=== PATIENT | male | born 1945 | race Caucasian/White ===

== ENCOUNTER 2018-04-06 09:36 | Outpatient (CLI) | payer MEDICARE, SELFPAY ==
[2018-04-06 11:26] LABS: ALT 19 U/L (12-78); AST 10 U/L (15-37); Albumin 3.4 g/dL (3.4-5.0); Alkaline Phosphatase 100 U/L (46-116); Anion Gap 7.2 mmol/L (3-11); BUN 21 mg/dL (7-18); Bilirubin, Total 0.4 mg/dL (0.2-1.0); CO2 26.8 mmol/L (21.0-32.0); CREATININE 1.25 mg/dL (0.70-1.30); Calcium 9.1 mg/dL (8.5-10.1); Chloride 104 mmol/L (98-107); Cholesterol 174 mg/dL (50-200); Estimated GFR 56.78 (mL/min/1.73m2); Glucose 190 mg/dL (70-100); HDL Cholesterol 33 mg/dL (40-60); LDL CHOLESTEROL 114 mg/dL (<100); Potassium 4.8 mmol/L (3.5-5.1); Sodium 138 mmol/L (136-145); Total Protein 6.9 g/dL (6.4-8.2); Triglyceride 192 mg/dL (30-150)
== END 2018-04-06 09:37 ==
PROVIDERS: PCP Family Medicine; Visit Provider Family Medicine
DX: E11.9 Type 2 diabetes mellitus without complications (principal)
CPT/HCPCS: 36415; 80053; 80061; 83721; 83036

== ENCOUNTER → 2018-06-03 09:33 | Outpatient (BNVA) | payer MEDICARE, SELFPAY | PROVIDERS: PCP Family Medicine; Visit Provider Urology | DX: C67.9 Malignant neoplasm of bladder, unspecified (principal) | CPT/HCPCS: 52000; 99213 ==

== ENCOUNTER → 2018-09-02 09:36 | Outpatient (BNVA) | payer MEDICARE, SELFPAY | PROVIDERS: PCP Family Medicine; Visit Provider Urology | DX: C67.9 Malignant neoplasm of bladder, unspecified (principal) | CPT/HCPCS: 52000; 99212 ==

== ENCOUNTER → 2018-10-11 12:23 | Outpatient (BNVA) | payer MEDICARE, SELFPAY | PROVIDERS: PCP Family Medicine; Visit Provider Urology | DX: C67.9 Malignant neoplasm of bladder, unspecified (principal) | CPT/HCPCS: 52224; 99212 ==

== ENCOUNTER → 2019-01-10 08:33 | Outpatient (BNVA) | payer MEDICARE, SELFPAY | PROVIDERS: PCP Family Medicine; Visit Provider Urology | DX: Z08 Encounter for follow-up examination after completed treatment for malignant neoplasm (principal); Z85.51 Personal history of malignant neoplasm of bladder | CPT/HCPCS: 52000; 99213 ==

== ENCOUNTER → 2019-04-21 08:34 | Outpatient (BNVA) | payer MEDICARE, SELFPAY | PROVIDERS: PCP Family Medicine; Visit Provider Urology | DX: C67.9 Malignant neoplasm of bladder, unspecified (principal) | CPT/HCPCS: 52000; 99212 ==

== ENCOUNTER 2019-05-05 02:31 | Outpatient (CLI) | payer MEDICARE, SELFPAY ==
[2019-05-05 11:32] LABS: ALT 24 U/L (16-63); AST 15 U/L (15-37); Albumin 3.8 g/dL (3.4-5.0); Alkaline Phosphatase 98 U/L (46-116); Anion Gap 8.3 mmol/L (3-11); BUN 23 mg/dL (7-18); Bilirubin, Total 0.3 mg/dL (0.2-1.0); CO2 27.7 mmol/L (21.0-32.0); CREATININE 1.06 mg/dL (0.70-1.30); Calcium 9.7 mg/dL (8.5-10.1); Chloride 103 mmol/L (98-107); Glucose 167 mg/dL (70-100); Sodium 139 mmol/L (136-145); Total Protein 7.5 g/dL (6.4-8.2)
[2019-05-05 12:53] LABS: Hemoglobin A1C 7.4 % (4.5-6.2)
== END 2019-05-05 02:51 ==
LOC: LBO 02:31 → LOS 08:16
PROVIDERS: PCP Family Medicine; Visit Provider Family Medicine
DX: E11.9 Type 2 diabetes mellitus without complications (principal); Z12.11 Encounter for screening for malignant neoplasm of colon; Z86.010 Personal history of colon polyps; I10 Essential (primary) hypertension
CPT/HCPCS: 36415; 80053; 83036

== ENCOUNTER 2019-05-22 11:53 | Outpatient (CLI) | payer MEDICARE, SELFPAY ==
--- NOTE | 2019-05-22 09:31 | DI.RAD_ITS ---
EXAM: XR KNEE LT 3V AP,LAT,RHIANNON INDICATION: L knee pain. COMPARISON: KNEES BILAT AP STANDING from 07/21/2017 TECHNIQUE: 2D digital imaging was performed. FINDINGS: Three views were obtained. There is marked narrowing of the medial tibiofemoral cartilaginous joint space. There is medial subluxation of the femur on the tibia. There are subchondral sclerotic and c ystic changes of the adjacent bones. Mild osteophyte formation noted medial tibiofemoral joint and p atellofemoral joint. IMPRESSION: Severe DJD predominantly involving medial tibiofemoral joint.
== END 2019-05-22 12:13 ==
PROVIDERS: PCP Family Medicine; Referring Provider Family Medicine; Visit Provider Student in an Organized Health Care Education/Training Program
DX: M25.562 Pain in left knee (principal); M17.12 Unilateral primary osteoarthritis, left knee
CPT/HCPCS: 73562; 99214

== ENCOUNTER 2019-05-26 06:58 | Day surgery (SDC) | payer MEDICARE, SELFPAY ==
[2019-05-26 07:18] VITALS: BP 158/98; RESP 20; TEMP 36.2; O2SAT 96
[2019-05-26] MEDS: Lactated Ringers 1,000 ML 80 ML IV (07:58)
--- NOTE | 2019-05-26 08:02 | W.PM.DSUDISC ---
Discharge Plan Disposition Patient Disposition: HOME Condition: Good Discharge Details Reason For Visit: Colonoscopy Attending Provider: Eileen Gee Primary Care Provider: Stephanie Light Home Meds and New Rx's Prescriptions: Continued verapamil 120 mg tablet 120 mg PO DAILY RF: 0 CBD Oil See Rx Instructions PO DAILY RF: 0 aspirin [Aspir-81] 81 MG tablet,delayed release (DR/EC) 81 mg PO DAILY RF: 0 lisinopril 40 mg tablet 40 mg PO DAILY Qty: 90 RF: 4 pravastatin 80 mg tablet 80 mg PO DAILY Qty: 90 RF: 4 metformin 500 mg tablet 1,000 mg PO DAILY RF: 0 Discharge Instructions Additional Instructions: Findings: Three polyps were removed, including a larger sigmoid polyp. My office will contact you with biopsy results. Follow up: Plan for a colonoscopy in 3 years. Please call if you develop: fevers >101.5 Nausea or Vomiting Abdominal pain that is not transient DAY SURGERY UNIT POST COLONOSCOPY INSTRUCTIONS 1. Because there will be medication in your system for the next 24 hours, you may feel a little sleepy. Your coordination will be affected. Therefore: a. Do not drive or operate dangerous equipment for 24 hours. b. Do not drink alcohol beverages for 24 hours (not even beer). c. Plan to go home and rest for the day. 2. Generally there are no restrictions on your activity after a day or so has gone by, but you may feel a bit fatigued for a few days. 3 After you arrive home you may have a light meal and return to a normal diet as you can tolerate it without feeling sick to your stomach. 4. After surgery, you may feel pain or discomfort. This should be only transient, but if it persists please contact your doctor. 5. If there are any questions regarding the findings of your procedure, please feel free to contact your doctor. 6. If you are unable to contact your doctor with a problem, contact the hospital at [phone]. 7. Continue all your regular medications unless directed otherwise. I understand the above instructions and have no questions. Signature of Patient or Responsible Adult Escort Date/Time Name of Responsible Adult Escort Signature of Nurse Date/Time Activity:: Activity as Tolerated Diet:: As Tolerated Discharge Orders Discharge Orders: Discharge Order (Routine); Ordered 05/26/19 Ordered By: Eileen Gee DS: Diagnosis Discharge Diagnosis (1) Colon polyps: Status: Acute (2) Diverticulosis: Status: Acute
--- NOTE | 2019-05-26 08:37 | BOWEL_PTH ---
PATIENT: Alvarado Adams LOC: [facility] U#:[id number] AGE/SX: 73/M ROOM: RE05/26/[address]: Eileen Gee MD : 1945 BED: DIS: 05/26/2019 SPEC #: [id number] RECD: 05/26/19 12:14 STATUS: GISEL REQ #: [id number] PATRICIA: 05/26/19 08:[address]: Eileen Gee DEPT: Surgical Specimen RECD BY: Tiki Yung ENTERED: 05/26/19 12:16 SP TYPE: Bowel OTHR DR: Stephanie Light MD Tissues: 1 - BIOPSY BOWEL 2 - BIOPSY BOWEL 3 - BIOPSY BOWEL Procedures: GROSS AND MICRO LEVEL 4 Comments: [id number]
[2019-05-26 09:40] VITALS: BP 147/77; PULSE 93; RESP 18; TEMP 36.1; O2SAT 98
--- NOTE | 2019-05-26 11:25 | COLE_ITS ---
DATE OF PROCEDURE: May 26, 2019 PREOPERATIVE DIAGNOSIS: History of colon polyps. POSTOPERATIVE DIAGNOSIS: 1. Diverticulosis. 2. Colon polyps. PROCEDURE: Colonoscopy with cold forceps polypectomy and hot snare polypectomy. SURGEON: Eileen Gee M.D. ANESTHESIA: General. INDICATIONS: This is a 73-year-old man whose last colonoscopy in 2013 showed several polyps. He has no family history of colon cancer and is asymptomatic. PROCEDURE: He was placed in the left Morton position. Propofol was titrated to sedation. Digital rec princess examination revealed no abnormalities. The scope was advanced to the cecum with a small amount o f abdominal pressure required. The ileocecal valve and appendiceal orifice were clearly identified. His prep was in general adequate, although there were a few areas of thick stool that could have obs cured a small polyp. The scope was slowly withdrawn with a diminutive polyp identified in the ascend ing colon. This was removed with the cold forceps. There were no abnormalities seen in the transver se colon. A diminutive polyp was also noted in the descending colon and removed with cold forceps. The patient was noted to have a moderate amount of sigmoid diverticulosis. At 30 cm in the sigmoid c olon there was a large polyp on a thick stock. I removed 90% of the polyp using snare polypectomy an d then removed the residual polyp and part of the normal stock with a second use of the snare. A hem ostatic clip was placed on the polypectomy site as a precaution. The polyp was dragged out and appea red to be about 2 cm in size. This was sent to Pathology. The scope was reinserted and the remainde r of the colon inspected with no other abnormalities seen, including on retroflex view. He tolerated the procedure well and was stable to recovery. He will likely need a follow-up colonoscopy again in three years due to the number and size of the polyps. cc: Stephanie Light M.D.
== END 2019-05-26 10:05 | disposition home or self-care (01) ==
PROVIDERS: PCP Family Medicine; Visit Provider Surgery
PROC: 0DJD8ZZ Inspection of Lower Intestinal Tract, Via Natural or Artificial Opening Endoscopic (ICD-10-PCS; CPT 45378; principal; 2019-05-26 08:15)
DX: Z12.11 Encounter for screening for malignant neoplasm of colon (principal); D12.2 Benign neoplasm of ascending colon; D12.4 Benign neoplasm of descending colon; D12.5 Benign neoplasm of sigmoid colon; K57.30 Diverticulosis of large intestine without perforation or abscess without bleeding; Z86.010 Personal history of colon polyps; Z87.19 Personal history of other diseases of the digestive system; E11.9 Type 2 diabetes mellitus without complications; Z79.4 Long term (current) use of insulin; I10 Essential (primary) hypertension
CPT/HCPCS: 45385; 45380; 88305

== ENCOUNTER → 2019-09-19 08:49 | Outpatient (BNVA) | payer MEDICARE, SELFPAY | PROVIDERS: PCP Family Medicine; Referring Provider Family Medicine; Visit Provider Urology | DX: C67.9 Malignant neoplasm of bladder, unspecified (principal) | CPT/HCPCS: 52000; 99212 ==

== ENCOUNTER 2019-09-19 09:42 | Outpatient (REF) | payer MEDICARE, SELFPAY ==
--- NOTE | 2019-09-19 09:15 | PAPNONF_PTH ---
PATIENT: Alvarado Adams LOC: [facility] U#:[id number] AGE/SX: 74/M ROOM: RE09/19/[address]: Bret Salinas MD : 1945 BED: DIS: 09/19/2019 SPEC #: [id number] RECD: 09/19/19 12:35 STATUS: GISEL REQ #: [id number] PATRICIA: 09/19/19 09:[address]: Bret Salinas DEPT: [facility] Cytology RECD BY: Tiki Yung ENTERED: 09/19/19 12:36 SP TYPE: JERRELL LENTZ DR: Stephanie Light MD Tissues: 1 - BODY FLUID CYTO(SPUTUM/URINE)[facility] Procedures: BODY FLUID CYTO(URINE/SPUTUM) Comments: [id number] (TOTAL VOLUME = 60 ml's) (30 ml's URINE & 30 ml's CYTOLYT ADDED IN 2 CONTAINERS)
== END 2019-09-19 10:02 ==
LOC: LBN 09:42
PROVIDERS: PCP Family Medicine; Visit Provider Urology
DX: R82.998 Other abnormal findings in urine (principal); Z85.51 Personal history of malignant neoplasm of bladder
CPT/HCPCS: 88104

== ENCOUNTER 2020-02-12 02:24 | Outpatient (CLI) | payer MEDICARE, SELFPAY ==
[2020-02-12 12:45] LABS: Hemoglobin A1C 10.9 % (3.8-5.6)
[2020-02-12 12:53] LABS: ALT 22 U/L (16-63); AST 10 U/L (15-37); Albumin 3.8 g/dL (3.4-5.0); Alkaline Phosphatase 101 U/L (46-116); Anion Gap 9.5 mmol/L (3-11); BUN 23 mg/dL (7-18); Bilirubin, Total 0.4 mg/dL (0.2-1.0); CO2 25.5 mmol/L (21.0-32.0); CREATININE 0.99 mg/dL (0.70-1.30); Calcium 9.8 mg/dL (8.5-10.1); Calculated LDL 117 mg/dL (<100); Chloride 101 mmol/L (98-107); Cholesterol 196 mg/dL (<200); Glucose 233 mg/dL (74-106); HDL Cholesterol 40 mg/dL (40-60); Potassium 4.7 mmol/L (3.5-5.1); Sodium 136 mmol/L (136-145); Total Protein 7.1 g/dL (6.4-8.2); Triglyceride 195 mg/dL (<150)
== END 2020-02-12 02:44 ==
PROVIDERS: PCP Family Medicine; Visit Provider Family Medicine
DX: E11.9 Type 2 diabetes mellitus without complications (principal)
CPT/HCPCS: 36415; 80053; 80061; 82043; 82570; 83036

== ENCOUNTER → 2020-03-22 08:37 | Outpatient (BNVA) | payer MEDICARE, SELFPAY | PROVIDERS: PCP Family Medicine; Referring Provider Family Medicine; Visit Provider Urology | DX: C67.9 Malignant neoplasm of bladder, unspecified (principal) | CPT/HCPCS: 52000; 99213 ==

== ENCOUNTER 2020-03-22 09:40 | Outpatient (REF) | payer MEDICARE, SELFPAY ==
--- NOTE | 2020-03-22 09:20 | PAPNONF_PTH ---
PATIENT: Alvarado Adams LOC: [facility] U#:[id number] AGE/SX: 74/M ROOM: RE03/22/[address]: Bret Salinas MD : 1945 BED: DIS: 03/22/2020 SPEC #: [id number] RECD: 03/22/20 13:16 STATUS: GISEL REQ #: [id number] PATRICIA: 03/22/20 09:[address]: Bret Salinas DEPT: [facility] Cytology RECD BY: Ada Estrada ENTERED: 03/22/20 13:17 SP TYPE: JERRELL LENTZ DR: Stephanie Light MD Tissues: 1 - BODY FLUID CYTO(SPUTUM/URINE)[facility] Procedures: BODY FLUID CYTO(URINE/SPUTUM) Comments: [id number] (TOTAL VOLUME = 70 ML) (35 ML URINE & 35 ML CYTOLYT IN 2 CONTAINERS)
== END 2020-03-22 10:00 ==
LOC: LBN 09:40
PROVIDERS: PCP Family Medicine; Visit Provider Urology
DX: Z12.6 Encounter for screening for malignant neoplasm of bladder (principal); Z85.51 Personal history of malignant neoplasm of bladder
CPT/HCPCS: 88104

== ENCOUNTER 2020-09-11 12:52 | Outpatient (REF) | payer MEDICARE, SELFPAY ==
--- NOTE | 2020-09-11 10:35 | SKI_PTH ---
PATIENT: Alvarado Adams LOC: [facility] U#:[id number] AGE/SX: 75/M ROOM: RE09/11/[address]: Stephanie Light MD : 1945 BED: DIS: 09/11/2020 SPEC #: [id number] RECD: 09/11/20 13:00 STATUS: GISEL ALBARRAN #: [id number] PATRICIA: 09/11/20 10:[address]: Stephanie Light DEPT: Surgical Specimen RECD BY: Tiki Yung Tissues: 1 - SKIN BIOPSY(SHAVE/PUNCH) Procedures: SKIN LEVEL 4 Comments: [id number]
[2020-09-11 14:42] LABS: COMMENT (LAB VIEW ONLY) 33.51 mg/dL; Microalb ug/mg Crea 42.1 ug/mg Cr
== END 2020-09-11 12:53 | disposition home or self-care (01) ==
LOC: LBN 12:52
PROVIDERS: PCP Family Medicine; Visit Provider Family Medicine
DX: E11.9 Type 2 diabetes mellitus without complications (principal); L82.1 Other seborrheic keratosis
CPT/HCPCS: 82043; 82570; 88305

== ENCOUNTER → 2020-09-17 09:37 | Outpatient (BNVA) | payer MEDICARE, SELFPAY | PROVIDERS: PCP Family Medicine; Visit Provider Urology | DX: C67.9 Malignant neoplasm of bladder, unspecified (principal) | CPT/HCPCS: 52281; 81003; 99213 ==

== ENCOUNTER → 2020-10-17 09:08 | Outpatient (BNVA) | payer MEDICARE, SELFPAY | PROVIDERS: PCP Family Medicine; Referring Provider Family Medicine; Visit Provider Urology | DX: C67.9 Malignant neoplasm of bladder, unspecified (principal); D30.3 Benign neoplasm of bladder | CPT/HCPCS: 52234; 81003; 99212 ==

== ENCOUNTER 2020-10-17 11:19 | Outpatient (REF) | payer MEDICARE, SELFPAY ==
--- NOTE | 2020-10-17 09:45 | BLADDER_PTH ---
PATIENT: Alvarado Adams LOC: [facility] U#:[id number] AGE/SX: 75/M ROOM: RE10/17/[address]: Bret Salinas MD : 1945 BED: DIS: 10/17/2020 SPEC #: [id number] RECD: 10/17/20 16:47 STATUS: GISEL RERicky #: [id number] PATRICIA: 10/17/20 09:[address]: Bret Salinas DEPT: Surgical Specimen RECD BY: Tiki Yung ENTERED: 10/17/20 16:47 SP TYPE: Bladder OTHR DR: Stephanie Light MD Tissues: 1 - BLADDER BIOPSY Procedures: GROSS AND MICRO LEVEL 4 IMMUNOPEROXIDASE STAIN Comments: [id number]
== END 2020-10-17 11:20 | disposition home or self-care (01) ==
LOC: LBN 11:19
PROVIDERS: PCP Family Medicine; Visit Provider Urology
DX: N32.89 Other specified disorders of bladder (principal); Z85.51 Personal history of malignant neoplasm of bladder
CPT/HCPCS: 88305; 88361

== ENCOUNTER → 2020-10-25 08:44 | Outpatient (BNVA) | payer MEDICARE, SELFPAY | PROVIDERS: PCP Family Medicine; Referring Provider Family Medicine; Visit Provider Urology | DX: C67.9 Malignant neoplasm of bladder, unspecified (principal) | CPT/HCPCS: 99212; 99442 ==

== ENCOUNTER 2020-11-29 01:10 | Outpatient (CLI) | payer MEDICARE, SELFPAY ==
[2020-11-29 12:34] LABS: Hemoglobin A1C 6.5 % (<5.7)
[2020-11-29 12:38] LABS: Calculated LDL 87 mg/dL (<100); Cholesterol 167 mg/dL (<200); HDL Cholesterol 40 mg/dL (40-60); Triglyceride 203 mg/dL (<150)
== END 2020-11-29 01:11 | disposition home or self-care (01) ==
LOC: LOS 01:10
PROVIDERS: PCP Family Medicine; Visit Provider Family Medicine
DX: E11.9 Type 2 diabetes mellitus without complications (principal)
CPT/HCPCS: 36415; 80061; 83036

== ENCOUNTER → 2021-03-18 08:52 | Outpatient (BNVA) | payer MEDICARE, SELFPAY | PROVIDERS: PCP Family Medicine; Referring Provider Family Medicine; Visit Provider Urology | DX: C67.9 Malignant neoplasm of bladder, unspecified (principal) | CPT/HCPCS: 52000; 81003; 99213 ==

== ENCOUNTER 2021-06-02 01:06 | Outpatient (CLI) | payer MEDICARE, SELFPAY ==
[2021-06-02 12:31] LABS: BUN 25 mg/dL (7-18); CREATININE 1.1 mg/dL (0.70-1.30); Calcium 10.4 mg/dL (8.5-10.1); Chloride 103 mmol/L (98-107); Glucose 163 mg/dL (74-106); Potassium 4.6 mmol/L (3.5-5.1); Sodium 140 mmol/L (136-145)
[2021-06-02 12:55] LABS: Hemoglobin A1C 8.9 % (<5.7)
== END 2021-06-02 01:07 | disposition home or self-care (01) ==
LOC: LOS 01:06
PROVIDERS: PCP Family Medicine; Visit Provider Family Medicine
DX: E11.9 Type 2 diabetes mellitus without complications (principal)
CPT/HCPCS: 36415; 80048; 83036

== ENCOUNTER 2021-07-10 01:19 | Outpatient (CLI) | payer MEDICARE, SELFPAY ==
--- NOTE | 2021-07-10 10:11 | DI.US_ITS ---
APPROVED REPORT EXAM: Comprehensive 2D, Doppler, and color-flow Echocardiogram Patient Location: Out-Patient Motor Builder Assembler: Jackie Troy RDCS (AE) Indications: Exertional dyspnea, Systolic murmur Other Information Study Quality: Adequate Conclusion Normal left ventricular wall thickness and chamber size. Estimated ejection fraction is 50 to 55%. There is mild global hypokinesis Normal right ventricular size and systolic function Both atria are normal in size The aortic valve is calcified. Number of leaflets could not be accurately determined. There was sev ere aortic stenosis with a peak gradient of 84, mean 51 mmHg. Calculated aortic valve area was 0.86 cm??. There was mild aortic regurgitation Mild mitral annular calcification with trace mitral regurgitation Normal tricuspid valve with trace regurgitation. Right ventricular systolic pressure could not be es timated Mildly dilated ascending aorta measuring 3.6 cm Wall motion Left Ventricle The left ventricle is normal size. Left ventricular systolic function is mildly decreased. There is n ormal left ventricular wall thickness. There is global hypokinesis of the left ventricle. There is no ventricular septal defect visualized. LVEF is 50-55%. Right Ventricle The right ventricle is normal size. The right ventricular systolic function is normal. Atria The left atrium size is normal. The right atrium size is normal. The interatrial septum is intact wit h no evidence for an atrial septal defect. Aortic Valve Aortic valve is calcified. Number of aortic valve leaflets could not be assessed. Severe aortic steno sis. Peak aortic valve gradient is 84.7mmHg. Highest mean aortic valve gradient is 51.0mmHg. Calculat ed SHERRI by the continuity equation is .86cm2. Mild aortic regurgitation. Mitral Valve Mild mitral annular calcification. No evidence of mitral valve stenosis. Trace mitral regurgitation. Tricuspid Valve The tricuspid valve is normal in structure. There is no tricuspid valve stenosis. Trace tricuspid reg urgitation. Unable to assess PA pressure. Pulmonic Valve The pulmonary valve is normal in structure. There is no pulmonic valvular stenosis. There is no pulmo yonny valvular regurgitation. Great Vessels The aortic root is normal in size. The ascending aorta is mildly dilated. Aortic arch is normal in ca liber. IVC is normal in size and collapses >50% with inspiration. Pericardium There is no pericardial effusion. 2D Dimensions IVSD d PLAX 1.19 cm M: 0.6-1.2 LV Vol A2C d MOD 121.8 mL LVPW d PLAX 1.18 cm M: 0.6 - 1.2 LV Vol A4C d MOD 135.7 mL LVID d PLAX 4.94 cm M: 4.2 - 5.8 LA vol/ BSA A4C s A-L 19.2 mL/m2 LVDs 3.55 cm M: 2.5 - 4.0 LA Area A4C s MOD 17.49 cm2 Ao Root d 2.77 cm M: 3.1 - 3.7 LV EF A4C MOD 50.5 % RA Area A4C 15.74 cm2 LV EF A2C MOD 50.3 % RA Vol/ BSA A4C s A-L 17.9 mL/m2 LV EF Biplane MOD 48.9 % Ao Asc Diam d 3.60 cm M: 2.6 - 3.4 SV 62.89 mL LV EF Teichholz 53.4 % SV Index 26.24 mL/m2 LVEF (Dexter's) 48.93 % M: 52 - 72 LV Volume 91.09 mL M: 62 - 150 LV Volume Index 38.11 mL/m2 M: 34 - 74 LV Vol Biplane MOD 128.5 mL FS 27.60 % M-Mode TAPSE 2.23 cm (M/F) >1.7 LV Diastology MV E' medial 0.072 (>0.07 m/s) E/A Ratio 0.8 LV E/e MED 10.35 (<14) MV E Vmax 0.75 (0.4-1.3 m/s) MV E' lateral 0.101 (>0.1 m/s) MV A Vmax 1.00 (0.4-1.3 m/s) LV E/e LAT 7.35 (<14) MV E/A Ratio 0.74 MV E/E' medial 10.35 MV E/E' lateral 7.36 Aortic Valve LVOT Area 3.70 cm2 AoV Area Vmax 0.86 cm2 LVOT Vmax 1.07 m/s AoV Area/ BSA (Vmax) 0.36 cm2/m2 LVOT Mean Vargas. 0.73 m/s SHERRI Mean Vargas. 0.79 cm2 LVOT Peak Grad 4.6 mmHg SHERRI Mean Vargas. Index 0.33 cm2/m2 LVOT Mean Grad 2.5 mmHg AR DT 1458 msec LVOT VTI 0.230 m AR PHT 423 msec LVOT Diam s 2.15 cm AoV Vmax 4.60 m/s Velocity Ratio 0.23 AoV Mean Vargas. 3.42 m/s AoV Peak Grad 84.7 mmHg LVOT SV 85.25 mL AoV Mean Grad 51.0 mmHg AoV VTI 1.001 m AoV Area VTI 0.85 cm2 AoV Area/ BSA (VTI) 0.36 cm/m2 Mitral Valve MV DT 294 (160-240 msec) MV PHT 85 msec MV Area PHT 2.58 cm2 MV VTI 0.296 m MV Area VTI 2.88 (4.0-6.0 cm2) Pulmonary Valve PV Vmax 1.89 (0.5-1.5 m/s) RVOT Peak Gr. 2.54 mmHg PV Peak Grad 14.3 mmHg RVOT Mean Gr. 1.25 mmHg PV Mean Grad 8.9 mmHg RVOT VTI 0.173 m PV VTI 0.343 m RVOT Vmax 0.80 m/s
== END 2021-07-10 01:39 ==
PROVIDERS: PCP Family Medicine; Visit Provider Family Medicine
DX: R01.1 Cardiac murmur, unspecified (principal); R06.09 Other forms of dyspnea; I35.2 Nonrheumatic aortic (valve) stenosis with insufficiency; I77.810 Thoracic aortic ectasia
CPT/HCPCS: 93306

== ENCOUNTER 2021-08-18 08:01 | Outpatient (CLI) | payer MEDICARE, SELFPAY ==
--- NOTE | 2021-08-18 08:00 | RT.EKG_ITS ---
APPROVED REPORT Exam: Resting ECG Reason for Exam: Patient Location: O HR:86 bpm ECG Measurements Heart Rate 86 AXIS MA 147 P 25 QRSd 107 QRS 41 QT 353 T 48 QTc 423 Conclusion Sinus rhythm with atrial premature beats Abnormal R-wave progression, early transition...QRS area>0 in V2 IVCD
== END 2021-08-18 08:02 | disposition home or self-care (01) ==
LOC: DI.CARD 08:02
PROVIDERS: PCP Family Medicine; Visit Provider Internal Medicine Cardiovascular Disease
DX: I35.0 Nonrheumatic aortic (valve) stenosis (principal); I49.1 Atrial premature depolarization; R94.31 Abnormal electrocardiogram [ECG] [EKG]
CPT/HCPCS: 93010

== ENCOUNTER → 2021-08-18 13:19 | Outpatient (BNVA) | payer MEDICARE, SELFPAY | PROVIDERS: PCP Family Medicine; Referring Provider Family Medicine; Visit Provider Internal Medicine Cardiovascular Disease | DX: I35.0 Nonrheumatic aortic (valve) stenosis (principal); I10 Essential (primary) hypertension; E78.5 Hyperlipidemia, unspecified | CPT/HCPCS: 93005; 99204; 99214 ==

== ENCOUNTER 2021-08-20 03:16 | Outpatient (CLI) | payer MEDICARE, SELFPAY ==
[2021-08-20 13:16] LABS: HCT 46.2 % (40.0-50.0); MCHC 32.5 % (32.0-36.0); MCV 92.4 fL (80-95); MPV 9.4 fL (8.0-11.0); Platelet Count 217 10^3/uL (130-400); RDW-SD 40.8 fL; WBC 9.05 10^3/uL (4.4-10.8)
[2021-08-20 14:01] LABS: PTT Activated 21.7 sec (21.0-27.5); Prothrombin Time 10.4 sec (9.3-11.0)
[2021-08-20 14:08] LABS: Anion Gap 9.4 mmol/L (3-11); BUN 14 mg/dL (7-18); CO2 27.6 mmol/L (21.0-32.0); Calcium 9.6 mg/dL (8.5-10.1); Chloride 100 mmol/L (98-107); Glucose 119 mg/dL (74-106); Potassium 4.6 mmol/L (3.5-5.1); Sodium 137 mmol/L (136-145)
== END 2021-08-20 03:17 | disposition home or self-care (01) ==
LOC: LBO 03:16
PROVIDERS: PCP Family Medicine; Visit Provider Internal Medicine Cardiovascular Disease
DX: I35.0 Nonrheumatic aortic (valve) stenosis (principal); E78.5 Hyperlipidemia, unspecified; I10 Essential (primary) hypertension; M79.89 Other specified soft tissue disorders
CPT/HCPCS: 36415; 80048; 85027; 85610; 85730

== ENCOUNTER → 2021-10-07 08:41 | Outpatient (BNVA) | payer MEDICARE, SELFPAY | PROVIDERS: PCP Family Medicine; Referring Provider Family Medicine; Visit Provider Urology | DX: C67.9 Malignant neoplasm of bladder, unspecified (principal) | CPT/HCPCS: 52000; 81003 ==

== ENCOUNTER 2021-11-05 03:14 | Outpatient (CLI) | payer MEDICARE, SELFPAY | END 2021-11-05 03:15 | disposition home or self-care (01) | LOC: LBO 03:14 | PROVIDERS: PCP Family Medicine; Visit Provider Family Medicine ==

== ENCOUNTER 2021-11-10 04:01 | Outpatient (CLI) | payer MEDICARE, SELFPAY ==
[2021-11-10 12:42] LABS: Source Nasal/Nares
[2021-11-10 15:17] LABS: COVID-19 PCR Negative (Negative)
== END 2021-11-10 04:02 | disposition home or self-care (01) ==
LOC: LBO 04:01
PROVIDERS: PCP Family Medicine; Visit Provider Thoracic Surgery (Cardiothoracic Vascular Surgery)
DX: Z20.822 Contact with and (suspected) exposure to COVID-19 (principal)
CPT/HCPCS: 87635; U0005

== ENCOUNTER 2021-11-21 08:57 | Outpatient (CLI) | payer MEDICARE, SELFPAY ==
--- NOTE | 2021-11-21 09:15 | RT.EKG_ITS ---
APPROVED REPORT Exam: Resting ECG Reason for Exam: TAVR Patient Location: O HR:84 bpm ECG Measurements Heart Rate 84 AXIS AK 130 P -9 QRSd 103 QRS 39 QT 364 T 68 QTc 431 Conclusion Sinus rhythm...normal P axis, V-rate 50- 99 Atrial premature complexes...SV complexes w/ short R-R intvls
== END 2021-11-21 08:58 | disposition home or self-care (01) ==
PROVIDERS: PCP Family Medicine; Referring Provider Family Medicine; Visit Provider Internal Medicine Cardiovascular Disease
DX: Z95.2 Presence of prosthetic heart valve (principal)
CPT/HCPCS: 93010

== ENCOUNTER → 2021-11-21 08:57 | Outpatient (BNVA) | payer MEDICARE, SELFPAY | PROVIDERS: PCP Family Medicine; Referring Provider Family Medicine; Visit Provider Internal Medicine Cardiovascular Disease | DX: I10 Essential (primary) hypertension (principal); E11.9 Type 2 diabetes mellitus without complications; E78.5 Hyperlipidemia, unspecified; Z95.2 Presence of prosthetic heart valve | CPT/HCPCS: 93005; 99214; 99213 ==

== ENCOUNTER 2021-12-05 09:00 | Outpatient (RCR) | payer MEDICARE, SELFPAY | END 2021-12-06 23:59 | disposition home or self-care (01) | LOC: CR 09:00 | PROVIDERS: PCP Family Medicine; Visit Provider Internal Medicine Cardiovascular Disease | DX: Z51.89 Encounter for other specified aftercare (principal); Z95.2 Presence of prosthetic heart valve | CPT/HCPCS: S9472 ==

== ENCOUNTER 2021-12-15 01:27 | Outpatient (CLI) | payer MEDICARE, SELFPAY ==
[2021-12-15 13:51] LABS: Hemoglobin A1C 7.7 % (<5.7)
== END 2021-12-15 01:28 | disposition home or self-care (01) ==
LOC: LOS 01:27
PROVIDERS: PCP Family Medicine; Visit Provider Family Medicine
DX: E11.9 Type 2 diabetes mellitus without complications (principal)
CPT/HCPCS: 36415; 82043; 82570; 83036

== ENCOUNTER 2021-12-16 13:05 | Outpatient (REF) | payer MEDICARE, SELFPAY ==
[2021-12-17 14:17] LABS: COMMENT (LAB VIEW ONLY) 149.69 mg/dL; Microalb ug/mg Crea 51.8 ug/mg Cr
== END 2021-12-17 12:55 | disposition home or self-care (01) ==
LOC: LBN 13:05
PROVIDERS: PCP Family Medicine; Visit Provider Family Medicine
DX: E11.9 Type 2 diabetes mellitus without complications (principal)
CPT/HCPCS: 82043; 82570

== ENCOUNTER 2022-01-02 09:00 | Outpatient (RCR) | payer MEDICARE, SELFPAY ==
--- NOTE | 2022-01-02 09:30 | RT.EKG_ITS ---
APPROVED REPORT Exam: Resting ECG Reason for Exam: Abnormal ekg Patient Location: O HR:101 bpm ECG Measurements Heart Rate 101 AXIS NJ 138 P 41 QRSd 104 QRS 46 QT 354 T 75 QTc 459 Conclusion Sinus rhythm rate...V-rate 81-130, Multiple premature atrial contractions Minor diffuse nondiagnostic ST-T abnormalities
== END 2022-01-06 23:59 | disposition home or self-care (01) ==
LOC: CR 09:00
PROVIDERS: PCP Family Medicine; Visit Provider Internal Medicine Cardiovascular Disease
DX: Z51.89 Encounter for other specified aftercare (principal); Z95.2 Presence of prosthetic heart valve
CPT/HCPCS: S9472

== ENCOUNTER 2022-01-19 04:05 | Outpatient (CLI) | payer MEDICARE, SELFPAY | END 2022-01-19 04:06 | disposition home or self-care (01) | LOC: LOS 04:05 | PROVIDERS: PCP Family Medicine; Visit Provider Physician Assistant Surgical ==

== ENCOUNTER 2022-01-19 13:24 | Outpatient (CLI) | payer MEDICARE, SELFPAY ==
[2022-01-19 08:48] LABS: Abs Immature Grans 0.02 10^3/uL (0.0-0.06); Absolute Basophil Count 0.06 10^3/uL (0.0-0.2); Absolute Eosinophil Count 0.36 10^3/uL (0.0-0.7); Absolute Lymphocyte Count 2.02 10^3/uL (1.2-3.4); Absolute Monocyte Count 0.84 10^3/uL (0.1-0.8); Absolute Neutrophil Count 3.31 10^3/uL (1.2-6.7); Basophils % 0.9; Eosinophils % 5.4; HCT 41.5 % (40.0-50.0); HGB 14.5 g/dL (13.5-17.5); Immature Grans % 0.3; Lymphocytes % 30.6; MCH 31.4 pg (27.0-33.0); MCHC 34.9 % (32.0-36.0); MCV 90 fL (80-95); MPV 9.5 fL (8.0-11.0); Monocytes % 12.7; Neutrophils % 50.1; Platelet Count 187 10^3/uL (130-400); RBC 4.62 10^6/uL (4.36-5.78); RDW 12.3 % (11.8-14.1); WBC 6.61 10^3/uL (4.4-10.8)
[2022-01-19 09:31] LABS: ALT 21 U/L (16-63); AST 14 U/L (15-37); Albumin 3.6 g/dL (3.4-5.0); Alkaline Phosphatase 101 U/L (46-116); Anion Gap 8.9 mmol/L (3-11); BUN 18 mg/dL (7-18); Bilirubin, Total 0.3 mg/dL (0.2-1.0); CO2 26.1 mmol/L (21.0-32.0); Calcium 9.3 mg/dL (8.5-10.1); Chloride 103 mmol/L (98-107); Glucose 152 mg/dL (74-106); Potassium 4.4 mmol/L (3.5-5.1); Sodium 138 mmol/L (136-145); Total Protein 7.2 g/dL (6.4-8.2)
== END 2022-01-19 13:25 | disposition home or self-care (01) ==
LOC: LBO 13:25
PROVIDERS: PCP Family Medicine; Visit Provider Physician Assistant Surgical
DX: Z95.2 Presence of prosthetic heart valve (principal); I35.0 Nonrheumatic aortic (valve) stenosis
CPT/HCPCS: 36415; 80053; 85025

== ENCOUNTER 2022-02-04 09:00 | Outpatient (RCR) | payer MEDICARE, SELFPAY | END 2022-02-05 23:59 | disposition home or self-care (01) | LOC: CR 09:00 | PROVIDERS: PCP Family Medicine; Visit Provider Internal Medicine Cardiovascular Disease | DX: Z51.89 Encounter for other specified aftercare (principal); Z95.2 Presence of prosthetic heart valve | CPT/HCPCS: S9472 ==

== ENCOUNTER 2022-02-11 09:00 | Outpatient (RCR) | payer MEDICARE, SELFPAY | END 2022-03-08 23:59 | disposition home or self-care (01) | LOC: CR 09:00 | PROVIDERS: PCP Family Medicine; Visit Provider Internal Medicine Cardiovascular Disease | DX: Z95.2 Presence of prosthetic heart valve (principal); Z51.89 Encounter for other specified aftercare | CPT/HCPCS: S9472 ==

== ENCOUNTER → 2022-02-17 11:17 | Outpatient (BNVA) | payer MEDICARE, SELFPAY | PROVIDERS: PCP Family Medicine; Referring Provider Family Medicine; Visit Provider Internal Medicine Cardiovascular Disease | DX: Z95.2 Presence of prosthetic heart valve (principal); I10 Essential (primary) hypertension | CPT/HCPCS: 99214; 99213 ==

== ENCOUNTER 2022-02-20 01:25 | Outpatient (CLI) | payer MEDICARE, SELFPAY | END 2022-02-20 01:26 | disposition home or self-care (01) | LOC: LOS 01:25 | PROVIDERS: PCP Family Medicine; Visit Provider Family Medicine ==

== ENCOUNTER 2022-06-24 02:48 | Outpatient (CLI) | payer MEDICARE, SELFPAY ==
[2022-06-24 12:39] LABS: COMMENT (LAB VIEW ONLY) 77.95 mg/dL; Microalb ug/mg Crea 54.1 ug/mg Cr
[2022-06-24 12:46] LABS: ALT 15 U/L (16-63); Anion Gap 7.1 mmol/L (3-11); BUN 17 mg/dL (7-18); CO2 27.9 mmol/L (21.0-32.0); CREATININE 1.2 mg/dL (0.70-1.30); Calcium 9.5 mg/dL (8.5-10.1); Calculated LDL 94 mg/dL (<100); Chloride 104 mmol/L (98-107); Cholesterol 160 mg/dL (<200); Estimated GFR 62.67 (mL/min/1.73m2); Glucose 185 mg/dL (74-106); HDL Cholesterol 44 mg/dL (40-60); Potassium 4.3 mmol/L (3.5-5.1); Sodium 139 mmol/L (136-145); Triglyceride 112 mg/dL (<150)
[2022-06-24 12:56] LABS: Hemoglobin A1C 8.2 % (<5.7)
== END 2022-06-24 02:49 | disposition home or self-care (01) ==
LOC: LOS 02:48
PROVIDERS: PCP Family Medicine; Visit Provider Family Medicine
DX: I10 Essential (primary) hypertension (principal); E78.5 Hyperlipidemia, unspecified; E11.21 Type 2 diabetes mellitus with diabetic nephropathy
CPT/HCPCS: 36415; 80048; 80061; 82043; 82570; 83036; 84460

== ENCOUNTER → 2022-08-24 09:28 | Outpatient (BNVA) | payer MEDICARE, SELFPAY | PROVIDERS: PCP Family Medicine; Referring Provider Family Medicine; Visit Provider Internal Medicine Cardiovascular Disease | DX: Z95.2 Presence of prosthetic heart valve (principal); I10 Essential (primary) hypertension | CPT/HCPCS: 99213 ==

== ENCOUNTER 2022-09-24 11:18 | Outpatient (CLI) | payer MEDICARE, SELFPAY ==
--- NOTE | 2022-09-24 11:15 | RT.EKG_ITS ---
APPROVED REPORT Exam: Resting ECG Reason for Exam: chest pain Patient Location: O HR:117 bpm ECG Measurements Heart Rate 117 AXIS UT 141 P 14 QRSd 92 QRS 28 QT 334 T [id number] QTc 466 Conclusion Atrial flutter/fibrillation Probable posterior infarct, recent...prom R, STd, V1-3 or Q, Nazanin, V7-9
== END 2022-09-24 11:19 | disposition home or self-care (01) ==
LOC: DI.CARD 11:18
PROVIDERS: PCP Family Medicine; Visit Provider Internal Medicine Cardiovascular Disease
DX: R07.9 Chest pain, unspecified (principal); R94.31 Abnormal electrocardiogram [ECG] [EKG]; I48.91 Unspecified atrial fibrillation
CPT/HCPCS: 93010

== ENCOUNTER → 2022-09-24 11:25 | Outpatient (BNVA) | payer MEDICARE, SELFPAY | PROVIDERS: PCP Family Medicine; Referring Provider Family Medicine; Visit Provider Internal Medicine Cardiovascular Disease | DX: R07.9 Chest pain, unspecified (principal); I10 Essential (primary) hypertension; I48.91 Unspecified atrial fibrillation; Z95.2 Presence of prosthetic heart valve | CPT/HCPCS: 93005; 99214; 99215 ==

== ENCOUNTER 2022-09-29 08:50 | Outpatient (CLI) | payer MEDICARE, SELFPAY ==
--- NOTE | 2022-09-29 08:45 | RT.EKG_ITS ---
APPROVED REPORT Exam: Resting ECG Reason for Exam: afib Patient Location: O HR:82 bpm ECG Measurements Heart Rate 82 AXIS NJ 149 P 25 QRSd 104 QRS 31 QT 376 T 44 QTc 439 Conclusion Sinus rhythm...normal P axis, V-rate 50- [address]-T abnormalities
== END 2022-09-29 08:51 | disposition home or self-care (01) ==
LOC: DI.CARD 08:51
PROVIDERS: PCP Family Medicine; Visit Provider Internal Medicine Cardiovascular Disease
DX: I48.91 Unspecified atrial fibrillation (principal)
CPT/HCPCS: 93010

== ENCOUNTER → 2022-09-29 09:08 | Outpatient (BNVA) | payer MEDICARE, SELFPAY | PROVIDERS: PCP Family Medicine; Referring Provider Family Medicine; Visit Provider Internal Medicine Cardiovascular Disease | DX: R07.9 Chest pain, unspecified (principal); I48.91 Unspecified atrial fibrillation; I25.10 Atherosclerotic heart disease of native coronary artery without angina pectoris; Z95.2 Presence of prosthetic heart valve | CPT/HCPCS: 93005; 99214 ==

== ENCOUNTER → 2022-10-05 08:37 | Outpatient (BNVA) | payer MEDICARE, SELFPAY | PROVIDERS: PCP Family Medicine; Visit Provider Urology | DX: Z08 Encounter for follow-up examination after completed treatment for malignant neoplasm (principal); Z85.51 Personal history of malignant neoplasm of bladder | CPT/HCPCS: 52000 ==

== ENCOUNTER 2022-10-20 02:23 | Outpatient (CLI) | payer MEDICARE, SELFPAY ==
[2022-10-20 12:45] LABS: Prothrombin Time 12.7 sec (9.3-11.0)
[2022-10-20 12:48] LABS: INR 1.2 (0.9-1.1)
[2022-10-20 12:52] LABS: Anion Gap 7.6 mmol/L (3-11); BUN 19 mg/dL (7-18); CO2 28.4 mmol/L (21.0-32.0); CREATININE 1.2 mg/dL (0.70-1.30); Calcium 9.5 mg/dL (8.5-10.1); Chloride 102 mmol/L (98-107); Estimated GFR 62.29 (mL/min/1.73m2); Glucose 140 mg/dL (74-106); Potassium 4.8 mmol/L (3.5-5.1); Sodium 138 mmol/L (136-145)
== END 2022-10-20 02:24 | disposition home or self-care (01) ==
LOC: LOS 02:23
PROVIDERS: PCP Family Medicine; Visit Provider Family Medicine
DX: E11.9 Type 2 diabetes mellitus without complications (principal); I48.91 Unspecified atrial fibrillation; Z79.01 Long term (current) use of anticoagulants
CPT/HCPCS: 36415; 80048; 85610

== ENCOUNTER 2022-10-22 02:45 | Outpatient (CLI) | payer MEDICARE, SELFPAY | END 2022-10-22 02:46 | disposition home or self-care (01) | LOC: LOS 02:45 | PROVIDERS: PCP Family Medicine; Visit Provider Family Medicine | DX: I48.91 Unspecified atrial fibrillation (principal); Z79.01 Long term (current) use of anticoagulants | CPT/HCPCS: 36415; 85610 ==

== ENCOUNTER 2022-10-29 04:23 | Outpatient (CLI) | payer MEDICARE, SELFPAY ==
[2022-10-29 13:44] LABS: INR 3.2 (0.9-1.1)
== END 2022-10-29 04:24 | disposition home or self-care (01) ==
LOC: LOS 04:23
PROVIDERS: PCP Family Medicine; Visit Provider Family Medicine
DX: I35.0 Nonrheumatic aortic (valve) stenosis; I25.10 Atherosclerotic heart disease of native coronary artery without angina pectoris; Z79.01 Long term (current) use of anticoagulants
CPT/HCPCS: 36415; 85610

== ENCOUNTER 2022-11-06 01:35 | Outpatient (CLI) | payer MEDICARE, SELFPAY ==
[2022-11-06 10:53] LABS: INR 2.9 (0.9-1.1)
== END 2022-11-06 01:36 | disposition home or self-care (01) ==
LOC: LOS 01:36
PROVIDERS: PCP Family Medicine; Visit Provider Family Medicine
DX: I48.91 Unspecified atrial fibrillation (principal); Z79.01 Long term (current) use of anticoagulants
CPT/HCPCS: 36415; 85610

== ENCOUNTER 2022-11-13 02:04 | Outpatient (CLI) | payer MEDICARE, SELFPAY ==
[2022-11-13 12:33] LABS: INR 1.1 (0.9-1.1); Prothrombin Time 11.6 sec (9.3-11.0)
== END 2022-11-13 02:05 | disposition home or self-care (01) ==
LOC: LOS 02:04
PROVIDERS: PCP Family Medicine; Visit Provider Family Medicine
DX: I48.91 Unspecified atrial fibrillation (principal); Z95.2 Presence of prosthetic heart valve; Z79.01 Long term (current) use of anticoagulants
CPT/HCPCS: 36415; 85610

== ENCOUNTER → 2022-11-16 10:13 | Outpatient (BNVA) | payer MEDICARE, SELFPAY | PROVIDERS: PCP Family Medicine; Referring Provider Family Medicine; Visit Provider Surgery | DX: L72.3 Sebaceous cyst (principal) | CPT/HCPCS: 11403; 99212; 99215 ==

== ENCOUNTER 2022-11-23 02:26 | Outpatient (CLI) | payer MEDICARE, SELFPAY ==
[2022-11-23 12:35] LABS: INR 1.4 (0.9-1.1); Prothrombin Time 13.9 sec (9.3-11.0)
== END 2022-11-23 02:27 | disposition home or self-care (01) ==
LOC: LOS 02:26
PROVIDERS: PCP Family Medicine; Visit Provider Family Medicine
DX: I48.91 Unspecified atrial fibrillation (principal); Z79.01 Long term (current) use of anticoagulants
CPT/HCPCS: 36415; 85610

== ENCOUNTER 2022-11-30 01:24 | Outpatient (CLI) | payer MEDICARE, SELFPAY ==
[2022-11-30 12:45] LABS: Prothrombin Time 20.1 sec (9.3-11.0)
[2022-11-30 13:17] LABS: Anion Gap 4.9 mmol/L (3-11); BUN 20 mg/dL (7-18); CO2 29.1 mmol/L (21.0-32.0); Calcium 9.6 mg/dL (8.5-10.1); Chloride 105 mmol/L (98-107); Estimated GFR 77.52 (mL/min/1.73m2); Glucose 136 mg/dL (74-106); Potassium 4.4 mmol/L (3.5-5.1); Sodium 139 mmol/L (136-145)
== END 2022-11-30 01:25 | disposition home or self-care (01) ==
LOC: LOS 01:24
PROVIDERS: PCP Family Medicine; Visit Provider Family Medicine
DX: I10 Essential (primary) hypertension (principal); I35.0 Nonrheumatic aortic (valve) stenosis; Z95.2 Presence of prosthetic heart valve; Z79.01 Long term (current) use of anticoagulants
CPT/HCPCS: 36415; 80048; 85610

== ENCOUNTER 2022-12-07 04:40 | Outpatient (CLI) | payer MEDICARE, SELFPAY ==
[2022-12-07 12:30] LABS: INR 2.4 (0.9-1.1); Prothrombin Time 23.9 sec (9.3-11.0)
== END 2022-12-07 04:41 | disposition home or self-care (01) ==
LOC: LOS 04:41
PROVIDERS: PCP Family Medicine; Visit Provider Family Medicine
DX: I48.91 Unspecified atrial fibrillation (principal); Z79.01 Long term (current) use of anticoagulants
CPT/HCPCS: 36415; 85610

== ENCOUNTER 2022-12-29 08:02 | Outpatient (CLI) | payer MEDICARE, SELFPAY ==
--- NOTE | 2022-12-29 08:00 | RT.EKG_ITS ---
APPROVED REPORT Exam: Resting ECG Reason for Exam: CAD, afib Patient Location: O HR:68 bpm ECG Measurements Heart Rate 68 AXIS AK 145 P 12 QRSd 108 QRS 35 QT 418 T 44 QTc 445 Conclusion Sinus rhythm...normal P axis, V-rate 50- 99 Atrial premature complexes...SV complexes w/ short R-R intvls early transition...QRS area>0 in V2
== END 2022-12-29 08:03 | disposition home or self-care (01) ==
LOC: DI.CARD 08:02
PROVIDERS: PCP Family Medicine; Visit Provider Internal Medicine Cardiovascular Disease
DX: I25.10 Atherosclerotic heart disease of native coronary artery without angina pectoris (principal); I48.91 Unspecified atrial fibrillation
CPT/HCPCS: 93010

== ENCOUNTER → 2022-12-29 09:18 | Outpatient (BNVA) | payer MEDICARE, SELFPAY | PROVIDERS: PCP Family Medicine; Referring Provider Family Medicine; Visit Provider Internal Medicine Cardiovascular Disease | DX: I48.91 Unspecified atrial fibrillation (principal); Z79.01 Long term (current) use of anticoagulants; I25.10 Atherosclerotic heart disease of native coronary artery without angina pectoris; Z95.2 Presence of prosthetic heart valve | CPT/HCPCS: 58300; 93005; 99214 ==

== ENCOUNTER 2023-01-07 04:27 | Outpatient (CLI) | payer MEDICARE, SELFPAY ==
[2023-01-07 13:37] LABS: INR 2.4 (0.9-1.1); Prothrombin Time 24.5 sec (9.3-11.0)
== END 2023-01-07 04:28 | disposition home or self-care (01) ==
LOC: LOS 04:28
PROVIDERS: PCP Family Medicine; Visit Provider Family Medicine
DX: I48.91 Unspecified atrial fibrillation (principal); Z79.01 Long term (current) use of anticoagulants
CPT/HCPCS: 36415; 85610

== ENCOUNTER 2023-02-05 01:16 | Outpatient (CLI) | payer MEDICARE, SELFPAY ==
[2023-02-05 12:42] LABS: INR 1.9 (0.9-1.1); Prothrombin Time 18.9 sec (9.3-11.0)
== END 2023-02-05 01:17 | disposition home or self-care (01) ==
LOC: LOS 01:16
PROVIDERS: PCP Family Medicine; Visit Provider Family Medicine
DX: I48.91 Unspecified atrial fibrillation (principal); Z79.01 Long term (current) use of anticoagulants; E08.21 Diabetes mellitus due to underlying condition with diabetic nephropathy
CPT/HCPCS: 36415; 85610

== ENCOUNTER 2023-02-23 02:41 | Outpatient (CLI) | payer MEDICARE, SELFPAY ==
[2023-02-23 12:21] LABS: INR 1.8 (0.9-1.1); Prothrombin Time 18.3 sec (9.3-11.0)
== END 2023-02-23 02:42 | disposition home or self-care (01) ==
LOC: LOS 02:41
PROVIDERS: PCP Family Medicine; Visit Provider Family Medicine
DX: I48.91 Unspecified atrial fibrillation (principal); Z79.01 Long term (current) use of anticoagulants
CPT/HCPCS: 36415; 85610

== ENCOUNTER 2023-03-02 03:36 | Outpatient (CLI) | payer MEDICARE, SELFPAY ==
[2023-03-02 13:06] LABS: INR 2.3 (0.9-1.1); Prothrombin Time 23.3 sec (9.3-11.0)
== END 2023-03-02 03:37 | disposition home or self-care (01) ==
LOC: LOS 03:37
PROVIDERS: PCP Family Medicine; Visit Provider Family Medicine
DX: Z79.01 Long term (current) use of anticoagulants (principal)
CPT/HCPCS: 36415; 85610

== ENCOUNTER 2023-03-09 02:58 | Outpatient (CLI) | payer MEDICARE, SELFPAY ==
[2023-03-09 12:31] LABS: INR 3.3 (0.9-1.1); Prothrombin Time 33.6 sec (9.3-11.0)
== END 2023-03-09 02:59 | disposition home or self-care (01) ==
LOC: LOS 03:02
PROVIDERS: PCP Family Medicine; Visit Provider Family Medicine
DX: I25.10 Atherosclerotic heart disease of native coronary artery without angina pectoris (principal); I48.91 Unspecified atrial fibrillation; Z79.01 Long term (current) use of anticoagulants
CPT/HCPCS: 36415; 85610

== ENCOUNTER 2023-03-16 03:53 | Outpatient (CLI) | payer MEDICARE, SELFPAY ==
[2023-03-16 12:23] LABS: INR 2.8 (0.9-1.1); Prothrombin Time 28.5 sec (9.3-11.0)
== END 2023-03-16 03:54 | disposition home or self-care (01) ==
LOC: LOS 03:53
PROVIDERS: PCP Family Medicine; Visit Provider Family Medicine
DX: I48.91 Unspecified atrial fibrillation (principal); I25.10 Atherosclerotic heart disease of native coronary artery without angina pectoris; Z79.01 Long term (current) use of anticoagulants
CPT/HCPCS: 36415; 85610

== ENCOUNTER 2023-03-23 03:25 | Outpatient (CLI) | payer MEDICARE, SELFPAY ==
[2023-03-23 12:23] LABS: INR 3.2 (0.9-1.1)
== END 2023-03-23 03:26 | disposition home or self-care (01) ==
LOC: LOS 03:25
PROVIDERS: PCP Family Medicine; Visit Provider Family Medicine
DX: I48.91 Unspecified atrial fibrillation (principal); I25.10 Atherosclerotic heart disease of native coronary artery without angina pectoris; Z79.01 Long term (current) use of anticoagulants
CPT/HCPCS: 36415; 85610

== ENCOUNTER 2023-03-30 04:30 | Outpatient (CLI) | payer MEDICARE, SELFPAY ==
[2023-03-30 12:36] LABS: INR 2.9 (0.9-1.1); Prothrombin Time 29.6 sec (9.3-11.0)
== END 2023-03-30 04:31 | disposition home or self-care (01) ==
LOC: LOS 04:30
PROVIDERS: PCP Family Medicine; Visit Provider Family Medicine
DX: I48.91 Unspecified atrial fibrillation (principal); Z79.01 Long term (current) use of anticoagulants
CPT/HCPCS: 36415; 85610

== ENCOUNTER → 2023-03-31 03:38 | Outpatient (CLI) | payer MEDICARE, SELFPAY ==
--- NOTE | 2023-03-31 14:00 | DI.US_ITS ---
APPROVED REPORT EXAM: Comprehensive 2D, Doppler, and color-flow Echocardiogram Patient Location: Out-Patient Furnace Tender: Jackie Troy RDCS (AE) Indications: Post TAVR, Atrial fibrillation Other Information Study Quality: Adequate. Technically limited study due to body habitus. Conclusion Normal left ventricular wall thickness and chamber size. Ejection fraction is 50%. There is stage I I diastolic dysfunction Normal right ventricular size and systolic function Left atrium is mildly dilated. Right atrial size is normal There is a bioprosthetic aortic valve replacement (TAVR). Mean gradient is 12 mmHg. There is no aor tic regurgitation Mitral annular calcification. Moderate mitral regurgitation Mildly dilated ascending aorta 3.76 cm Wall motion Left Ventricle The left ventricle is normal size. Left ventricular systolic function is borderline. There is normal left ventricular wall thickness. There are no segmental wall motion abnormalities There is no ventric ular septal defect visualized. LVEF is 50%. Right Ventricle The right ventricle is normal size. The right ventricular systolic function is normal. Atria The left atrium is mildly dilated The right atrium size is normal. The interatrial septum is intact w ith no evidence for an atrial septal defect. Aortic Valve TAVR valve replacement. There is no aortic valvular stenosis. Mean gradient is 12 mmHg No aortic regu rgitation is present. Mitral Valve There is mitral annular calcification. No evidence of mitral valve stenosis. Moderate mitral regurgit ation. Tricuspid Valve The tricuspid valve is normal in structure. There is no tricuspid valve stenosis. Trace tricuspid reg urgitation. Unable to assess PA pressure. Pulmonic Valve The pulmonary valve is normal in structure. There is no pulmonic valvular stenosis. Trace pulmonic re gurgitation. Great Vessels The aortic root is normal in size. The ascending aorta is mildly dilated. Aortic arch is normal in ca liber. IVC is normal in size and collapses >50% with inspiration. Pericardium There is no pericardial effusion. 2D Dimensions IVSD d PLAX 0.96 cm M: 0.6-1.2 LV Vol A4C d MOD 141.0 mL LVPW d PLAX 0.96 cm M: 0.6 - 1.2 LV EF A4C MOD 51.0 % LVID d PLAX 5.32 cm M: 4.2 - 5.8 LV EF A2C MOD 40.7 % LVDs 3.90 cm M: 2.5 - 4.0 LV EF Biplane MOD 44.5 % Ao Root d 2.23 cm M: 3.1 - 3.7 RA Area A4C 14.41 cm2 Ao Asc Diam d 3.76 cm M: 2.6 - 3.4 LV EF Teichholz 50.5 % LVEF (Dexter's) 44.48 % M: 52 - 72 LV Volume 123.44 mL M: 62 - 150 LV Volume Index 52.75 mL/m2 M: 34 - 74 LV Vol Biplane MOD 123.4 mL FS 25.85 % M-Mode TAPSE 2.30 cm (M/F) >1.7 LV Diastology MV E' medial 0.065 (>0.07 m/s) E/A Ratio 1.3 LV E/e MED 16.32 (<14) MV E Vmax 1.06 (0.4-1.3 m/s) MV E' lateral 0.095 (>0.1 m/s) MV A Vmax 0.80 (0.4-1.3 m/s) LV E/e LAT 11.21 (<14) MV E/E' medial 16.32 MV E/E' lateral 11.21 MV (E/E' average) 13.29 Aortic Valve LVOT Vmax 0.89 m/s AoV Area Vmax 1.25 cm2 LVOT Peak Grad 3.2 mmHg LVOT Mean Grad 2.1 mmHg LVOT Diam s 2.00 cm AoV Vmax 2.24 m/s Velocity Ratio 0.40 AoV Peak Grad 20.1 mmHg LVOT SV 64.74 mL AoV Mean Grad 12.0 mmHg AoV Area VTI 1.16 cm2 Mitral Valve MV DT 183 (160-240 msec) MV Vmax TIPS 1.11 m/s MV Mean Grad 2.0 (<2mmHg) MV VTI 0.332 m Pulmonary Valve PV Mean Grad 1.7 mmHg RVOT Peak Gr. 1.55 mmHg RVOT Mean Gr. 0.90 mmHg RVOT VTI 0.155 m RVOT Vmax 0.62 m/s
== END ==
PROVIDERS: PCP Family Medicine; Visit Provider Internal Medicine Cardiovascular Disease
DX: I48.91 Unspecified atrial fibrillation (principal); Z95.2 Presence of prosthetic heart valve
CPT/HCPCS: 93306

== ENCOUNTER 2023-04-16 01:42 | Outpatient (CLI) | payer MEDICARE, SELFPAY ==
[2023-04-16 12:33] LABS: INR 3.3 (0.9-1.1); Prothrombin Time 32.8 sec (9.3-11.0)
== END 2023-04-16 01:43 | disposition home or self-care (01) ==
LOC: LOS 01:42
PROVIDERS: PCP Family Medicine; Visit Provider Family Medicine
DX: I48.91 Unspecified atrial fibrillation (principal); Z79.01 Long term (current) use of anticoagulants
CPT/HCPCS: 36415; 85610

== ENCOUNTER 2023-04-30 01:43 | Outpatient (CLI) | payer MEDICARE, SELFPAY ==
[2023-04-30 12:29] LABS: INR 2.5 (0.9-1.1); Prothrombin Time 25.2 sec (9.3-11.0)
== END 2023-04-30 01:44 | disposition home or self-care (01) ==
LOC: LOS 01:44
PROVIDERS: PCP Family Medicine; Visit Provider Family Medicine
DX: I35.0 Nonrheumatic aortic (valve) stenosis (principal); I25.10 Atherosclerotic heart disease of native coronary artery without angina pectoris; Z79.01 Long term (current) use of anticoagulants
CPT/HCPCS: 36415; 85610

== ENCOUNTER 2023-05-21 04:31 | Outpatient (CLI) | payer MEDICARE, SELFPAY ==
[2023-05-21 12:44] LABS: Prothrombin Time 40.2 sec (9.1-11.1)
[2023-05-21 12:49] LABS: INR 4.6 (0.9-1.1)
== END 2023-05-21 04:32 | disposition home or self-care (01) ==
LOC: LOS 04:31
PROVIDERS: PCP Family Medicine; Visit Provider Family Medicine
DX: I48.91 Unspecified atrial fibrillation (principal); Z79.01 Long term (current) use of anticoagulants
CPT/HCPCS: 36415; 85610

== ENCOUNTER 2023-05-28 02:19 | Outpatient (CLI) | payer MEDICARE, SELFPAY ==
[2023-05-28 12:31] LABS: INR 2.5 (0.9-1.1); Prothrombin Time 23.1 sec (9.1-11.1)
== END 2023-05-28 02:20 | disposition home or self-care (01) ==
LOC: LOS 02:19
PROVIDERS: PCP Family Medicine; Visit Provider Family Medicine
DX: I48.91 Unspecified atrial fibrillation (principal); Z79.01 Long term (current) use of anticoagulants
CPT/HCPCS: 36415; 85610

== ENCOUNTER 2023-06-04 01:23 | Outpatient (CLI) | payer MEDICARE, SELFPAY ==
[2023-06-04 12:20] LABS: INR 2.2 (0.9-1.1); Prothrombin Time 20.7 sec (9.1-11.1)
== END 2023-06-04 01:24 | disposition home or self-care (01) ==
LOC: LOS 01:23
PROVIDERS: PCP Family Medicine; Visit Provider Family Medicine
DX: I48.91 Unspecified atrial fibrillation (principal); Z79.01 Long term (current) use of anticoagulants
CPT/HCPCS: 36415; 85610

== ENCOUNTER 2023-06-18 04:00 | Outpatient (CLI) | payer MEDICARE, SELFPAY ==
[2023-06-18 12:25] LABS: INR 2.1 (0.9-1.1); Prothrombin Time 19.6 sec (9.1-11.1)
== END 2023-06-18 04:01 | disposition home or self-care (01) ==
LOC: LOS 04:00
PROVIDERS: PCP Family Medicine; Visit Provider Family Medicine
DX: I48.91 Unspecified atrial fibrillation (principal); Z79.01 Long term (current) use of anticoagulants
CPT/HCPCS: 36415; 85610

== ENCOUNTER 2023-06-24 11:03 | Outpatient (CLI) | payer MEDICARE, SELFPAY ==
--- NOTE | 2023-06-24 09:15 | DI.RAD_ITS ---
Exam(s) XR KNEE RT 3V AP,LAT,RHIANNON EXAM: XR KNEE RT 3V AP,LAT,RHIANNON CLINICAL HISTORY: RIGHT KNEE PAIN. TECHNIQUE: 2D digital imaging was performed. Three views. COMPARISON: CR RIGHT KNEE 3 VIEWS from 04/20/2017 CR KNEES BILAT AP STANDING from 07/21/2017 CR XR KNEE LT 3V AP,LAT,RHIANNON from 05/22/2019 FINDINGS: BONES: No acute fracture is present. No bony destructive lesion is seen. Sclerotic lesion distal fem ur has the appearance of an enchondroma, unchanged from prior exams.. Patellar enthesophytes. JOINTS: Severe degenerative changes of the medial femoral tibial joint with periarticular spurring an d subchondral cyst formation. Varus angulation also present. Mild spurring at articular aspect of t he patella. No joint effusion is seen. SOFT TISSUE: Normal. IMPRESSION: Severe degenerative changes of the medial femoral tibial joint. DATA REPOSITORY: RADIATION DOSE DELIVERED:
--- NOTE | 2023-06-24 09:15 | DI.RAD_ITS ---
Exam(s) XR KNEE LT 3V AP,LAT,RHIANNON EXAM: XR KNEE LT 3V AP,LAT,RHIANNON CLINICAL HISTORY: LEFT KNEE OA. TECHNIQUE: 2D digital imaging was performed. Three views. COMPARISON: CR XR KNEE RT 3V AP,LAT,RHIANNON from 06/24/2023 FINDINGS: BONES: No acute fracture is present. No bony destructive lesion is seen. Patellar enthesophytes. JOINTS: Severe narrowing of the medial femoral tibial joint space with a onbj-dq-epcl appearance. Pe riarticular spurring and subchondral cyst formation. Varus angulation. Mild spurring at the articul ar aspect of the patella. No joint effusion is seen. SOFT TISSUE: Normal. IMPRESSION: Severe degenerative changes of the medial femoral tibial joint. DATA REPOSITORY: RADIATION DOSE DELIVERED:
== END 2023-06-24 11:04 | disposition home or self-care (01) ==
LOC: DIORS 11:03
PROVIDERS: PCP Family Medicine; Referring Provider Family Medicine; Visit Provider Physician Assistant
DX: M17.12 Unilateral primary osteoarthritis, left knee (principal); M17.11 Unilateral primary osteoarthritis, right knee
CPT/HCPCS: 20610; 73562; 99214; J1040

== ENCOUNTER → 2023-06-29 09:06 | Outpatient (BNVA) | payer MEDICARE, SELFPAY | PROVIDERS: PCP Family Medicine; Visit Provider Internal Medicine Cardiovascular Disease | DX: I10 Essential (primary) hypertension (principal); I48.91 Unspecified atrial fibrillation; I25.10 Atherosclerotic heart disease of native coronary artery without angina pectoris; Z95.2 Presence of prosthetic heart valve | CPT/HCPCS: 99214 ==

== ENCOUNTER 2023-07-09 01:31 | Outpatient (CLI) | payer MEDICARE, SELFPAY ==
[2023-07-09 13:05] LABS: ALT 25 U/L (16-63); AST 12 U/L (15-37); Albumin 3.4 g/dL (3.4-5.0); Alkaline Phosphatase 82 U/L (46-116); Anion Gap 10.4 mmol/L (3-11); BUN 27 mg/dL (7-18); Bilirubin, Total 0.3 mg/dL (0.2-1.0); CO2 26.6 mmol/L (21.0-32.0); CREATININE 1.2 mg/dL (0.70-1.30); Calcium 9.4 mg/dL (8.5-10.1); Calculated LDL 183 mg/dL (<100); Chloride 100 mmol/L (98-107); Cholesterol 273 mg/dL (<200); Estimated GFR 62.29 (mL/min/1.73m2); Glucose 172 mg/dL (74-106); HDL Cholesterol 46 mg/dL (40-60); Hemoglobin A1C 7.8 % (<5.7); Potassium 4.2 mmol/L (3.5-5.1); Sodium 137 mmol/L (136-145); Total Protein 7.2 g/dL (6.4-8.2); Triglyceride 221 mg/dL (<150)
[2023-07-09 13:05] LABS: INR 3.2 (0.9-1.1); Prothrombin Time 29.2 sec (9.1-11.1)
== END 2023-07-09 01:32 | disposition home or self-care (01) ==
LOC: LOS 01:31
PROVIDERS: PCP Family Medicine; Visit Provider Family Medicine
DX: E11.21 Type 2 diabetes mellitus with diabetic nephropathy (principal); Z79.01 Long term (current) use of anticoagulants
CPT/HCPCS: 36415; 80053; 80061; 83036; 85610

== ENCOUNTER 2023-07-12 16:06 | Outpatient (CLI) | payer MEDICARE, SELFPAY ==
--- NOTE | 2023-07-12 14:15 | DI.RAD_ITS ---
Exam(s) XR SHOULDER LT COMPLETE 2+V EXAM: XR SHOULDER LT COMPLETE 2+V CLINICAL HISTORY: L shoulder pain. TECHNIQUE: 2D digital imaging was performed. Three views. COMPARISON: No exams were available for comparison FINDINGS: BONES: No acute fracture is present. No bony destructive lesion is seen. JOINTS: No dislocation present. Glenohumeral joint space is maintained. There is spurring at the un dersurface of the acromion. SOFT TISSUE: Normal. IMPRESSION: No acute abnormality. DATA REPOSITORY: RADIATION DOSE DELIVERED:
== END 2023-07-12 16:07 | disposition home or self-care (01) ==
LOC: DIORS 16:06
PROVIDERS: PCP Family Medicine; Referring Provider Family Medicine
DX: M75.22 Bicipital tendinitis, left shoulder; M75.82 Other shoulder lesions, left shoulder
CPT/HCPCS: 99213; 73030

== ENCOUNTER 2023-07-29 02:49 | Outpatient (CLI) | payer MEDICARE, SELFPAY ==
[2023-07-29 12:24] LABS: INR 2.9 (0.9-1.1); Prothrombin Time 26.5 sec (9.1-11.1)
== END 2023-07-29 02:50 | disposition home or self-care (01) ==
LOC: LOS 02:49
PROVIDERS: PCP Family Medicine; Visit Provider Family Medicine
DX: I48.91 Unspecified atrial fibrillation (principal); Z79.01 Long term (current) use of anticoagulants
CPT/HCPCS: 36415; 85610

== ENCOUNTER → 2023-08-26 13:31 | Outpatient (BNVA) | payer MEDICARE, SELFPAY | PROVIDERS: PCP Family Medicine; Visit Provider Urology | DX: C67.9 Malignant neoplasm of bladder, unspecified (principal); R31.0 Gross hematuria | CPT/HCPCS: 52000; 81002 ==

== ENCOUNTER → 2023-09-02 08:37 | Outpatient (BNVA) | payer MEDICARE, SELFPAY | PROVIDERS: PCP Family Medicine; Referring Provider Family Medicine; Visit Provider Physical Therapy Assistant | DX: Z12.11 Encounter for screening for malignant neoplasm of colon (principal); Z86.010 Personal history of colon polyps ==

== ENCOUNTER 2023-09-13 09:01 | Day surgery (SDC) | payer MEDICARE, SELFPAY ==
--- NOTE | 2023-09-12 13:34 | W.PM.DSUDISC ---
Date of service: 09/13/23 Time of Service: 11:41 Discharge Plan Disposition Patient Disposition: Home Condition: Good Discharge Details Reason For Visit: screening colonoscopy Attending Provider: Julius Hernandez Primary Care Provider: Rhoda Arceo Home Meds and New Rx's Prescriptions: Continued latanoprost 0.005 % drops 1 drp ophthalmic (eye) QPM Patient Comments: INSTILL ONE DROP INTO BOTH EYES AT BEDTIME pravastatin 80 mg tablet 80 mg PO DAILY Qty: 90 4RF Rx Instructions: take one tablet daily amoxicillin 500 mg capsule 2,000 mg PO ONCE Qty: 20 0RF Patient Comments: Pt. states he only takes this for dental procedures. Rx Instructions: take 4 tablets 30-60 minutes prior to procedures including dental cleanings to prevent bacterial endocarditis warfarin 5 mg tablet 5 mg PO DAILY Qty: 90 1RF Protocol: Dose Management Condition: Wednesday Dose/Route: 5 mg Instruction: 1 x 5 mg tablet Condition: Wednesday Dose/Route: 5 mg Instruction: 1 x 5 mg tablet Condition: Wednesday Dose/Route: 5 mg Instruction: 1 x 5 mg tablet Condition: Wednesday Dose/Route: 5 mg Instruction: 1 x 5 mg tablet Condition: Dose/Route: 5 mg Instruction: 1 x 5 mg tablet Condition: Wednesday Dose/Route: 5 mg Instruction: 1 x 5 mg tablet Condition: Wednesday Dose/Route: 5 mg Instruction: 1 x 5 mg tablet Protocol Text: Adjustment Start Date: Wednesday08/25/23 INR Value: 2.6 INR Date: 08/25/23 Recheck Date: 09/24/23 Rx Instructions: or as directed. metoprolol succinate 100 mg tablet extended release 24 hr 100 mg PO DAILY Qty: 90 3RF verapamil 120 mg tablet 120 mg PO BID Qty: 180 3RF metformin 1,000 mg tablet 1,000 mg PO BID Qty: 180 3RF hydrochlorothiazide 25 mg tablet 25 mg PO DAILY Qty: 90 3RF lisinopril 40 mg tablet 40 mg PO DAILY Qty: 90 4RF Discontinued bisacodyl [Dulcolax (bisacodyl)] 5 mg tablet,delayed release (DR/EC) 5 mg PO ONCE Qty: 4 0RF Rx Instructions: Take per colonoscopy instructions provided by ordering providers office polyethylene glycol 3350 17 gram/dose powder 17 g PO ONCE Qty: 238 0RF Rx Instructions: Take per colonoscopy instructions provided by ordering providers office Discharge Instructions Instructions: Diverticulosis (GEN), Colorectal Polyps (GEN), Diverticulosis Diet (GEN) Additional Instructions: Alvarado, we were able to complete your colonoscopy today without too much difficulty. I did find a total of 4 polyps, which I removed completely. Once I have the results on the nature of those polyps, I will be in touch with recommendations for the timing of your next colonoscopy. Incidentally, you also have quite a bit of diverticulosis. Diverticula are weak spots in the muscular portion of the colon wall. Have attached some general information here regarding typical approaches to both diverticular disease as well as colorectal polyps. I would like you to hold your warfarin 1 more day. You can resume it on Wednesday at your regularly scheduled dosing level. 1. If tolerated, consume a soft, low fiber diet for 1-2 days. 2[address] Do not drive, drink alcohol, operate machinery, make critical decisions, or do activities that require coordination or balance for 24 hours. 3. Because air was put into your colon during the procedure, expelling air from your rectum (passing gas or farting) is normal. 4. You may not have a bowel movement for 1-3 days because of the colonoscopy prep. This is normal. 5. Go directly to the emergency room if you notice any of the following: Develop chills (warm to touch), or if you have a thermometer and your temperature is above 101 Difficulty breathing or difficultly swallowing Persistent vomiting Severe abdominal pain, other than gas cramps Severe chest pain Black, tarry stools Any bleeding ? exceeding one tablespoon 6. Call your physician if the site where your intravenous was started becomes red, swollen, painful, and warm to touch. 7. Your physician has reviewed your pre-procedure medications. Please continue to take those medications as previously ordered. You will be given specific information/education regarding any changes to your medications before leaving. Activity:: Activity as Tolerated Diet:: As Tolerated Discharge Orders Discharge Orders: Discharge Order (Routine); Ordered 09/12/23 Ordered By: Julius Hernandez DS: Diagnosis Discharge Diagnosis (1) Screen for colon cancer: Status: Acute Asessment and Plan: Follow-up on polypectomy results
--- NOTE | 2023-09-12 13:35 | W.COLOREPORT ---
Date of service: 09/13/23 Time of Service: 11:43 Colonoscopy Report Date of procedure: 09/13/23 Pre-op diagnosis general: screening colonoscopy Post-op diagnosis procedure note: other (Diverticulosis, colon polyps) Procedure: Colonoscopy with polypectomy Surgeon: Julius Hernandez Anesthesia Type: General:No Airway Estimated blood loss (mL): 10 Complications: None Disposition: same day Indications: Alvarado is 78 years old. He has a history of adenomatous polyps and he needs his next screening colonoscopy Prep: Miralax/Dulcolax Procedure Start Time: 11:00 Procedure End Time: 11:29 Retraction Time: 15 Findings: Extensive diverticulosis, 0.25 cm polyp in the ascending colon x 2, 0.25 cm polyp at 80 cm, 0.25 cm polyp at 55 cm Procedure Description: After the induction of monitored anesthetic care, and with the patient in left lateral decubitus position, I began by performing an external anorectal exam.? Perineum and skin were normal, as was the anal verge.? There was no evidence of external hemorrhoids.? Next, I performed a digital rectal exam.? I did appreciate any abnormal findings.? Next, I advanced a colonoscope into the rectal vault.? I performed retroflexion.? I this was normal.? Using insufflation, I then advanced the colonoscope beyond the rectal folds and into the sigmoid colon before advancing towards the cecum.? There is extensive diverticulosis involving both the sigmoid and descending colon's, with other scattered diverticula throughout the transverse and ascending colon as well. Heaviest concentration was within the sigmoid.? The scope was noted to be in the cecum by identification of the ileocecal valve and appendiceal orifice.? I then began withdrawing the colonoscope using repeated irrigation as necessary for full evaluation of the colonic mucosa. Within the ascending colon were 2 polyps. Each was less than 0.25 cm. These were immediately adjacent to one another. Both were flat. I removed both of these with cold forceps. I also found flat polyps at 80 cm from the anus and 55 cm from the anus. These were each 0.25 cm. Both of these were flat, and these were also removed with cold forceps without any issues. Once the scope was withdrawn to the level of the rectum, great care was taken to examine portions of the rectal folds.? Finally, the scope was withdrawn and the patient was brought to the same-day surgery recovery unit as the anesthetic wore off. ?The findings and instructions were shared with the patient prior to discharge. [place] Bowel Prep [place] Bowel Prep Right Colon: 2 Left Colon: 2 Transverse Colon: 2 Total Score: 6
[2023-09-13 09:42] VITALS: BP 173/84; PULSE 124; RESP 16; TEMP 37.2; O2SAT 98
[2023-09-13] MEDS: Lactated Ringers 1,000 ML 80 ML IV (09:45)
[2023-09-13 09:53] VITALS: BMI 36.2
--- NOTE | 2023-09-13 09:53 | W.ANESPRE ---
General Info Date of Service Date Performed: 09/13/23 Height: 6 ft Weight: 121.3 kg Body Mass Index (BMI): 36.2 Surgical Procedure: Operation Date: 09/13/23 10:50 Proposed Procedure Side Surgeon albania Hernandez MD Meds Allergies and Home Medications Allergies Allergy/AdvReac Type Severity Reaction Status Date / Time No Known Allergies Allergy Verified 09/13/23 09:18 Home Medication Medication Instructions Recorded latanoprost 0.005 % eye drops 1 drp ophthalmic (eye) QPM 10/14/22 amoxicillin 500 mg capsule 2,000 mg (4 x 500 mg) PO ONCE #20 01/05/23 caps warfarin 5 mg tablet 5 mg PO DAILY #90 tabs 03/29/23 metoprolol succinate 100 mg 100 mg PO DAILY #90 tabs 05/04/23 tablet,extended release 24 hr metformin 1,000 mg tablet 1,000 mg PO BID #180 tabs 07/02/23 verapamil 120 mg tablet 120 mg PO BID #180 tabs 07/02/23 hydrochlorothiazide 25 mg tablet 25 mg PO DAILY #90 tabs 07/09/23 lisinopril 40 mg tablet 40 mg PO DAILY #90 tab-caps 07/12/23 pravastatin 80 mg tablet 80 mg PO DAILY #90 tab-caps 08/25/23 Current Visit Medications: Current Medications Generic Name Dose Route Start Last Admin Trade Name Freq PRN Reason Stop Dose Admin Hyoscyamine Sulfate 0.125 mg 09/12/23 13:37 Hyoscyamine 0.125 Mg Sl/Oral/Chew SL 10/12/23 13:36 DIRECTED PRN Ringer's Solution 1,000 mls @ 80 mls/hr 09/13/23 06:00 09/13/23 09:45 IV 09/13/23 23:59 80 mls/hr INFUSION STAURT Administration IV Miscellaneous Supplies 1 each 09/13/23 06:00 Iv Access IV 09/13/23 23:59 DIRECTED STUART Ondansetron HCl 4 mg 09/12/23 13:37 Ondansetron 4 Mg/2 Ml Vial IVP 10/12/23 13:36 Q4H PRN PRN Nausea / Vomiting Sodium Chloride 0 ml 09/13/23 06:00 Normal Saline Flush 10 Ml Syr IV 09/13/23 23:59 PRN PRN Sodium Chloride 0 ml 09/13/23 06:00 Normal Saline 10 Ml Vial IJ 09/13/23 23:59 DIRECTED PRN Sterile Water 0 ml 09/13/23 06:00 Water,Injection,Sterile 10 Ml Vial IJ 09/13/23 23:59 DIRECTED PRN PFSH Active Problems Active Problems: Problem Status Onset Code Screen for colon cancer Z12.11 Tendonitis of left rotator cuff M75.82 Tendinitis of long head of biceps brachii of left shoulder M75.22 Arthritis of right knee M17.11 Chronic anticoagulation Z79.01 Coronary artery disease I25.10 Atrial fibrillation I48.91 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.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 Tubular adenoma of colon D12.6 Hyperlipidemia 11/23/13 E78.5 Essential hypertension 10/20/13 I10 Medical History Medical History Aortic stenosis, severe with EF 50-55% on echo of 07/2021-s/p TAVR Surgical History Surgical History S/P TAVR (transcatheter aortic valve replacement) 11/2021-[facility] – [place] Colonoscopy - [facility] 04/16/14 - Pt states PONV Tobacco Smoking/Tobacco Use Status: Former Tobacco Use Passive smoking exposure: Yes Second hand exposure: Yes Alcohol Alcohol Intake: current Alcohol intake frequency: holidays/special occasions only Alcohol type: wine and hard liquor Substance Use Substance use: Never Substance use type: does not use Vital Signs and Lab Results Vital Signs Most Recent Vital Signs in EMR: Most Recent Vital Signs Temp Pulse Resp BP Pulse Ox 37.2 C 124 H 16 173/84 H 98 09/13/23 09:42 09/13/23 09:42 09/13/23 09:42 09/13/23 09:42 09/13/23 09:42 Point of Care Results Point of Care Results: Finger Stick Blood Glucose 179 09/13/23 09:42 Lab Results Blood Type / Crossmatch: No Data to Display Complete Blood Count: No Data to Display Complete Metabolic Panel: No Data to Display Liver Function Panel: No Data to Display Coagulation Panel: INR International Normalized Ratio 2.6 H 08/25/23 09:09 Cardiac Panel: No Data to Display Arterial Blood Gas: No Data to Display Venous Blood Gas: No Data to Display Pancreas Panel: No Data to Display Thyroid Panel: No Data to Display Infectious Disease: No Data to Display Blood Cultures: No Data to Display Toxicology Panel: No Data to Display Anesthesia Assessment and Plan Anesthesia History Personal History: No History of Anesthesia Complications Family History: No Family History of Anesthesia Complications Exercise Tolerance Exercise Tolerance: Metabolic Equivalents>4 Pertinent Negatives Pertinent Negatives: No Symptoms of GERD Cardiac & Pulmonary Exam Cardiac Exam: Normal S1/S2 Heart Sounds Pulmonary Exam: Clear Bilateral Breath Sounds Implantable Cardiac Device Does patient have a Pacemaker or an ICD?: No Airway Exam Known Difficult Airway: No Mallampati Class: 3 Mouth Opening: Normal (> 3cm) Thyromental Distance: Less than 3 cm Neck Range of Motion: Full ROM Neck Circumference: Thick Teeth Condition: Normal Dentition ASA Classification ASA Score: ASA 3 Emergency Case?: No NPO Status NPO Status: NPO Clears >2 hours, Solids >8 hours Anesthesia Plan Resuscitation Status: Full Code Anesthesia Technique: General Anesthesia Airway Planned: Natural Airway Monitors Used: Standard Monitors
--- NOTE | 2023-09-13 10:53 | W.ANESPRE ---
General Info Date of Service Date Performed: 09/13/23 Height: 6 ft Weight: 121.3 kg Body Mass Index (BMI): 36.2 Surgical Procedure: Operation Date: 09/13/23 10:50 Proposed Procedure Side Surgeon albania Hernandez MD Meds Allergies and Home Medications Allergies Allergy/AdvReac Type Severity Reaction Status Date / Time No Known Allergies Allergy Verified 09/13/23 09:18 Home Medication Medication Instructions Recorded latanoprost 0.005 % eye drops 1 drp ophthalmic (eye) QPM 10/14/22 amoxicillin 500 mg capsule 2,000 mg (4 x 500 mg) PO ONCE #20 01/05/23 caps warfarin 5 mg tablet 5 mg PO DAILY #90 tabs 03/29/23 metoprolol succinate 100 mg 100 mg PO DAILY #90 tabs 05/04/23 tablet,extended release 24 hr metformin 1,000 mg tablet 1,000 mg PO BID #180 tabs 07/02/23 verapamil 120 mg tablet 120 mg PO BID #180 tabs 07/02/23 hydrochlorothiazide 25 mg tablet 25 mg PO DAILY #90 tabs 07/09/23 lisinopril 40 mg tablet 40 mg PO DAILY #90 tab-caps 07/12/23 pravastatin 80 mg tablet 80 mg PO DAILY #90 tab-caps 08/25/23 Current Visit Medications: Current Medications Generic Name Dose Route Start Last Admin Trade Name Freq PRN Reason Stop Dose Admin Hyoscyamine Sulfate 0.125 mg 09/12/23 13:37 Hyoscyamine 0.125 Mg Sl/Oral/Chew SL 10/12/23 13:36 DIRECTED PRN Ringer's Solution 1,000 mls @ 80 mls/hr 09/13/23 06:00 09/13/23 09:45 IV 09/13/23 23:59 80 mls/hr INFUSION STUART Administration IV Miscellaneous Supplies 1 each 09/13/23 06:00 Iv Access IV 09/13/23 23:59 DIRECTED STUART Ondansetron HCl 4 mg 09/12/23 13:37 Ondansetron 4 Mg/2 Ml Vial IVP 10/12/23 13:36 Q4H PRN PRN Nausea / Vomiting Sodium Chloride 0 ml 09/13/23 06:00 Normal Saline Flush 10 Ml Syr IV 09/13/23 23:59 PRN PRN Sodium Chloride 0 ml 09/13/23 06:00 Normal Saline 10 Ml Vial IJ 09/13/23 23:59 DIRECTED PRN Sterile Water 0 ml 09/13/23 06:00 Water,Injection,Sterile 10 Ml Vial IJ 09/13/23 23:59 DIRECTED PRN PFSH Active Problems Active Problems: Problem Status Onset Code Screen for colon cancer Z12.11 Tendonitis of left rotator cuff M75.82 Tendinitis of long head of biceps brachii of left shoulder M75.22 Arthritis of right knee M17.11 Chronic anticoagulation Z79.01 Coronary artery disease I25.10 Atrial fibrillation I48.91 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.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 Tubular adenoma of colon D12.6 Hyperlipidemia 11/23/13 E78.5 Essential hypertension 10/20/13 I10 Medical History Medical History Aortic stenosis, severe with EF 50-55% on echo of 07/2021-s/p TAVR Surgical History Surgical History S/P TAVR (transcatheter aortic valve replacement) 11/2021-[facility] [place] Colonoscopy - [facility] 04/16/14 - Pt states PONV Tobacco Smoking/Tobacco Use Status: Former Tobacco Use Passive smoking exposure: Yes Second hand exposure: Yes Alcohol Alcohol Intake: current Alcohol intake frequency: holidays/special occasions only Alcohol type: wine and hard liquor Substance Use Substance use: Never Substance use type: does not use Vital Signs and Lab Results Vital Signs Most Recent Vital Signs in EMR: Most Recent Vital Signs Temp Pulse Resp BP Pulse Ox 37.2 C 124 H 16 173/84 H 98 09/13/23 09:42 09/13/23 09:42 09/13/23 09:42 09/13/23 09:42 09/13/23 09:42 Point of Care Results Point of Care Results: Finger Stick Blood Glucose 179 09/13/23 09:42 Lab Results Blood Type / Crossmatch: No Data to Display Complete Blood Count: No Data to Display Complete Metabolic Panel: No Data to Display Liver Function Panel: No Data to Display Coagulation Panel: INR International Normalized Ratio 2.6 H 08/25/23 09:09 Cardiac Panel: No Data to Display Arterial Blood Gas: No Data to Display Venous Blood Gas: No Data to Display Pancreas Panel: No Data to Display Thyroid Panel: No Data to Display Infectious Disease: No Data to Display Blood Cultures: No Data to Display Toxicology Panel: No Data to Display Anesthesia Assessment and Plan Anesthesia History Personal History: No History of Anesthesia Complications Family History: No Family History of Anesthesia Complications Exercise Tolerance Exercise Tolerance: Metabolic Equivalents>4 Pertinent Negatives Pertinent Negatives: No Symptoms of GERD Cardiac & Pulmonary Exam Cardiac Exam: Normal S1/S2 Heart Sounds Pulmonary Exam: Clear Bilateral Breath Sounds Implantable Cardiac Device Does patient have a Pacemaker or an ICD?: No Airway Exam Known Difficult Airway: No Mallampati Class: 3 Mouth Opening: Normal (> 3cm) Thyromental Distance: Less than 3 cm Neck Range of Motion: Full ROM Neck Circumference: Thick Teeth Condition: Normal Dentition
--- NOTE | 2023-09-13 11:18 | BOWEL_PTH ---
PATIENT: Alvarado Adams LOC: [facility] U#:[id number] AGE/SX: 78/M ROOM: RE09/13/[address]: Julius Hernandez MD : 1945 BED: DIS: 09/13/2023 SPEC #: [id number] RECD: 09/13/23 12:47 STATUS: GISEL RE #: [id number] PATRICIA: 09/13/23 11:[address]: Julius Hernandez DEPT: Surgical Specimen RECD BY: Tiki Yung ENTERED: 09/13/23 12:47 SP TYPE: Bowel OTHR DR: Rhoda Arceo Tissues: 1 - BIOPSY BOWEL 2 - BIOPSY BOWEL 3 - BIOPSY BOWEL Procedures: GROSS AND MICRO LEVEL 4 Comments: [id number]
[2023-09-13 11:40] VITALS: BP 123/80; PULSE 100; RESP 18; TEMP 36.2; O2SAT 95
--- NOTE | 2023-09-13 11:43 | W.ANESPOSTOP ---
Postoperative Evaluation Date, Time and Location Date Performed: 09/13/23 Time Performed: 11:43 Patient Location: Day Surgery Unit Vital Signs Most Recent Imported Vital Signs: Most Recent Vital Signs Temp Pulse Resp BP Pulse Ox 37.2 C 124 H 16 173/84 H 98 09/13/23 09:42 09/13/23 09:42 09/13/23 09:42 09/13/23 09:42 09/13/23 09:42 Pain Score Most Recent Pain Score: Most Recent Pain Score Pain Level 3 09/13/23 09:42 Assessment Mental Status: Awake (Alert & Oriented to Patient Baseline) Airway and Respiratory Function: Patent airway with normal (patient baseline) respiratory exam Cardiovascular Function: Hemodynamically Stable Hydration Status: Adequately Hydrated Nausea & Vomiting: No Nausea or Vomiting Pain: Pt. Denies Any Pain Peripheral Nerve Block: Patient did not receive a nerve block
[2023-09-13 11:50] VITALS: BP 129/76; PULSE 105; RESP 16; TEMP 36.4; O2SAT 97
[2023-09-13 12:10] VITALS: BP 176/87; PULSE 90; RESP 18; TEMP 36.4; O2SAT 100
== END 2023-09-13 12:31 | disposition home or self-care (01) ==
LOC: SUR 09:01
PROVIDERS: PCP Family Medicine; Visit Provider Surgery
PROC: 0DJD8ZZ Inspection of Lower Intestinal Tract, Via Natural or Artificial Opening Endoscopic (ICD-10-PCS; CPT 45378; principal; 2023-09-13 10:45)
DX: Z12.11 Encounter for screening for malignant neoplasm of colon (principal); D12.2 Benign neoplasm of ascending colon; K57.30 Diverticulosis of large intestine without perforation or abscess without bleeding; Z86.010 Personal history of colon polyps; D12.5 Benign neoplasm of sigmoid colon
CPT/HCPCS: 45380; 88305; J2001; J2704

== ENCOUNTER 2023-09-24 02:11 | Outpatient (CLI) | payer MEDICARE, SELFPAY ==
[2023-09-24 08:49] LABS: INR 1.9 (0.9-1.1); Prothrombin Time 18.1 sec (9.1-11.1)
== END 2023-09-24 02:12 | disposition home or self-care (01) ==
LOC: LOS 02:11 → LBO 10:16
PROVIDERS: PCP Family Medicine; Visit Provider Family Medicine
DX: Z79.01 Long term (current) use of anticoagulants (principal)
CPT/HCPCS: 36415; 85610

== ENCOUNTER 2023-10-22 02:01 | Outpatient (CLI) | payer MEDICARE, SELFPAY ==
[2023-10-22 12:28] LABS: INR 2.4 (0.9-1.1); Prothrombin Time 22.3 sec (9.1-11.1)
== END 2023-10-22 02:02 | disposition home or self-care (01) ==
LOC: LOS 02:01
PROVIDERS: PCP Family Medicine; Visit Provider Family Medicine
DX: Z79.01 Long term (current) use of anticoagulants (principal); I48.91 Unspecified atrial fibrillation
CPT/HCPCS: 36415; 85610

== ENCOUNTER 2023-11-22 05:52 | Outpatient (CLI) | payer MEDICARE, SELFPAY ==
[2023-11-22 12:20] LABS: INR 3.7 (0.9-1.1); Prothrombin Time 32.8 sec (9.1-11.1)
== END 2023-11-22 05:53 | disposition home or self-care (01) ==
LOC: LOS 05:52
PROVIDERS: PCP Family Medicine; Visit Provider Family Medicine
DX: I48.91 Unspecified atrial fibrillation (principal); Z79.01 Long term (current) use of anticoagulants
CPT/HCPCS: 36415; 85610

== ENCOUNTER 2023-11-29 05:03 | Outpatient (CLI) | payer MEDICARE, SELFPAY ==
[2023-11-29 12:31] LABS: INR 1.7 (0.9-1.1); Prothrombin Time 16.2 sec (9.1-11.1)
== END 2023-11-29 05:04 | disposition home or self-care (01) ==
LOC: LOS 05:03
PROVIDERS: PCP Family Medicine; Visit Provider Family Medicine
DX: I48.91 Unspecified atrial fibrillation (principal); Z79.01 Long term (current) use of anticoagulants
CPT/HCPCS: 36415; 85610

== ENCOUNTER 2023-12-06 05:46 | Outpatient (CLI) | payer MEDICARE, SELFPAY ==
[2023-12-06 12:40] LABS: INR 2.3 (0.9-1.1); Prothrombin Time 21.6 sec (9.1-11.1)
== END 2023-12-06 05:47 | disposition home or self-care (01) ==
LOC: LOS 05:46
PROVIDERS: PCP Family Medicine; Visit Provider Family Medicine
DX: I48.91 Unspecified atrial fibrillation (principal); Z79.01 Long term (current) use of anticoagulants
CPT/HCPCS: 36415; 85610

== ENCOUNTER 2023-12-28 09:10 | Outpatient (CLI) | payer MEDICARE, SELFPAY ==
--- NOTE | 2023-12-28 09:30 | RT.EKG_ITS ---
APPROVED REPORT Exam: Resting ECG Reason for Exam: 1 year follow up Patient Location: O HR:78 bpm ECG Measurements Heart Rate 78 AXIS ND 143 P 34 QRSd 103 QRS 45 QT 377 T 54 QTc 430 Conclusion Sinus rhythm...normal P axis, V-rate 50- 99 PVC IVCD
== END 2023-12-28 09:11 | disposition home or self-care (01) ==
LOC: DI.CARD 09:34
PROVIDERS: PCP Family Medicine; Referring Provider Family Medicine; Visit Provider Internal Medicine Cardiovascular Disease
DX: Z79.01 Long term (current) use of anticoagulants (principal); I48.11 Longstanding persistent atrial fibrillation; I35.0 Nonrheumatic aortic (valve) stenosis
CPT/HCPCS: 93010

== ENCOUNTER → 2023-12-28 09:10 | Outpatient (BNVA) | payer MEDICARE, SELFPAY | PROVIDERS: PCP Family Medicine; Referring Provider Family Medicine; Visit Provider Internal Medicine Cardiovascular Disease | DX: I45.9 Conduction disorder, unspecified (principal); I25.10 Atherosclerotic heart disease of native coronary artery without angina pectoris; I48.11 Longstanding persistent atrial fibrillation; Z95.2 Presence of prosthetic heart valve | CPT/HCPCS: 93005; 99213 ==

== ENCOUNTER 2024-01-07 00:42 | Outpatient (CLI) | payer MEDICARE, SELFPAY ==
[2024-01-07 10:47] LABS: INR 2.3 (0.9-1.1); Prothrombin Time 21.2 sec (9.1-11.1)
== END 2024-01-07 00:43 | disposition home or self-care (01) ==
LOC: LOS 00:42
PROVIDERS: PCP Family Medicine; Visit Provider Family Medicine
DX: Z79.01 Long term (current) use of anticoagulants (principal); I48.91 Unspecified atrial fibrillation
CPT/HCPCS: 36415; 85610

== ENCOUNTER 2024-02-04 01:23 | Outpatient (CLI) | payer MEDICARE, SELFPAY ==
[2024-02-04 09:12] LABS: Prothrombin Time 35.4 sec (9.1-11.1)
== END 2024-02-04 01:24 | disposition home or self-care (01) ==
LOC: LOS 01:23
PROVIDERS: PCP Family Medicine; Visit Provider Family Medicine
DX: Z79.01 Long term (current) use of anticoagulants (principal)
CPT/HCPCS: 36415; 85610

== ENCOUNTER 2024-02-16 01:58 | Outpatient (CLI) | payer MEDICARE, SELFPAY ==
[2024-02-16 12:33] LABS: Prothrombin Time 19.3 sec (9.1-11.1)
[2024-02-16 12:34] LABS: ALT 20 U/L (16-63); AST 11 U/L (15-37); Albumin 3.6 g/dL (3.4-5.0); Alkaline Phosphatase 85 U/L (46-116); Anion Gap 11.3 mmol/L (3-11); BUN 28 mg/dL (7-18); CO2 25.7 mmol/L (21.0-32.0); CREATININE 1.2 mg/dL (0.70-1.30); Calcium 9.6 mg/dL (8.5-10.1); Chloride 104 mmol/L (98-107); Glucose 164 mg/dL (74-106); Potassium 4.1 mmol/L (3.5-5.1); Sodium 141 mmol/L (136-145); Total Protein 7.2 g/dL (6.4-8.2)
[2024-02-16 12:45] LABS: Hemoglobin A1C 7.3 % (<5.7)
== END 2024-02-16 01:59 | disposition home or self-care (01) ==
LOC: LOS 01:59
PROVIDERS: PCP Family Medicine; Visit Provider Family Medicine
DX: E11.9 Type 2 diabetes mellitus without complications (principal); E11.21 Type 2 diabetes mellitus with diabetic nephropathy; Z79.01 Long term (current) use of anticoagulants
CPT/HCPCS: 36415; 80053; 83036; 85610

== ENCOUNTER 2024-02-23 03:18 | Outpatient (CLI) | payer MEDICARE, SELFPAY ==
[2024-02-23 12:31] LABS: INR 1.6 (0.9-1.1); Prothrombin Time 15.4 sec (9.1-11.1)
== END 2024-02-23 03:19 | disposition home or self-care (01) ==
LOC: LOS 03:18
PROVIDERS: PCP Family Medicine; Visit Provider Family Medicine
DX: I48.91 Unspecified atrial fibrillation (principal); Z79.01 Long term (current) use of anticoagulants
CPT/HCPCS: 36415; 85610

== ENCOUNTER 2024-03-01 01:25 | Outpatient (CLI) | payer MEDICARE, SELFPAY ==
[2024-03-01 12:36] LABS: INR 1.9 (0.9-1.1)
== END 2024-03-01 01:26 | disposition home or self-care (01) ==
LOC: LOS 01:25
PROVIDERS: PCP Family Medicine; Visit Provider Family Medicine
DX: I48.91 Unspecified atrial fibrillation (principal); Z79.01 Long term (current) use of anticoagulants; E11.21 Type 2 diabetes mellitus with diabetic nephropathy; I10 Essential (primary) hypertension; R60.0 Localized edema
CPT/HCPCS: 36415; 85610

== ENCOUNTER 2024-03-08 02:29 | Outpatient (CLI) | payer MEDICARE, SELFPAY ==
[2024-03-08 13:20] LABS: INR 2.2 (0.9-1.1); Prothrombin Time 20.6 sec (9.1-11.1)
== END 2024-03-08 02:30 | disposition home or self-care (01) ==
LOC: LOS 02:29
PROVIDERS: PCP Family Medicine; Visit Provider Family Medicine
DX: Z79.01 Long term (current) use of anticoagulants (principal); I48.91 Unspecified atrial fibrillation
CPT/HCPCS: 36415; 85610

== ENCOUNTER 2024-03-15 03:33 | Outpatient (CLI) | payer MEDICARE, SELFPAY ==
[2024-03-15 12:55] LABS: Prothrombin Time 18.7 sec (9.1-11.1)
== END 2024-03-15 03:34 | disposition home or self-care (01) ==
LOC: LOS 03:33
PROVIDERS: PCP Family Medicine; Visit Provider Family Medicine
DX: I48.91 Unspecified atrial fibrillation (principal); Z79.01 Long term (current) use of anticoagulants
CPT/HCPCS: 36415; 85610

== ENCOUNTER 2024-03-29 03:13 | Outpatient (CLI) | payer MEDICARE, SELFPAY ==
[2024-03-29 12:57] LABS: INR 2.7 (0.9-1.1); Prothrombin Time 25.2 sec (9.1-11.1)
== END 2024-03-29 03:14 | disposition home or self-care (01) ==
LOC: LOS 03:13
PROVIDERS: PCP Family Medicine; Visit Provider Family Medicine
DX: I48.91 Unspecified atrial fibrillation (principal)
CPT/HCPCS: 36415; 85610

== ENCOUNTER 2024-04-26 02:56 | Outpatient (CLI) | payer MEDICARE, SELFPAY ==
[2024-04-26 12:30] LABS: INR 1.6 (0.9-1.1); Prothrombin Time 15.7 sec (9.1-11.1)
== END 2024-04-26 02:57 | disposition home or self-care (01) ==
LOC: LOS 02:56
PROVIDERS: PCP Family Medicine; Visit Provider Family Medicine
DX: Z79.01 Long term (current) use of anticoagulants (principal)
CPT/HCPCS: 36415; 85610

== ENCOUNTER 2024-05-19 02:03 | Outpatient (CLI) | payer MEDICARE, SELFPAY ==
[2024-05-19 12:38] LABS: INR 3.3 (0.9-1.1); Prothrombin Time 30.2 sec (9.1-11.1)
== END 2024-05-19 02:04 | disposition home or self-care (01) ==
LOC: LOS 02:04
PROVIDERS: PCP Family Medicine; Visit Provider Family Medicine
DX: Z79.01 Long term (current) use of anticoagulants (principal); Z23 Encounter for immunization
CPT/HCPCS: 36415; 85610

== ENCOUNTER 2024-05-26 02:05 | Outpatient (CLI) | payer MEDICARE, SELFPAY ==
[2024-05-26 13:05] LABS: INR 2.3 (0.9-1.1); Prothrombin Time 21.6 sec (9.1-11.1)
== END 2024-05-26 02:06 | disposition home or self-care (01) ==
LOC: LOS 02:05
PROVIDERS: PCP Family Medicine; Visit Provider Family Medicine
DX: Z79.01 Long term (current) use of anticoagulants (principal)
CPT/HCPCS: 36415; 85610

== ENCOUNTER 2024-06-09 02:48 | Outpatient (CLI) | payer MEDICARE, SELFPAY ==
[2024-06-09 13:11] LABS: INR 2.3 (0.9-1.1); Prothrombin Time 21.4 sec (9.1-11.1)
== END 2024-06-09 02:49 | disposition home or self-care (01) ==
LOC: LOS 02:48
PROVIDERS: PCP Family Medicine; Visit Provider Family Medicine
DX: I48.91 Unspecified atrial fibrillation (principal); Z79.01 Long term (current) use of anticoagulants
CPT/HCPCS: 36415; 85610

== ENCOUNTER 2024-06-19 01:46 | Outpatient (CLI) | payer MEDICARE, SELFPAY ==
--- NOTE | 2024-06-19 06:45 | DI.US_ITS ---
APPROVED REPORT EXAM: Comprehensive 2D, Doppler, and color-flow Echocardiogram Patient Location: Out-Patient Informatics Manager: Jackie Troy RDCS (AE) Indications: S/P TAVR Other Information Study Quality: Fair. Technically limited study due to body habitus. Conclusion Technically difficult but adequate study Normal left ventricular wall thickness and chamber size. Ejection fraction is 45%. 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 There is no aortic regurgitation Mitral annular calcification, moderate mitral regurgitation Ascending aorta measures 3.82 cm Wall motion Left Ventricle The left ventricle is normal size. Left ventricular systolic function is mild to moderately decrease d. There is normal left ventricular wall thickness. There is global hypokinesis of the left ventricle . There is no ventricular septal defect visualized. LVEF is 44%. Right Ventricle The right ventricle is normal size. The right ventricular systolic function is normal. Atria The left atrium size is normal. The right atrium size is normal. The interatrial septum is intact wit h no evidence for an atrial septal defect. Aortic Valve TAVR aortic valve. Mean gradient is 10 mmHg No aortic regurgitation is present. Mitral Valve Mild mitral annular calcification. No evidence of mitral valve stenosis. Moderate mitral regurgitat ion. Tricuspid Valve The tricuspid valve is normal in structure. There is no tricuspid valve stenosis. Trace tricuspid reg urgitation. Unable to assess PA pressure. Pulmonic Valve The pulmonary valve is normal in structure. There is no pulmonic valvular stenosis. Trace pulmonic re gurgitation. Great Vessels The aortic root is normal in size. The ascending aorta is mildly dilated. Aortic arch is normal in ca liber. IVC is normal in size and collapses >50% with inspiration. Pericardium There is no pericardial effusion. 2D Dimensions IVSD d PLAX 0.99 cm M: 0.6-1.2 Ao Root d 2.17 cm M: 3.1 - 3.7 LVPW d PLAX 0.97 cm M: 0.6 - 1.2 Ao Asc Diam d 3.82 cm M: 2.6 - 3.4 LVID d PLAX 5.32 cm M: 4.2 - 5.8 LVDs 4.14 cm M: 2.5 - 4.0 LV EF Teichholz 44.3 % FS 22.15 % LV EDV (Teich) 136.3 mL LV ESV (Teich) 75.9 mL M-Mode TAPSE 2.44 cm (M/F) >1.7 Auto EF LV EDV A4C 179.0 mL LV EDV A2C 180.3 mL LV EDV BP 179.8 mL LV ESV A4C 100.1 mL LV ESV A2C 103.5 mL LV ESV BP 103.2 mL LVEF(%) A4C 44.1 % LVEF(%) A2C 42.6 % LVEF(%) BP 42.6 % LV SV A4C 78.9 ml LV SV A2C 76.8 ml LV SV BP 76.6 ml LV CO A4C 5.8 L/min LV CO A2C 5.3 L/min LV CO BP 5.6 L/min HR A4C 73.29 BPM HR A2C 69.37 BPM LV EDV Index (BP) LA Volume LA Length A4C 6.1 cm LA Length A2C 7.1 cm LA Area A4C s 22.87 cm2 LA Area A2C s 32.95 cm2 LA Vol A4C A-L 73.18 mL LA Vol A2C A-L 130.67 mL LA Vol Biplane A-L 105.4 mL LA Vol/BSA A4C A-L LA Vol/BSA A2C A-L LA Vol/BSA BP A-L 43.9 mL/m2 LA Vol A4C MOD 68.1 mL LA Vol A2C MOD 121.4 mL LA Vol BP MOD 97.9 mL RA Volume RA Area A4C 14.8 cm2 RA ESV A4C (A-L) 41.3mL RA Vol/BSA A4C A-L RA Length A4C 4.5 cm RA ESV A4C (MOD) 39.8mL LV Diastology MV E' medial 0.077 (>0.07 m/s) MV E Vmax 1.13 (0.4-1.3 m/s) MV E/E' MED 14.77 (<14) MV A Vmax 0.55 (0.4-1.3 m/s) MV E' lateral 0.097 (>0.1 m/s) E/A Ratio 2.1 MV E/E' LAT 11.65 (<14) MV E' Average 0.087 m/s MV E/E'(average) 13.03 Aortic Valve AoV Vmax 2.04 m/s LVOT Vmax 0.82 m/s AoV Peak Grad 16.6 mmHg LVOT Peak Grad 2.7 mmHg AoV Area (Vmax) 1.30 cm2 LVOT VTI 0.200 m AoV VTI 0.483 m LVOT Mean Grad 1.5 mmHg AoV Mean Vargas. 1.47 m/s LVOT SV 64.94 mL AoV Mean Grad 9.9 mmHg LVOT Diam s 2.00 cm AoV Area (VTI) 1.35 cm2 AV Regurg Peak Gr. 16.59 mmHg Velocity Ratio 0.40 Mitral Valve MV DT 190 (160-240 msec) MV Vmax TIPS 0.97 m/s MV Mean Grad 1.6 (<2mmHg) MV VTI 0.316 m Pulmonary Valve PV Vmax 0.82 (0.5-1.5 m/s) RVOT Vmax 0.57 m/s PV Peak Grad 2.7 mmHg RVOT Peak Gr. 1.3 mmHg PV Mean Vargas 0.58 m/s RVOT VTI 0.134 m PV Mean Grad 1.5 mmHg RVOT Mean Gr. 0.8 mmHg Tricuspid Valve RA Pressure 3.00 mmHg TV S' 0.13 m/s
== END 2024-06-19 02:06 ==
LOC: DI 01:46
PROVIDERS: PCP Family Medicine; Visit Provider Internal Medicine Cardiovascular Disease
DX: Z95.2 Presence of prosthetic heart valve (principal); Z47.1 Aftercare following joint replacement surgery
CPT/HCPCS: 93306

== ENCOUNTER 2024-06-23 01:49 | Outpatient (CLI) | payer MEDICARE, SELFPAY ==
[2024-06-23 12:44] LABS: INR 1.9 (0.9-1.1); Prothrombin Time 18.4 sec (9.1-11.1)
== END 2024-06-23 01:50 | disposition home or self-care (01) ==
LOC: LOS 01:49
PROVIDERS: PCP Family Medicine; Visit Provider Family Medicine
DX: Z79.01 Long term (current) use of anticoagulants (principal)
CPT/HCPCS: 36415; 85610

== ENCOUNTER → 2024-06-27 09:27 | Outpatient (BNVA) | payer MEDICARE, SELFPAY | PROVIDERS: PCP Family Medicine; Visit Provider Internal Medicine Cardiovascular Disease | DX: I25.10 Atherosclerotic heart disease of native coronary artery without angina pectoris (principal); I48.11 Longstanding persistent atrial fibrillation; Z95.2 Presence of prosthetic heart valve | CPT/HCPCS: 99213 ==

== ENCOUNTER 2024-07-07 01:48 | Outpatient (CLI) | payer MEDICARE, SELFPAY ==
[2024-07-07 10:51] LABS: INR 2.9 (0.9-1.1); Prothrombin Time 26.8 sec (9.1-11.1)
== END 2024-07-07 01:49 | disposition home or self-care (01) ==
LOC: LOS 02:20
PROVIDERS: PCP Family Medicine; Visit Provider Family Medicine
DX: Z79.01 Long term (current) use of anticoagulants (principal); I48.91 Unspecified atrial fibrillation
CPT/HCPCS: 36415; 85610

== ENCOUNTER 2024-07-21 01:10 | Outpatient (CLI) | payer MEDICARE, SELFPAY ==
[2024-07-21 12:38] LABS: INR 1.4 (0.9-1.1)
== END 2024-07-21 01:11 | disposition home or self-care (01) ==
LOC: LOS 01:10
PROVIDERS: PCP Family Medicine; Visit Provider Family Medicine
DX: Z79.01 Long term (current) use of anticoagulants (principal)
CPT/HCPCS: 36415; 85610

== ENCOUNTER 2024-08-11 01:27 | Outpatient (CLI) | payer MEDICARE, SELFPAY ==
[2024-08-11 12:27] LABS: INR 1.9 (0.9-1.1); Prothrombin Time 18.4 sec (9.1-11.1)
[2024-08-11 12:33] LABS: Hemoglobin A1C 8.7 % (<5.7)
[2024-08-11 12:52] LABS: ALT 26 U/L (16-63); AST 14 U/L (15-37); Albumin 3.6 g/dL (3.4-5.0); Alkaline Phosphatase 94 U/L (46-116); Anion Gap 9.1 mmol/L (3-11); BUN 17 mg/dL (7-18); Bilirubin, Total 0.51 mg/dL (0.2-1.0); CO2 26.9 mmol/L (21.0-32.0); CREATININE 1.2 mg/dL (0.70-1.30); Calcium 9.6 mg/dL (8.5-10.1); Calculated LDL 100 mg/dL (<100); Chloride 101 mmol/L (98-107); Cholesterol 198 mg/dL (<200); Estimated GFR 61.52 (mL/min/1.73m2); Glucose 232 mg/dL (74-106); HDL Cholesterol 52 mg/dL (40-60); Potassium 4.2 mmol/L (3.5-5.1); Sodium 137 mmol/L (136-145); Total Protein 8.1 g/dL (6.4-8.2); Triglyceride 233 mg/dL (<150)
== END 2024-08-11 01:28 | disposition home or self-care (01) ==
LOC: LOS 01:27
PROVIDERS: PCP Family Medicine; Visit Provider Family Medicine
DX: E11.9 Type 2 diabetes mellitus without complications (principal); E11.21 Type 2 diabetes mellitus with diabetic nephropathy; Z79.01 Long term (current) use of anticoagulants
CPT/HCPCS: 36415; 80053; 80061; 83036; 85610

== ENCOUNTER → 2024-08-22 12:50 | Outpatient (BNVA) | payer MEDICARE, SELFPAY | PROVIDERS: PCP Family Medicine; Referring Provider Family Medicine; Visit Provider Urology | DX: C67.9 Malignant neoplasm of bladder, unspecified (principal) | CPT/HCPCS: 52000; 99214 ==

== ENCOUNTER 2024-08-25 00:52 | Outpatient (CLI) | payer MEDICARE, SELFPAY ==
[2024-08-25 12:40] LABS: INR 1.6 (0.9-1.1); Prothrombin Time 15.4 sec (9.1-11.1)
== END 2024-08-25 00:53 | disposition home or self-care (01) ==
LOC: LOS 00:53
PROVIDERS: PCP Family Medicine; Visit Provider Family Medicine
DX: Z79.01 Long term (current) use of anticoagulants (principal); I48.91 Unspecified atrial fibrillation; C67.9 Malignant neoplasm of bladder, unspecified
CPT/HCPCS: 36415; 85610

== ENCOUNTER 2024-09-01 01:33 | Outpatient (CLI) | payer MEDICARE, SELFPAY ==
[2024-09-01 12:54] LABS: Prothrombin Time 18.9 sec (9.1-11.1)
== END 2024-09-01 01:34 | disposition home or self-care (01) ==
LOC: LOS 01:33
PROVIDERS: PCP Family Medicine; Referring Provider Family Medicine; Visit Provider Family Medicine
DX: I48.91 Unspecified atrial fibrillation (principal); Z79.01 Long term (current) use of anticoagulants
CPT/HCPCS: 36415; 85610

== ENCOUNTER 2024-09-08 00:44 | Outpatient (CLI) | payer MEDICARE, SELFPAY ==
[2024-09-08 12:30] LABS: INR 1.5 (0.9-1.1)
== END 2024-09-08 00:45 | disposition home or self-care (01) ==
LOC: LOS 00:44
PROVIDERS: PCP Family Medicine; Visit Provider Family Medicine
DX: I48.91 Unspecified atrial fibrillation (principal); Z79.01 Long term (current) use of anticoagulants
CPT/HCPCS: 36415; 85610

== ENCOUNTER 2024-09-15 01:21 | Outpatient (CLI) | payer MEDICARE, SELFPAY ==
[2024-09-15 12:52] LABS: INR 1.9 (0.9-1.1); Prothrombin Time 18.1 sec (9.1-11.1)
== END 2024-09-15 01:22 | disposition home or self-care (01) ==
LOC: LOS 01:21
PROVIDERS: PCP Family Medicine; Visit Provider Family Medicine
DX: Z79.01 Long term (current) use of anticoagulants (principal); I48.91 Unspecified atrial fibrillation
CPT/HCPCS: 36415; 85610

== ENCOUNTER 2024-09-22 00:51 | Outpatient (CLI) | payer MEDICARE, SELFPAY ==
[2024-09-22 13:23] LABS: INR 1.9 (0.9-1.1); Prothrombin Time 18.4 sec (9.1-11.1)
== END 2024-09-22 00:52 | disposition home or self-care (01) ==
LOC: LOS 00:51
PROVIDERS: PCP Family Medicine; Visit Provider Family Medicine
DX: Z79.01 Long term (current) use of anticoagulants (principal); I48.91 Unspecified atrial fibrillation
CPT/HCPCS: 36415; 85610

== ENCOUNTER 2024-10-06 00:49 | Outpatient (CLI) | payer MEDICARE, SELFPAY ==
[2024-10-06 13:05] LABS: INR 2.5 (0.9-1.1); Prothrombin Time 23.6 sec (9.1-11.1)
== END 2024-10-06 00:50 | disposition home or self-care (01) ==
LOC: LOS 00:49
PROVIDERS: PCP Family Medicine; Visit Provider Family Medicine
DX: Z79.01 Long term (current) use of anticoagulants (principal); I48.91 Unspecified atrial fibrillation
CPT/HCPCS: 36415; 85610

== ENCOUNTER 2024-10-20 00:25 | Outpatient (CLI) | payer MEDICARE, SELFPAY ==
[2024-10-20 12:21] LABS: Prothrombin Time 24.9 sec (9.1-11.1)
[2024-10-20 12:23] LABS: INR 2.6 (0.9-1.1)
== END 2024-10-20 00:26 | disposition home or self-care (01) ==
LOC: LOS 00:25
PROVIDERS: PCP Family Medicine; Visit Provider Family Medicine
DX: Z79.01 Long term (current) use of anticoagulants (principal); I48.91 Unspecified atrial fibrillation
CPT/HCPCS: 36415; 85610

== ENCOUNTER 2024-11-17 00:56 | Outpatient (CLI) | payer MEDICARE, SELFPAY ==
[2024-11-17 12:23] LABS: Prothrombin Time 23.1 sec (9.1-11.1)
[2024-11-17 12:29] LABS: INR 2.4 (0.9-1.1)
[2024-11-17 12:41] LABS: COMMENT (LAB VIEW ONLY) 36.45 mg/dL
== END 2024-11-17 00:57 | disposition home or self-care (01) ==
LOC: LOS 00:57
PROVIDERS: PCP Family Medicine; Visit Provider Family Medicine
DX: E11.9 Type 2 diabetes mellitus without complications (principal); E11.21 Type 2 diabetes mellitus with diabetic nephropathy; Z79.01 Long term (current) use of anticoagulants; I48.91 Unspecified atrial fibrillation
CPT/HCPCS: 82043; 82570; 85610

== ENCOUNTER → 2024-12-01 10:30 | Outpatient (BNVA) | payer MEDICARE, SELFPAY | PROVIDERS: PCP Family Medicine; Referring Provider Family Medicine; Visit Provider Physician Assistant | DX: M17.0 Bilateral primary osteoarthritis of knee (principal) | CPT/HCPCS: 20610; J1010 ==

== ENCOUNTER 2024-12-15 01:20 | Outpatient (CLI) | payer MEDICARE, SELFPAY ==
[2024-12-15 12:41] LABS: Prothrombin Time 27.7 sec (9.1-11.1)
== END 2024-12-15 01:21 | disposition home or self-care (01) ==
LOC: LOS 01:20
PROVIDERS: PCP Family Medicine; Visit Provider Family Medicine
DX: Z79.01 Long term (current) use of anticoagulants (principal); I48.91 Unspecified atrial fibrillation
CPT/HCPCS: 36415; 85610

== ENCOUNTER → 2024-12-26 09:16 | Outpatient (BNVA) | payer MEDICARE, SELFPAY | PROVIDERS: PCP Family Medicine; Referring Provider Family Medicine; Visit Provider Internal Medicine Cardiovascular Disease | DX: Z95.2 Presence of prosthetic heart valve (principal); I48.11 Longstanding persistent atrial fibrillation; I25.10 Atherosclerotic heart disease of native coronary artery without angina pectoris | CPT/HCPCS: 99214 ==

== ENCOUNTER 2025-01-15 02:40 | Outpatient (CLI) | payer MEDICARE, SELFPAY ==
[2025-01-15 12:24] LABS: Anion Gap 9.3 mmol/L (3-11); BUN 23 mg/dL (7-18); CO2 26.7 mmol/L (21.0-32.0); CREATININE 1.1 mg/dL (0.70-1.30); Calcium 9.4 mg/dL (8.5-10.1); Chloride 102 mmol/L (98-107); Estimated GFR 68.29 (mL/min/1.73m2); Glucose 200 mg/dL (74-106); Potassium 4.4 mmol/L (3.5-5.1); Sodium 138 mmol/L (136-145)
[2025-01-15 12:33] LABS: Hemoglobin A1C 9.3 % (<5.7)
[2025-01-15 12:37] LABS: INR 2.9 (0.9-1.1); Prothrombin Time 27.2 sec (9.1-11.1)
== END 2025-01-15 02:41 | disposition home or self-care (01) ==
LOC: LOS 02:40
PROVIDERS: PCP Family Medicine; Visit Provider Family Medicine
DX: E11.21 Type 2 diabetes mellitus with diabetic nephropathy (principal); Z79.01 Long term (current) use of anticoagulants; M17.0 Bilateral primary osteoarthritis of knee; Z63.6 Dependent relative needing care at home
CPT/HCPCS: 99214; 36415; 80048; 83036; 85610

== ENCOUNTER 2025-02-16 01:06 | Outpatient (CLI) | payer MEDICARE, SELFPAY ==
[2025-02-16 12:32] LABS: INR 3.2 (0.9-1.1); Prothrombin Time 29.6 sec (9.1-11.1)
== END 2025-02-16 01:07 | disposition home or self-care (01) ==
LOC: LOS 01:06
PROVIDERS: PCP Family Medicine; Visit Provider Family Medicine
DX: Z79.01 Long term (current) use of anticoagulants (principal); I48.91 Unspecified atrial fibrillation
CPT/HCPCS: 36415; 85610

== ENCOUNTER 2025-03-02 00:57 | Outpatient (CLI) | payer MEDICARE, SELFPAY ==
[2025-03-02 12:41] LABS: INR 2.6 (0.9-1.1); Prothrombin Time 24.7 sec (9.1-11.1)
== END 2025-03-02 00:58 | disposition home or self-care (01) ==
LOC: LOS 00:57
PROVIDERS: PCP Family Medicine; Visit Provider Family Medicine
DX: Z79.01 Long term (current) use of anticoagulants (principal); I48.91 Unspecified atrial fibrillation
CPT/HCPCS: 36415; 85610

== ENCOUNTER 2025-03-30 00:27 | Outpatient (CLI) | payer MEDICARE, SELFPAY ==
[2025-03-30 13:30] LABS: INR 2.5 (0.9-1.1); Prothrombin Time 23.3 sec (9.1-11.1)
== END 2025-03-30 00:28 | disposition home or self-care (01) ==
LOC: LOS 00:27
PROVIDERS: PCP Family Medicine; Visit Provider Family Medicine
DX: Z79.01 Long term (current) use of anticoagulants (principal); I48.91 Unspecified atrial fibrillation
CPT/HCPCS: 36415; 85610

== ENCOUNTER 2025-04-27 00:38 | Outpatient (CLI) | payer MEDICARE, SELFPAY ==
[2025-04-27 14:26] LABS: Hemoglobin A1C 6.4 % (<5.7)
[2025-04-27 14:32] LABS: INR 2.4 (0.9-1.1); Prothrombin Time 22.6 sec (9.1-11.1)
== END 2025-04-27 00:39 | disposition home or self-care (01) ==
LOC: LOS 00:38
PROVIDERS: PCP Nurse Practitioner Family; Visit Provider Family Medicine
DX: E11.21 Type 2 diabetes mellitus with diabetic nephropathy (principal); Z79.01 Long term (current) use of anticoagulants
CPT/HCPCS: 83036; 85610

== ENCOUNTER 2025-05-03 12:26 | Outpatient (CLI) | payer MEDICARE, SELFPAY ==
[2025-05-03 12:41] VITALS: BP 164/105; PULSE 75; RESP 20; TEMP 37; O2SAT 99
--- NOTE | 2025-05-03 13:05 | PDOC.PAIN ---
Date of service: 05/03/25 Time of Service: 13:05 Pain Managment Procedure Note Procedure Note Procedure Note: PROCEDURE NOTE LEFT GENICULAR NERVE BLOCKS Date of Service: May 03, 2025 Patient: Alvarado Adams Provider: Omer Kelley DO, MPH Alvarado Adams has been referred to the [facility] for Left genicular nerve block. Pre-operative diagnosis: Pain in left knee M25.562 Post-operative diagnosis: Same Pre-Procedure Pain: VAS=10/10 COMMENTS: I previously evaluated him in the office. PROCEDURE: 1. Block of the Superolateral genicular branch from the vastus lateralis 2. Block of the Superomedial genicular branch from the vastus medialis 3. Block of the Inferomedial genicular branch from the saphenous nerve 4. Block of the Terminal branch of the nerve vastus intermedius Alvarado was interviewed and the medical record reviewed. There were no medical, pharmacologic, radiographic or other structural contraindications to attempting fluoroscopically guided Left genicular nerve block. Risks and potential side effects as well as potential benefit of the procedure were reviewed with Alvarado Adams , and the patient's voiced concerns were addressed. After I believed that the patient was completely informed, the printed consent form was signed. Standard time-out procedure was performed. After a thorough Chlorhexadine preparation of the skin and draping the skin entry points for approaching Left superolateral genicular nerve, the superomedial genicular nerve, nerve of the vastus intermedius and the inferomedial genicular was identified under the most advantageous fluoroscopic view and marked. Next, 3.5 25G spinal needle was advanced to os at the location of the specific nerve root using fluoroscopic guidance. Next 0.5 cc of 0.5% Bupivacain was injected at each site. There was no unusual discomfort expressed by Alvarado. The needles were withdrawn without difficulty. Alvarado was observed and was without hemodynamic, neurologic, or allergic reactions.? Fluoroscopic images were digitally archived. Alvarado's vital signs were stable throughout the procedure and were as recorded in the docflowsheet by the nursing staff. If given, dosages of intravenous drugs for anxiolysis and analgesia were documented in MAR. Follow up plans and appointments were discussed. Alvarado was instructed to keep careful note of how the usual pain was modified by these injections. Specifically, Alvarado was asked to keep a pain diary for the next 4 hours using a numeric pain scale of 0-10 and report these results. Post procedure instruction was given as documented in nursing documentation and having met discharge criteria, Alvarado was discharged from the [facility]. COMMENTS: No apparent complications. Post-procedure pain: VAS= 0/10. Alvarado will call back with 0-4 hour post-procedure pain scores. I personally completed the entire procedure. OMER KELLEY DO, MPH ABPM&R - Subspecialty board certification in Pain Medicine [facility] Coding Conscious Sedation used for procedure: No CPT Codes: GNB 3-4 Nerve, Block - 68136 (2522000 ~G) Fluoroscopic guidance (non spine inj.) - 72729 ([id number] ~G) Additional Codes: Date of Service (00064) Date of service: 05/03/25 Diagnoses: Knee osteoarthritis
[2025-05-03 13:09] VITALS: PULSE 79; O2SAT 98
[2025-05-03 13:10] VITALS: PULSE 81; O2SAT 97
[2025-05-03 13:20] VITALS: PULSE 79; O2SAT 96
--- NOTE | 2025-05-03 13:23 | DI.RAD_ITS ---
Exam(s) XR PAIN CLINIC FLUORO JOINT IN EXAM: XR PAIN CLINIC FLUORO JOINT IN CLINICAL HISTORY: Dx: Osteoarthritis of the knee. TECHNIQUE: Fluoroscopy was provided for the referring physician for guidance with performing pain clinic injection procedure. COMPARISON: No exams were available for comparison FINDINGS: Please see procedure note for details. Fluoro time: 35.8 seconds RADIATION DOSE DELIVERED: ivon Albrecht=2.52 mGy
[2025-05-03] MEDS: Omnipaque 240 MG/ML 50 ML BTL IJ (13:27)
[2025-05-03] MEDS: Nerve Block Tray 1 EACH MC (13:27)
[2025-05-03] MEDS: Bupivacaine 0.5% Pres-Free 10 ML VIAL IJ (13:28)
== END 2025-05-03 12:27 | disposition home or self-care (01) ==
LOC: PC 12:26
PROVIDERS: PCP Nurse Practitioner Family; Visit Provider Preventive Medicine Occupational Medicine
DX: M25.562 Pain in left knee (principal)
CPT/HCPCS: 64454; 77002; J0665; Q9967

== ENCOUNTER 2025-05-25 00:13 | Outpatient (CLI) | payer MEDICARE, SELFPAY ==
[2025-05-25 15:09] LABS: INR 2.6 (0.9-1.1); Prothrombin Time 24.7 sec (9.1-11.1)
== END 2025-05-25 00:14 | disposition home or self-care (01) ==
LOC: LOS 00:13
PROVIDERS: Family Medicine; PCP Nurse Practitioner Family; Visit Provider Nurse Practitioner Family
DX: Z79.01 Long term (current) use of anticoagulants (principal)
CPT/HCPCS: 36415; 85610

== ENCOUNTER 2025-06-13 20:11 | Emergency (ER) | payer MEDICARE, SELFPAY ==
[2025-06-13 20:12] VITALS: BP 162/76; PULSE 108; RESP 18; TEMP 38.8; O2SAT 94
[2025-06-13 20:15] VITALS: BP 167/78; PULSE 116; RESP 20; TEMP 38.3; O2SAT 96
[2025-06-13] MEDS: Normal Saline 1,000 ML 1000 ML IV (20:15)
--- NOTE | 2025-06-13 20:24 | W.ED.GENAD ---
Discharge Plan Disposition Patient Disposition: Home Condition: Improving Discharge Details Clinical Impression: Bacterial gastroenteritis Primary Care Provider: Karen Sommers ED Provider: Sánchez Goss Meds and New Rx's Prescriptions: New amoxicillin-pot clavulanate 875-125 mg tablet 1 tab PO BID Qty: 14 0RF ondansetron 4 mg tablet,disintegrating 4 mg PO Q8H PRN (Reason: nausea and vomiting) Qty: 20 0RF Continued latanoprost 0.005 % drops 1 drp ophthalmic (eye) QPM Patient Comments: INSTILL ONE DROP INTO BOTH EYES AT BEDTIME lisinopril 40 mg tablet 40 mg PO DAILY Qty: 90 4RF amoxicillin 500 mg capsule 2,000 mg PO ONCE Qty: 20 0RF Patient Comments: Pt. states he only takes this for dental procedures. Rx Instructions: take 4 tablets 30-60 minutes prior to procedures including dental cleanings to prevent bacterial endocarditis hydrochlorothiazide 25 mg tablet 25 mg PO DAILY Qty: 90 3RF metoprolol succinate 100 mg tablet extended release 24 hr 100 mg PO DAILY Qty: 90 3RF meloxicam 15 mg tablet 15 mg PO DAILY Qty: 30 1RF Rx Instructions: Take one tablet daily for inflammation and pain verapamil 120 mg tablet 120 mg PO BID Qty: 180 3RF pravastatin 80 mg tablet 80 mg PO DAILY Qty: 90 4RF Rx Instructions: take one tablet daily glimepiride 2 mg tablet 2 mg PO DAILY Qty: 30 3RF metformin 1,000 mg tablet 1,000 mg PO BID Qty: 180 2RF warfarin 5 mg tablet 5 mg PO DAILY Qty: 90 1RF Protocol: Dose Management Condition: Wednesday Dose/Route: 5 mg Instruction: 1 x 5 mg tablet Condition: Wednesday Dose/Route: 5 mg Instruction: 1 x 5 mg tablet Condition: Wednesday Dose/Route: 5 mg Instruction: 1 x 5 mg tablet Condition: Wednesday Dose/Route: 5 mg Instruction: 1 x 5 mg tablet Condition: Dose/Route: 5 mg Instruction: 1 x 5 mg tablet Condition: Wednesday Dose/Route: 7.5 mg Instruction: 1.5 x 5 mg tablets Condition: Wednesday Dose/Route: 5 mg Instruction: 1 x 5 mg tablet Protocol Text: Adjustment Start Date: Wednesday05/25/25 INR Value: 2.6 INR Date: 05/25/25 Recheck Date: 06/01/25 Rx Instructions: or as directed. Discharge Instructions Stand Alone Forms: Portal Information Discharge Data Discharge Date/Time-TO BE ENTERED AT DEPARTURE: 06/13/25 23:05 Discharge Physician: Sánchez Goss HPI General Date/Time Provider Initiated Documentation: 06/13/25 20:24. HPI Narrative: Patient presents emergency department complaining of nausea vomiting diarrhea for 2 weeks and also had left lower quadrant abdominal pain that subsided. Reports extremely thirsty no fever no chills Related Data Home Medications Medication Instructions Recorded Confirmed latanoprost 0.005 % eye drops 1 drp ophthalmic (eye) QPM 10/14/22 06/13/25 verapamil 120 mg tablet 120 mg PO BID #180 tabs 07/04/24 06/13/25 pravastatin 80 mg tablet 80 mg PO DAILY #90 tab-caps 08/28/24 06/13/25 amoxicillin 500 mg capsule 2,000 mg (4 x 500 mg) PO ONCE #20 09/06/24 06/13/25 caps lisinopril 40 mg tablet 40 mg PO DAILY #90 tab-caps 09/06/24 06/13/25 meloxicam 15 mg tablet 15 mg PO DAILY #30 tabs 01/15/25 06/13/25 hydrochlorothiazide 25 mg tablet 25 mg PO DAILY #90 tabs 02/28/25 06/13/25 metoprolol succinate 100 mg 100 mg PO DAILY #90 tabs 02/28/25 06/13/25 tablet,extended release 24 hr glimepiride 2 mg tablet 2 mg PO DAILY #30 tabs 03/12/25 06/13/25 metformin 1,000 mg tablet 1,000 mg PO BID #180 tabs 04/18/25 06/13/25 warfarin 5 mg tablet 5 mg PO DAILY #90 tabs 04/18/25 06/13/25 amoxicillin 875 mg-potassium 1 tab PO BID #14 tabs 06/13/25 clavulanate 125 mg tablet ondansetron 4 mg disintegrating 4 mg PO Q8H PRN nausea and 06/13/25 tablet vomiting #20 tabs Previous Rx's Medication Instructions Recorded verapamil 120 mg tablet 120 mg PO BID #180 tabs 07/04/24 pravastatin 80 mg tablet 80 mg PO DAILY #90 tab-caps 08/28/24 amoxicillin 500 mg capsule 2,000 mg (4 x 500 mg) PO ONCE #20 09/06/24 caps lisinopril 40 mg tablet 40 mg PO DAILY #90 tab-caps 09/06/24 meloxicam 15 mg tablet 15 mg PO DAILY #30 tabs 01/15/25 hydrochlorothiazide 25 mg tablet 25 mg PO DAILY #90 tabs 02/28/25 metoprolol succinate 100 mg 100 mg PO DAILY #90 tabs 02/28/25 tablet,extended release 24 hr glimepiride 2 mg tablet 2 mg PO DAILY #30 tabs 03/12/25 metformin 1,000 mg tablet 1,000 mg PO BID #180 tabs 04/18/25 warfarin 5 mg tablet 5 mg PO DAILY #90 tabs 04/18/25 amoxicillin 875 mg-potassium 1 tab PO BID #14 tabs 06/13/25 clavulanate 125 mg tablet ondansetron 4 mg disintegrating 4 mg PO Q8H PRN nausea and 06/13/25 tablet vomiting #20 tabs Allergies Allergy/AdvReac Type Severity Reaction Status Date / Time No Known Allergies Allergy Verified 06/13/25 20:18 General Stated Complaint: Abd Prob ANAMIKA: 3 Course Vital Signs Vital signs: Vital Signs Temperature 38.8 C H 06/13/25 20:12 Pulse 108 H 06/13/25 20:12 Respiratory Rate 18 06/13/25 20:12 Blood Pressure 162/76 H 06/13/25 20:12 Pulse Oximetry 94 06/13/25 20:12 Temperature 38.8 C H 06/13/25 20:12 Temperature Source Tympanic 06/13/25 20:12 Pulse 108 H 06/13/25 20:12 Respiratory Rate 18 06/13/25 20:12 Blood Pressure 162/76 H 06/13/25 20:12 Pulse Oximetry 94 06/13/25 20:12 Oxygen Delivery Method Room Air 06/13/25 20:12 Oxygen Flow Rate 0 06/13/25 20:12 Pain Level 0 06/13/25 20:12 Medical Decision Making MDM: Summary: Patient presents emergency department for weeks of nausea vomiting and watery diarrhea also complaining of lower abdominal pain in the left lower quadrant. He had labs done and seem very dehydrated initially sepsis workup was done for he met SIRS criteria at given fluids and IV normal saline at 30 cc/kg for a total of 3 L. He also drank fluids his lactate is initially was 2.7. Also Zofran was given with's complete resolution of his symptoms. CBC was unremarkable but with a lactic acid he was given Zosyn for this could be a bacterial gastroenteritis. He improved and his abdominal pain is not present but he had a CT scan of the abdomen pelvis to rule out diverticulitis which was read as negative except for cholelithiasis. Patient states that he is much better he will be going home a repeat visit was ordered and he is to go home on Augmentin to rule out any bacterial infection Data Review Analysis All the data on this patient was reviewed by me including laboratory and imaging studies as well as bedside studies performed by me Independent review of Studies Imaging CT scan does not show any intra-abdominal pathology Lab: Labs unremarkable except for an elevated lactic acid Risk Stratification: Patient most likely with severe dehydration due to gastroenteritis he was aggressively hydrated labs are unremarkable he feels much better and will be discharged home Differential Diagnosis: 1. Bacterial gastroenteritis 2. Diverticulitis 3. Ischemic colitis 4. 5. Consultants: Shared disposition: Patient understands disposition feels better and wants to discharge home to follow-up with his primary care physician according Impression: Imaging Data Radiologic Study: Radiologist's impression: reliminary Radiology Report Call: [phone] assistance Online chat: [email or web address] Patient Name: MARINA PRESSLEY Institution Name: [place] [address] Study Type: CT ABDOMEN/PELVIS W Ordered As: CT ABD/PELVIS W Date of Dictation: 13 Jun 2025 EST Date of Exam: 13 Jun 2025 EST Account Number: Patient : 1945 Patient Location: er Gaming Director: Referring Physician: SÁNCHEZ GOSS This interpretation is based upon the receipt of 494 images. Page 1 of 2 PROCEDURE INFORMATION: Exam: CT Abdomen And Pelvis With Contrast Exam date and time: 06/13/2025 9:41 PM Age: 79 years old Clinical indication: Other: Llq abdominal pain; Additional info: Diarrhea and llq abdominal pain TECHNIQUE: Imaging protocol: Computed tomography of the abdomen and pelvis with contrast. Contrast material: OMNI 350; Contrast volume: 100 ml; Contrast route: INTRAVENOUS (IV); COMPARISON: No relevant prior studies available. FINDINGS: Lungs: Linear bibasilar opacities most consistent with subsegmental atelectasis. Heart: Prior TAVR. The heart demonstrates diffuse enlargement. Liver: The liver is unremarkable. Gallbladder and biliary ducts: Cholelithiasis with gallbladder wall thickening and pericholecystic edema. There multiple foci of air within the gallbladder, emphysematous cystitis can not be excluded. Pancreas: The pancreas is unremarkable. Spleen: Multiple calcified granulomas noted in the spleen. No splenomegaly. Adrenal glands: The adrenal glands are unremarkable. Kidneys and ureters: The kidneys are normal. Stomach and bowel: No evidence of bowel obstruction. No pericolonic inflammatory stranding. Colonic diverticulosis without evidence of diverticulitis. Appendix: Normal appendix. Intraperitoneal space: Unremarkable. No free air. No significant fluid collection. Vasculature: There is moderate diffuse atherosclerotic disease of the abdominal aorta. Moderate/severe narrowing of the ostium of the celiac artery without evidence of complete occlusion. Lymph nodes: Unremarkable. No enlarged lymph nodes. MARINA PRESSLEY Preliminary Radiology Report STONE POLISHER (QA) DISCREPANCY? If there is a discrepancy between the preliminary and final interpretation, please notify [email or web address] via [email or web address]. If you do not have access to our QA portal, call our QA team at [phone] CONFIDENTIALITY STATEMENT This report is intended only for the use of the referring physician, and only in accordance with law, If you received this in error, call [phone] Page 2 of 2 Urinary bladder: No focal wall thickening of the urinary bladder. Reproductive: Unremarkable as visualized. Bones/joints: Moderate multilevel degenerative changes thoracic spine. The lumbar spine demonstrates moderate degenerative changes at multiple levels. No acute osseous abnormality. Soft tissues: Bilateral fat containing inguinal hernias. IMPRESSION: Cholelithiasis with gallbladder wall thickening and pericholecystic edema. There multiple foci of air within the gallbladder, emphysematous cystitis can not be excluded. Chronic noncritical findings as described above. 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) 12/2021, microalbuminuria Essential hypertension (Chronic) Hyperlipidemia (Chronic) Osteoarthritis of left knee (Chronic) Class 2 severe obesity with serious comorbidity and body mass index (BMI) of 38.0 to 38.9 in adult (Chronic) Primary osteoarthritis of both knees (Chronic) Tendonitis of left rotator cuff (Chronic) Tendinitis of long head of biceps brachii of left shoulder (Chronic) Arthritis of right knee (Chronic) 80 mg Depo-Medrol injection: 06/24/2023 Primary osteoarthritis of left knee (Chronic) 80 mg Depo-Medrol injection: 06/24/2023 Medical History (Updated 06/13/25 @ 22:28 by Sánchez Goss MD) Urothelial carcinoma of bladder (2017) Papillary urothelial carcinoma, non invasive, 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 04/16/14; X - 2018-3 polyps, tubular adenomas, last of which had some early dysplastic features Patient due 2021-patient was called 12/2021 with attempt to set up colonoscopy. Patient wished to defer at this point. He makes an informed decision. 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) Family History Mother , 92 Heart disease Father , 76 Heart disease Sister , 76 Stroke Brother Diabetes Essential hypertension Stroke Maternal Grandfather Heart disease Paternal Grandfather Heart disease Maternal Grandmother Heart disease Paternal Grandmother Heart disease Brother , 68 Stroke Other Acute ill-defined cerebrovascular disease Social History Smoking/Tobacco Use Status: Former Tobacco Use tobacco type: cigarettes Quit Date: 08/09/86 Pack-years: 25 Tobacco: How many years used: 25 Second Hand Exposure: Yes Smoking risk assessment performed?: Yes Alcohol Intake: current Alcohol Intake frequency: holidays/special occasions only Alcohol type: wine and hard liquor Drug use: Never Substance use type: does not use Adopted: No Caregiver/Support person: No Foster care: No Household members: spouse Housing: house Number of Children: 0 Communication Needs: None Education Level: high school Do you need help understanding health information?: Rarely current occupation: retired Pets and animals: Yes Pets and animals: cat(s) Sexually active: No Do you think of yourself as: straight/heterosexual Current gender identity: male What is your relationship status?: How often do you talk on the phone with friends or family?: once per week How often do you get together with friends or relatives?: decline to answer How often do you attend sikhism or gnosticist services?: decline to answer Do you belong to any clubs or organized social groups?: no Panel score (0-1 are the most socially isolated patients): 1 What type of physical activity do you participate in: other Duration: 15-30 minutes/day Frequency: 3-4 times per week Oneyda/Yarsani: No preference Special oneyda needs: No Agree to transfusion: Yes Seatbelt use: always Helmet use: Yes Helmet use: always Drive intox or ride w/intox tier truck driver: No Working smoke detector in home: Yes Carbon monox detector in home: Yes Firearms in home: Yes Firearms unloaded and locked: No Do you feel safe at home: Yes Do you feel safe in your relationship?: Yes Victim of physical abuse: No Victim of emotional abuse: No Victim of sexual abuse: No
--- NOTE | 2025-06-13 20:28 | DI.CT_ITS ---
Exam(s) CT ABDOMEN PELVIS W EXAM: CT ABDOMEN PELVIS W CLINICAL HISTORY: diarrhea and LLQ abdominal pain TECHNIQUE: Imaging Protocol: Axial computed tomography images with coronal and sagittal reformatted images were created and reviewed. CONTRAST MATERIAL: Intravenous: Omnipaque 350 Contrast volume:100 mL Oral: No COMPARISON: CT ABD/PELVIS WO W CONTRAST from 02/12/2017 FINDINGS: ABDOMEN: Lung Bases: There is an aortic valve replacement. The heart is enlarged. Liver: Normal density. No measurable mass. Portal, Superior Mesenteric, and Splenic Veins: Unremarkable. Gallbladder and Biliary Tract: There are gallstones present. There is infiltration of the surrounding soft tissues. There is no biliary ductal dilatation. There is a question of acute cholecystitis. Pancreas: Normal density, no abnormal calcifications or inflammatory process. Spleen: Calcified granuloma are seen in the spleen. Adrenals: No masses seen. Kidneys: Normal size, contour and axis. No radiodense stones or obstructive uropathy. No masses seen. Abdominal Aorta: Abdominal portion non-dilated. Atherosclerotic calcification is present. Bowel: There is diverticulosis of the colon without evidence of acute diverticulitis. There is no evidence of bowel wall thickening or obstruction. There is no evidence of appendicitis. Peritoneal Cavity: No ascites, collection or mesenteric inflammatory response. No free air. Lymph Nodes: Within normal limits. Bones: Within normal limits for the patient's age. 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 Soft Tissues: The moderate size fat containing umbilical hernia. There is a small fat containing left inguinal hernia. PELVIS: Bladder: Symmetric distention, no gross wall thickening. Reproductive Organs: Unremarkable as visualized. Lymph Nodes: Within normal limits. Bones: Within normal limits for the patient's age. IMPRESSION: 1. Cholelithiasis with findings suggestive of acute cholecystitis. Abdominal ultrasound is recommended for further evaluation. There are foci of air within the gallbladder. Emphysematous cholecystitis should be considered. 2. Colonic diverticulosis without evidence of acute diverticulitis. 3. The preliminary [facility] report was reviewed. RADIATION DOSE DELIVERED: 1,439.34mGy.cm Total DLP DATA REPOSITORY: All CT scans at this facility are submitted to the National Radiology Data Registry (NRDR) Dose Index Registry (DIR) with the [employer] (ACR). RADIATION OPTIMIZATION: All CT scans at this facility use at least one of these dose optimization techniques: automated exposure control; mA and/or kV adjustment per patient size (includes targeted exams where dose is matched to clinical indication); or iterative reconstruction.
[2025-06-13 21:17] LABS: Abs Immature Grans 0.06 10^3/uL (0.0-0.06); HCT 40.2 % (40.0-50.0); HGB 13.7 g/dL (13.5-17.5); Immature Grans % 0.6 %; MCH 30.5 pg (27.0-33.0); MCHC 34.1 % (32.0-36.0); MCV 90 fL (80-95); MPV 9.7 fL (8.0-11.0); Platelet Count 172 10^3/uL (130-400); RBC 4.49 10^6/uL (4.36-5.78); RDW 13.2 % (11.8-14.1); RDW-SD 43.0 fL; WBC 9.95 10^3/uL (4.4-10.8)
[2025-06-13] MEDS: SODIUM CHLORIDE 1000 ML IV (21:20)
[2025-06-13 21:22] LABS: COVID-19 PCR Negative (Negative)
[2025-06-13 21:35] LABS: ALT 36 U/L (16-63); AST 28 U/L (15-37); Albumin 2.9 g/dL (3.4-5.0); Alkaline Phosphatase 139 U/L (46-116); Anion Gap 14.4 mmol/L (3-11); BUN 28 mg/dL (7-18); Bilirubin, Total 0.9 mg/dL (0.2-1.0); CO2 24.6 mmol/L (21.0-32.0); Calcium 8.7 mg/dL (8.5-10.1); Chloride 93 mmol/L (98-107); Glucose 196 mg/dL (74-106); Lipase 49 U/L (<78); Magnesium 1.2 mg/dL (1.8-2.4); Potassium 4.0 mmol/L (3.5-5.1); Sodium 132 mmol/L (136-145); Total Protein 7.6 g/dL (6.4-8.2)
[2025-06-13] MEDS: Normal Saline - Diluent 50 ML VIAL IJ (21:44)
[2025-06-13] MEDS: Omnipaque 350 MG/ML 100 ML BTL IJ (21:44)
[2025-06-13] MEDS: Normal Saline Flush 10 ML SYR IVP (21:44)
[2025-06-13 21:45] LABS: Procalcitonin 2.21 ng/mL
--- NOTE | 2025-06-13 22:09 | NUR.NOTE ---
Nursing Note: This RN attempted to obtain second set of blood cultures but was unable to find a good vein, lab called to come draw.
--- NOTE | 2025-06-13 22:26 | DI.[facility]_ITS ---
PROCEDURE INFORMATION: Exam: CT Abdomen And Pelvis With Contrast Exam date and time: 06/13/2025 9:41 PM Age: 79 years old Clinical indication: Other: Llq abdominal pain; Additional info: Diarrhea and llq abdominal pain TECHNIQUE: Imaging protocol: Computed tomography of the abdomen and pelvis with contrast. Contrast material: OMNI 350; Contrast volume: 100 ml; Contrast route: INTRAVENOUS (IV); COMPARISON: No relevant prior studies available. FINDINGS: Lungs: Linear bibasilar opacities most consistent with subsegmental atelectasis. Heart: Prior TAVR. The heart demonstrates diffuse enlargement. Liver: The liver is unremarkable. Gallbladder and biliary ducts: Cholelithiasis with gallbladder wall thickening and pericholecystic edema. There multiple foci of air within the gallbladder, emphysematous cystitis can not be excluded. Pancreas: The pancreas is unremarkable. Spleen: Multiple calcified granulomas noted in the spleen. No splenomegaly. Adrenal glands: The adrenal glands are unremarkable. Kidneys and ureters: The kidneys are normal. Stomach and bowel: No evidence of bowel obstruction. No pericolonic inflammatory stranding. Colonic diverticulosis without evidence of diverticulitis. Appendix: Normal appendix. Intraperitoneal space: Unremarkable. No free air. No significant fluid collection. Vasculature: There is moderate diffuse atherosclerotic disease of the abdominal aorta. Moderate/severe narrowing of the ostium of the celiac artery without evidence of complete occlusion. Lymph nodes: Unremarkable. No enlarged lymph nodes. Urinary bladder: No focal wall thickening of the urinary bladder. Reproductive: Unremarkable as visualized. Bones/joints: Moderate multilevel degenerative changes thoracic spine. The lumbar spine demonstrates moderate degenerative changes at multiple levels. No acute osseous abnormality. Soft tissues: Bilateral fat containing inguinal hernias. IMPRESSION: Cholelithiasis with gallbladder wall thickening and pericholecystic edema. There multiple foci of air within the gallbladder, emphysematous cystitis can not be excluded. Chronic noncritical findings as described above. Dictated and Authenticated by: Martha Larson MD. Orderin Rogerio Pozo MD
[2025-06-13] MEDS: PIPERACILLIN/TAZO 4.5 GM in Normal Saline 100 ML IVPB (22:30)
[2025-06-13 23:05] VITALS: TEMP 37.2
--- NOTE | 2025-06-14 14:13 | NUR.NOTE ---
Accessed Pt chart to document if Pt was given an antibiotic on the Specimen Report. Report was given to shamar.
--- NOTE | 2025-06-14 14:32 | W.ED.FU ---
Date of service: 06/14/25 Time of Service: 14:32 Follow Up Plan: This patient had gram-negative rods growing in his blood culture. I attempted to call the patient at home. He had a voicemail that did not identify him by name. I left a message requesting a callback to the emergency department.
== END 2025-06-13 23:05 | disposition home or self-care (01) ==
PROVIDERS: Emergency Provider Emergency Medicine Emergency Medical Services; PCP Nurse Practitioner Family
DX: R11.2 Nausea with vomiting, unspecified (principal); A04.9 Bacterial intestinal infection, unspecified; R19.7 Diarrhea, unspecified; R50.9 Fever, unspecified
CPT/HCPCS: 36415; 80053; 83690; 84145; 87040; 87077; 87635; 96361; 96365; 99285; 74177; 83605; 83735; 85025; 87186; 99284; J2543; J3490

== ENCOUNTER 2025-06-14 17:02 | Inpatient (IN) | payer MEDICARE, SELFPAY ==
[2025-06-14] VITALS (65 sets, daily range): BP systolic 71–120; BP diastolic 42–69; PULSE 57–126; RESP 17–30; TEMP 36.8–37; O2SAT 88–100
--- NOTE | 2025-06-14 | DI.RAD_ITS ---
Exam(s) XR ABDOMEN FLAT UPRIGHT EXAM: 2D digital imaging was performed. CLINICAL HISTORY: abd pain. COMPARISON: CT CT ABDOMEN PELVIS W from 06/13/2025 TECHNIQUE: Supine and Lateral views of the abdomen was performed. Four images were obtained. FINDINGS: Examination limited by patient body habitus and motion artifact. LUNG BASES: Clear. BOWEL GAS PATTERN: Nondistended. FREE AIR: None. CALCIFICATIONS: No radiopaque calcifications. OSSEOUS STRUCTURES: Normal for age. OTHER FINDINGS: None. IMPRESSION: 1. Suboptimal examination due to patient motion artifact and positioning. 2. No obvious evidence of an acute abdomen. 3. If symptoms persist, a repeat examination or a CT scan of the abdomen and pelvis should be obtained. 4. The preliminary [facility] report was reviewed. DATA REPOSITORY: RADIATION DOSE DELIVERED:
--- NOTE | 2025-06-14 16:52 | W.ED.GENAD ---
Discharge Plan Disposition Patient Disposition: Admit to [facility] Condition: Improving Discharge Details Clinical Impression: Gram negative sepsis, Gastroenteritis Primary Care Provider: Karen Sommers ED Provider: Sánchez Beatty Home Meds and New Rx's Prescriptions: Continued latanoprost 0.005 % drops 1 drp ophthalmic (eye) QPM Patient Comments: INSTILL ONE DROP INTO BOTH EYES AT BEDTIME amoxicillin 500 mg capsule 2,000 mg PO ONCE Qty: 20 0RF Patient Comments: Pt. states he only takes this for dental procedures. Rx Instructions: take 4 tablets 30-60 minutes prior to procedures including dental cleanings to prevent bacterial endocarditis hydrochlorothiazide 25 mg tablet 25 mg PO DAILY Qty: 90 3RF metoprolol succinate 100 mg tablet extended release 24 hr 100 mg PO DAILY Qty: 90 3RF meloxicam 15 mg tablet 15 mg PO DAILY Qty: 30 1RF Rx Instructions: Take one tablet daily for inflammation and pain pravastatin 80 mg tablet 80 mg PO DAILY Qty: 90 4RF Rx Instructions: take one tablet daily glimepiride 2 mg tablet 2 mg PO DAILY Qty: 30 3RF metformin 1,000 mg tablet 1,000 mg PO BID Qty: 180 2RF amoxicillin-pot clavulanate 875-125 mg tablet 1 tab PO BID Qty: 14 0RF ondansetron 4 mg tablet,disintegrating 4 mg PO Q8H PRN (Reason: nausea and vomiting) Qty: 20 0RF Held lisinopril 40 mg tablet 40 mg PO DAILY Qty: 90 4RF Hold Instructions: Resume on 06/20/25. warfarin 5 mg tablet 5 mg PO DAILY Qty: 90 1RF Hold Instructions: Resume on 06/21/25. Protocol: Dose Management Condition: Wednesday Dose/Route: 5 mg Instruction: 1 x 5 mg tablet Condition: Wednesday Dose/Route: 5 mg Instruction: 1 x 5 mg tablet Condition: Wednesday Dose/Route: 5 mg Instruction: 1 x 5 mg tablet Condition: Wednesday Dose/Route: 5 mg Instruction: 1 x 5 mg tablet Condition: Dose/Route: 5 mg Instruction: 1 x 5 mg tablet Condition: Wednesday Dose/Route: 7.5 mg Instruction: 1.5 x 5 mg tablets Condition: Wednesday Dose/Route: 5 mg Instruction: 1 x 5 mg tablet Protocol Text: Adjustment Start Date: Wednesday05/25/25 INR Value: 2.6 INR Date: 05/25/25 Recheck Date: 06/01/25 Rx Instructions: or as directed. No Action verapamil 120 mg tablet 120 mg PO BID Qty: 180 3RF HPI General Date/Time Provider Initiated Documentation: 06/14/25 17:09. HPI Narrative: Patient who was seen yesterday after presenting with 10 days of diarrhea. Yesterday he was febrile blood cultures were obtained and today the blood cultures came back positive for gram-negative rods initially he says he was fine but then he called the ambulance for he continues having diarrhea and was unable to get the antibiotics prescribed. In the ambulance he was hypotensive tachycardic states that he still having fever and had 2 episodes of diarrhea today. Related Data Home Medications Medication Instructions Recorded Confirmed latanoprost 0.005 % eye drops 1 drp ophthalmic (eye) QPM 10/14/22 06/14/25 verapamil 120 mg tablet 120 mg PO BID #180 tabs 07/04/24 06/14/25 pravastatin 80 mg tablet 80 mg PO DAILY #90 tab-caps 08/28/24 06/14/25 amoxicillin 500 mg capsule 2,000 mg (4 x 500 mg) PO ONCE #20 09/06/24 06/14/25 caps lisinopril 40 mg tablet 40 mg PO DAILY #90 tab-caps 09/06/24 06/14/25 Held on 06/14/25. Instructions: Resume on 06/20/25. meloxicam 15 mg tablet 15 mg PO DAILY #30 tabs 01/15/25 06/14/25 hydrochlorothiazide 25 mg tablet 25 mg PO DAILY #90 tabs 02/28/25 06/14/25 metoprolol succinate 100 mg 100 mg PO DAILY #90 tabs 02/28/25 06/14/25 tablet,extended release 24 hr glimepiride 2 mg tablet 2 mg PO DAILY #30 tabs 03/12/25 06/14/25 metformin 1,000 mg tablet 1,000 mg PO BID #180 tabs 04/18/25 06/14/25 warfarin 5 mg tablet 5 mg PO DAILY #90 tabs 04/18/25 06/14/25 Held on 06/14/25. Instructions: Resume on 06/21/25. amoxicillin 875 mg-potassium 1 tab PO BID #14 tabs 06/13/25 06/14/25 clavulanate 125 mg tablet ondansetron 4 mg disintegrating 4 mg PO Q8H PRN nausea and 06/13/25 06/14/25 tablet vomiting #20 tabs Previous Rx's Medication Instructions Recorded verapamil 120 mg tablet 120 mg PO BID #180 tabs 07/04/24 pravastatin 80 mg tablet 80 mg PO DAILY #90 tab-caps 08/28/24 amoxicillin 500 mg capsule 2,000 mg (4 x 500 mg) PO ONCE #20 09/06/24 caps lisinopril 40 mg tablet 40 mg PO DAILY #90 tab-caps 09/06/24 Held on 06/14/25. Instructions: Resume on 06/20/25. meloxicam 15 mg tablet 15 mg PO DAILY #30 tabs 01/15/25 hydrochlorothiazide 25 mg tablet 25 mg PO DAILY #90 tabs 02/28/25 metoprolol succinate 100 mg 100 mg PO DAILY #90 tabs 02/28/25 tablet,extended release 24 hr glimepiride 2 mg tablet 2 mg PO DAILY #30 tabs 03/12/25 metformin 1,000 mg tablet 1,000 mg PO BID #180 tabs 04/18/25 warfarin 5 mg tablet 5 mg PO DAILY #90 tabs 04/18/25 Held on 06/14/25. Instructions: Resume on 06/21/25. amoxicillin 875 mg-potassium 1 tab PO BID #14 tabs 06/13/25 clavulanate 125 mg tablet ondansetron 4 mg disintegrating 4 mg PO Q8H PRN nausea and 06/13/25 tablet vomiting #20 tabs Allergies Allergy/AdvReac Type Severity Reaction Status Date / Time No Known Allergies Allergy Verified 06/13/25 20:18 General ANAMIKA: 3 Review of Systems Narrative: Review of Systems: Constitutional: No fevers, chills, sweats Eye: No recent visual problems ENT: No ear pain, nasal congestion, sore throat Respiratory: No shortness of breath, cough Cardiovascular: No Chest pain, palpitations, syncope Gastrointestinal: No nausea, no vomiting, no abdominal pain Genitourinary: No hematuria Jose/Lymph: Negative for bruising tendency, swollen lymph glands Endocrine: Negative for excessive thirst, excessive hunger Musculoskeletal: No back pain, neck pain, joint pain, muscle pain, decreased range of motion Integumentary: No rash, pruritus, abrasions Neurologic: Alert & oriented X 4 Psychiatric: No anxiety, depression Exam Narrative Exam Narrative: Exam; vitals signs as reported above normal Constitutional; In no acute distress, afebrile General: cooperative, healthy appearing, comfortable and no acute distress HEENT: Head: normal to inspection, no palpable skull fracture and normocephalic atraumatic Eyes: : appearance normal, both eyes and all related structures EOM intact bilaterally Pupils: PERRL : conjunctiva normal Direct ophthalmoscopy: normal light reflex, normal conjunctiva, normal visual acuity Ears: Normal TM, normal external canal Nose: normal no rhinorreha Neck no JVD, supple non tender Neck: normal visual inspection, full ROM and no lymphadenopathy Chest: normal inspection of the chest Respiratory : normal respiratory effort and able to speak in complete sentences no wheezing no rales Cardio Rate: regular rate, rhythm: regular rhythm normal heart sounds S1 and S2 no murmurs, gallops, or rubs GI : normal to inspection, normal bowel sounds, soft, non tender, non distended, no organomegaly Back/Spine/ no CVA tenderness Thoracic/Lumbar Spine: no tenderness or deformities Skin no rashes or lesions good capillary refill Neuro: patient alert oriented x 4 and no meningeal signs, Cranial Nerves: CN's II-XI intact bilaterally, Cognition: normal cognition, Speech: speech normal, Gait: normal gait, Depp tendon reflexes normal 2+ muscle strength 5/5 bilaterally Extremities, no edema, full range of motion, normal strength Rectal: Heme-negative watery brown stool Medical Decision Making MDM: Summary: Patient who came yesterday stating that he had 10 days of diarrhea had a sepsis workup and improved with improvement of his lactic acid and he wanted to go home for he wanted to care for his who has Alzheimer's and they live alone went home. Today's blood cultures came out positive for gram-negative rods and when he was contacted he said did not feel good ambulance was called and he came back with a pressure of 70/50 heart rate of 126 he was continued to given IV fluids at 30 cc/kg today. A [id number] ultrasound shows a hyperdynamic LV with a collapsed IVC compatible with hypovolemia probably from sepsis. Yesterday was given Zosyn prior to blood cultures and today because were reordered and was given cefepime and vancomycin for the gram-negative uriel septicemia. After IV fluids patient has improved his blood pressure 100 for 70 he had a dip in his blood pressure after he was giving a supplement of magnesium which has been stopped. He says he feels better and his heart rates has reduced dramatically to the 80s. At this point there is question if he is can need pressors or not for he initially responded very well to the IV fluids and the hypotension might be now from the dose of magnesium he got. Magnesium was stopped and will be given p.o. as a supplement but he will continue with IV fluids and will be admitted to the ICU for further management. His initial troponin was elevated but is trending down probably from demand ischemia especially the patient whose had had a TAVR procedure. BP is 95/49 HR 75 and he is producing urine Data Review Analysis All the data on this patient was reviewed by me including laboratory and imaging studies as well as bedside studies performed by me Independent review of Studies Imaging Chest x-ray was done which was negative and POCUS as reported above Lab: Labs show mild ovation of the white count. His hemoglobin hematocrit have dropped but most likely from hemodilution. He is heme-negative despite that the INR is prolonged Risk Stratification: Patient with gram-negative sepsis will be admitted to the ICU for continued treatment IV fluids and probably pressors if needed he will continue with antibiotic regimen till the blood culture sensitivities come Differential Diagnosis: 1. Sepsis 2. Septic shock 3. Hypovolemia 4. GI bleed 5. Consultants: Spoke with Dr. Mcgill who agrees to admit the patient to the ICU Shared disposition: Patient stands at disposition and agrees despite the fact that he knows that his is alone we have arranged for him someone to go help his at home Impression: Medical Records Medical records reviewed: Yes I reviewed the patient's medical records. Imaging Data Radiologic Study: Attestation: I personally reviewed and interpreted this imaging study as follows: Imaging: X-Ray Radiologist's impression: Patient Name: Alvarado Admas Unit #: [id number] Loc: ER Ordering Provider: Sánchez Beatty M.D. Status: REG ER Primary Care Provider: Karen Sommers NP Date of Exam: 06/14/25 Sex: M Admission Date: 06/14/25 : 1945 Age: 79 Exam(s) XR PORTABLE CHEST AP EXAM: XR PORTABLE CHEST AP CLINICAL HISTORY: cough. TECHNIQUE: 2D digital imaging was performed. COMPARISON: CT CT ABDOMEN PELVIS W from 06/13/2025 FINDINGS: Single AP portable view. Heart size is upper normal. There is no Arctic valve TAVR evident. The mediastinum is not widened. Left lung is clear. There is mild elevation of the right hemidiaphragm but no infiltrates nor pleural effusions. No pneumothorax. No pulmonary edema. IMPRESSION: No acute pulmonary findings on this single AP portable view of the chest. Aortic valve TAVR. No evidence of pulmonary edema. DATA REPOSITORY: RADIATION DOSE DELIVERED: Ordered By: Sánchez Beatty M.D. CC: Lab Data Lab results reviewed: Yes I reviewed the patient's lab results. ECG Data Attestation: I personally reviewed and interpreted this ECG (s) as follows: Prior ECG tracings: available for review Interpretation: Heart rate 88 atrial fibrillation no acute ST-T changes Critical Care Time Critical Care Time Critical Care Time: Yes Total Critical Care Time: 65 Attestation: Patient with impending collapse of the cardiovascular sepsis due to sepsis screaming from procedure time [facility] All Active Problems (Updated 06/14/25 @ 19:29 by Sánchez Beatty MD) Gastroenteritis (Acute) Gram negative sepsis (Acute) Bacterial gastroenteritis (Acute) History of bladder cancer (Chronic) Papillary urothelial carcinoma, non invasive, 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: recurrence papillary lesion dome bladder; : tx with excision and Mytomycin-C intra bladder 12/2021- no sign of recurrence, followed by Urology at [facility] Coronary artery disease (Chronic) Atrial fibrillation (Chronic) Chronic anticoagulation (Chronic) 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) 12/2021, microalbuminuria Essential hypertension (Chronic) Hyperlipidemia (Chronic) Osteoarthritis of left knee (Chronic) Class 2 severe obesity with serious comorbidity and body mass index (BMI) of 38.0 to 38.9 in adult (Chronic) Primary osteoarthritis of both knees (Chronic) Tendonitis of left rotator cuff (Chronic) Tendinitis of long head of biceps brachii of left shoulder (Chronic) Arthritis of right knee (Chronic) 80 mg Depo-Medrol injection: 06/24/2023 Primary osteoarthritis of left knee (Chronic) 80 mg Depo-Medrol injection: 06/24/2023 Medical History Urothelial carcinoma of bladder (2016) Papillary urothelial carcinoma, non invasive, 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 04/16/14; X - 2018-3 polyps, tubular adenomas, last of which had some early dysplastic features Patient due 2021-patient was called 12/2021 with attempt to set up colonoscopy. Patient wished to defer at this point. He makes an informed decision. 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) Family History Mother , 92 Heart disease Father , 76 Heart disease Sister , 76 Stroke Brother Diabetes Essential hypertension Stroke Maternal Grandfather Heart disease Paternal Grandfather Heart disease Maternal Grandmother Heart disease Paternal Grandmother Heart disease Brother , 68 Stroke Other Acute ill-defined cerebrovascular disease Social History Smoking/Tobacco Use Status: Former Tobacco Use tobacco type: cigarettes Quit Date: 08/09/86 Pack-years: 25 Tobacco: How many years used: 25 Second Hand Exposure: Yes Smoking risk assessment performed?: Yes Alcohol Intake: current Alcohol Intake frequency: holidays/special occasions only Alcohol type: wine and hard liquor Drug use: Never Substance use type: does not use Adopted: No Caregiver/Support person: No Foster care: No Household members: spouse Housing: house Number of Children: 0 Communication Needs: None Education Level: high school Do you need help understanding health information?: Rarely current occupation: retired Pets and animals: Yes Pets and animals: cat(s) Sexually active: No Do you think of yourself as: straight/heterosexual Current gender identity: male What is your relationship status?: How often do you talk on the phone with friends or family?: once per week How often do you get together with friends or relatives?: decline to answer How often do you attend worship or roman catholic services?: decline to answer Do you belong to any clubs or organized social groups?: no Panel score (0-1 are the most socially isolated patients): 1 What type of physical activity do you participate in: other Duration: 15-30 minutes/day Frequency: 3-4 times per week Oneyda/Hinduism: No preference Special oneyda needs: No Agree to transfusion: Yes Seatbelt use: always Helmet use: Yes Helmet use: always Drive intox or ride w/intox wagon driver salesperson: No Working smoke detector in home: Yes Carbon monox detector in home: Yes Firearms in home: Yes Firearms unloaded and locked: No Do you feel safe at home: Yes Do you feel safe in your relationship?: Yes Victim of physical abuse: No Victim of emotional abuse: No Victim of sexual abuse: No POCUS Exam (ED) CERES Exam DATE OF EXAM: 06/14/25 TIME OF EXAM: 17:10 PROVIDER THAT PERFORMED THE STUDY: Sánchez Beatty IS THIS A REPEAT EXAM DURING THIS ENCOUNTER: No REASON FOR EXAM: Hypotension VISUALIZED STRUCTURES: Aorta, Cardiac Four Chambers, Heart (hyperdynamic), Inferior Vena Cava, Lung/left side and Lung/right side PERTINENT FINDINGS/IMPRESSION: Abnormal IVC, details of abnormalities: collapsibe DIFFERENTIAL DIAGNOSES: sepsis Echocardiography/Transthoracic Limited Exam: Exam Complete Chest Limited Exam: Exam Complete Abdominal Limited Exam: Exam Complete Retroperitoneal Limited Exam: Exam Complete Vital Signs & Lab Results Vital Signs Most Recent Vital Signs: Most Recent Vital Signs Temp Pulse Resp BP Pulse Ox 37.0 C 94 H 25 H 73/46 L 98 06/14/25 17:54 06/14/25 18:46 06/14/25 18:46 06/14/25 18:46 06/14/25 18:46 Lab Results 06/14/25 17:33 06/14/25 17:33 Complete Blood Count: WBC, (4.4-10.8) 11.95 10^3/uL H Today, 17:33 RBC, (4.36-5.78) 3.52 10^6/uL L Today, 17:33 Hgb, (13.5-17.5) 10.8 g/dL L Δ Today, 17:33 Hct, (40.0-50.0) 31.0 % L Today, 17:33 Plt Count, (130-400) 115 10^3/uL L Today, 17:33 VBG Lactate, (<or=2.0) 1.4 mmol/L Today, 17:33 Complete Metabolic Panel: Sodium, (136-145) 129 mmol/L L Today, 17:33 Potassium, (3.5-5.1) 3.4 mmol/L L Today, 17:33 Chloride, (98-107) 96 mmol/L L Today, 17:33 Carbon Dioxide, (21.0-32.0) 19.3 mmol/L L Today, 17:33 BUN, (7-18) 29 mg/dL H Today, 17:33 Creatinine, (0.70-1.30) 1.8 mg/dL H Today, 17:33 Est GFR (CKD-EPI 2020), (mL/min/1.73m2) 37.82 Today, 17:33 Magnesium, (1.8-2.4) 1.0 mg/dL L Today, 17:33 Calcium, (8.5-10.1) 7.4 mg/dL L Today, 17:33 Albumin, (3.4-5.0) 2.0 g/dL L Today, 17:33 Glucose, (74-106) 166 mg/dL H Today, 17:33 Liver Function Panel: ALT, (16-63) 26 U/L Today, 17:33 AST, (15-37) 19 U/L Today, 17:33 Coagulation Panel: INR, (0.9-1.1) > 9.8 H* Today, 17:33 PT, (9.1-11.1) > 83.4 sec H Today, 17:33 Cardiac Panel: Troponin I, (<or=76) 203 ng/L H* Today Pancreas Panel: Lipase, (<78) 49 U/L 06/13/25, 21:05 Infectious Disease: SARS-CoV-2 (PCR), (Negative) Negative 06/13/25, 20:46 COVID-19 Source Nasal/Nares 06/13/25, 20:46 Vital Signs 06/14/25 17:02 06/14/25 17:09 06/14/25 17:16 06/14/25 17:31 06/14/25 17:39 06/14/25 17:46 06/14/25 17:52 06/14/25 17:52 06/14/25 17:54 06/14/25 18:00 06/14/25 18:15 06/14/25 18:31 06/14/25 18:46 06/14/25 19:00 06/14/25 19:01 06/14/25 19:10 06/14/25 19:15 06/14/25 19:20 06/14/25 19:30 06/14/25 19:31 06/14/25 19:33 06/14/25 19:40 06/14/25 19:46 06/14/25 19:50 06/14/25 20:00 06/14/25 20:01 06/14/25 20:10 06/14/25 20:27 06/14/25 20:28 06/14/25 20:30 06/14/25 20:31 Weight 100 kg Height 1.8 m Temp 37.0 C 37.0 C Temp Source Oral Pulse 126 H 91 H 104 H 81 103 H 104 H 114 H 126 H 91 H 109 H 93 H 94 H 78 83 85 88 68 85 77 89 85 76 67 76 67 86 75 77 70 68 BP 71/50 L 71/50 L 77/48 L 76/42 L 86/51 L 83/51 L 88/56 L 71/50 L 94/55 L 100/61 83/47 L 73/46 L 83/53 L 101/58 L 75/55 L 82/55 L 77/52 L 74/47 L 73/44 L 82/47 L Position Supine Respiration 22 18 19 21 19 21 18 22 22 17 20 25 H 20 20 20 19 24 21 23 22 23 24 19 23 20 25 H 23 23 23 21 Pulse Oximetry (%) 95 96 94 88 L 88 L 100 98 99 98 98 98 97 98 96 97 95 96 95 97 98 95 95 95 96 96 98 97 06/14/25 20:40 06/14/25 20:46 06/14/25 20:50 78 57 L 75 95/49 L 18 24 20 97 97 99 Vital Signs 06/14/25 17:02 06/14/25 17:09 06/14/25 17:16 06/14/25 17:31 06/14/25 17:39 06/14/25 17:46 06/14/25 17:52 06/14/25 17:52 06/14/25 17:54 06/14/25 18:00 06/14/25 18:15 06/14/25 18:31 06/14/25 18:46 06/14/25 19:00 06/14/25 19:01 06/14/25 19:10 06/14/25 19:15 06/14/25 19:20 06/14/25 19:30 06/14/25 19:31 06/14/25 19:33 06/14/25 19:40 06/14/25 19:46 06/14/25 19:50 06/14/25 20:00 06/14/25 20:01 06/14/25 20:10 06/14/25 20:27 06/14/25 20:28 06/14/25 20:30 06/14/25 20:31 Height 1.8 m Weight 100 kg BP 71/50 L 71/50 L 77/48 L 76/42 L 86/51 L 83/51 L 88/56 L 71/50 L 94/55 L 100/61 83/47 L 73/46 L 83/53 L 101/58 L 75/55 L 82/55 L 77/52 L 74/47 L 73/44 L 82/47 L Position Supine Respiration 22 18 19 21 19 21 18 22 22 17 20 25 H 20 20 20 19 24 21 23 22 23 24 19 23 20 25 H 23 23 23 21 Pulse 126 H 91 H 104 H 81 103 H 104 H 114 H 126 H 91 H 109 H 93 H 94 H 78 83 85 88 68 85 77 89 85 76 67 76 67 86 75 77 70 68 Temp 37.0 C 37.0 C Temp Source Oral Pulse Oximetry (%) 95 96 94 88 L 88 L 100 98 99 98 98 98 97 98 96 97 95 96 95 97 98 95 95 95 96 96 98 97 Oxygen Flow Rate 0 0 06/14/25 20:40 06/14/25 20:46 06/14/25 20:50 95/49 L 18 24 20 78 57 L 75 97 97 99
--- NOTE | 2025-06-14 17:00 | DI.RAD_ITS ---
Exam(s) XR PORTABLE CHEST AP EXAM: XR PORTABLE CHEST AP CLINICAL HISTORY: cough. TECHNIQUE: 2D digital imaging was performed. COMPARISON: CT CT ABDOMEN PELVIS W from 06/13/2025 FINDINGS: Single AP portable view. Heart size is upper normal. There is no Arctic valve TAVR evident. The mediastinum is not widened. Left lung is clear. There is mild elevation of the right hemidiaphragm but no infiltrates nor pleural effusions. No pneumothorax. No pulmonary edema. IMPRESSION: No acute pulmonary findings on this single AP portable view of the chest. Aortic valve TAVR. No evidence of pulmonary edema. DATA REPOSITORY: RADIATION DOSE DELIVERED:
[2025-06-14] MEDS: CEFEPIME 1 GM in Normal Saline 50 ML IVPB ×2 (17:27→22:52)
[2025-06-14] MEDS: Lactated Ringers 3,000 ML 2000 ML IV (17:31)
[2025-06-14 17:51] LABS: Abs Immature Grans 0.08 10^3/uL (0.0-0.06); HCT 31.0 % (40.0-50.0); Immature Grans % 0.7 %; MCH 30.7 pg (27.0-33.0); MCHC 34.8 % (32.0-36.0); MCV 88 fL (80-95); MPV 10.2 fL (8.0-11.0); Platelet Count 115 10^3/uL (130-400); RBC 3.52 10^6/uL (4.36-5.78); RDW 13.3 % (11.8-14.1); RDW-SD 42.0 fL; WBC 11.95 10^3/uL (4.4-10.8)
[2025-06-14 17:57] LABS: HGB 10.8 g/dL (13.5-17.5)
[2025-06-14] MEDS: VANCOMYCIN 1,500 MG in Normal Saline 250 ML 166.6666 MG IVPB (18:02)
[2025-06-14 18:10] LABS: ALT 26 U/L (16-63); AST 19 U/L (15-37); Albumin 2.0 g/dL (3.4-5.0); Alkaline Phosphatase 100 U/L (46-116); Anion Gap 13.7 mmol/L (3-11); BUN 29 mg/dL (7-18); Bilirubin, Total 0.9 mg/dL (0.2-1.0); CO2 19.3 mmol/L (21.0-32.0); Calcium 7.4 mg/dL (8.5-10.1); Chloride 96 mmol/L (98-107); Glucose 166 mg/dL (74-106); Potassium 3.4 mmol/L (3.5-5.1); Sodium 129 mmol/L (136-145); Total Protein 5.7 g/dL (6.4-8.2)
[2025-06-14 18:12] LABS: Troponin I 228 ng/L (<or=76)
--- NOTE | 2025-06-14 18:15 | RT.EKG_ITS ---
APPROVED REPORT Exam: Resting ECG Reason for Exam: palpitations Patient Location: E HR:88 bpm ECG Measurements Heart Rate 88 AXIS MO [id number] P [id number] QRSd 100 QRS 22 QT 406 T 9 QTc 491 Conclusion Atrial fibrillation...V-rate 73- 91, irreg A-activity
[2025-06-14 18:17] LABS: Magnesium 1.0 mg/dL (1.8-2.4)
[2025-06-14 18:32] LABS: INR > 9.8 (0.9-1.1)
[2025-06-14] MEDS: MAGNESIUM SULFATE 1 GM/100 ML BAG IV_INF (18:41)
[2025-06-14 19:01] LABS: Troponin I 203 ng/L (<or=76)
[2025-06-14 20:34] LABS: Glucose Negative (Negative)
[2025-06-14] MEDS: Lactated Ringers 1,000 ML 1000 ML IV (20:45)
[2025-06-14 20:48] LABS: C & S Indicated? No
--- NOTE | 2025-06-14 21:08 | W.PCEDHO ---
Registration Status: REG ER Primary Language: Preferred Language: Mohawk ED Information & Data Chief Complaint Fever 06/14/25 17:54 Chief Complaint Fever 06/14/25 17:02 Triage Note pt here for sepsis. positive 06/14/25 17:02 blood cultures from yesterday. EMS reports ill appearing, low grade fever, dyspnea, tachycardia, nausea , hypotension, new o@ demand of 4L NC. 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) Most Recent Vital Signs Temperature 37.0 C 06/14/25 17:54 Temperature Source Oral 06/14/25 17:02 Pulse 75 06/14/25 20:50 Pulse 73 06/14/25 20:50 Respiratory Rate 20 06/14/25 20:50 Blood Pressure 95/49 L 06/14/25 20:46 Blood Pressure Mean 65 06/14/25 20:46 Blood Pressure Position Supine 06/14/25 17:02 Pulse Oximetry 99 06/14/25 20:50 Respiratory End-tidal CO2 16 06/14/25 20:01 Oxygen Delivery Method Room Air 06/14/25 17:52 Oxygen Flow Rate 0 06/14/25 17:52 End Tidal Co2 29 06/14/25 17:02 Pain Level 0 06/14/25 17:54 Allergies No Known Allergies Allergy (Verified 06/13/25 20:18) Precautions Isolation Standard precaution 06/14/25 17:54 Active Medications Generic Name Dose Route Start Last Admin Trade Name Freq PRN Reason Stop Dose Admin Cefepime HCl 1 gm/ Sodium 50 mls @ 100 mls/hr 06/14/25 17:15 06/14/25 17:53 Chloride IVPB Infused Q8H STUART Infusion Vancomycin HCl 1,500 mg/ 250 mls @ 166.6666 mls/hr 06/14/25 17:15 06/14/25 19:53 Sodium Chloride IVPB Infused Q12H STUART Infusion IV IV Catheter Type [Left Forearm Peripheral IV ] IV Catheter Type [Left Hand] Peripheral IV IV Catheter Type [Right Peripheral IV Antecubital] IV Catheter Gauge [Left 18 Forearm] IV Catheter Gauge [Left Hand] 18 IV Catheter Gauge [Right 18 Antecubital] Diet Orders Category Date Time Status Regular/Normal [DIET] Nutrition 06/14/25 Dinner Active Diagnostics 06/14/25 06/14/25 06/14/25 Range/Units 20:47 20:27 18:31 WBC (4.4-10.8) 10^3/uL RBC (4.36-5.78) 10^6/uL Hgb (13.5-17.5) g/dL Hct (40.0-50.0) % MCV (80-95) fL MCH (27.0-33.0) pg MCHC (32.0-36.0) % RDW (11.8-14.1) % Plt Count (130-400) 10^3/uL MPV (8.0-11.0) fL Immature Gran % % Neutrophils % % Lymphocytes % % Monocytes % % Eosinophils % % Basophils % % Nucleated RBC % (0.0-0.3) % Absolute Neutrophils (1.2-6.7) 10^3/uL Absolute Lymphocytes (1.2-3.4) 10^3/uL Absolute Monocytes (0.1-0.8) 10^3/uL Absolute Eosinophils (0.0-0.7) 10^3/uL Absolute Basophils (0.0-0.2) 10^3/uL PT (9.1-11.1) sec INR (0.9-1.1) VBG Lactate (<or=2.0) mmol/L Sodium (136-145) mmol/L Potassium (3.5-5.1) mmol/L Chloride (98-107) mmol/L Carbon Dioxide (21.0-32.0) mmol/L Anion Gap (3-11) mmol/L BUN (7-18) mg/dL Creatinine (0.70-1.30) mg/dL Est GFR (CKD-EPI 2020) (mL/min/1.73m2) Glucose (74-106) mg/dL Calcium (8.5-10.1) mg/dL Magnesium (1.8-2.4) mg/dL Total Bilirubin (0.2-1.0) mg/dL AST (15-37) U/L ALT (16-63) U/L Alkaline Phosphatase (46-116) U/L Troponin I Pending 203 H* (<or=76) ng/L Total Protein (6.4-8.2) g/dL Albumin (3.4-5.0) g/dL Urine Color Yellow (Yellow) Urine Clarity Clear (Clear) Urine pH 5.0 (5-8) Ur Specific [place] 1.015 (1.005-1.025) Urine Protein 30 H (Neg-Trace) mg/dL Urine Ketones 15 H (Negative) mg/dL Urine Blood Moderate H (Negative) Urine Nitrite Negative (Negative) Urine Bilirubin Small H (Negative) Urine Urobilinogen 2.0 H (Up to 0.2) mg/dL Ur Leukocyte Esterase Negative (Negative) Urine RBC 10-20 H (0-2) HPF Urine WBC 3-5 (0-5) HPF Ur Epithelial Cells Rare (Negative) HPF Urine Crystals Moderate Amorphous (Negative) HPF Urine Bacteria Packed (Negative) HPF Urine Casts 0-2 Hyaline (Negative) LPF Urine Mucus Negative (Negative) Ur Culture Indicated? No Urine Glucose Negative (Negative) mg/dL 06/14/25 Range/Units 17:33 WBC 11.95 H (4.4-10.8) 10^3/uL RBC 3.52 L (4.36-5.78) 10^6/uL Hgb 10.8 L D (13.5-17.5) g/dL Hct 31.0 L (40.0-50.0) % MCV 88 (80-95) fL MCH 30.7 (27.0-33.0) pg MCHC 34.8 (32.0-36.0) % RDW 13.3 (11.8-14.1) % Plt Count 115 L (130-400) 10^3/uL MPV 10.2 (8.0-11.0) fL Immature Gran % 0.7 % Neutrophils % 84.7 % Lymphocytes % 4.7 % Monocytes % 9.7 % Eosinophils % 0.0 % Basophils % 0.2 % Nucleated RBC % 0.0 (0.0-0.3) % Absolute Neutrophils 10.12 H (1.2-6.7) 10^3/uL Absolute Lymphocytes 0.56 L (1.2-3.4) 10^3/uL Absolute Monocytes 1.16 H (0.1-0.8) 10^3/uL Absolute Eosinophils 0.00 (0.0-0.7) 10^3/uL Absolute Basophils 0.02 (0.0-0.2) 10^3/uL PT > 83.4 H (9.1-11.1) sec INR > 9.8 H* (0.9-1.1) VBG Lactate 1.4 (<or=2.0) mmol/L Sodium 129 L (136-145) mmol/L Potassium 3.4 L (3.5-5.1) mmol/L Chloride 96 L (98-107) mmol/L Carbon Dioxide 19.3 L (21.0-32.0) mmol/L Anion Gap 13.7 H (3-11) mmol/L BUN 29 H (7-18) mg/dL Creatinine 1.8 H (0.70-1.30) mg/dL Est GFR (CKD-EPI 2020) 37.82 (mL/min/1.73m2) Glucose 166 H (74-106) mg/dL Calcium 7.4 L (8.5-10.1) mg/dL Magnesium 1.0 L (1.8-2.4) mg/dL Total Bilirubin 0.9 (0.2-1.0) mg/dL AST 19 (15-37) U/L ALT 26 (16-63) U/L Alkaline Phosphatase 100 (46-116) U/L Troponin I 228 H* (<or=76) ng/L Total Protein 5.7 L (6.4-8.2) g/dL Albumin 2.0 L (3.4-5.0) g/dL Urine Color (Yellow) Urine Clarity (Clear) Urine pH (5-8) Ur Specific [place] (1.005-1.025) Urine Protein (Neg-Trace) mg/dL Urine Ketones (Negative) mg/dL Urine Blood (Negative) Urine Nitrite (Negative) Urine Bilirubin (Negative) Urine Urobilinogen (Up to 0.2) mg/dL Ur Leukocyte Esterase (Negative) Urine RBC (0-2) HPF Urine WBC (0-5) HPF Ur Epithelial Cells (Negative) HPF Urine Crystals (Negative) HPF Urine Bacteria (Negative) HPF Urine Casts (Negative) LPF Urine Mucus (Negative) Ur Culture Indicated? Urine Glucose (Negative) mg/dL 06/14/25 18:45 Blood Culture - Pending Blood 06/14/25 17:33 Blood Culture - Pending Blood Intake and Output - 24 Hour Total 06/14/25 16:49 thru 06/14/25 20:32 Intake Total 3385.834 Balance 3385.834 Weight 100 kg Intake: IV 3385.834 Other: Urine Color Yellow Urine Appearance Clear Urinary Catheter Urinary Catheter Date of 06/14/25 Insertion [Urethral (Rosario)] Time of insertion [Urethral ( 20:27 Rosario)] Falls Risk Assessment History of Falls No History 06/14/25 17:54 Contributing Factors Unstable 06/14/25 17:54 Ambulatory Aids Independent 06/14/25 17:54 Tubes/Lines None 06/14/25 17:54 Gait Evaluation No gait disturbance 06/14/25 17:54 Cognition No cognitive impairment 06/14/25 17:54 Fall Total Score 3 06/14/25 17:54 Level of Risk Standard/Low Risk 06/14/25 17:54 v v v v v v v v v Sending and/or Receiving Nurses: Please use comment section below to note any information pertinent to the patient hand-off not included above. Information / Comments: Report received from: Sarmad THOMPSON
[2025-06-14 21:17] LABS: Troponin I 210 ng/L (<or=76)
--- NOTE | 2025-06-14 21:40 | W.PM.HP.N ---
Date of service: 06/14/25 Time of Service: 21:40 Assessment and Plan Assessment and plan (1) Sepsis: Status: Acute Assessment and plan: Patient does have SIRS secondary to an elevated heart rate and elevated respiratory rate. Patient also has severe sepsis secondary to hypotension. Will continue with fairly aggressive IV rehydration, cefepime, vancomycin, recheck lactic acid. Of note, his lactic acid was actually elevated yesterday and is normalized today. The exact etiology of the sepsis is unknown but my concern is possible prostatitis considering his complaints of pain with urination at the time of admission a urinalysis was not available. Since then his urinalysis did come back as positive for hematuria but negative for leukocyte esterase and nitrite. As mentioned, blood cultures from yesterday did show gram-negative rods. A Rosario catheter has been placed by the ED physician. (2) Atrial fibrillation: Status: Chronic Assessment and plan: Patient does have a history of afib and is seen by Dr. Prado. He does take Coumadin and metoprolol. His metoprolol will be held secondary to hypotension and his Coumadin will be held secondary to a significantly elevated INR. I have ordered an echo mostly secondary to concerns about giving too much volume with a patient with a history of aortic stenosis with possible CHF. (3) Chronic anticoagulation: Status: Chronic Assessment and plan: INR is currently 9.8 and depending on what type of mechanical valve he has we will need to have his rate between 2 and 3 of the 2.5-3.5. I have reviewed the cardiology note and there is no mention of the specific type of valve he has. I will try to look into my [facility] account to see if I can elucidate more information. 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 His creatinine is currently 1.8 which is a contraindication to metformin. He will be on sliding scale insulin glucometers q. ACHS. (5) Gastroenteritis: Status: Acute Assessment and plan: Exact etiology is unknown but will check for C. difficile as well as stool cultures. Considering his abdominal pain as well as recent diarrhea we will also get a KUB and consider a CT pending results of the KUB. (6) Gram negative sepsis: Status: Acute Assessment and plan: As above will continue with cefepime and vancomycin started in the ED. (7) Aortic stenosis, severe: Status: Acute Assessment and plan: As mentioned above the patient is status post TAVR approximately 2 years ago will check an echocardiogram. (8) S/P TAVR (transcatheter aortic valve replacement): Assessment and plan: As above (9) Hypocalcemia: Status: Acute Assessment and plan: Continue with replacement orally. (10) Elevated INR: Status: Acute Assessment and plan: I have added vitamin K 2.5 mg and will recheck INR in AM. He could be somewhat conservative as he does have mechanical aortic valve (11) Diarrhea: Status: Acute Assessment and plan: Wait on antidiarrheal medications until C. difficile results are back. (12) Dehydration: Status: Acute Assessment and plan: Continue with IV fluids (13) Hypotension: Status: Acute Assessment and plan: Continue with IV fluids and the goal to keep her MAP over 65. If the patient is significantly consistently under 65 will need pressure support (14) Elevated troponin: Status: Acute Assessment and plan: Most likely stress response will check serially. (15) NASRA (acute kidney injury): Status: Acute Assessment and plan: Continue with IV fluids. History of Present Illness History of Present Illness Chief Complaint: bacteremia Narrative: Mr Adams is a 79-year-old gentleman who was seen in the ED yesterday for gastroenteritis and was discharged home. On that admission, blood cultures were drawn and came back positive today for gram-negative rods. Dr. Mcgraw reached out to the patient but was unable to get in touch with him. Eventually Dr. Beatty was able to reach him and he came into the hospital. In the ED he was noted to have significant hypotension and was diagnosed with severe sepsis of unknown source. In regards to his history he states that he has had multiple episodes of nausea vomiting and diarrhea over the last 7 days. Exact etiology of his nausea vomiting diarrhea is unknown. He does complain of abdominal pain mostly periumbilical but has resolved. Patient denies any cough. Patient states that he has had subjective fever and chills. He does complain of significant dysuria though. He does follow with Dr. Salinas secondary to a history of bladder cancer. Additionally, the patient is status post TAVR with a mechanical valve and is followed by Dr. Prado. In regards to his workup, the patient was noted to have significant elevation in his BUN to creatinine ratio at 29/1.8. The patient does appear to have significant dehydration and acute kidney injury. Patient is hypocalcemic at 7.4. Patient is noted to have a magnesium level of 1.0. This was treated with IV magnesium but when he was receiving this his blood pressure did drop so his IV magnesium was held by the ED physician. EKG does show A-fib and the patient has a known history of A-fib and is on Coumadin. His current INR is 9.8. While he was in the ED he was started on vancomycin and cefepime. He is a full code. 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: recurrence papillary lesion dome bladder; : tx with excision and Mytomycin-C intra bladder 12/2021- no sign of recurrence, followed by Urology at [facility] Coronary artery disease (Chronic) Atrial fibrillation (Chronic) Chronic anticoagulation (Chronic) 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) 12/2021, microalbuminuria Essential hypertension (Chronic) Hyperlipidemia (Chronic) Osteoarthritis of left knee (Chronic) Class 2 severe obesity with serious comorbidity and body mass index (BMI) of 38.0 to 38.9 in adult (Chronic) Primary osteoarthritis of both knees (Chronic) Tendonitis of left rotator cuff (Chronic) Tendinitis of long head of biceps brachii of left shoulder (Chronic) Arthritis of right knee (Chronic) 80 mg Depo-Medrol injection: 06/24/2023 Primary osteoarthritis of left knee (Chronic) 80 mg Depo-Medrol injection: 06/24/2023 Medical History Urothelial carcinoma of bladder (2016) Papillary urothelial carcinoma, non invasive, 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 04/16/14; X - 2018-3 polyps, tubular adenomas, last of which had some early dysplastic features Patient due 2021-patient was called 12/2021 with attempt to set up colonoscopy. Patient wished to defer at this point. He makes an informed decision. 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) Family History Mother , 92 Heart disease Father , 76 Heart disease Sister , 76 Stroke Brother Diabetes Essential hypertension Stroke Maternal Grandfather Heart disease Paternal Grandfather Heart disease Maternal Grandmother Heart disease Paternal Grandmother Heart disease Brother , 68 Stroke Other Acute ill-defined cerebrovascular disease Social History Smoking/Tobacco Use Status: Former Tobacco Use tobacco type: cigarettes Quit Date: 08/09/86 Pack-years: 25 Tobacco: How many years used: 25 Second Hand Exposure: Yes Smoking risk assessment performed?: Yes Alcohol Intake: current Alcohol Intake frequency: holidays/special occasions only Alcohol type: wine and hard liquor Drug use: Never Substance use type: does not use Adopted: No Caregiver/Support person: No Foster care: No Household members: spouse Housing: house Number of Children: 0 Communication Needs: None Education Level: high school Do you need help understanding health information?: Rarely current occupation: retired Pets and animals: Yes Pets and animals: cat(s) Sexually active: No Do you think of yourself as: straight/heterosexual Current gender identity: male What is your relationship status?: How often do you talk on the phone with friends or family?: once per week How often do you get together with friends or relatives?: decline to answer How often do you attend mosque or confucianism services?: decline to answer Do you belong to any clubs or organized social groups?: no Panel score (0-1 are the most socially isolated patients): 1 What type of physical activity do you participate in: other Duration: 15-30 minutes/day Frequency: 3-4 times per week Oneyda/Sikh: No preference Special oneyda needs: No Agree to transfusion: Yes Seatbelt use: always Helmet use: Yes Helmet use: always Drive intox or ride w/intox otr hazmat company driver: No Working smoke detector in home: Yes Carbon monox detector in home: Yes Firearms in home: Yes Firearms unloaded and locked: No Do you feel safe at home: Yes Do you feel safe in your relationship?: Yes Victim of physical abuse: No Victim of emotional abuse: No Victim of sexual abuse: No Meds Allergies and Home Medications Allergies Allergy/AdvReac Type Severity Reaction Status Date / Time No Known Allergies Allergy Verified 06/13/25 20:18 Home Medications Medication Instructions Recorded Confirmed Type latanoprost 0.005 % eye drops 1 drp ophthalmic (eye) QPM 10/14/22 06/14/25 History verapamil 120 mg tablet 120 mg PO BID #180 tabs 07/04/24 06/14/25 Rx pravastatin 80 mg tablet 80 mg PO DAILY #90 tab-caps 08/28/24 06/14/25 Rx amoxicillin 500 mg capsule 2,000 mg (4 x 500 mg) PO ONCE #20 09/06/24 06/14/25 Rx caps lisinopril 40 mg tablet 40 mg PO DAILY #90 tab-caps 09/06/24 06/14/25 Rx Held on 06/14/25. Instructions: Resume on 06/20/25. meloxicam 15 mg tablet 15 mg PO DAILY #30 tabs 01/15/25 06/14/25 Rx hydrochlorothiazide 25 mg tablet 25 mg PO DAILY #90 tabs 02/28/25 06/14/25 Rx metoprolol succinate 100 mg 100 mg PO DAILY #90 tabs 02/28/25 06/14/25 Rx tablet,extended release 24 hr glimepiride 2 mg tablet 2 mg PO DAILY #30 tabs 03/12/25 06/14/25 Rx metformin 1,000 mg tablet 1,000 mg PO BID #180 tabs 04/18/25 06/14/25 Rx warfarin 5 mg tablet 5 mg PO DAILY #90 tabs 04/18/25 06/14/25 Rx Held on 06/14/25. Instructions: Resume on 06/21/25. amoxicillin 875 mg-potassium 1 tab PO BID #14 tabs 06/13/25 06/14/25 Rx clavulanate 125 mg tablet ondansetron 4 mg disintegrating 4 mg PO Q8H PRN nausea and 06/13/25 06/14/25 Rx tablet vomiting #20 tabs Exam Narrative Exam Narrative: HEENT-normocephalic atraumatic mucous membranes somewhat dry extract motions are intact pupils equal round reactive to light Neck-no lymphadenopathy no JVD no thyromegaly Cardiovascular-distant heart sounds no murmur rubs or gallops. Mechanical murmur not appreciated. Pulm-clear to auscultation bilaterally with good air exchange no accessory muscle use Abdomen-soft nontender nondistended bowel sounds decreased x 4 quadrants Extremities-no sinus clubbing or edema bilaterally Neurologic-cranial nerves II through XII intact as tested reflexes left extremity normal as tested Psych-he is alert and oriented x 3 no apparent distress [id number] gentleman gives a linear history does not appear to be in distress. Results Labs 06/14/25 17:33 06/14/25 17:33 Labs: Laboratory Results - last 24 hr 06/14/25 06/14/25 06/14/25 17:33 18:31 20:27 WBC 11.95 H RBC 3.52 L Hgb 10.8 L D Hct 31.0 L MCV 88 MCH 30.7 MCHC 34.8 RDW 13.3 Plt Count 115 L MPV 10.2 Immature Gran % 0.7 Neutrophils % 84.7 Lymphocytes % 4.7 Monocytes % 9.7 Eosinophils % 0.0 Basophils % 0.2 Nucleated RBC % 0.0 Absolute Neutrophils 10.12 H Absolute Lymphocytes 0.56 L Absolute Monocytes 1.16 H Absolute Eosinophils 0.00 Absolute Basophils 0.02 PT > 83.4 H INR > 9.8 H* VBG Lactate 1.4 Sodium 129 L Potassium 3.4 L Chloride 96 L Carbon Dioxide 19.3 L Anion Gap 13.7 H BUN 29 H Creatinine 1.8 H Est GFR (CKD-EPI 2020) 37.82 Glucose 166 H Calcium 7.4 L Magnesium 1.0 L Total Bilirubin 0.9 AST 19 ALT 26 Alkaline Phosphatase 100 Troponin I 228 H* 203 H* Total Protein 5.7 L Albumin 2.0 L Urine Color Yellow Urine Clarity Clear Urine pH 5.0 Ur Specific [place] 1.015 Urine Protein 30 H Urine Ketones 15 H Urine Blood Moderate H Urine Nitrite Negative Urine Bilirubin Small H Urine Urobilinogen 2.0 H Ur Leukocyte Esterase Negative Urine RBC 10-20 H Urine WBC 3-5 Ur Epithelial Cells Rare Urine Crystals Moderate Amorphous Urine Bacteria Packed Urine Casts 0-2 Hyaline Urine Mucus Negative Ur Culture Indicated? No Urine Glucose Negative 06/14/25 20:47 WBC RBC Hgb Hct MCV MCH MCHC RDW Plt Count MPV Immature Gran % Neutrophils % Lymphocytes % Monocytes % Eosinophils % Basophils % Nucleated RBC % Absolute Neutrophils Absolute Lymphocytes Absolute Monocytes Absolute Eosinophils Absolute Basophils PT INR VBG Lactate Sodium Potassium Chloride Carbon Dioxide Anion Gap BUN Creatinine Est GFR (CKD-EPI 2020) Glucose Calcium Magnesium Total Bilirubin AST ALT Alkaline Phosphatase Troponin I 210 H* Total Protein Albumin Urine Color Urine Clarity Urine pH Ur Specific [place] Urine Protein Urine Ketones Urine Blood Urine Nitrite Urine Bilirubin Urine Urobilinogen Ur Leukocyte Esterase Urine RBC Urine WBC Ur Epithelial Cells Urine Crystals Urine Bacteria Urine Casts Urine Mucus Ur Culture Indicated? Urine Glucose Last Vital Signs Temp 37.0 C 06/14/25 17:54 Pulse 75 06/14/25 20:50 Resp 20 06/14/25 20:50 BP 95/49 L 06/14/25 20:46 Pulse Ox 99 06/14/25 20:50 Time Spent Time spent with Patient: >75 minutes Time was spent: preparing to see the patient(eg.review tests), obtaining and/or reviewing separately otained hiistory, ordering medications,tests, procedures, referring, communicating with other health career and transition teacher, indepentently interpreting results, counseling the patient and care coordination
[2025-06-14] MEDS: Phytonadione 5 MG TABLET 2.5 MG PO (22:49)
[2025-06-14] MEDS: Lactated Ringers 1,000 ML 150 ML IV (22:50)
[2025-06-14] MEDS: VANCOMYCIN/WATER (PEG) 1 GM/200 ML BAG IV (22:56)
[2025-06-14] MEDS: Latanoprost 0.005% 2.5 ML BTL OP (22:56)
--- NOTE | 2025-06-14 23:00 | DI.VRAD_ITS ---
PROCEDURE INFORMATION: Exam: XR Abdomen Exam date and time: 06/14/2025 10:21 PM Age: 79 years old Clinical indication: Abdominal pain; Generalized; Abd pain TECHNIQUE: Imaging protocol: Radiologic exam of the abdomen. Views: 2 Views. Upright and supine views. COMPARISON: CT ABDOMEN PELVIS W 06/13/2025 9:41 PM FINDINGS: Gastrointestinal tract: Normal. No bowel dilation. Intraperitoneal space: Normal. No free air. Bones/joints: Unremarkable for age. Soft tissues: Patient body habitus limits the exam. IMPRESSION: Slightly limited exam. No evidence for acute abnormality. Dictated and Authenticated by: Eneida Singletary MD. Orderin Artem Smith MD
[2025-06-15] VITALS (81 sets, daily range): BP systolic 72–172; BP diastolic 49–125; PULSE 74–151; RESP 16–33; TEMP 36.5–38.6; O2SAT 93
--- NOTE | 2025-06-15 | DI.US_ITS ---
APPROVED REPORT EXAM: Comprehensive 2D, Doppler, and color-flow Echocardiogram Patient Location: In-Patient Room/Bed: [id number] Cnc Specialist: Jackie Troy RDCS (AE) Indications: Aortic Stenosis, TAVR Other Information Study Quality: Technically Limited. Technically limited study due to body habitus, exam done supine bedside ICU. Conclusion Technically difficult and suboptimal study Left ventricle appears normal in size and wall thickness. Ejection fraction is 45 to 50%. The patient is in atrial fibrillation with [id number] variation. There are no segmental wall motion abnormalities Normal right ventricular size and function Moderately enlarged left atrium. Normal right atrial size Bioprosthetic aortic valve. Mean gradient is 8 mmHg. There is no aortic regurgitation Normal mitral valve with trace regurgitation Estimated right ventricular systolic pressure is 30 mmHg Wall motion Left Ventricle The left ventricle is normal size. Left ventricular systolic function is mildly decreased. There is normal left ventricular wall thickness. There is mild global hypokinesis of the left ventricle. There is no ventricular septal defect visualized. LVEF is 45-50%. Right Ventricle The right ventricle is normal size. The right ventricular systolic function is normal. Atria Left atrium is moderately dilated. The right atrium size is normal. The interatrial septum is intact with no evidence for an atrial septal defect. Aortic Valve Mean gradient is 8 mmHg No aortic regurgitation is present. TAVR aortic valve is present. Mitral Valve The mitral valve is normal in structure. No evidence of mitral valve stenosis. Trace mitral regurgitation. Tricuspid Valve The tricuspid valve is normal in structure. There is no tricuspid valve stenosis. Trace tricuspid regurgitation. The RVSP is 29.5_ mmHg. Pulmonic Valve Pulmonic valve is not well visualized. Great Vessels The aortic root is normal in size. Ascending aorta is not well visualized. Aortic arch is not well visualized. The IVC collapses <50% with inspiration. Pericardium There is no pericardial effusion. 2D Dimensions IVSD d PLAX 1.11 cm M: 0.6-1.2 Ao Root d 2.35 cm M: 3.1 - 3.7 LVPW d PLAX 1.15 cm M: 0.6 - 1.2 LVID d PLAX 5.20 cm M: 4.2 - 5.8 LVDs 4.00 cm M: 2.5 - 4.0 LV EF Teichholz 45.1 % FS 22.54 % LV EDV (Teich) 127.8 mL LV ESV (Teich) 70.2 mL Auto EF LV EDV A4C 161.7 mL LV EDV A2C 147.6 mL LV EDV BP 157.0 mL LV ESV A4C 89.0 mL LV ESV A2C 80.5 mL LV ESV BP 85.1 mL LVEF(%) A4C 44.9 % LVEF(%) A2C 45.5 % LVEF(%) BP 45.8 % LV SV A4C 72.6 ml LV SV A2C 67.1 ml LV SV BP 71.9 ml LV CO A4C 7.5 L/min LV CO A2C 7.1 L/min LV CO BP 7.3 L/min HR A4C 102.57 BPM HR A2C 106.21 BPM LV EDV Index (BP) LA Volume LA Length A4C 5.9 cm LA Length A2C 6.0 cm LA Area A4C s 23.46 cm2 LA Area A2C s 25.31 cm2 LA Vol A4C A-L 79.75 mL LA Vol A2C A-L 90.48 mL LA Vol Biplane A-L 86.1 mL LA Vol/BSA A4C A-L LA Vol/BSA A2C A-L LA Vol/BSA BP A-L 39.1 mL/m2 LA Vol A4C MOD 74.1 mL LA Vol A2C MOD 84.7 mL LA Vol BP MOD 79.7 mL RA Volume RA Area A4C 15.9 cm2 RA ESV A4C (A-L) 46.9mL RA Vol/BSA A4C A-L RA Length A4C 4.6 cm RA ESV A4C (MOD) 42.2mL LV Diastology MV E' medial 0.134 (>0.07 m/s) MV E Vmax 1.01 (0.4-1.3 m/s) MV E/E' MED 7.56 (<14) MV E' lateral 0.104 (>0.1 m/s) MV E/E' LAT 9.70 (<14) MV E' Average 0.119 m/s MV E/E'(average) 8.50 Aortic Valve AoV Vmax 1.84 m/s LVOT Vmax 0.93 m/s AoV Peak Grad 13.5 mmHg LVOT Peak Grad 3.4 mmHg AoV Area (Vmax) 1.42 cm2 LVOT VTI 0.156 m AoV VTI 0.328 m LVOT Mean Grad 2.0 mmHg AoV Mean Vargas. 1.31 m/s LVOT SV 43.85 mL AoV Mean Grad 7.9 mmHg LVOT Diam s 1.85 cm AoV Area (VTI) 1.34 cm2 AV Regurg Peak Gr. 13.53 mmHg Velocity Ratio 0.51 Mitral Valve MV DT 164 (160-240 msec) MV Vmax TIPS 1.12 m/s MV Mean Grad 2.1 (<2mmHg) MV VTI 0.236 m Pulmonary Valve PV Vmax 0.87 (0.5-1.5 m/s) RVOT Vmax 0.62 m/s PV Peak Grad 3.0 mmHg RVOT Peak Gr. 1.5 mmHg PV Mean Vargas 0.61 m/s RVOT VTI 0.154 m PV Mean Grad 1.6 mmHg RVOT Mean Gr. 1.0 mmHg Tricuspid Valve RA Pressure 8.00 mmHg TR Vmax 2.32 m/s TV S' 0.10 m/s TR Peak Grad 21.5 mmHg RVSP (TR) 29.5 mmHg
[2025-06-15] MEDS: MAGNESIUM SULFATE 4 GM/100 ML BAG IV_INF (00:49)
[2025-06-15] MEDS: Normal Saline Flush 10 ML SYR IVP ×3 (01:06→08:28)
[2025-06-15] MEDS: Furosemide 20 MG/2 ML VIAL 10 MG IVP (02:13)
[2025-06-15] MEDS: Acetaminophen 325 MG TAB 650 MG PO (02:28)
[2025-06-15 03:27] LABS: MRSA PCR Negative (Negative)
[2025-06-15] MEDS: Lactated Ringers 1,000 ML 150 ML IV (06:47)
[2025-06-15 07:02] LABS: Abs Immature Grans 0.12 10^3/uL (0.0-0.06); HCT 29.9 % (40.0-50.0); HGB 10.3 g/dL (13.5-17.5); Immature Grans % 1.1 %; MCH 30.5 pg (27.0-33.0); MCHC 34.4 % (32.0-36.0); MCV 89 fL (80-95); MPV 10.9 fL (8.0-11.0); RBC 3.38 10^6/uL (4.36-5.78); RDW 13.6 % (11.8-14.1); RDW-SD 43.1 fL; WBC 11.35 10^3/uL (4.4-10.8)
[2025-06-15 07:24] LABS: Platelet Count 94 10^3/uL (130-400); Troponin I 159 ng/L (<or=76)
[2025-06-15 08:16] LABS: INR > 9.8 (0.9-1.1)
[2025-06-15] MEDS: Calcium Carbonate 1.5 GM TAB 3 GM PO (09:06)
[2025-06-15] MEDS: Phytonadione 5 MG TABLET PO (09:06)
[2025-06-15] MEDS: Magnesium Chloride 64 MG TABCR PO (09:06)
--- NOTE | 2025-06-15 09:26 | PDOC.CMIN ---
Date of service: 06/15/25 Time of Service: 09:26 Care Management Initial Assmt Advance Directives Advance Directives: Do you have an Advance Directive: Y 08/26/23, 13:31 AD On File at [facility]: Y 08/26/23, 13:31 Date Asked 05/22/25 05/22/25, 13:55 AD Date Reviewed COLST On File at [facility] COLST Date Scanned Code Status Resuscitation Status Full Code Care Team Visit Care Team Role Provider Type Joe Mo MD MD [facility] STAFF PHYSICIAN Karen Sommers, [place] Primary Care Provider NURSE PRACTITIONER Sabrina Almanza RDN, [facility] Other Providers MARINE PILOT Hernandez Ramirez RDN Other Providers MARINE PILOT Sánchez Beatty MD Emergency Provider [facility] STAFF PHYSICIAN Luis Mcgill MD Admit Provider [facility] STAFF PHYSICIAN Attending Provider Social Determinants of Health Screening Social Determinants of health last assessed in clinic: 06/15/25 Will the Patient Participate in the Screening?: Yes Do you worry about having a steady place to live?: no Problems where you live: no known problems In the past 12 months, have you had to go without electric, gas, oil or water in your home?: no Has lack of transportation kept you from medical appointments or from doing things needed for daily living?: no Has anyone in your life made you feel unsafe or unsupported?: no How hard is it for you to pay for the very basics like food, housing, medical care, and heating? Would you say it is:: Not hard at all Do you want help finding or keeping work or a job?: I do not need or want help If for any reason you need help with day-to-day activities such as bathing, preparing meals, shopping, managing finances, etc., do you get the help you need?: I don’t need any help How often do you feel lonely or isolated from those around you?: Never Do you speak a language other than Hebrew at home?: No Does the patient want assistance with any of the above?: No PFSH All Active Problems (Updated 06/15/25 @ 07:11 by Karen Sommers NP) Cholelithiasis (Acute) NASRA (acute kidney injury) (Acute) Elevated troponin (Acute) Hypotension (Acute) Dehydration (Acute) Diarrhea (Acute) Elevated INR (Acute) Hypocalcemia (Acute) Aortic stenosis, severe (Acute) with EF 50-55% on echo of 07/2021-s/p TAVR Sepsis (Acute) Gastroenteritis (Acute) Gram negative sepsis (Acute) Bacterial gastroenteritis (Acute) History of bladder cancer (Chronic) Papillary urothelial carcinoma, non invasive, 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: recurrence papillary lesion dome bladder; : tx with excision and Mytomycin-C intra bladder 12/2021- no sign of recurrence, followed by Urology at [facility] Coronary artery disease (Chronic) Atrial fibrillation (Chronic) Chronic anticoagulation (Chronic) 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) 12/2021, microalbuminuria Essential hypertension (Chronic) Hyperlipidemia (Chronic) Osteoarthritis of left knee (Chronic) Class 2 severe obesity with serious comorbidity and body mass index (BMI) of 38.0 to 38.9 in adult (Chronic) Primary osteoarthritis of both knees (Chronic) Tendonitis of left rotator cuff (Chronic) Tendinitis of long head of biceps brachii of left shoulder (Chronic) Arthritis of right knee (Chronic) 80 mg Depo-Medrol injection: 06/24/2023 Primary osteoarthritis of left knee (Chronic) 80 mg Depo-Medrol injection: 06/24/2023 Medical History Urothelial carcinoma of bladder (2016) Papillary urothelial carcinoma, non invasive, 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 04/16/14; X 1 - 2018-3 polyps, tubular adenomas, last of which had some early dysplastic features Patient due 2021-patient was called 12/2021 with attempt to set up colonoscopy. Patient wished to defer at this point. He makes an informed decision. 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) Family History Mother , 92 Heart disease Father , 76 Heart disease Sister , 76 Stroke Brother Diabetes Essential hypertension Stroke Maternal Grandfather Heart disease Paternal Grandfather Heart disease Maternal Grandmother Heart disease Paternal Grandmother Heart disease Brother , 68 Stroke Other Acute ill-defined cerebrovascular disease Social History Smoking/Tobacco Use Status: Former Tobacco Use tobacco type: cigarettes Quit Date: 08/09/86 Pack-years: 25 Tobacco: How many years used: 25 Second Hand Exposure: Yes Smoking risk assessment performed?: Yes Alcohol Intake: current Alcohol Intake frequency: holidays/special occasions only Alcohol type: wine and hard liquor Drug use: Never Substance use type: does not use Adopted: No Caregiver/Support person: No Foster care: No Household members: spouse Housing: house Number of Children: 0 Communication Needs: None Education Level: high school Do you need help understanding health information?: Rarely current occupation: retired Pets and animals: Yes Pets and animals: cat(s) Sexually active: No Do you think of yourself as: straight/heterosexual Current gender identity: male What is your relationship status?: How often do you talk on the phone with friends or family?: once per week How often do you get together with friends or relatives?: decline to answer How often do you attend mormon or buddhism services?: decline to answer Do you belong to any clubs or organized social groups?: no Panel score (0-1 are the most socially isolated patients): 1 What type of physical activity do you participate in: other Duration: 15-30 minutes/day Frequency: 3-4 times per week Oneyda/Jain: No preference Special oneyda needs: No Agree to transfusion: Yes Seatbelt use: always Helmet use: Yes Helmet use: always Drive intox or ride w/intox telephone directory distributor driver: No Working smoke detector in home: Yes Carbon monox detector in home: Yes Firearms in home: Yes Firearms unloaded and locked: No Do you feel safe at home: Yes Do you feel safe in your relationship?: Yes Victim of physical abuse: No Victim of emotional abuse: No Victim of sexual abuse: No
--- NOTE | 2025-06-15 09:27 | CMDISCH_ITS ---
Date of service: 06/15/25 Time of Service: 09:27 LACE Index Scoring Tool Questions: Length of Stay (in days): 1 Was the patient admitted via the E.D.?: Yes Comorbidities: Diabetes w/o Complication and Liver or Renal Disease E.D. Visits: 2 Answers: Total Score: 11 Risk of Readmission: High Risk Care Management Discharge Plan Reason for Hospitalization: Bacterial gastroenteritis Discharge Plan: Alvarado is critically ill and transferred to [facility] [place] before meeting with CM. Patient was transported via EMS coordinated by RN fire supervisor. Patient/Family Education Needs: Review transfer instructions, discuss ask me three. Services Needed at Discharge: Transportation (EMS)
--- NOTE | 2025-06-15 09:53 | DSE_ITS ---
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 (5) Gastroenteritis: Status: Acute (6) Gram negative sepsis: Status: Acute (7) Aortic stenosis, severe: Status: Acute (8) S/P TAVR (transcatheter aortic valve replacement): (9) Hypocalcemia: Status: Acute (10) Elevated INR: Status: Acute (11) Diarrhea: Status: Acute (12) Dehydration: Status: Acute (13) Hypotension: Status: Acute (14) Elevated troponin: Status: Acute (15) NASRA (acute kidney injury): Status: Acute Discharge Plan Disposition Patient Disposition: Transfer-Acute Inpatient Care Condition: Good Discharge Details Reason For Visit: Severe Sepsis Admit Date/Time: 06/14/25 20:19 Admit Provider: Luis Mcgill Attending Provider: Luis Mcgill [facility] Hospital Course: Patient initially presented with signs and symptoms of what was initially thought to have been severe sepsis from potential gastroenteritis, as well as si gnificantly elevated INR up to 9.8. Patient did meet severe sepsis criteria, with a heart rate of 115, respiratory rate of 30, source of infection being gram-negative bacteremia that was from blood cultures taken on the night of 06/13/2025. However, upon further review of the patient's images, patient had a CT abdomen pelvis on the night of 06/13/2025 that showed cholelithiasis with findings suggestive of acute cholecystitis with foci of air within the gallbladder concerning for emphysematous cholecystitis. General surgery [facility] was consulted and saw the patient and thought due to his history of having had TAVR, his significantly elevated INR of 9.8 despite reversal with vitamin K that patient would be better served to be transferred to a tertiary care center. [facility] trauma surgeon Dr. Andrei Lyles was consulted and agreed that [place] [facility] [place] Meds and New Rx's Prescriptions: Continued latanoprost 0.005 % drops 1 drp ophthalmic (eye) QPM Patient Comments: INSTILL ONE DROP INTO BOTH EYES AT BEDTIME amoxicillin 500 mg capsule 2,000 mg PO ONCE Qty: 20 0RF Patient Comments: Pt. states he only takes this for dental procedures. Rx Instructions: take 4 tablets 30-60 minutes prior to procedures including dental cleanings to prevent bacterial endocarditis hydrochlorothiazide 25 mg tablet 25 mg PO DAILY Qty: 90 3RF metoprolol succinate 100 mg tablet extended release 24 hr 100 mg PO DAILY Qty: 90 3RF meloxicam 15 mg tablet 15 mg PO DAILY Qty: 30 1RF Rx Instructions: Take one tablet daily for inflammation and pain pravastatin 80 mg tablet 80 mg PO DAILY Qty: 90 4RF Rx Instructions: take one tablet daily glimepiride 2 mg tablet 2 mg PO DAILY Qty: 30 3RF metformin 1,000 mg tablet 1,000 mg PO BID Qty: 180 2RF amoxicillin-pot clavulanate 875-125 mg tablet 1 tab PO BID Qty: 14 0RF ondansetron 4 mg tablet,disintegrating 4 mg PO Q8H PRN (Reason: nausea and vomiting) Qty: 20 0RF Held lisinopril 40 mg tablet 40 mg PO DAILY Qty: 90 4RF Hold Instructions: Resume on 06/20/25. warfarin 5 mg tablet 5 mg PO DAILY Qty: 90 1RF Hold Instructions: Resume on 06/21/25. Protocol: Dose Management Condition: Wednesday Dose/Route: 5 mg Instruction: 1 x 5 mg tablet Condition: Wednesday Dose/Route: 5 mg Instruction: 1 x 5 mg tablet Condition: Wednesday Dose/Route: 5 mg Instruction: 1 x 5 mg tablet Condition: Wednesday Dose/Route: 5 mg Instruction: 1 x 5 mg tablet Condition: Dose/Route: 5 mg Instruction: 1 x 5 mg tablet Condition: Wednesday Dose/Route: 7.5 mg Instruction: 1.5 x 5 mg tablets Condition: Wednesday Dose/Route: 5 mg Instruction: 1 x 5 mg tablet Protocol Text: Adjustment Start Date: Wednesday05/25/25 INR Value: 2.6 INR Date: 05/25/25 Recheck Date: 06/01/25 Rx Instructions: or as directed. No Action verapamil 120 mg tablet 120 mg PO BID Qty: 180 3RF Discharge Instructions Activity:: Activity as Tolerated Equipment/Supplies:: No Equipment Needed Diet:: As Tolerated Discharge Orders Discharge Orders: Discharge Order (Routine); Ordered 06/15/25 Ordered By: Joe Mo DS: Summary Time Spent with Patient providing and/or coordinating discharge services: Greater than 30 minutes Status at Discharge Functional status at discharge: independent ambulation Overall status at discharge: patient is back to baseline Mental Status: mental status grossly normal Speech and Movement: speech and movement normal Mood: congruent mood Affect: normal affect Exam Narrative Exam Narrative: Fatigued appearing older gentleman laying in bed in no acute distress, ANO x 4, heart regular rhythm, lungs good auscultation bilaterally, abdomen soft, nontender, nondistended Psych Mental Status: mental status grossly normal Speech and Movement: speech and movement normal Mood: congruent mood Affect: normal affect DS: Data Vitals/I&O Vitals and I&O: Vital Signs Temperature 97.7 F 06/15/25 05:16 Temperature Source Tympanic 06/14/25 21:25 Pulse 111 H 06/15/25 09:31 Pulse 120 H 06/15/25 09:31 Respiratory Rate 26 H 06/15/25 09:31 Respiratory Effort Normal 06/14/25 21:25 Respiratory Depth Normal 06/14/25 21:25 Respiratory Pattern Normal 06/14/25 21:25 Blood Pressure 121/87 06/15/25 09:31 Blood Pressure Mean 91 06/15/25 09:31 Blood Pressure Position Supine 06/14/25 21:25 Pulse Oximetry 93 06/15/25 04:08 Respiratory End-tidal CO2 16 06/14/25 20:01 Oxygen Delivery Method Room Air 06/15/25 04:08 Oxygen Flow Rate 0 06/15/25 04:08 End Tidal Co2 29 06/14/25 17:02 Pain Level 0 06/14/25 21:39 Intake & Output 06/14/25 06/15/25 06/15/25 17:59 05:59 17:59 Intake Total 50 / 50 5435.834 / 5485.834 300 / 300 Output Total 500 / 500 300 / 300 Balance 50 / 50 4935.834 / 4985.834 0 / 0 Weight 220 lb 7.396 oz 268 lb 15.423 oz 269 lb 2.951 oz Intake: IV 50 / 50 5435.834 / 5485.834 300 / 300 Output: Urine 500 / 500 300 / 300 Other: Urine Color Quitman Quitman Urine Appearance Cloudy Cloudy Sediment Comment repositioned gamble securement device Data Completed and Pending Pending Labs at Discharge: 06/14/25 06/14/25 06/14/25 17:33 18:31 20:27 WBC 11.95 H RBC 3.52 L Hgb 10.8 L D Hct 31.0 L MCV 88 MCH 30.7 MCHC 34.8 RDW 13.3 Plt Count 115 L MPV 10.2 Immature Gran % 0.7 Neutrophils % 84.7 Lymphocytes % 4.7 Monocytes % 9.7 Eosinophils % 0.0 Basophils % 0.2 Nucleated RBC % 0.0 Absolute Neutrophils 10.12 H Absolute Lymphocytes 0.56 L Absolute Monocytes 1.16 H Absolute Eosinophils 0.00 Absolute Basophils 0.02 PT > 83.4 H INR > 9.8 H* VBG Lactate 1.4 Sodium 129 L Potassium 3.4 L Chloride 96 L Carbon Dioxide 19.3 L Anion Gap 13.7 H BUN 29 H Creatinine 1.8 H Est GFR (CKD-EPI 2020) 37.82 Glucose 166 H Calcium 7.4 L Magnesium 1.0 L Total Bilirubin 0.9 AST 19 ALT 26 Alkaline Phosphatase 100 Troponin I 228 H* 203 H* Total Protein 5.7 L Albumin 2.0 L Free PSA Total PSA PSA Free/Total Ratio Urine Color Yellow Urine Clarity Clear Urine pH 5.0 Ur Specific [place] 1.015 Urine Protein 30 H Urine Ketones 15 H Urine Blood Moderate H Urine Nitrite Negative Urine Bilirubin Small H Urine Urobilinogen 2.0 H Ur Leukocyte Esterase Negative Urine RBC 10-20 H Urine WBC 3-5 Ur Epithelial Cells Rare Urine Crystals Moderate Amorphous Urine Bacteria Packed Urine Casts 0-2 Hyaline Urine Mucus Negative Ur Culture Indicated? No Urine Glucose Negative Stool Vibrio Culture Random Vancomycin MRSA (TEM-PCR) 06/14/25 06/15/25 06/15/25 20:47 00:50 01:10 WBC RBC Hgb Hct MCV MCH MCHC RDW Plt Count MPV Immature Gran % Neutrophils % Lymphocytes % Monocytes % Eosinophils % Basophils % Nucleated RBC % Absolute Neutrophils Absolute Lymphocytes Absolute Monocytes Absolute Eosinophils Absolute Basophils PT INR VBG Lactate 2.0 Sodium Potassium Chloride Carbon Dioxide Anion Gap BUN Creatinine Est GFR (CKD-EPI 2020) Glucose Calcium Magnesium Total Bilirubin AST ALT Alkaline Phosphatase Troponin I 210 H* Total Protein Albumin Free PSA Total PSA PSA Free/Total Ratio Urine Color Urine Clarity Urine pH Ur Specific [place] Urine Protein Urine Ketones Urine Blood Urine Nitrite Urine Bilirubin Urine Urobilinogen Ur Leukocyte Esterase Urine RBC Urine WBC Ur Epithelial Cells Urine Crystals Urine Bacteria Urine Casts Urine Mucus Ur Culture Indicated? Urine Glucose Stool Vibrio Culture Random Vancomycin MRSA (TEM-PCR) Negative 06/15/25 06/15/25 06/15/25 06:18 20:00 Unknown WBC 11.35 H RBC 3.38 L Hgb 10.3 L Hct 29.9 L MCV 89 MCH 30.5 MCHC 34.4 RDW 13.6 Plt Count 94 L MPV 10.9 Immature Gran % 1.1 Neutrophils % 82.5 Lymphocytes % 6.6 Monocytes % 9.3 Eosinophils % 0.3 Basophils % 0.2 Nucleated RBC % 0.0 Absolute Neutrophils 9.36 H Absolute Lymphocytes 0.75 L Absolute Monocytes 1.06 H Absolute Eosinophils 0.03 Absolute Basophils 0.02 PT > 83.4 H INR > 9.8 H* VBG Lactate Sodium Potassium Chloride Carbon Dioxide Anion Gap BUN Creatinine Est GFR (CKD-EPI 2020) Glucose Calcium Magnesium Total Bilirubin AST ALT Alkaline Phosphatase Troponin I 159 H* Total Protein Albumin Free PSA Pending Total PSA Pending PSA Free/Total Ratio Pending Urine Color Urine Clarity Urine pH Ur Specific [place] Urine Protein Urine Ketones Urine Blood Urine Nitrite Urine Bilirubin Urine Urobilinogen Ur Leukocyte Esterase Urine RBC Urine WBC Ur Epithelial Cells Urine Crystals Urine Bacteria Urine Casts Urine Mucus Ur Culture Indicated? Urine Glucose Stool Vibrio Culture Pending Random Vancomycin Pending MRSA (TEM-PCR) Preliminary micro results at discharge 06/14/25 17:33 Blood Blood Culture - Preliminary Gram negative uriel 06/14/25 18:45 Blood Blood Culture - Pending PFSH All Active Problems (Updated 06/15/25 @ 07:11 by Karen Sommers NP) Cholelithiasis (Acute) NASRA (acute kidney injury) (Acute) Elevated troponin (Acute) Hypotension (Acute) Dehydration (Acute) Diarrhea (Acute) Elevated INR (Acute) Hypocalcemia (Acute) Aortic stenosis, severe (Acute) with EF 50-55% on echo of 07/2021-s/p TAVR Sepsis (Acute) Gastroenteritis (Acute) Gram negative sepsis (Acute) Bacterial gastroenteritis (Acute) History of bladder cancer (Chronic) Papillary urothelial carcinoma, non invasive, 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: recurrence papillary lesion dome bladder; : tx with excision and Mytomycin-C intra bladder 12/2021- no sign of recurrence, followed by Urology at [facility] Coronary artery disease (Chronic) Atrial fibrillation (Chronic) Chronic anticoagulation (Chronic) 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) 12/2021, microalbuminuria Essential hypertension (Chronic) Hyperlipidemia (Chronic) Osteoarthritis of left knee (Chronic) Class 2 severe obesity with serious comorbidity and body mass index (BMI) of 38.0 to 38.9 in adult (Chronic) Primary osteoarthritis of both knees (Chronic) Tendonitis of left rotator cuff (Chronic) Tendinitis of long head of biceps brachii of left shoulder (Chronic) Arthritis of right knee (Chronic) 80 mg Depo-Medrol injection: 06/24/2023 Primary osteoarthritis of left knee (Chronic) 80 mg Depo-Medrol injection: 06/24/2023 Medical History Urothelial carcinoma of bladder (2017) Papillary urothelial carcinoma, non invasive, 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 04/16/14; X - 2018-3 polyps, tubular adenomas, last of which had some early dysplastic features Patient due 2021-patient was called 12/2021 with attempt to set up colonoscopy. Patient wished to defer at this point. He makes an informed decision. 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) Family History Mother , 92 Heart disease Father , 76 Heart disease Sister , 76 Stroke Brother Diabetes Essential hypertension Stroke Maternal Grandfather Heart disease Paternal Grandfather Heart disease Maternal Grandmother Heart disease Paternal Grandmother Heart disease Brother , 68 Stroke Other Acute ill-defined cerebrovascular disease Social History Smoking/Tobacco Use Status: Former Tobacco Use tobacco type: cigarettes Quit Date: 08/09/86 Pack-years: 25 Tobacco: How many years used: 25 Second Hand Exposure: Yes Smoking risk assessment performed?: Yes Alcohol Intake: current Alcohol Intake frequency: holidays/special occasions only Alcohol type: wine and hard liquor Drug use: Never Substance use type: does not use Adopted: No Caregiver/Support person: No Foster care: No Household members: spouse Housing: house Number of Children: 0 Communication Needs: None Education Level: high school Do you need help understanding health information?: Rarely current occupation: retired Pets and animals: Yes Pets and animals: cat(s) Sexually active: No Do you think of yourself as: straight/heterosexual Current gender identity: male What is your relationship status?: How often do you talk on the phone with friends or family?: once per week How often do you get together with friends or relatives?: decline to answer How often do you attend amish or jainism services?: decline to answer Do you belong to any clubs or organized social groups?: no Panel score (0-1 are the most socially isolated patients): 1 What type of physical activity do you participate in: other Duration: 15-30 minutes/day Frequency: 3-4 times per week Oneyda/Buddhist: No preference Special oneyda needs: No Agree to transfusion: Yes Seatbelt use: always Helmet use: Yes Helmet use: always Drive intox or ride w/intox screw driver operator: No Working smoke detector in home: Yes Carbon monox detector in home: Yes Firearms in home: Yes Firearms unloaded and locked: No Do you feel safe at home: Yes Do you feel safe in your relationship?: Yes Victim of physical abuse: No Victim of emotional abuse: No Victim of sexual abuse: No Time Spent with Patient Time Spent with Patient: <45 minutes Time was spent: preparing to see the patient(eg.review tests), obtaining and/or reviewing separately otained hiistory, ordering medications,tests, procedures, referring, communicating with other health vp care management, indepentently interpreting results, counseling the patient and care coordination
[2025-06-15] MEDS: CEFEPIME 2 GM in Normal Saline 100 ML IVPB (10:46)
--- NOTE | 2025-06-15 11:02 | W.SURGCON ---
Date of service: 06/15/25 Time of Service: 11:02 Assessment and Plan Assessment and plan (1) Gram negative sepsis: Status: Acute Assessment and plan: Gram-negative bacteremia secondary to acute gangrenous cholecystitis. Managing sepsis with antibiotics, intensive care management and resuscitation including fluids, and close monitoring. Source control is essential and GB needs to be drained or removed. Given complexity of this clinical scenario consideration should be given to percutaneous drainage of GB/cholecystostomy tube. He is critically ill with more than 2 weeks of symptoms and cholecystectomy is likely to be high risk for bleeding and open procedure. Additionally heart status is unknown and echo pending but previous severe aortic stenosis s/p TAVR w mechanical valve and anticoagulation. I feel he would be best managed in a tertiary center where consideration for perc drain vs cholecystectomy can be made by a comprehensive care team that includes surgeons, IR, and cardiology team to help manage anticoagulation and the valve. Recommend transfer to [facility], discussed w hospitalist and patient, both in agreement. (2) Hypotension: Status: Acute Assessment and plan: sepsis with shock, shock now resolved and fluid responsive, cont to follow in ICU setting. managing sepsis with abx and planning for source control with gb management. (3) Chronic anticoagulation: Status: Chronic Assessment and plan: give more vit K to get INR down closer to 3.5. PCC can be given at the time of intervention but due to stroke risk from mechanical valve I recommend against giving PCC prior to knowing the timing of a procedure. (4) History of mechanical aortic valve replacement: Status: Acute Assessment and plan: anticoagulated. Echo pending to eval for heart failure and other valvular disease as patient notes another valve is going bad (5) Supratherapeutic INR: Status: Acute Assessment and plan: vitamin K to get INR 2.5-3.5, then PCC or FFP to reverse acutely for procedural needs is my recommendation. no signs of acute bleeding now to warrant emergent reversal. (6) Acute gangrenous cholecystitis: Status: Acute Assessment and plan: abx now, transfer for cholecystostomy tube or complex cholecystectomy in tertiary care center setting. (7) Atrial fibrillation: Status: Chronic Assessment and plan: balance rate control with hypotension (8) Type 2 diabetes mellitus with diabetic nephropathy: Status: Chronic Assessment and plan: risk factor for gangrene of gb. Glucose controlled. maintain <200 (9) NASRA (acute kidney injury): Status: Acute Assessment and plan: ATN from shock and sepsis most likely. Fluid management and sepsis source control. History of Present Illness History of Present Illness Chief Complaint: sepsis, shock and cholecystitis Narrative: 79-year-old male admitted with septic shock and emphysematous cholecystitis. He reports 3 weeks of illness that started with severe diffuse abdominal pain. He had been drinking pond water as a result of his well running dry. He developed diarrhea that was severe and a lot of abdominal pain. He never saw blood in his stool but states it was extremely watery and extremely heavy diarrhea for several weeks. He had nausea as well. He developed vomiting. After approximately a week the abdominal pain seemed to resolve. The diarrhea nausea and vomiting have continued. He felt unwell and came to the emergency department on June 13 and was evaluated and discharged home. He returned to the emergency department last night he was hypotensive with signs of infection consistent with sepsis with shock. He was fluid responsive. CAT scan was reviewed by the admitting hospitalist and showed emphysematous cholecystitis with stones. He was admitted to the ICU overnight. The nursing staff note that he was delirious and confused overnight but is mentally clear this morning. He denies any current abdominal pain. He feels very tired overall but says he feels better than he did yesterday. Pt notes history of bladder cancer. The patient has a mechanical aortic valve that was replaced by TAVR in 2021. He takes Coumadin for his mechanical aortic valve and INR was supratherapeutic over 9 when he arrived. He was given 7.5 mg of oral vitamin K and recheck this morning is persistently elevated at 9.8. He denies any prior diagnosis of heart failure. He denies prior heart attack or stroke. He denies any known pulmonary disease such as COPD or asthma. He says that he thinks he has a second valve that is going bad but does not have any more information about that. He helps take care of his who is debilitated due to strokes. His appetite has been very poor and he has not been eating. [facility] All Active Problems (Updated 06/15/25 @ 11:10 by Evelina Miller MD) Acute gangrenous cholecystitis (Acute) Supratherapeutic INR (Acute) History of mechanical aortic valve replacement (Acute) Cholelithiasis (Acute) NASRA (acute kidney injury) (Acute) Elevated troponin (Acute) Hypotension (Acute) Dehydration (Acute) Diarrhea (Acute) Elevated INR (Acute) Hypocalcemia (Acute) Aortic stenosis, severe (Acute) with EF 50-55% on echo of 07/2021-s/p TAVR Sepsis (Acute) Gastroenteritis (Acute) Gram negative sepsis (Acute) Bacterial gastroenteritis (Acute) History of bladder cancer (Chronic) Papillary urothelial carcinoma, non invasive, 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: recurrence papillary lesion dome bladder; : tx with excision and Mytomycin-C intra bladder 12/2021- no sign of recurrence, followed by Urology at [facility] Coronary artery disease (Chronic) Atrial fibrillation (Chronic) Chronic anticoagulation (Chronic) 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) 12/2021, microalbuminuria Essential hypertension (Chronic) Hyperlipidemia (Chronic) Osteoarthritis of left knee (Chronic) Class 2 severe obesity with serious comorbidity and body mass index (BMI) of 38.0 to 38.9 in adult (Chronic) Primary osteoarthritis of both knees (Chronic) Tendonitis of left rotator cuff (Chronic) Tendinitis of long head of biceps brachii of left shoulder (Chronic) Arthritis of right knee (Chronic) 80 mg Depo-Medrol injection: 06/24/2023 Primary osteoarthritis of left knee (Chronic) 80 mg Depo-Medrol injection: 06/24/2023 Medical History Urothelial carcinoma of bladder (2017) Papillary urothelial carcinoma, non invasive, 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 04/16/14; X - 2018-3 polyps, tubular adenomas, last of which had some early dysplastic features Patient due 2021-patient was called 12/2021 with attempt to set up colonoscopy. Patient wished to defer at this point. He makes an informed decision. 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) Family History Mother , 92 Heart disease Father , 76 Heart disease Sister , 76 Stroke Brother Diabetes Essential hypertension Stroke Maternal Grandfather Heart disease Paternal Grandfather Heart disease Maternal Grandmother Heart disease Paternal Grandmother Heart disease Brother , 68 Stroke Other Acute ill-defined cerebrovascular disease Social History Smoking/Tobacco Use Status: Former Tobacco Use tobacco type: cigarettes Quit Date: 08/09/86 Pack-years: 25 Tobacco: How many years used: 25 Second Hand Exposure: Yes Smoking risk assessment performed?: Yes Alcohol Intake: current Alcohol Intake frequency: holidays/special occasions only Alcohol type: wine and hard liquor Drug use: Never Substance use type: does not use Adopted: No Caregiver/Support person: No Foster care: No Household members: spouse Housing: house Number of Children: 0 Communication Needs: None Education Level: high school Do you need help understanding health information?: Rarely current occupation: retired Pets and animals: Yes Pets and animals: cat(s) Sexually active: No Do you think of yourself as: straight/heterosexual Current gender identity: male What is your relationship status?: How often do you talk on the phone with friends or family?: once per week How often do you get together with friends or relatives?: decline to answer How often do you attend scientology or yazidi services?: decline to answer Do you belong to any clubs or organized social groups?: no Panel score (0-1 are the most socially isolated patients): 1 What type of physical activity do you participate in: other Duration: 15-30 minutes/day Frequency: 3-4 times per week Oneyda/Pentecostalism: No preference Special oneyda needs: No Agree to transfusion: Yes Seatbelt use: always Helmet use: Yes Helmet use: always Drive intox or ride w/intox delivery truck driver heavy: No Working smoke detector in home: Yes Carbon monox detector in home: Yes Firearms in home: Yes Firearms unloaded and locked: No Do you feel safe at home: Yes Do you feel safe in your relationship?: Yes Victim of physical abuse: No Victim of emotional abuse: No Victim of sexual abuse: No Exam Narrative Exam Narrative: awake, NAD eomi, MMM, sclerae mildly icteric on my exam. midline trachea, neck is symmetric PULM: normal resp effort, equal chest rise with respiration, no wheezing audible CARDIAC: no jvd, tachycardic, irregular rhythm, normal perfusion with warm core and extremities abdomen is nondistended, obese, nontender. No tenderness to palpation of RUQ, negative murpheys sign extremities are without deformity, normal movement of all four extremities speech is clear and coherent mood and affect are congruent, no focal neurological deficits skin without rash trace periph edema Results Last Vital Signs Temp 97.7 F 06/15/25 05:16 Pulse 111 H 06/15/25 09:31 Resp 26 H 06/15/25 09:31 BP 121/87 06/15/25 09:31 Pulse Ox 93 06/15/25 04:08 Labs 06/15/25 06:18 06/14/25 17:33 Labs: Laboratory Results - last 24 hr 06/14/25 06/14/25 06/14/25 17:33 18:31 20:27 WBC 11.95 H RBC 3.52 L Hgb 10.8 L D Hct 31.0 L MCV 88 MCH 30.7 MCHC 34.8 RDW 13.3 Plt Count 115 L MPV 10.2 Immature Gran % 0.7 Neutrophils % 84.7 Lymphocytes % 4.7 Monocytes % 9.7 Eosinophils % 0.0 Basophils % 0.2 Nucleated RBC % 0.0 Absolute Neutrophils 10.12 H Absolute Lymphocytes 0.56 L Absolute Monocytes 1.16 H Absolute Eosinophils 0.00 Absolute Basophils 0.02 PT > 83.4 H INR > 9.8 H* VBG Lactate 1.4 Sodium 129 L Potassium 3.4 L Chloride 96 L Carbon Dioxide 19.3 L Anion Gap 13.7 H BUN 29 H Creatinine 1.8 H Est GFR (CKD-EPI 2020) 37.82 Glucose 166 H Calcium 7.4 L Magnesium 1.0 L Total Bilirubin 0.9 AST 19 ALT 26 Alkaline Phosphatase 100 Troponin I 228 H* 203 H* Total Protein 5.7 L Albumin 2.0 L Urine Color Yellow Urine Clarity Clear Urine pH 5.0 Ur Specific [place] 1.015 Urine Protein 30 H Urine Ketones 15 H Urine Blood Moderate H Urine Nitrite Negative Urine Bilirubin Small H Urine Urobilinogen 2.0 H Ur Leukocyte Esterase Negative Urine RBC 10-20 H Urine WBC 3-5 Ur Epithelial Cells Rare Urine Crystals Moderate Amorphous Urine Bacteria Packed Urine Casts 0-2 Hyaline Urine Mucus Negative Ur Culture Indicated? No Urine Glucose Negative MRSA (TEM-PCR) 06/14/25 06/15/25 06/15/25 20:47 00:50 01:10 WBC RBC Hgb Hct MCV MCH MCHC RDW Plt Count MPV Immature Gran % Neutrophils % Lymphocytes % Monocytes % Eosinophils % Basophils % Nucleated RBC % Absolute Neutrophils Absolute Lymphocytes Absolute Monocytes Absolute Eosinophils Absolute Basophils PT INR VBG Lactate 2.0 Sodium Potassium Chloride Carbon Dioxide Anion Gap BUN Creatinine Est GFR (CKD-EPI 2020) Glucose Calcium Magnesium Total Bilirubin AST ALT Alkaline Phosphatase Troponin I 210 H* Total Protein Albumin Urine Color Urine Clarity Urine pH Ur Specific [place] Urine Protein Urine Ketones Urine Blood Urine Nitrite Urine Bilirubin Urine Urobilinogen Ur Leukocyte Esterase Urine RBC Urine WBC Ur Epithelial Cells Urine Crystals Urine Bacteria Urine Casts Urine Mucus Ur Culture Indicated? Urine Glucose MRSA (TEM-PCR) Negative 06/15/25 06:18 WBC 11.35 H RBC 3.38 L Hgb 10.3 L Hct 29.9 L MCV 89 MCH 30.5 MCHC 34.4 RDW 13.6 Plt Count 94 L MPV 10.9 Immature Gran % 1.1 Neutrophils % 82.5 Lymphocytes % 6.6 Monocytes % 9.3 Eosinophils % 0.3 Basophils % 0.2 Nucleated RBC % 0.0 Absolute Neutrophils 9.36 H Absolute Lymphocytes 0.75 L Absolute Monocytes 1.06 H Absolute Eosinophils 0.03 Absolute Basophils 0.02 PT > 83.4 H INR > 9.8 H* VBG Lactate Sodium Potassium Chloride Carbon Dioxide Anion Gap BUN Creatinine Est GFR (CKD-EPI 2020) Glucose Calcium Magnesium Total Bilirubin AST ALT Alkaline Phosphatase Troponin I 159 H* Total Protein Albumin Urine Color Urine Clarity Urine pH Ur Specific [place] Urine Protein Urine Ketones Urine Blood Urine Nitrite Urine Bilirubin Urine Urobilinogen Ur Leukocyte Esterase Urine RBC Urine WBC Ur Epithelial Cells Urine Crystals Urine Bacteria Urine Casts Urine Mucus Ur Culture Indicated? Urine Glucose MRSA (TEM-PCR) Imaging Abdomen CT scan report/results: report reviewed and image reviewed Imaging Studies: Exam(s) a CT:CT abdomen & pelvis w Exam(s) CT ABDOMEN PELVIS W EXAM: CT ABDOMEN PELVIS W CLINICAL HISTORY: diarrhea and LLQ abdominal pain TECHNIQUE: Imaging Protocol: Axial computed tomography images with coronal and sagittal reformatted images were created and reviewed. CONTRAST MATERIAL: Intravenous: Omnipaque 350 Contrast volume:100 mL Oral: No COMPARISON: CT ABD/PELVIS WO W CONTRAST from 02/12/2017 FINDINGS: ABDOMEN: Lung Bases: There is an aortic valve replacement. The heart is enlarged. Liver: Normal density. No measurable mass. Portal, Superior Mesenteric, and Splenic Veins: Unremarkable. Gallbladder and Biliary Tract: There are gallstones present. There is infiltration of the surrounding soft tissues. There is no biliary ductal dilatation. There is a question of acute cholecystitis. Pancreas: Normal density, no abnormal calcifications or inflammatory process. Spleen: Calcified granuloma are seen in the spleen. Adrenals: No masses seen. Kidneys: Normal size, contour and axis. No radiodense stones or obstructive uropathy. No masses seen. Abdominal Aorta: Abdominal portion non-dilated. Atherosclerotic calcification is present. Bowel: There is diverticulosis of the colon without evidence of acute diverticulitis. There is no evidence of bowel wall thickening or obstruction. There is no evidence of appendicitis. Peritoneal Cavity: No ascites, collection or mesenteric inflammatory response. No free air. Lymph Nodes: Within normal limits. Bones: Within normal limits for the patient's age. 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 Soft Tissues: The moderate size fat containing umbilical hernia. There is a small fat containing left inguinal hernia. PELVIS: Bladder: Symmetric distention, no gross wall thickening. Reproductive Organs: Unremarkable as visualized. Lymph Nodes: Within normal limits. Bones: Within normal limits for the patient's age. IMPRESSION: 1. Cholelithiasis with findings suggestive of acute cholecystitis. Abdominal ultrasound is recommended for further evaluation. There are foci of air within the gallbladder. Emphysematous cholecystitis should be considered. 2. Colonic diverticulosis without evidence of acute diverticulitis. 3. The preliminary [facility] report was reviewed. RADIATION DOSE DELIVERED: 1,439.34mGy.cm Total DLP DATA REPOSITORY: All CT scans at this facility are submitted to the National Radiology Data Registry (NRDR) Dose Index Registry (DIR) with the [employer] (ACR). RADIATION OPTIMIZATION: All CT scans at this facility use at least one of these dose optimization techniques: automated exposure control; mA and/or kV adjustment per patient size (includes targeted exams where dose is matched to clinical indication); or iterative reconstruction. [id number]: Total DLP = 0.00 mGy-cm Ordered By: Sánchez Beatty M.D. CC:
--- NOTE | 2025-06-15 20:42 | NUR.NOTE ---
Lab calls to review pending order, pt no longer here, but is under care of another facility, okay to dc order:
--- NOTE | 2025-06-16 09:01 | NUR.NOTE ---
today's blood culture report given to Dr. Lindsey for review. Nursing Note:
== END 2025-06-15 11:30 | disposition short-term general hospital (02) | DRG 871 ==
LOC: ER 19:29 → ICU 21:27
PROVIDERS: Admitting Provider Hospitalist; Emergency Provider Emergency Medicine Emergency Medical Services; PCP Nurse Practitioner Family; Responsible Provider Family Medicine; Visit Provider Hospitalist
DX: I48.11 Longstanding persistent atrial fibrillation; Z79.01 Long term (current) use of anticoagulants; A41.50 Gram-negative sepsis, unspecified; Z95.2 Presence of prosthetic heart valve; E83.51 Hypocalcemia; R79.1 Abnormal coagulation profile; E86.0 Dehydration; N17.0 Acute kidney failure with tubular necrosis; R65.21 Severe sepsis with septic shock; K80.00 Calculus of gallbladder with acute cholecystitis without obstruction; A04.9 Bacterial intestinal infection, unspecified; K82.A1 Gangrene of gallbladder in cholecystitis; E11.21 Type 2 diabetes mellitus with diabetic nephropathy; R74.8 Abnormal levels of other serum enzymes; I35.0 Nonrheumatic aortic (valve) stenosis; I10 Essential (primary) hypertension; E78.5 Hyperlipidemia, unspecified; E66.812 Obesity, class 2; M17.0 Bilateral primary osteoarthritis of knee; I25.10 Atherosclerotic heart disease of native coronary artery without angina pectoris; Z85.51 Personal history of malignant neoplasm of bladder; Z68.37 Body mass index [BMI] 37.0-37.9, adult; R30.0 Dysuria
CPT/HCPCS: 00123; 36415; 51702; 76604; 76705; 76775; 80053; 87040; 87077; 87641; 93005; 93306; 93308; 96365; 96366; 96367; 99223; 99291; 71045; 74019; 80202; 81003; 81015; 83605; 83735; 84154; 84484; 85025; 85610; 87186; 93010; 99239; J0692; J1815; J1938; J3373; J3475

== ENCOUNTER 2025-07-09 18:09 | Inpatient (IN) | payer MEDICARE, SELFPAY ==
[2025-07-09] VITALS (9 sets, daily range): BP systolic 136–164; BP diastolic 69–87; PULSE 79–100; RESP 13–24; TEMP 35.7; O2SAT 96–100
--- NOTE | 2025-07-09 18:45 | DI.RAD_ITS ---
Exam(s) XR PORTABLE CHEST AP EXAM: XR PORTABLE CHEST AP CLINICAL HISTORY: weakness. TECHNIQUE: 2D digital imaging was performed. COMPARISON: CR,XR XR ABDOMEN FLAT UPRIGHT from 06/14/2025 CR XR PORTABLE CHEST AP from 06/14/2025 FINDINGS: Single AP portable view. Heart size is upper normal. There is an aortic valve TAVR again noted. The mediastinum appears unchanged. Left lung is clear. There is infiltrate in the right lower lobe posterior basal segment. No obvious pleural effusions. Healed fracture deformity at the midshaft of the left clavicle again noted. IMPRESSION: Suspicion for right lower lobe infiltrate. Aortic valve TAVR. No evidence of pulmonary edema. Preliminary virtual Radiology report was reviewed. Final report called by myself to ER provider 07/09/2025 at 9:18 p.m. DATA REPOSITORY: RADIATION DOSE DELIVERED:
[2025-07-09 19:55] LABS: BE (Venous) -1 mmol/L (-2-3); HCO3 (Venous) 24 mmol/L (23-28); O2 Sat (Venous) 51 %; TCO2 (Venous) 23 mmol/L (24-29); pCO2 (Venous) 41 mmHg (41-51); pO2 (Venous) 28 mmHg
[2025-07-09 19:58] LABS: Abs Immature Grans 0.16 10^3/uL (0.0-0.06); HCT 29.2 % (40.0-50.0); HGB 9.9 g/dL (13.5-17.5); Immature Grans % 1.3 %; MCH 31.6 pg (27.0-33.0); MCHC 33.9 % (32.0-36.0); MCV 93 fL (80-95); MPV 9.2 fL (8.0-11.0); Platelet Count 215 10^3/uL (130-400); RBC 3.13 10^6/uL (4.36-5.78); RDW 19.2 % (11.8-14.1); RDW-SD 61.4 fL; WBC 12.62 10^3/uL (4.4-10.8)
[2025-07-09 20:12] LABS: INR 2.7 (0.9-1.1); PTT Activated 40.8 sec (20.6-30.2); Prothrombin Time 25.7 sec (9.1-11.1)
[2025-07-09] MEDS: Normal Saline 1,000 ML 1000 ML IV (20:31)
[2025-07-09 20:51] LABS: Troponin I 42 ng/L (<54)
[2025-07-09 20:53] LABS: Lipase 20 U/L (<53)
[2025-07-09 20:54] LABS: Magnesium 1.6 mg/dL (1.6-2.6)
--- NOTE | 2025-07-09 20:59 | DI.[facility]_ITS ---
PROCEDURE INFORMATION: Exam: XR Chest Exam date and time: 07/09/2025 7:34 PM Age: 79 years old Clinical indication: Other: Weakness TECHNIQUE: Imaging protocol: Radiologic exam of the chest. Views: 1 view. COMPARISON: CR XR PORTABLE CHEST AP 06/14/2025 5:20 PM FINDINGS: Lungs: Unremarkable. No consolidation. Pleural spaces: Unremarkable. No pleural effusion. No pneumothorax. Heart/Mediastinum: Unremarkable. No cardiomegaly. Bones/joints: Old left clavicle fracture. IMPRESSION: No acute findings. Dictated and Authenticated by: Omer Sanches MD. Orderin César Hess MD
[2025-07-09 21:03] LABS: ALT < 7 U/L (10-49); AST 14 U/L (<34); Albumin 2.9 g/dL (3.2-5.0); Alkaline Phosphatase 96 U/L (46-116); Anion Gap 8.9 mmol/L (3-11); BUN 9 mg/dL (9-23); Bilirubin, Total 0.40 mg/dL (0.2-1.2); CO2 23.1 mmol/L (20.0-31.0); Calcium 8.0 mg/dL (8.3-10.6); Chloride 111 mmol/L (98-107); Glucose 121 mg/dL (74-106); Potassium 3.3 mmol/L (3.5-5.1); Sodium 143 mmol/L (136-145); Total Protein 6.6 g/dL (5.7-8.2)
--- NOTE | 2025-07-09 21:14 | W.ED.GENAD ---
Discharge Plan Discharge Details Chief Complaint: GenMedical Admit Date/Time: 07/09/25 23:21 Admit Provider: Omer Glynn Attending Provider: Omer Glynn Primary Care Provider: Karen Sommers ED Provider: Deshawn Lindsey Discharge Data Discharge Date/Time-TO BE ENTERED AT DEPARTURE: 07/10/25 00:57 HPI General Date/Time Provider Initiated Documentation: 07/09/25 18:52. HPI Narrative: MDM/Narrative: 8-year-old male with past medical history of aortic stenosis status post TAVR, chronic A-fib diabetes obesity, who was recently discharged from ICU at [facility] for management of gangrenous cholecystitis, presents for generalized weakness and failure to thrive. Vital signs notable for tachycardia hypothermia, given positive SIRS criteria and patient's recent hospitalization and comorbidities as well as indwelling Rosario catheter high concern for possible sepsis in this patient. Will start empiric ceftriaxone due to indwelling Rosario catheter, and obtain screening labs to assess for acute organ injury. Regardless of workup patient clearly is not well enough to return home to care for himself and will admit patient for disposition to rehab if otherwise well on workup today. ED course: Labs notable for leukocytosis, when compared to discharge blood work from earlier today at [facility], the leukocytosis is new. Patient also with some leukocyte esterase on his urine, will consider this positive given high risk with Rosario catheter and treat patient empirically for urosepsis. Remainder of workup does not show evidence of severe sepsis or any other acute (pathology such as ACS to explain the patient's generalized weakness. Case discussed with Dr. Glynn who is agreeable to plan for admission for further management. Clinical impression: Urosepsis Disposition: Admit to [facility] HPI: 80-year-old male with past medical history of aortic stenosis, A-fib, on Coumadin, and who was released from [facility] ICU today for management of gangrenous cholecystitis, presents for evaluation of generalized weakness. Patient states that he was discharged home with plan to receive visiting nurse support, however when he returned home no one was there besides his elderly to help care for him. He states that he laid on the couch and then was unable to get up. He notes that he then had to crawl off of the couch, and then called for EMS services to assist him. Upon their arrival he noted that he became incontinent of stool, and his Rosario catheter had been dislodged making him incontinent of urine as well. Patient states that he is too weak to return home. He denies any associated fever pain, but still endorses feeling rundown and weak. ROS: Negative besides as mentioned above Exam: Gen: A&O NAD HEENT: NCAT, EOMI, not icteric. External ears normal. No rhinorrhea. Moist mucous membranes. Neck: Supple, full range of motion, no observable masses, No meningeal sign. Lungs: No Respiratory distress. CV: Tachycardia, no edema. Abdomen: Soft, nondistended, No rebound tenderness. Surgical drain in place which is clean dry and intact. MSK: No joint swelling, no redness. Skin: No rashes, petechiae, lesions. Normal color per patient. Neuro: Normal Gait, Grossly intact. Psych: Appropriate for situation. Labs: 07/09/25 20:25 Blood Blood Culture - Preliminary NO GROWTH 24 HOURS 07/09/25 19:55 Blood Blood Culture - Preliminary NO GROWTH 24 HOURS Laboratory Tests Range/Units 07/09/25 07/09/25 07/09/25 19:45 19:55 20:25 WBC (4.4-10.8) 10^3/uL 12.62 H RBC (4.36-5.78) 10^6/uL 3.13 L Hgb (13.5-17.5) g/dL 9.9 L Hct (40.0-50.0) % 29.2 L MCV (80-95) fL 93 MCH (27.0-33.0) pg 31.6 MCHC (32.0-36.0) % 33.9 RDW (11.8-14.1) % 19.2 H Plt Count (130-400) 10^3/uL 215 MPV (8.0-11.0) fL 9.2 Immature Gran % % 1.3 Neutrophils % % 84.2 Lymphocytes % % 6.5 Monocytes % % 6.1 Eosinophils % % 1.5 Basophils % % 0.4 Nucleated RBC % (0.0-0.3) % 0.0 Absolute Neutrophils (1.2-6.7) 10^3/uL 10.63 H Absolute Lymphocytes (1.2-3.4) 10^3/uL 0.82 L Absolute Monocytes (0.1-0.8) 10^3/uL 0.77 Absolute Eosinophils (0.0-0.7) 10^3/uL 0.19 Absolute Basophils (0.0-0.2) 10^3/uL 0.05 PT (9.1-11.1) sec 25.7 H INR (0.9-1.1) 2.7 H APTT (20.6-30.2) sec 40.8 H VBG pH (7.31-7.41) 7.38 VBG pCO2 (41-51) mmHg 41 VBG pO2 mmHg 28 VBG HCO3 (23-28) mmol/L 24 VBG Total CO2 (24-29) mmol/L 23 L VBG O2 Saturation % 51 VBG Base Excess (-2-3) mmol/L -1 VBG Lactate (<or=2.0) mmol/L 1.1 Sodium Cancelled 143 Potassium Cancelled 3.3 L Chloride Cancelled 111 H Carbon Dioxide Cancelled 23.1 Anion Gap Cancelled 8.9 BUN Cancelled 9 Creatinine Cancelled 0.98 Est GFR (CKD-EPI 2020) Cancelled 73.59 Glucose Cancelled 121 H Calcium Cancelled 8.0 L Magnesium Cancelled 1.6 Total Bilirubin Cancelled 0.40 AST Cancelled 14 ALT Cancelled < 7 L Alkaline Phosphatase Cancelled 96 Troponin I Cancelled 42 NT-Pro-B Natriuret Pep Cancelled 5635 H Total Protein Cancelled 6.6 Albumin Cancelled 2.9 L Lipase Cancelled 20 Urine Color (Yellow) Urine Clarity (Clear) Urine pH (5-8) Ur Specific [place] (1.005-1.025) Urine Protein (Neg-Trace) mg/dL Urine Ketones (Negative) mg/dL Urine Blood (Negative) Urine Nitrite (Negative) Urine Bilirubin (Negative) Urine Urobilinogen (Up to 0.2) mg/dL Ur Leukocyte Esterase (Negative) Urine RBC (0-2) HPF Urine WBC (0-5) HPF Ur Epithelial Cells (Negative) HPF Urine Crystals (Negative) HPF Urine Bacteria (Negative) HPF Urine Casts (Negative) LPF Urine Mucus (Negative) Urine Other (Negative) Ur Culture Indicated? Urine Glucose (Negative) mg/dL Stl C.difficile Tox PCR (Negative) ABO/Rh Cancelled Antibody Screen Cancelled Range/Units 07/09/25 07/09/25 07/09/25 21:00 21:35 21:47 WBC (4.4-10.8) 10^3/uL RBC (4.36-5.78) 10^6/uL Hgb (13.5-17.5) g/dL Hct (40.0-50.0) % MCV (80-95) fL MCH (27.0-33.0) pg MCHC (32.0-36.0) % RDW (11.8-14.1) % Plt Count (130-400) 10^3/uL MPV (8.0-11.0) fL Immature Gran % % Neutrophils % % Lymphocytes % % Monocytes % % Eosinophils % % Basophils % % Nucleated RBC % (0.0-0.3) % Absolute Neutrophils (1.2-6.7) 10^3/uL Absolute Lymphocytes (1.2-3.4) 10^3/uL Absolute Monocytes (0.1-0.8) 10^3/uL Absolute Eosinophils (0.0-0.7) 10^3/uL Absolute Basophils (0.0-0.2) 10^3/uL PT (9.1-11.1) sec INR (0.9-1.1) APTT (20.6-30.2) sec VBG pH (7.31-7.41) VBG pCO2 (41-51) mmHg VBG pO2 mmHg VBG HCO3 (23-28) mmol/L VBG Total CO2 (24-29) mmol/L VBG O2 Saturation % VBG Base Excess (-2-3) mmol/L VBG Lactate (<or=2.0) mmol/L Sodium Potassium Chloride Carbon Dioxide Anion Gap BUN Creatinine Est GFR (CKD-EPI 2020) Glucose Calcium Magnesium Total Bilirubin AST ALT Alkaline Phosphatase Troponin I 44 NT-Pro-B Natriuret Pep Total Protein Albumin Lipase Urine Color (Yellow) Yellow Urine Clarity (Clear) Sl Cloudy Urine pH (5-8) 5.5 Ur Specific [place] (1.005-1.025) >= 1.030 H Urine Protein (Neg-Trace) mg/dL 100 H Urine Ketones (Negative) mg/dL 15 H Urine Blood (Negative) Trace-intact H Urine Nitrite (Negative) Negative Urine Bilirubin (Negative) Negative Urine Urobilinogen (Up to 0.2) mg/dL 0.2 Ur Leukocyte Esterase (Negative) Trace H Urine RBC (0-2) HPF 0-2 Urine WBC (0-5) HPF 0-2 Ur Epithelial Cells (Negative) HPF Rare Urine Crystals (Negative) HPF Rare Uric Acid Urine Bacteria (Negative) HPF Rare Urine Casts (Negative) LPF 0-2 Hyaline Urine Mucus (Negative) Negative Urine Other (Negative) Rare Transitional Ur Culture Indicated? No Urine Glucose (Negative) mg/dL Negative Stl C.difficile Tox PCR (Negative) Negative ABO/Rh Antibody Screen Radiology: PROCEDURE INFORMATION: Exam: XR Chest Exam date and time: 07/09/2025 7:34 PM Age: 79 years old Clinical indication: Other: Weakness TECHNIQUE: Imaging protocol: Radiologic exam of the chest. Views: 1 view. COMPARISON: CR XR PORTABLE CHEST AP 06/14/2025 5:20 PM FINDINGS: Lungs: Unremarkable. No consolidation. Pleural spaces: Unremarkable. No pleural effusion. No pneumothorax. Heart/Mediastinum: Unremarkable. No cardiomegaly. Bones/joints: Old left clavicle fracture. IMPRESSION: No acute findings. Thank you for allowing us to participate in the care of your patient. Dictated and Authenticated by: Omer Sanches MD Exam(s) XR PORTABLE CHEST AP EXAM: XR PORTABLE CHEST AP CLINICAL HISTORY: weakness. TECHNIQUE: 2D digital imaging was performed. COMPARISON: CR,XR XR ABDOMEN FLAT UPRIGHT from 06/14/2025 CR XR PORTABLE CHEST AP from 06/14/2025 FINDINGS: Single AP portable view. Heart size is upper normal. There is an aortic valve TAVR again noted. The mediastinum appears unchanged. Left lung is clear. There is infiltrate in the right lower lobe posterior basal segment. No obvious pleural effusions. Healed fracture deformity at the midshaft of the left clavicle again noted. IMPRESSION: Suspicion for right lower lobe infiltrate. Aortic valve TAVR. No evidence of pulmonary edema. Preliminary virtual Radiology report was reviewed. Final report called by myself to ER provider 07/09/2025 at 9:18 p.m. Related Data Home Medications ?Medication ?Instructions ?Recorded ?Confirmed latanoprost 0.005 % eye drops 1 drp ophthalmic (eye) QPM 10/14/22 07/09/25 amoxicillin 500 mg capsule 2,000 mg (4 x 500 mg) PO ONCE #20 09/06/24 07/09/25 caps hydrochlorothiazide 25 mg tablet 25 mg PO DAILY #90 tabs 02/28/25 07/09/25 metoprolol succinate 100 mg 100 mg PO DAILY #90 tabs 02/28/25 07/09/25 tablet,extended release 24 hr glimepiride 2 mg tablet 2 mg PO DAILY #30 tabs 03/12/25 07/09/25 metformin 1,000 mg tablet 1,000 mg PO BID #180 tabs 04/18/25 07/09/25 ondansetron 4 mg disintegrating 4 mg PO Q8H PRN nausea and 06/13/25 07/09/25 tablet vomiting #20 tabs Saccharomyces boulardii 1 tab PO DAILY 07/09/25 07/09/25 acetaminophen 500 mg tablet 500 - 1,000 mg PO Q6H PRN pain 07/09/25 07/09/25 digoxin 125 mcg (0.125 mg) tablet 125 mcg PO DAILY 07/09/25 07/09/25 (Digitek) dorzolamide 22.3 mg-timolol 6.8 1 drp ophthalmic (eye) QAM 07/09/25 07/09/25 mg/mL eye drops furosemide 20 mg tablet (Lasix) 20 mg PO DAILY 07/09/25 07/09/25 levofloxacin 750 mg tablet 750 mg PO DAILY 07/09/25 07/09/25 magnesium oxide 400 mg (241.3 mg 400 mg PO DAILY 07/09/25 07/09/25 magnesium) tablet metronidazole 500 mg tablet 500 mg PO TID 07/09/25 07/09/25 fhgliyupvczy-daultgnh-nfhlnc 1 tab PO DAILY 07/09/25 07/09/25 tablet (Multivitamin 50 Plus tablet) pravastatin 80 mg tablet 80 mg PO QPM 07/09/25 07/09/25 spironolactone 25 mg tablet 25 mg PO DAILY 07/09/25 07/09/25 (Aldactone) warfarin 1 mg tablet 1 mg PO DAILY 07/09/25 07/09/25 Previous Rx's ?Medication ?Instructions ?Recorded amoxicillin 500 mg capsule 2,000 mg (4 x 500 mg) PO ONCE #20 09/06/24 caps hydrochlorothiazide 25 mg tablet 25 mg PO DAILY #90 tabs 02/28/25 metoprolol succinate 100 mg 100 mg PO DAILY #90 tabs 02/28/25 tablet,extended release 24 hr glimepiride 2 mg tablet 2 mg PO DAILY #30 tabs 03/12/25 metformin 1,000 mg tablet 1,000 mg PO BID #180 tabs 04/18/25 ondansetron 4 mg disintegrating 4 mg PO Q8H PRN nausea and 06/13/25 tablet vomiting #20 tabs Allergies Allergy/AdvReac Type Severity Reaction Status Date / Time No Known Allergies Allergy Verified 06/13/25 20:18 General Stated Complaint: GenMedical ANAMIKA: 3 Course Vital Signs Vital signs: Vital Signs Temperature 35.7 C L 07/09/25 18:05 Pulse 100 H 07/09/25 18:05 Respiratory Rate 18 07/09/25 18:05 Blood Pressure 155/86 H 07/09/25 18:05 Pulse Oximetry 96 07/09/25 18:05 Temperature 35.7 C L 07/09/25 18:05 Pulse 100 H 07/09/25 18:05 Respiratory Rate 18 07/09/25 18:05 Blood Pressure 155/86 H 07/09/25 18:05 Blood Pressure Position Supine 07/09/25 18:05 Pulse Oximetry 96 07/09/25 18:05 Oxygen Delivery Method Room Air 07/09/25 18:05 Oxygen Flow Rate 0 07/09/25 18:05 Lab/Test Results Lab/Test Results: 07/09/25 20:25 Blood Blood Culture - Pending 07/09/25 19:55 Blood Blood Culture - Pending Laboratory Tests Range/Units 07/09/25 07/09/25 07/09/25 19:45 19:55 20:25 WBC (4.4-10.8) 10^3/uL 12.62 H RBC (4.36-5.78) 10^6/uL 3.13 L Hgb (13.5-17.5) g/dL 9.9 L Hct (40.0-50.0) % 29.2 L MCV (80-95) fL 93 MCH (27.0-33.0) pg 31.6 MCHC (32.0-36.0) % 33.9 RDW (11.8-14.1) % 19.2 H Plt Count (130-400) 10^3/uL 215 MPV (8.0-11.0) fL 9.2 Immature Gran % % 1.3 Neutrophils % % 84.2 Lymphocytes % % 6.5 Monocytes % % 6.1 Eosinophils % % 1.5 Basophils % % 0.4 Nucleated RBC % (0.0-0.3) % 0.0 Absolute Neutrophils (1.2-6.7) 10^3/uL 10.63 H Absolute Lymphocytes (1.2-3.4) 10^3/uL 0.82 L Absolute Monocytes (0.1-0.8) 10^3/uL 0.77 Absolute Eosinophils (0.0-0.7) 10^3/uL 0.19 Absolute Basophils (0.0-0.2) 10^3/uL 0.05 PT (9.1-11.1) sec 25.7 H INR (0.9-1.1) 2.7 H APTT (20.6-30.2) sec 40.8 H VBG pH (7.31-7.41) 7.38 VBG pCO2 (41-51) mmHg 41 VBG pO2 mmHg 28 VBG HCO3 (23-28) mmol/L 24 VBG Total CO2 (24-29) mmol/L 23 L VBG O2 Saturation % 51 VBG Base Excess (-2-3) mmol/L -1 VBG Lactate (<or=2.0) mmol/L 1.1 Sodium Cancelled 143 Potassium Cancelled 3.3 L Chloride Cancelled 111 H Carbon Dioxide Cancelled 23.1 Anion Gap Cancelled 8.9 BUN Cancelled 9 Creatinine Cancelled 0.98 Est GFR (CKD-EPI 2020) Cancelled 73.59 Glucose Cancelled 121 H Calcium Cancelled 8.0 L Magnesium Cancelled 1.6 Total Bilirubin Cancelled 0.40 AST Cancelled 14 ALT Cancelled < 7 L Alkaline Phosphatase Cancelled 96 Troponin I Cancelled 42 NT-Pro-B Natriuret Pep Cancelled 5635 H Total Protein Cancelled 6.6 Albumin Cancelled 2.9 L Lipase Cancelled 20 ABO/Rh Cancelled Antibody Screen Cancelled Medical Decision Making Quality:SDOH Health Related Social Needs: Health related social needs daily activities Health related social needs details Pt declines help at this time PFSH All Active Problems (Updated 07/10/25 @ 12:22 by Rogers Ching) Weakness (Acute) Anemia (Chronic) Chronic atrial fibrillation (Chronic) Complicated UTI (urinary tract infection) (Acute) Acute gangrenous cholecystitis (Acute) Supratherapeutic INR (Acute) History of mechanical aortic valve replacement (Acute) Cholelithiasis (Acute) NASRA (acute kidney injury) (Acute) Elevated troponin (Acute) Hypotension (Acute) Dehydration (Acute) Diarrhea (Acute) Elevated INR (Acute) Hypocalcemia (Acute) Aortic stenosis, severe (Chronic) with EF 50-55% on echo of 07/2021-s/p TAVR Sepsis (Acute) Gastroenteritis (Acute) Gram negative sepsis (Acute) Bacterial gastroenteritis (Acute) History of bladder cancer (Chronic) Papillary urothelial carcinoma, non invasive, 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: recurrence papillary lesion dome bladder; : tx with excision and Mytomycin-C intra bladder 12/2021- no sign of recurrence, followed by Urology at [facility] Coronary artery disease (Chronic) Atrial fibrillation (Chronic) Chronic anticoagulation (Chronic) 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) 12/2021, microalbuminuria Essential hypertension (Chronic) Hyperlipidemia (Chronic) Osteoarthritis of left knee (Chronic) Class 2 severe obesity with serious comorbidity and body mass index (BMI) of 38.0 to 38.9 in adult (Chronic) Primary osteoarthritis of both knees (Chronic) Tendonitis of left rotator cuff (Chronic) Tendinitis of long head of biceps brachii of left shoulder (Chronic) Arthritis of right knee (Chronic) 80 mg Depo-Medrol injection: 06/24/2023 Primary osteoarthritis of left knee (Chronic) 80 mg Depo-Medrol injection: 06/24/2023 Medical History Urothelial carcinoma of bladder (2017) Papillary urothelial carcinoma, non invasive, 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 04/16/14; X 1 - 2018-3 polyps, tubular adenomas, last of which had some early dysplastic features Patient due 2021-patient was called 12/2021 with attempt to set up colonoscopy. Patient wished to defer at this point. He makes an informed decision. 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) Family History Mother , 92 Heart disease Father , 76 Heart disease Sister , 76 Stroke Brother Diabetes Essential hypertension Stroke Maternal Grandfather Heart disease Paternal Grandfather Heart disease Maternal Grandmother Heart disease Paternal Grandmother Heart disease Brother , 68 Stroke Other Acute ill-defined cerebrovascular disease Social History Smoking/Tobacco Use Status: Former Tobacco Use tobacco type: cigarettes Quit Date: 08/09/86 Pack-years: 25 Tobacco: How many years used: 25 Second Hand Exposure: Yes Smoking risk assessment performed?: Yes Alcohol Intake: current Alcohol Intake frequency: holidays/special occasions only Alcohol type: wine and hard liquor Drug use: Never Substance use type: does not use Adopted: No Caregiver/Support person: No Foster care: No Household members: spouse Housing: house Number of Children: 0 Communication Needs: None Education Level: high school Do you need help understanding health information?: Rarely current occupation: retired Pets and animals: Yes Pets and animals: cat(s) Sexually active: No Do you think of yourself as: straight/heterosexual Current gender identity: male What is your relationship status?: How often do you talk on the phone with friends or family?: once per week How often do you get together with friends or relatives?: decline to answer How often do you attend episcopalian or judaism services?: decline to answer Do you belong to any clubs or organized social groups?: no Panel score (0-1 are the most socially isolated patients): 1 What type of physical activity do you participate in: other Duration: 15-30 minutes/day Frequency: 3-4 times per week Oneyda/Catholic: No preference Special oneyda needs: No Agree to transfusion: Yes Seatbelt use: always Helmet use: Yes Helmet use: always Drive intox or ride w/intox electric pile driver operator: No Working smoke detector in home: Yes Carbon monox detector in home: Yes Firearms in home: Yes Firearms unloaded and locked: No Do you feel safe at home: Yes Do you feel safe in your relationship?: Yes Victim of physical abuse: No Victim of emotional abuse: No Victim of sexual abuse: No
--- NOTE | 2025-07-09 21:15 | DI.CT_ITS ---
Exam(s) CT CHEST WO EXAM: CT CHEST WO CLINICAL HISTORY: abnormal CXR. TECHNIQUE: Imaging protocol: Axial computed tomography images were obtained and coronal and sagittal reformatted images were created and reviewed. Lung Computer Aided Detection (CAD) was utilized. COMPARISON: CT CT ABDOMEN PELVIS W from 06/13/2025 CR,XR XR PORTABLE CHEST AP from 07/09/2025 FINDINGS: Tracheobronchial tree: Patent where visualized. No bronchiectasis is present. Pulmonary parenchyma: No consolidation or dominant measurable mass. There is a 4 mm nodule in the right middle lobe (series 2, image 84). There is a moderate right and a small left pleural effusion with resultant subjacent atelectasis in the lung bases. Mediastinum and Gavi: No dominant adenopathy or fluid collection. The esophagus is unremarkable. Thyroid gland: Unremarkable. Pleura: There is no pneumothorax. Heart: Cardiomegaly. Coronary artery calcifications are present. There is an aortic valve replacement in place. No pericardial effusion. Aorta: The ascending thoracic aorta measures 4 x 3.8 cm. Atherosclerotic calcification is present. Upper abdomen: Calcified granuloma are seen in the spleen. There is a drainage catheter in the gallbladder fossa. The patient is status post cholecystectomy. There is fluid and air seen in the gallbladder fossa. This may reflect the patient's recent cholecystectomy. Lymph nodes: Within normal limits. Soft tissues: Gynecomastia bilaterally. Bones:Within normal limits for the patient's age. 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 IMPRESSION: 1. Bilateral pleural effusions and subjacent infiltrates which likely reflect atelectasis. Pneumonia cannot be entirely excluded. 2. 4 mm right middle lobe pulmonary nodule. Solid nodules smaller than 6 mm do not require routine follow-up in all patients with high clinical risk; however, some nodules smaller than 6 mm with suspicious morphology, upper lobe location, or both may warrant follow-up at 12 months (grade 2A; weak recommendation, high-quality evidence). (Vickie et al., 2017) Single solid noncalcified nodules. ???Solid nodules smaller than 6 mm (those 5 mm or smaller) do not require routine follow-up in patients at low risk (grade 1C; strong recommendation, low- or [id number] evidence). (Vickie et al., 2017) 3. Drainage catheter is seen in the gallbladder fossa. Status post cholecystectomy. 4. The preliminary [facility] report was reviewed. RADIATION DOSE DELIVERED: 361.62mGy.cm Total DLP 361.62mGy.cm Total DLP DATA REPOSITORY: All CT scans at this facility are submitted to the National Radiology Data Registry (NRDR) Dose Index Registry (DIR) with the [employer] (A[employer]). RADIATION OPTIMIZATION: All CT scans at this facility use at least one of these dose optimization techniques: automated exposure control; mA and/or kV adjustment per patient size (includes targeted exams where dose is matched to clinical indication); or iterative reconstruction.
[2025-07-09 21:45] LABS: Glucose Negative (Negative)
[2025-07-09 21:56] LABS: RBC 0-2 HPF (0-2); WBC 0-2 HPF (0-5)
[2025-07-09 21:57] LABS: C & S Indicated? No
[2025-07-09 22:12] LABS: Troponin I 44 ng/L (<54)
--- NOTE | 2025-07-09 22:34 | DI.[facility]_ITS ---
PROCEDURE INFORMATION: Exam: CT Chest Without Contrast; Diagnostic Exam date and time: 07/09/2025 10:14 PM Age: 79 years old Clinical indication: Abnormal findings; Abnormal radiologic exam of lung or chest; Additional info: Abnormal cxr TECHNIQUE: Imaging protocol: Diagnostic computed tomography of the chest without contrast. 3D rendering (Not supervised by radiologist): MIP and/or 3D reconstructed images were created by the technologist. COMPARISON: CR XR PORTABLE CHEST AP 07/09/2025 7:34 PM FINDINGS: Tubes, catheters and devices: Pigtail drainage catheter at the gallbladder fossa. Lungs: 4 mm nodule right middle lobe series . No consolidation. Pleural spaces: Small bilateral pleural effusions with associated atelectasis, larger on the right. Heart: Previous transcatheter aortic valve replacement. Coronary arteries: Coronary artery calcifications. Lymph nodes: Unremarkable. No enlarged lymph nodes. Vasculature: Aorta demonstrates mild atherosclerotic calcification. Gallbladder and biliary ducts: Gallbladder surgically absent. Spleen: Punctate calcifications at the spleen consistent with remote granulomatous organism exposure. Bones/joints: Old left clavicle fracture. Diffuse enthesopathic changes consistent with benign diffuse idiopathic skeletal hyperostosis (DISH). Soft tissues: Unremarkable. IMPRESSION: 1. 4 mm nodule right middle lobe series . 2. Small bilateral pleural effusions with associated atelectasis, larger on the right. Dictated and Authenticated by: Omer Sanches MD. Orderin César Hess MD
[2025-07-09 22:36] LABS: EPI 027-NAP1-B1 PRESUMPTIVE NEGATIVE
--- NOTE | 2025-07-09 23:07 | W.PM.HP.N ---
Date of service: 07/09/25 Time of Service: 23:08 Assessment and Plan Assessment and plan (1) Sepsis: Start date: 07/09/25 Status: Acute Assessment and plan: This is a 80-year-old female with prolonged hospitalization at [facility] recently just discharged the day of admission to this hospital with increased weakness and falling at home. He traumatizes Rosario catheter which is still in place and may have a complicated UTI with sepsis criteria met though his lactate was negative and he was afebrile. He will be admitted with IV ceftriaxone and follow-up on urine culture with adjustment of antibiotics as indicated. He is a full code. (2) Complicated UTI (urinary tract infection): Start date: 07/09/25 Status: Acute Assessment and plan: Chronic indwelling Rosario catheter with recent hospitalizations. Follow-up on urine culture and adjust antibiotic therapy accordingly. (3) Urothelial carcinoma of bladder: Assessment and plan: No hematuria presently with mostly BPH causing his urine outlet obstruction. Monitor for complications. (4) Type 2 diabetes mellitus with diabetic nephropathy: Status: Chronic Assessment and plan: Glucometer measurements with sliding scale coverage while hospitalized. Hold outpatient medical therapy for now. (5) Essential hypertension: Status: Chronic Assessment and plan: Continue outpatient medical therapy. (6) Aortic stenosis, severe: Status: Chronic Assessment and plan: Patient has had a TAVR and is on Coumadin possibly for this valve but also because of chronic atrial fibrillation. Watch for bleeding sequelae. (7) Chronic atrial fibrillation: Status: Chronic Assessment and plan: Continue outpatient medical therapy and monitor PT/INR daily on Coumadin. Cardiac monitoring. History of Present Illness History of Present Illness Chief Complaint: Generalized weakness with Rosario catheter traumatically removed. Narrative: This is an 80-year-old male patient who was just discharged from the ICU at [facility] after a prolonged course over 1 month for gangrenous cholecystitis. He does have a percutaneous drainage of his gallbladder area and did have a Rosario catheter in place with some urinary outlet obstruction from BPH and also having a history of bladder cancer. The Rosario was traumatically tugged on when the patient was crawling on the floor to go to the bathroom having diarrhea and being too weak to stand and walk from his couch. The Rosario was removed and replaced in the ED. The patient was incontinent of his stool at home when he was weak and could not stand to go to the bathroom. There is no complaints of gross hematuria with this event. He was seen in the ED and evaluated with Rosario catheter replaced and urinalysis revealing probable UTI. He had no fever but he had tachycardia, elevated WBC and source of infection. He was given some IV hydration and initiated on IV antibiotic therapy with ceftriaxone for his probable complicated UTI. At discharge from [facility] ICU the same day as presentation, the patient's WBC was normal. The patient will be admitted for IV antibiotic therapy and follow-up on urine culture. He is a full code. He will also need rehabilitation because of his profound weakness after his prolonged hospital stay in the ICU at [facility]. Review of Systems Narrative: 13 point review of systems otherwise unrevealing or stable. [facility] All Active Problems (Updated 07/10/25 @ 11:45 by Omer Glynn) Chronic atrial fibrillation (Chronic) Complicated UTI (urinary tract infection) (Acute) Acute gangrenous cholecystitis (Acute) Supratherapeutic INR (Acute) History of mechanical aortic valve replacement (Acute) Cholelithiasis (Acute) NASRA (acute kidney injury) (Acute) Elevated troponin (Acute) Hypotension (Acute) Dehydration (Acute) Diarrhea (Acute) Elevated INR (Acute) Hypocalcemia (Acute) Aortic stenosis, severe (Chronic) with EF 50-55% on echo of 07/2021--s/p TAVR Sepsis (Acute) Gastroenteritis (Acute) Gram negative sepsis (Acute) Bacterial gastroenteritis (Acute) History of bladder cancer (Chronic) Papillary urothelial carcinoma, non invasive, 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: recurrence papillary lesion dome bladder; : tx with excision and Mytomycin-C intra bladder 12/2021- no sign of recurrence, followed by Urology at [facility] Coronary artery disease (Chronic) Atrial fibrillation (Chronic) Chronic anticoagulation (Chronic) 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) 12/2021, microalbuminuria Essential hypertension (Chronic) Hyperlipidemia (Chronic) Osteoarthritis of left knee (Chronic) Class 2 severe obesity with serious comorbidity and body mass index (BMI) of 38.0 to 38.9 in adult (Chronic) Primary osteoarthritis of both knees (Chronic) Tendonitis of left rotator cuff (Chronic) Tendinitis of long head of biceps brachii of left shoulder (Chronic) Arthritis of right knee (Chronic) 80 mg Depo-Medrol injection: 06/24/2023 Primary osteoarthritis of left knee (Chronic) 80 mg Depo-Medrol injection: 06/24/2023 Medical History Urothelial carcinoma of bladder (2016) Papillary urothelial carcinoma, non invasive, 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 04/16/14; X 2018-3 polyps, tubular adenomas, last of which had some early dysplastic features Patient due 2021-patient was called 12/2021 with attempt to set up colonoscopy. Patient wished to defer at this point. He makes an informed decision. 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) Family History Mother , 92 Heart disease Father , 76 Heart disease Sister , 76 Stroke Brother Diabetes Essential hypertension Stroke Maternal Grandfather Heart disease Paternal Grandfather Heart disease Maternal Grandmother Heart disease Paternal Grandmother Heart disease Brother , 68 Stroke Other Acute ill-defined cerebrovascular disease Social History Smoking/Tobacco Use Status: Former Tobacco Use tobacco type: cigarettes Quit Date: 08/09/86 Pack-years: 25 Tobacco: How many years used: 25 Second Hand Exposure: Yes Smoking risk assessment performed?: Yes Alcohol Intake: current Alcohol Intake frequency: holidays/special occasions only Alcohol type: wine and hard liquor Drug use: Never Substance use type: does not use Adopted: No Caregiver/Support person: No Foster care: No Household members: spouse Housing: house Number of Children: 0 Communication Needs: None Education Level: high school Do you need help understanding health information?: Rarely current occupation: retired Pets and animals: Yes Pets and animals: cat(s) Sexually active: No Do you think of yourself as: straight/heterosexual Current gender identity: male What is your relationship status?: How often do you talk on the phone with friends or family?: once per week How often do you get together with friends or relatives?: decline to answer How often do you attend rastafari or orthodox services?: decline to answer Do you belong to any clubs or organized social groups?: no Panel score (0-1 are the most socially isolated patients): 1 What type of physical activity do you participate in: other Duration: 15-30 minutes/day Frequency: 3-4 times per week Oneyda/Jainism: No preference Special oneyda needs: No Agree to transfusion: Yes Seatbelt use: always Helmet use: Yes Helmet use: always Drive intox or ride w/intox regional driver: No Working smoke detector in home: Yes Carbon monox detector in home: Yes Firearms in home: Yes Firearms unloaded and locked: No Do you feel safe at home: Yes Do you feel safe in your relationship?: Yes Victim of physical abuse: No Victim of emotional abuse: No Victim of sexual abuse: No Meds Allergies and Home Medications Allergies Allergy/AdvReac Type Severity Reaction Status Date / Time No Known Allergies Allergy Verified 06/13/25 20:18 Home Medications ?Medication ?Instructions ?Recorded ?Confirmed ?Type latanoprost 0.005 % eye drops 1 drp ophthalmic (eye) QPM 10/14/22 07/09/25 History amoxicillin 500 mg capsule 2,000 mg (4 x 500 mg) PO ONCE #20 09/06/24 07/09/25 Rx caps hydrochlorothiazide 25 mg tablet 25 mg PO DAILY #90 tabs 02/28/25 07/09/25 Rx metoprolol succinate 100 mg 100 mg PO DAILY #90 tabs 02/28/25 07/09/25 Rx tablet,extended release 24 hr glimepiride 2 mg tablet 2 mg PO DAILY #30 tabs 03/12/25 07/09/25 Rx metformin 1,000 mg tablet 1,000 mg PO BID #180 tabs 04/18/25 07/09/25 Rx ondansetron 4 mg disintegrating 4 mg PO Q8H PRN nausea and 06/13/25 07/09/25 Rx tablet vomiting #20 tabs Saccharomyces boulardii 1 tab PO DAILY 07/09/25 07/09/25 History acetaminophen 500 mg tablet 500 - 1,000 mg PO Q6H PRN pain 07/09/25 07/09/25 History digoxin 125 mcg (0.125 mg) tablet 125 mcg PO DAILY 07/09/25 07/09/25 History (Digitek) dorzolamide 22.3 mg-timolol 6.8 1 drp ophthalmic (eye) QAM 07/09/25 07/09/25 History mg/mL eye drops furosemide 20 mg tablet (Lasix) 20 mg PO DAILY 07/09/25 07/09/25 History levofloxacin 750 mg tablet 750 mg PO DAILY 07/09/25 07/09/25 History magnesium oxide 400 mg (241.3 mg 400 mg PO DAILY 07/09/25 07/09/25 History magnesium) tablet metronidazole 500 mg tablet 500 mg PO TID 07/09/25 07/09/25 History wdolfyuevlfh-nqbtscxy-vbnmsw 1 tab PO DAILY 07/09/25 07/09/25 History tablet (Multivitamin 50 Plus tablet) pravastatin 80 mg tablet 80 mg PO QPM 07/09/25 07/09/25 History spironolactone 25 mg tablet 25 mg PO DAILY 07/09/25 07/09/25 History (Aldactone) warfarin 1 mg tablet 1 mg PO DAILY 07/09/25 07/09/25 History Exam Narrative Exam Narrative: General: Patient appears appropriate for age, moderate to severely obese, he appears chronically ill and weak, alert and oriented x 3 and in moderate distress from his weakness and fatigue. HEENT: Normocephalic, eyes with pupils equal and reactive to light symmetrically, extraocular movement intact and sclera anicteric. Oropharynx with dry mucosa. Neck: Supple without JVD. Back: Stooped posture without CVA tenderness. Lungs: Fair aeration with lungs clear to auscultation and percussion. No focalizing rales or rhonchi. No expiratory wheeze. Heart: Irregularly irregular rhythm with no murmur or gallop. Abdomen: Obese contour, soft and nontender to palpation with no palpable hepatosplenomegaly. Percutaneous tube draining bilious material from the right upper abdomen. Bowel sounds positive all quadrants. Genitalia/rectal: Exam deferred. Rosario catheter is in place draining reagan urine. Extremities: Without clubbing or cyanosis, 3+ soft pitting edema over both lower extremities. Fair cap refill. Neuro: Cranial nerves II through XII gross intact, no focalized motor deficits or tremor. Patient. Generally weak and deconditioned. Skin: Normal color, warm and dry. Psych: Depressed mood and flattened affect. No abnormal thought processes. Remote and recent memory grossly intact. Results Imaging Imaging Studies: EXAM: XR PORTABLE CHEST AP Date of exam: 07/09/2025 CLINICAL HISTORY: weakness. TECHNIQUE: 2D digital imaging was performed. COMPARISON: CR,XR XR ABDOMEN FLAT UPRIGHT from 06/14/2025 CR XR PORTABLE CHEST AP from 06/14/2025 FINDINGS: Single AP portable view. Heart size is upper normal. There is an aortic valve TAVR again noted. The mediastinum appears unchanged. Left lung is clear. There is infiltrate in the right lower lobe posterior basal segment. No obvious pleural effusions. Healed fracture deformity at the midshaft of the left clavicle again noted. IMPRESSION: Suspicion for right lower lobe infiltrate. Aortic valve TAVR. No evidence of pulmonary edema Exam: CT Chest Without Contrast; Diagnostic Exam date and time: 07/09/2025 10:14 PM Age: 79 years old Clinical indication: Abnormal findings; Abnormal radiologic exam of lung or chest; Additional info: Abnormal cxr TECHNIQUE: Imaging protocol: Diagnostic computed tomography of the chest without contrast. 3D rendering (Not supervised by radiologist): MIP and/or 3D reconstructed images were created by the technologist. COMPARISON: CR XR PORTABLE CHEST AP 07/09/2025 7:34 PM FINDINGS: Tubes, catheters and devices: Pigtail drainage catheter at the gallbladder fossa. Lungs: 4 mm nodule right middle lobe series . No consolidation. Pleural spaces: Small bilateral pleural effusions with associated atelectasis, larger on the right. Heart: Previous transcatheter aortic valve replacement. Coronary arteries: Coronary artery calcifications. Lymph nodes: Unremarkable. No enlarged lymph nodes. Vasculature: Aorta demonstrates mild atherosclerotic calcification. Gallbladder and biliary ducts: Gallbladder surgically absent. Spleen: Punctate calcifications at the spleen consistent with remote granulomatous organism exposure. Bones/joints: Old left clavicle fracture. Diffuse enthesopathic changes consistent with benign diffuse idiopathic skeletal hyperostosis (DISH). Soft tissues: Unremarkable. IMPRESSION: 1. 4 mm nodule right middle lobe series 84. 2. Small bilateral pleural effusions with associated atelectasis, larger on the right. Labs 07/10/25 06:01 07/10/25 06:01 Labs: Laboratory Results - last 24 hr 07/09/25 07/09/25 07/09/25 19:45 19:55 20:25 WBC 12.62 H RBC 3.13 L Hgb 9.9 L Hct 29.2 L MCV 93 MCH 31.6 MCHC 33.9 RDW 19.2 H Plt Count 215 MPV 9.2 Immature Gran % 1.3 Neutrophils % 84.2 Lymphocytes % 6.5 Monocytes % 6.1 Eosinophils % 1.5 Basophils % 0.4 Nucleated RBC % 0.0 Absolute Neutrophils 10.63 H Absolute Lymphocytes 0.82 L Absolute Monocytes 0.77 Absolute Eosinophils 0.19 Absolute Basophils 0.05 PT 25.7 H INR 2.7 H APTT 40.8 H VBG pH 7.38 VBG pCO2 41 VBG pO2 28 VBG HCO3 24 VBG Total CO2 23 L VBG O2 Saturation 51 VBG Base Excess -1 VBG Lactate 1.1 Sodium Cancelled 143 Potassium Cancelled 3.3 L Chloride Cancelled 111 H Carbon Dioxide Cancelled 23.1 Anion Gap Cancelled 8.9 BUN Cancelled 9 Creatinine Cancelled 0.98 Est GFR (CKD-EPI 2020) Cancelled 73.59 Glucose Cancelled 121 H Calcium Cancelled 8.0 L Magnesium Cancelled 1.6 Total Bilirubin Cancelled 0.40 AST Cancelled 14 ALT Cancelled < 7 L Alkaline Phosphatase Cancelled 96 Troponin I Cancelled 42 NT-Pro-B Natriuret Pep Cancelled 5635 H Total Protein Cancelled 6.6 Albumin Cancelled 2.9 L Lipase Cancelled 20 Urine Color Urine Clarity Urine pH Ur Specific [place] Urine Protein Urine Ketones Urine Blood Urine Nitrite Urine Bilirubin Urine Urobilinogen Ur Leukocyte Esterase Urine RBC Urine WBC Ur Epithelial Cells Urine Crystals Urine Bacteria Urine Casts Urine Mucus Urine Other Ur Culture Indicated? Urine Glucose Stl C.difficile Tox PCR ABO/Rh Cancelled Antibody Screen Cancelled 07/09/25 07/09/25 07/09/25 21:00 21:35 21:47 WBC RBC Hgb Hct MCV MCH MCHC RDW Plt Count MPV Immature Gran % Neutrophils % Lymphocytes % Monocytes % Eosinophils % Basophils % Nucleated RBC % Absolute Neutrophils Absolute Lymphocytes Absolute Monocytes Absolute Eosinophils Absolute Basophils PT INR APTT VBG pH VBG pCO2 VBG pO2 VBG HCO3 VBG Total CO2 VBG O2 Saturation VBG Base Excess VBG Lactate Sodium Potassium Chloride Carbon Dioxide Anion Gap BUN Creatinine Est GFR (CKD-EPI 2020) Glucose Calcium Magnesium Total Bilirubin AST ALT Alkaline Phosphatase Troponin I 44 NT-Pro-B Natriuret Pep Total Protein Albumin Lipase Urine Color Yellow Urine Clarity Sl Cloudy Urine pH 5.5 Ur Specific [place] >= 1.030 H Urine Protein 100 H Urine Ketones 15 H Urine Blood Trace-intact H Urine Nitrite Negative Urine Bilirubin Negative Urine Urobilinogen 0.2 Ur Leukocyte Esterase Trace H Urine RBC 0-2 Urine WBC 0-2 Ur Epithelial Cells Rare Urine Crystals Rare Uric Acid Urine Bacteria Rare Urine Casts 0-2 Hyaline Urine Mucus Negative Urine Other Rare Transitional Ur Culture Indicated? No Urine Glucose Negative Stl C.difficile Tox PCR Negative ABO/Rh Antibody Screen Last Vital Signs Temp 35.7 C L 07/09/25 18:05 Pulse 100 H 07/09/25 18:05 Resp 23 07/09/25 21:49 BP 155/86 H 07/09/25 18:05 Pulse Ox 96 07/09/25 18:05 VTE Prohylaxis Risk Level: Moderate/High Risk Contraindications: Medical contrainidcation Prophylaxis: Patient anticoagulated Time Spent Time spent with Patient: >75 minutes Time was spent: preparing to see the patient(eg.review tests), obtaining and/or reviewing separately otained hiistory, ordering medications,tests, procedures, indepentently interpreting results and care coordination
--- NOTE | 2025-07-09 23:52 | TELEP.MEDR_ITS ---
Date of service: 07/09/25 Time of Service: 23:00 Telepharmacy Home Med Rec Allergies Allergies: No Known Allergies Allergy (Verified 06/13/25 20:18) Interview Person Interviewed: No interview, per nurse patient is unable to participate/contribute at this time Quality Quality of Interview/Accuracy of Medication List: Good Sources Sources used to compile medication list: MAR and Other ([facility] discharge summary 07/09/2025) Changes made to Home Medication List: ADDITIONS: * acetaminophen 500-1,000 mg q6h prn pain (was receiving 975 mg q6h) * digoxin 125 mcg daily (new medication started during admission at [facility]) * dorzolamide-timolol 1 drop both eyes every morning * furosemide 20 mg daily (new medication started during admission at [facility]) * levofloxacin 750 mg po daily x 5 days (through follow-up visit on 07/12/25) * metronidazole 500 mg po tid x 6 days (through follow-up visit on 07/12/25) * magnesium oxide 400 mg daily (was receiving 800 mg daily from 06/24/25) * multivitamin plus minerals once daily * Daily probiotic * spironolactone 25 mg daily (new medication started during admission at [facility]) * warfarin 1 mg tab once daily for 7 doses, obtain INR 07/11/25; then as directed by anticoagulation clinic based on INR (Hx Afib INR goal 2-3) DELETIONS: * lisinopril 40 mg daily (stopped at [facility] discharge 07/09/25) * verapamil (stopped at [facility] discharge 07/09/25) CHANGES: * latanoprost 1 drop both eyes every night Additional Notes Additional Notes: * Warfarin dose from 07/06-07/09/25= 1 mg once daily; doses were held from 07/02- 07/05/25 due to supratherapeutic INR (last dose of 1 mg given 07/09/2025) * Patient received total of 80 mEq potassium chloride po on 07/09/25 (morning) * Patient received ergocalciferol 50,000 units weekly dose on 07/04/25 at [facility] (however, not on discharge med list to continue) * Patient was ordered for Duoneb q4h scheduled (some doses were refused by patient during admission) * patient was on metoprolol tartrate 25 mg q6h during admission and discharged on metoprolol succinate ER 100 mg daily (home med) * patient was receiving insulin glargine 25 units daily from 06/27/25-07/09/25 ([facility] admission) (last dose 07/09/25 0820) * patient was receivng insulin lispro 0-12 units tid meals and PRN snacks with directions give 1 unit for every 10 grams of carbohydrates. Hold if not eating or if BG is less than 70 mg/dL * patient was receiving senna/docusate 2 tab bid (HOLD FOR LIQUID STOOLS) during admission * patient was receiving tamsulosin 0.4 mg daily from 06/25/25 during [facility] admission (last dose 07/09/25)- not continued at discharge * aspirin 81 mg daily was on discharge summary, but had not been ordered during admission. Unknown if patient was taking this prior to admission on 06/15/25- did not add to home med list * patient was receiving pantoprazole 40 mg daily during admission at [facility]; not continued at discharge Recommended Changes Recommended Changes(reason for recommendation): * D/C lisinopril and verapamil per [facility] discharge summary 07/09/2025 * consider a prescription for daily potassium chloride order at discharge if continuing furosemide * obtain digoxin level and order as necessary * consider ordering spironolactone per [facility] discharge summary 07/09/2025 * patient was on levofloxacin and metronidazole per discharge summary 07/09/2025 * note change in warfarin dose to 1 mg daily; recheck INR * order daily probiotic Attestation: The home medication list is now updated to the best of my knowledge and is ready to be reconciled by the provider. Please contact the TelePharmacy Medication Reconciliation Pharmacist at for any questions.
--- NOTE | 2025-07-09 23:52 | TELEP.MEDREC ---
Date of service: 07/09/25 Time of Service: 23:00 Telepharmacy Home Med Rec Allergies Allergies: No Known Allergies Allergy (Verified 06/13/25 20:18) Interview Person Interviewed: No interview, per nurse patient is unable to participate/contribute at this time Quality Quality of Interview/Accuracy of Medication List: Good Sources Sources used to compile medication list: MAR and Other ([facility] discharge summary 07/09/2025) Changes made to Home Medication List: ADDITIONS: acetaminophen 500-1,000 mg q6h prn pain (was receiving 975 mg q6h) digoxin 125 mcg daily (new medication started during admission at [facility]) dorzolamide-timolol 1 drop both eyes every morning furosemide 20 mg daily (new medication started during admission at [facility]) levofloxacin 750 mg po daily x 5 days (through follow-up visit on 07/12/25) metronidazole 500 mg po tid x 6 days (through follow-up visit on 07/12/25) magnesium oxide 400 mg daily (was receiving 800 mg daily from 06/24/25) multivitamin plus minerals once daily Daily probiotic spironolactone 25 mg daily (new medication started during admission at [facility]) warfarin 1 mg tab once daily for 7 doses, obtain INR 07/11/25; then as directed by anticoagulation clinic based on INR (Hx Afib INR goal 2-3) DELETIONS: lisinopril 40 mg daily (stopped at [facility] discharge 07/09/25) verapamil (stopped at [facility] discharge 07/09/25) CHANGES: latanoprost 1 drop both eyes every night Additional Notes Additional Notes: Warfarin dose from 07/06-07/09/25= 1 mg once daily; doses were held from 07/02-07/05/25 due to supratherapeutic INR (last dose of 1 mg given 07/09/2025) Patient received total of 80 mEq potassium chloride po on 07/09/25 (morning) Patient received ergocalciferol 50,000 units weekly dose on 07/04/25 at [facility] (however, not on discharge med list to continue) Patient was ordered for Duoneb q4h scheduled (some doses were refused by patient during admission) patient was on metoprolol tartrate 25 mg q6h during admission and discharged on metoprolol succinate ER 100 mg daily (home med) patient was receiving insulin glargine 25 units daily from 06/27/25-07/09/25 ([facility] admission) (last dose 07/09/25 0820) patient was receivng insulin lispro 0-12 units tid meals and PRN snacks with directions give 1 unit for every 10 grams of carbohydrates. Hold if not eating or if BG is less than 70 mg/dL patient was receiving senna/docusate 2 tab bid (HOLD FOR LIQUID STOOLS) during admission patient was receiving tamsulosin 0.4 mg daily from 06/25/25 during [facility] admission (last dose 07/09/25)- not continued at discharge aspirin 81 mg daily was on discharge summary, but had not been ordered during admission. Unknown if patient was taking this prior to admission on 06/15/25- did not add to home med list patient was receiving pantoprazole 40 mg daily during admission at [facility]; not continued at discharge Recommended Changes Recommended Changes(reason for recommendation): D/C lisinopril and verapamil per [facility] discharge summary 07/09/2025 consider a prescription for daily potassium chloride order at discharge if continuing furosemide obtain digoxin level and order as necessary consider ordering spironolactone per [facility] discharge summary 07/09/2025 patient was on levofloxacin and metronidazole per discharge summary 07/09/2025 note change in warfarin dose to 1 mg daily; recheck INR order daily probiotic Attestation: The home medication list is now updated to the best of my knowledge and is ready to be reconciled by the provider. Please contact the TelePharmacy Medication Reconciliation Pharmacist at for any questions.
[2025-07-09 23:57] LABS: Troponin I 43 ng/L (<54)
[2025-07-10] VITALS (9 sets, daily range): BP systolic 106–144; BP diastolic 54–83; PULSE 66–95; RESP 17–20; TEMP 36.3–37.1; O2SAT 97–100
[2025-07-10 00:20] LABS: COVID-19 PCR Negative (Negative); RSV PCR Negative (Negative)
[2025-07-10] MEDS: cefTRIAXone 2 GM/50 ML BAG IVPB (00:33)
--- NOTE | 2025-07-10 02:46 | W.PC.ACHO ---
Registration Status: ADM IN Primary Language: Preferred Language: Upper Sorbian ED Information & Data Chief Complaint GenMedical 07/09/25 21:15 Triage Note Patient was discharged from 07/09/25 18:05 [facility] today. home for 30mins and then lowered himself on the ground and was unable to get back up. 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) Most Recent Vital Signs Temperature 36.3 C L 07/10/25 00:57 Pulse 95 H 07/10/25 00:57 Pulse Rhythm Irregular 07/10/25 00:57 Pulse 95 H 07/09/25 21:00 Respiratory Rate 20 07/10/25 00:57 Respiratory Effort Normal, Non-Labored 07/10/25 00:57 Respiratory Depth Normal 07/10/25 00:57 Respiratory Pattern Normal 07/10/25 00:57 Blood Pressure 139/70 07/10/25 00:57 Blood Pressure Mean 90 07/09/25 23:59 Blood Pressure Position Supine 07/09/25 18:05 Pulse Oximetry 99 07/10/25 00:57 Oxygen Delivery Method Room Air 07/10/25 00:57 Oxygen Flow Rate 0 07/10/25 00:57 Pain Level 0 07/10/25 00:57 Allergies No Known Allergies Allergy (Verified 06/13/25 20:18) IV IV Catheter Type [Left Saline Lock Antecubital] IV Catheter Gauge [Left 18 Antecubital] Diet Orders Category Date Time Status Diabetes Consistent CHO/Heart Healthy [DIET] Nutrition 07/10/25 Breakfast Active Diagnostics 07/10/25 07/10/25 07/09/25 Range/Units 05:35 02:27 23:30 WBC Pending (4.4-10.8) 10^3/uL RBC Pending (4.36-5.78) 10^6/uL Hgb Pending (13.5-17.5) g/dL Hct Pending (40.0-50.0) % MCV Pending (80-95) fL MCH Pending (27.0-33.0) pg MCHC Pending (32.0-36.0) % RDW Pending (11.8-14.1) % Plt Count Pending (130-400) 10^3/uL MPV Pending (8.0-11.0) fL Immature Gran % % Neutrophils % % Lymphocytes % % Monocytes % % Eosinophils % % Basophils % % Nucleated RBC % (0.0-0.3) % Absolute Neutrophils (1.2-6.7) 10^3/uL Absolute Lymphocytes (1.2-3.4) 10^3/uL Absolute Monocytes (0.1-0.8) 10^3/uL Absolute Eosinophils (0.0-0.7) 10^3/uL Absolute Basophils (0.0-0.2) 10^3/uL PT Pending (9.1-11.1) sec INR Pending (0.9-1.1) APTT (20.6-30.2) sec VBG pH (7.31-7.41) VBG pCO2 (41-51) mmHg VBG pO2 mmHg VBG HCO3 (23-28) mmol/L VBG Total CO2 (24-29) mmol/L VBG O2 Saturation % VBG Base Excess (-2-3) mmol/L VBG Lactate (<or=2.0) mmol/L Sodium Pending Potassium Pending Chloride Pending Carbon Dioxide Pending Anion Gap Pending BUN Pending Creatinine Pending Est GFR (CKD-EPI 2020) Pending Glucose Pending Calcium Pending Magnesium Pending Total Bilirubin Pending AST Pending ALT Pending Alkaline Phosphatase Pending Troponin I 43 NT-Pro-B Natriuret Pep Total Protein Pending Albumin Pending Lipase Urine Color Pending (Yellow) Urine Clarity Pending (Clear) Urine pH Pending (5-8) Ur Specific [place] Pending (1.005-1.025) Urine Protein Pending (Neg-Trace) mg/dL Urine Ketones Pending (Negative) mg/dL Urine Blood Pending (Negative) Urine Nitrite Pending (Negative) Urine Bilirubin Pending (Negative) Urine Urobilinogen Pending (Up to 0.2) mg/dL Ur Leukocyte Esterase Pending (Negative) Urine RBC (0-2) HPF Urine WBC (0-5) HPF Ur Epithelial Cells (Negative) HPF Urine Crystals (Negative) HPF Urine Bacteria (Negative) HPF Urine Casts (Negative) LPF Urine Mucus (Negative) Urine Other (Negative) Ur Culture Indicated? Urine Glucose Pending (Negative) mg/dL Stl C.difficile Tox PCR (Negative) COVID-19 Source Nasopharynx SARS-CoV-2 (PCR) Negative (Negative) Influenza Type A (PCR) Negative (Negative) Influenza Type B (PCR) Negative (Negative) RSV (PCR) Negative (Negative) ABO/Rh O Positive Antibody Screen NEGATIVE 07/09/25 07/09/25 07/09/25 Range/Units 21:47 21:35 21:00 WBC (4.4-10.8) 10^3/uL RBC (4.36-5.78) 10^6/uL Hgb (13.5-17.5) g/dL Hct (40.0-50.0) % MCV (80-95) fL MCH (27.0-33.0) pg MCHC (32.0-36.0) % RDW (11.8-14.1) % Plt Count (130-400) 10^3/uL MPV (8.0-11.0) fL Immature Gran % % Neutrophils % % Lymphocytes % % Monocytes % % Eosinophils % % Basophils % % Nucleated RBC % (0.0-0.3) % Absolute Neutrophils (1.2-6.7) 10^3/uL Absolute Lymphocytes (1.2-3.4) 10^3/uL Absolute Monocytes (0.1-0.8) 10^3/uL Absolute Eosinophils (0.0-0.7) 10^3/uL Absolute Basophils (0.0-0.2) 10^3/uL PT (9.1-11.1) sec INR (0.9-1.1) APTT (20.6-30.2) sec VBG pH (7.31-7.41) VBG pCO2 (41-51) mmHg VBG pO2 mmHg VBG HCO3 (23-28) mmol/L VBG Total CO2 (24-29) mmol/L VBG O2 Saturation % VBG Base Excess (-2-3) mmol/L VBG Lactate (<or=2.0) mmol/L Sodium Potassium Chloride Carbon Dioxide Anion Gap BUN Creatinine Est GFR (CKD-EPI 2020) Glucose Calcium Magnesium Total Bilirubin AST ALT Alkaline Phosphatase Troponin I 44 NT-Pro-B Natriuret Pep Total Protein Albumin Lipase Urine Color Yellow (Yellow) Urine Clarity Sl Cloudy (Clear) Urine pH 5.5 (5-8) Ur Specific [place] >= 1.030 H (1.005-1.025) Urine Protein 100 H (Neg-Trace) mg/dL Urine Ketones 15 H (Negative) mg/dL Urine Blood Trace-intact H (Negative) Urine Nitrite Negative (Negative) Urine Bilirubin Negative (Negative) Urine Urobilinogen 0.2 (Up to 0.2) mg/dL Ur Leukocyte Esterase Trace H (Negative) Urine RBC 0-2 (0-2) HPF Urine WBC 0-2 (0-5) HPF Ur Epithelial Cells Rare (Negative) HPF Urine Crystals Rare Uric Acid (Negative) HPF Urine Bacteria Rare (Negative) HPF Urine Casts 0-2 Hyaline (Negative) LPF Urine Mucus Negative (Negative) Urine Other Rare Transitional (Negative) Ur Culture Indicated? No Urine Glucose Negative (Negative) mg/dL Stl C.difficile Tox PCR Negative (Negative) COVID-19 Source SARS-CoV-2 (PCR) (Negative) Influenza Type A (PCR) (Negative) Influenza Type B (PCR) (Negative) RSV (PCR) (Negative) ABO/Rh Antibody Screen 07/09/25 07/09/25 07/09/25 Range/Units 20:25 19:55 19:45 WBC 12.62 H (4.4-10.8) 10^3/uL RBC 3.13 L (4.36-5.78) 10^6/uL Hgb 9.9 L (13.5-17.5) g/dL Hct 29.2 L (40.0-50.0) % MCV 93 (80-95) fL MCH 31.6 (27.0-33.0) pg MCHC 33.9 (32.0-36.0) % RDW 19.2 H (11.8-14.1) % Plt Count 215 (130-400) 10^3/uL MPV 9.2 (8.0-11.0) fL Immature Gran % 1.3 % Neutrophils % 84.2 % Lymphocytes % 6.5 % Monocytes % 6.1 % Eosinophils % 1.5 % Basophils % 0.4 % Nucleated RBC % 0.0 (0.0-0.3) % Absolute Neutrophils 10.63 H (1.2-6.7) 10^3/uL Absolute Lymphocytes 0.82 L (1.2-3.4) 10^3/uL Absolute Monocytes 0.77 (0.1-0.8) 10^3/uL Absolute Eosinophils 0.19 (0.0-0.7) 10^3/uL Absolute Basophils 0.05 (0.0-0.2) 10^3/uL PT 25.7 H (9.1-11.1) sec INR 2.7 H (0.9-1.1) APTT 40.8 H (20.6-30.2) sec VBG pH 7.38 (7.31-7.41) VBG pCO2 41 (41-51) mmHg VBG pO2 28 mmHg VBG HCO3 24 (23-28) mmol/L VBG Total CO2 23 L (24-29) mmol/L VBG O2 Saturation 51 % VBG Base Excess -1 (-2-3) mmol/L VBG Lactate 1.1 (<or=2.0) mmol/L Sodium 143 Cancelled Potassium 3.3 L Cancelled Chloride 111 H Cancelled Carbon Dioxide 23.1 Cancelled Anion Gap 8.9 Cancelled BUN 9 Cancelled Creatinine 0.98 Cancelled Est GFR (CKD-EPI 2020) 73.59 Cancelled Glucose 121 H Cancelled Calcium 8.0 L Cancelled Magnesium 1.6 Cancelled Total Bilirubin 0.40 Cancelled AST 14 Cancelled ALT < 7 L Cancelled Alkaline Phosphatase 96 Cancelled Troponin I 42 Cancelled NT-Pro-B Natriuret Pep 5635 H Cancelled Total Protein 6.6 Cancelled Albumin 2.9 L Cancelled Lipase 20 Cancelled Urine Color (Yellow) Urine Clarity (Clear) Urine pH (5-8) Ur Specific [place] (1.005-1.025) Urine Protein (Neg-Trace) mg/dL Urine Ketones (Negative) mg/dL Urine Blood (Negative) Urine Nitrite (Negative) Urine Bilirubin (Negative) Urine Urobilinogen (Up to 0.2) mg/dL Ur Leukocyte Esterase (Negative) Urine RBC (0-2) HPF Urine WBC (0-5) HPF Ur Epithelial Cells (Negative) HPF Urine Crystals (Negative) HPF Urine Bacteria (Negative) HPF Urine Casts (Negative) LPF Urine Mucus (Negative) Urine Other (Negative) Ur Culture Indicated? Urine Glucose (Negative) mg/dL Stl C.difficile Tox PCR (Negative) COVID-19 Source SARS-CoV-2 (PCR) (Negative) Influenza Type A (PCR) (Negative) Influenza Type B (PCR) (Negative) RSV (PCR) (Negative) ABO/Rh Cancelled Antibody Screen Cancelled 07/09/25 20:25 Blood Culture - Pending Blood 07/09/25 19:55 Blood Culture - Pending Blood Intake and Output - 24 Hour Total 07/09/25 17:54 thru 07/10/25 02:39 Intake Total 1060 Balance 1060 Weight 119.9 kg Intake: IV 1060 Other: Urine Appearance Clear Stool Size Large Stool Characteristics Liquid Falls Risk Assessment History of Falls No History 07/10/25 00:57 Contributing Factors No Factors 07/10/25 00:57 Ambulatory Aids Independent 07/10/25 00:57 Tubes/Lines W/no contributing factors 07/10/25 00:57 Gait Evaluation W/no contributing factors 07/10/25 00:57 Cognition No cognitive impairment 07/10/25 00:57 Fall Total Score 20 07/10/25 00:57 Level of Risk Standard/Low Risk 07/10/25 00:57 Problems (Last Reviewed 07/09/25 @ 23:08 by Omer Glynn) Aortic stenosis, severe (Chronic) Complicated UTI (urinary tract infection) (Acute) Essential hypertension (Chronic) Sepsis (Acute) 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 Additional Patient Information/Comments: Pt presented to ED after being unable to walk. He was recently treated at [facility] for gangrenous choly, which was removed. He returned home yesterday and was expecting a HH visit today when he became unable to walk and lowered himself to the ground. He has been experiencing extreme diarrhea, possibly as a result of abx tx. Stool was cultured and c. diff negative. He has a Gamble in place and EVELIN biliary drain. WBC 12.62, BNP 5635. CXR was benign aside from marginal note of infiltrate in the posterior RLL. Blood and urine cultures pending. Pt has hx of valve replacement, Afib, NASRA, bladder CA, CAD, DM, HLD, and severe aortic stenosis. Received 1 L NS and Rocephin in ED. Report Received From: REGIS Lackey RN
[2025-07-10 02:50] LABS: Glucose Negative (Negative)
[2025-07-10 03:28] LABS: C & S Indicated? No
[2025-07-10 07:11] LABS: HCT 25.7 % (40.0-50.0); HGB 8.6 g/dL (13.5-17.5); MCH 31.5 pg (27.0-33.0); MCHC 33.5 % (32.0-36.0); MCV 94 fL (80-95); MPV 9.5 fL (8.0-11.0); Platelet Count 169 10^3/uL (130-400); RBC 2.73 10^6/uL (4.36-5.78); RDW 18.6 % (11.8-14.1); RDW-SD 60.6 fL; WBC 10.29 10^3/uL (4.4-10.8)
[2025-07-10 07:24] LABS: INR 3.0 (0.9-1.1); Prothrombin Time 27.6 sec (9.1-11.1)
[2025-07-10 07:34] LABS: Magnesium 1.5 mg/dL (1.6-2.6)
[2025-07-10 07:38] LABS: ALT < 7 U/L (10-49); AST 16 U/L (<34); Albumin 2.7 g/dL (3.2-5.0); Alkaline Phosphatase 85 U/L (46-116); Anion Gap 11.3 mmol/L (3-11); BUN 8 mg/dL (9-23); Bilirubin, Total 0.30 mg/dL (0.2-1.2); CO2 20.7 mmol/L (20.0-31.0); Calcium 7.6 mg/dL (8.3-10.6); Chloride 112 mmol/L (98-107); Glucose 75 mg/dL (74-106); Potassium 3.0 mmol/L (3.5-5.1); Sodium 144 mmol/L (136-145); Total Protein 5.8 g/dL (5.7-8.2)
[2025-07-10] MEDS: hydroCHLOROthiazide 25 MG TAB PO (08:40)
[2025-07-10] MEDS: Metoprolol CR 100 MG TABCR PO (08:40)
[2025-07-10] MEDS: Lisinopril 20 MG TAB 40 MG PO (08:40)
[2025-07-10] MEDS: Normal Saline Flush 10 ML SYR IVP ×2 (08:40→19:59)
[2025-07-10] MEDS: Verapamil 80 MG TAB 120 MG PO (08:40)
--- NOTE | 2025-07-10 08:56 | INITIAL_ITS ---
Date of service: 07/10/25 Time of Service: 08:56 Care Management Initial Assmt Initial Assessment Reason for Hospitalization: Complicated UTI, sepsis, weakness Functional Status/Living Situation Patient Presentation: Alvarado was sitting in a recliner when CM met with him. He is polite and easy to engage in conversation. He resides in [facility] with his Didi, whom reportedly has dementia and needs caregiver support. Their neighbors (Rogers and Marisol Mancilla) have been checking in on her frequently over the last month while Alvarado was admitted [place] [facility] [place] chole[place]stit[place]. Alvarado was discharged [place] [facility] on 07/09 (Rogers provided his transportation home.) After he got home, he sat on the couch and couldn't get up. He then ended up falling and his catheter was traumatically tugged on as a result of crawling on the floor. He has a PT consult pending. Alvarado is likely to require SNF for STR, prior to discharging home. CM will follow. Town of Residence: [place] Resides with: Spouse ( Didi Adams) Natural Supports: Neighbors: Marisol and Rogers Cardona: lives in [place] Nephew José: lives in [place]. Friend Mateus Alonso: lives in [place] and would have his bag packed and ready to come, if he needed him. Patient is unsure what his phone number is. Employment Status: Retired Instrumental Activities of Daily Living (ADLs): Requires support Medications Medication Management: No Issues/Barriers identified Physical Functioning/Mobility Assistive Device: Walker Advance Directives Advance Directives: Do you have an Advance Directive: Y , 13:31 AD On File at [facility]: Y 08/26/23, 13:31 Date Asked 05/22/25 05/22/25, 13:55 AD Date Reviewed 07/09/25 07/09/25, 18:30 COLST On File at [facility] COLST Date Scanned Code Status Resuscitation Status Full Code Portal Pt does not currently have a portal and education provided: Yes Insurance Coverage/Financial Issues Insurance: Medicare Part A & B - [id number] Care Team Visit Care Team Role Provider Type [place] Ching MD [facility] STAFF PHYSICIAN Karen Sommers, [place] Primary Care Provider NURSE PRACTITIONER Sabrina Almanza RDN, [facility] Other Providers ASSEMBLER INSULATOR Hernandez Ramirez RDN Other Providers ASSEMBLER INSULATOR Deshawn Lindsey MD Emergency Provider [facility] STAFF PHYSICIAN Omer Glynn Admit Provider NON-[facility] STAFF PHYSICIAN Attending Provider Discharge Potential Discharge Needs: PT Evaluation and PCP F/U Appt Anticipated Barriers to Discharge: None Identified Patient/Family Education Needs: Review discharge instructions, discuss Ask Me Three Transportation: Other (Dependent on dispo) Plan: PT consult is pending. Patient is likely to require SNF for STR following a prolonged hospitalization in the ICU at [facility]. CM will follow. Social Determinants of Health Screening Social Determinants of health last assessed in clinic: 07/11/25 Will the Patient Participate in the Screening?: Yes Do you worry about having a steady place to live?: no Problems where you live: no known problems In the past 12 months, have you had to go without electric, gas, oil or water in your home?: no 1. Within the past 12 months, we worried whether our food would run out before we got money to buy more.: Never true 2. Within the past 12 months, the food we bought just didn't last and we didn't have money to get more.: Never true Has lack of transportation kept you from medical appointments or from doing things needed for daily living?: no Has anyone in your life made you feel unsafe or unsupported?: no How hard is it for you to pay for the very basics like food, housing, medical care, and heating? Would you say it is:: Not hard at all Do you want help finding or keeping work or a job?: I do not need or want help If for any reason you need help with day-to-day activities such as bathing, preparing meals, shopping, managing finances, etc., do you get the help you need?: I could use a little more help How often do you feel lonely or isolated from those around you?: Never Do you speak a language other than Mosotho at home?: No Does the patient want assistance with any of the above?: No Health Related Social Needs Health related social needs: problems with daily activities (Z73.9) Health related social needs details: Pt declines help at this time PFSH All Active Problems (Updated 07/10/25 @ 12:22 by Rogers Ching) Weakness (Acute) Anemia (Chronic) Chronic atrial fibrillation (Chronic) Complicated UTI (urinary tract infection) (Acute) Acute gangrenous cholecystitis (Acute) Supratherapeutic INR (Acute) History of mechanical aortic valve replacement (Acute) Cholelithiasis (Acute) NASRA (acute kidney injury) (Acute) Elevated troponin (Acute) Hypotension (Acute) Dehydration (Acute) Diarrhea (Acute) Elevated INR (Acute) Hypocalcemia (Acute) Aortic stenosis, severe (Chronic) with EF 50-55% on echo of 07/2021--s/p TAVR Sepsis (Acute) Gastroenteritis (Acute) Gram negative sepsis (Acute) Bacterial gastroenteritis (Acute) History of bladder cancer (Chronic) Papillary urothelial carcinoma, non invasive, 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: recurrence papillary lesion dome bladder; : tx with excision and Mytomycin-C intra bladder 12/2021- no sign of recurrence, followed by Urology at [facility] Coronary artery disease (Chronic) Atrial fibrillation (Chronic) Chronic anticoagulation (Chronic) 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) 12/2021, microalbuminuria Essential hypertension (Chronic) Hyperlipidemia (Chronic) Osteoarthritis of left knee (Chronic) Class 2 severe obesity with serious comorbidity and body mass index (BMI) of 38.0 to 38.9 in adult (Chronic) Primary osteoarthritis of both knees (Chronic) Tendonitis of left rotator cuff (Chronic) Tendinitis of long head of biceps brachii of left shoulder (Chronic) Arthritis of right knee (Chronic) 80 mg Depo-Medrol injection: 06/24/2023 Primary osteoarthritis of left knee (Chronic) 80 mg Depo-Medrol injection: 06/24/2023 Medical History 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 04/16/14; X - 2018-3 polyps, tubular adenomas, last of which had some early dysplastic features Patient due 2021-patient was called 12/2021 with attempt to set up colonoscopy. Patient wished to defer at this point. He makes an informed decision. 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) Family History Mother , 92 Heart disease Father , 76 Heart disease Sister , 76 Stroke Brother Diabetes Essential hypertension Stroke Maternal Grandfather Heart disease Paternal Grandfather Heart disease Maternal Grandmother Heart disease Paternal Grandmother Heart disease Brother , 68 Stroke Other Acute ill-defined cerebrovascular disease Social History Smoking/Tobacco Use Status: Former Tobacco Use tobacco type: cigarettes Quit Date: 08/09/86 Pack-years: 25 Tobacco: How many years used: 25 Second Hand Exposure: Yes Smoking risk assessment performed?: Yes Alcohol Intake: current Alcohol Intake frequency: holidays/special occasions only Alcohol type: wine and hard liquor Drug use: Never Substance use type: does not use Adopted: No Caregiver/Support person: No Foster care: No Household members: spouse Housing: house Number of Children: 0 Communication Needs: None Education Level: high school Do you need help understanding health information?: Rarely current occupation: retired Pets and animals: Yes Pets and animals: cat(s) Sexually active: No Do you think of yourself as: straight/heterosexual Current gender identity: male What is your relationship status?: How often do you talk on the phone with friends or family?: once per week How often do you get together with friends or relatives?: decline to answer How often do you attend latter day or shinto services?: decline to answer Do you belong to any clubs or organized social groups?: no Panel score (0-1 are the most socially isolated patients): 1 What type of physical activity do you participate in: other Duration: 15-30 minutes/day Frequency: 3-4 times per week Oneyda/Uatsdin: No preference Special oneyda needs: No Agree to transfusion: Yes Seatbelt use: always Helmet use: Yes Helmet use: always Drive intox or ride w/intox recycling collections driver: No Working smoke detector in home: Yes Carbon monox detector in home: Yes Firearms in home: Yes Firearms unloaded and locked: No Do you feel safe at home: Yes Do you feel safe in your relationship?: Yes Victim of physical abuse: No Victim of emotional abuse: No Victim of sexual abuse: No Readmission Within the Past 30 Days Yes or No: Yes Date of First Admission Date of 1st Admission: 06/14/25 Date of this Admission Date of Admission: 07/09/25 This admission was: Through ED Office Visit Since 1st Admission Have you seen your PCP in the office since discharge?: No ED visits How many ED visits in the past 12 months: 3 Assessment for Readmission Summary of readmission circumstances, based upon interviews: Patient was discharged from [facility] [place]09, after a 1 month hospitalization, he got home and couldn't get up after he sat on the couch.
[2025-07-10] MEDS: MAGNESIUM SULFATE 2 GM/50 ML BAG IV_INF (11:35)
[2025-07-10 11:39] LABS: Lab Add On Test DONE
[2025-07-10 11:59] LABS: Creatine Kinase 16 U/L (46-171)
--- NOTE | 2025-07-10 12:08 | W.PM.PROGNOT ---
Date of Service Date of service: 07/10/25 Time of Service: 12:08 Assessment and Plan Assessment and plan (1) Sepsis: Start date: 07/09/25 Status: Acute Assessment and plan: Technically met SIRS criteria on admission, but I don't think this was related to infection/sepsis. See below. vital signs have normalized. (2) Complicated UTI (urinary tract infection): Start date: 07/09/25 Status: Acute Assessment and plan: Chronic indwelling Rosario catheter with recent hospitalizations, but no focal symptoms and u/a not consistent with UTI. Stop ceftriaxone. (3) Urothelial carcinoma of bladder: Assessment and plan: No hematuria presently with mostly BPH causing his urine outlet obstruction. Rosario was replaced, working now. Monitor for complications. (4) Type 2 diabetes mellitus with diabetic nephropathy: Status: Chronic Assessment and plan: Glucometer measurements with sliding scale coverage while hospitalized. Holding outpatient medical therapy for now. 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 Watch for bleeding sequelae. Valve not mechanical so goal INR should be 2-3. (6) Chronic atrial fibrillation: Status: Chronic Assessment and plan: Continue outpatient medical therapy and monitor PT/INR daily on Coumadin. Cardiac monitoring. (7) Diarrhea: Status: Acute Assessment and plan: Has had persistent diarrhea since before initial presentation for biliary disease. Feels a little better today. Review testing [place] [facility] If this continues, he may benefit from bile acid sequestrant. (8) Anemia: Status: Chronic Assessment and plan: Developing during recent prolonged hospitalization. No current notable bleeding. Follow CBC/INR, get FOB and iron/tibc. (9) Weakness: Status: Acute Assessment and plan: Acquired during recent complex hospitalization, unable to get off of couch at home. Will need more agressive PT and possibly rehab before going home again. Check digoxin levels and CPK with labs. Tread anemia as above. Treat low Mg and K. Subjective Subjective Patient reports: feels better and tolerating a regular diet; denies nausea, vomiting, shortness of breath or fever Interval history since last seen: He feels a little better. still pain and tenderness in that left leg, a little better today. No bleeding noted. No abdominal/bladder pain. No blood in urine. Exam Narrative Exam Narrative: General: Alert and oriented, NAD Lungs: CTAB, nl effort Heart: Irregularly irregular rhythm with no murmur or gallop. Abdomen: +BS, soft, NT/ND. Percutaneous tube draining bilious material from the right upper abdomen. Extremities: Without clubbing or cyanosis, 2+ soft pitting edema over both lower extremities. Fair cap refill. Objective Last Vital Signs Temp 36.7 C 07/10/25 12: Pulse 79 07/10/25 12:01 Resp 18 07/10/25 12:01 BP 109/54 L 07/10/25 12:01 Pulse Ox 99 07/10/25 12:01 Laboratory Results - last 24 hr 07/09/25 07/09/25 07/09/25 19:45 19:55 20:25 WBC 12.62 H RBC 3.13 L Hgb 9.9 L Hct 29.2 L MCV 93 MCH 31.6 MCHC 33.9 RDW 19.2 H Plt Count 215 MPV 9.2 Immature Gran % 1.3 Neutrophils % 84.2 Lymphocytes % 6.5 Monocytes % 6.1 Eosinophils % 1.5 Basophils % 0.4 Nucleated RBC % 0.0 Absolute Neutrophils 10.63 H Absolute Lymphocytes 0.82 L Absolute Monocytes 0.77 Absolute Eosinophils 0.19 Absolute Basophils 0.05 PT 25.7 H INR 2.7 H APTT 40.8 H VBG pH 7.38 VBG pCO2 41 VBG pO2 28 VBG HCO3 24 VBG Total CO2 23 L VBG O2 Saturation 51 VBG Base Excess -1 VBG Lactate 1.1 Sodium Cancelled 143 Potassium Cancelled 3.3 L Chloride Cancelled 111 H Carbon Dioxide Cancelled 23.1 Anion Gap Cancelled 8.9 BUN Cancelled 9 Creatinine Cancelled 0.98 Est GFR (CKD-EPI 2020) Cancelled 73.59 Glucose Cancelled 121 H Calcium Cancelled 8.0 L Magnesium Cancelled 1.6 Total Bilirubin Cancelled 0.40 AST Cancelled 14 ALT Cancelled < 7 L Alkaline Phosphatase Cancelled 96 Creatine Kinase Troponin I Cancelled 42 NT-Pro-B Natriuret Pep Cancelled 5635 H Total Protein Cancelled 6.6 Albumin Cancelled 2.9 L Lipase Cancelled 20 Urine Color Urine Clarity Urine pH Ur Specific [place] Urine Protein Urine Ketones Urine Blood Urine Nitrite Urine Bilirubin Urine Urobilinogen Ur Leukocyte Esterase Urine RBC Urine WBC Ur Epithelial Cells Urine Crystals Urine Bacteria Urine Casts Urine Mucus Urine Other Ur Culture Indicated? Urine Glucose Stl C.difficile Tox PCR COVID-19 Source SARS-CoV-2 (PCR) Influenza Type A (PCR) Influenza Type B (PCR) RSV (PCR) Add-On Test Request ABO/Rh Cancelled Antibody Screen Cancelled 07/09/25 07/09/25 07/09/25 21:00 21:35 21:47 WBC RBC Hgb Hct MCV MCH MCHC RDW Plt Count MPV Immature Gran % Neutrophils % Lymphocytes % Monocytes % Eosinophils % Basophils % Nucleated RBC % Absolute Neutrophils Absolute Lymphocytes Absolute Monocytes Absolute Eosinophils Absolute Basophils PT INR APTT VBG pH VBG pCO2 VBG pO2 VBG HCO3 VBG Total CO2 VBG O2 Saturation VBG Base Excess VBG Lactate Sodium Potassium Chloride Carbon Dioxide Anion Gap BUN Creatinine Est GFR (CKD-EPI 2020) Glucose Calcium Magnesium Total Bilirubin AST ALT Alkaline Phosphatase Creatine Kinase Troponin I 44 NT-Pro-B Natriuret Pep Total Protein Albumin Lipase Urine Color Yellow Urine Clarity Sl Cloudy Urine pH 5.5 Ur Specific [place] >= 1.030 H Urine Protein 100 H Urine Ketones 15 H Urine Blood Trace-intact H Urine Nitrite Negative Urine Bilirubin Negative Urine Urobilinogen 0.2 Ur Leukocyte Esterase Trace H Urine RBC 0-2 Urine WBC 0-2 Ur Epithelial Cells Rare Urine Crystals Rare Uric Acid Urine Bacteria Rare Urine Casts 0-2 Hyaline Urine Mucus Negative Urine Other Rare Transitional Ur Culture Indicated? No Urine Glucose Negative Stl C.difficile Tox PCR Negative COVID-19 Source SARS-CoV-2 (PCR) Influenza Type A (PCR) Influenza Type B (PCR) RSV (PCR) Add-On Test Request ABO/Rh Antibody Screen 07/09/25 07/10/25 07/10/25 23:30 02:00 06:01 WBC 10.29 RBC 2.73 L Hgb 8.6 L Hct 25.7 L MCV 94 MCH 31.5 MCHC 33.5 RDW 18.6 H Plt Count 169 MPV 9.5 Immature Gran % Neutrophils % Lymphocytes % Monocytes % Eosinophils % Basophils % Nucleated RBC % Absolute Neutrophils Absolute Lymphocytes Absolute Monocytes Absolute Eosinophils Absolute Basophils PT 27.6 H INR 3.0 H APTT VBG pH VBG pCO2 VBG pO2 VBG HCO3 VBG Total CO2 VBG O2 Saturation VBG Base Excess VBG Lactate Sodium 144 Potassium 3.0 L Chloride 112 H Carbon Dioxide 20.7 Anion Gap 11.3 H BUN 8 L Creatinine 0.91 Est GFR (CKD-EPI 2020) 80.16 Glucose 75 Calcium 7.6 L Magnesium 1.5 L Total Bilirubin 0.30 AST 16 ALT < 7 L Alkaline Phosphatase 85 Creatine Kinase 16 L Troponin I 43 NT-Pro-B Natriuret Pep Total Protein 5.8 Albumin 2.7 L Lipase Urine Color Yellow Urine Clarity Clear Urine pH 6.0 Ur Specific [place] >= 1.030 H Urine Protein 100 H Urine Ketones 15 H Urine Blood Small H Urine Nitrite Negative Urine Bilirubin Negative Urine Urobilinogen 0.2 Ur Leukocyte Esterase Negative Urine RBC 3-5 H Urine WBC 5-10 Ur Epithelial Cells Few Urine Crystals Few Amorphous Urine Bacteria Few Urine Casts 0-2 Coarse Granular Urine Mucus Trace Urine Other Rare Yeast Ur Culture Indicated? No Urine Glucose Negative Stl C.difficile Tox PCR COVID-19 Source Nasopharynx SARS-CoV-2 (PCR) Negative Influenza Type A (PCR) Negative Influenza Type B (PCR) Negative RSV (PCR) Negative Add-On Test Request ABO/Rh O Positive Antibody Screen NEGATIVE 07/10/25 11:39 WBC RBC Hgb Hct MCV MCH MCHC RDW Plt Count MPV Immature Gran % Neutrophils % Lymphocytes % Monocytes % Eosinophils % Basophils % Nucleated RBC % Absolute Neutrophils Absolute Lymphocytes Absolute Monocytes Absolute Eosinophils Absolute Basophils PT INR APTT VBG pH VBG pCO2 VBG pO2 VBG HCO3 VBG Total CO2 VBG O2 Saturation VBG Base Excess VBG Lactate Sodium Potassium Chloride Carbon Dioxide Anion Gap BUN Creatinine Est GFR (CKD-EPI 2020) Glucose Calcium Magnesium Total Bilirubin AST ALT Alkaline Phosphatase Creatine Kinase Troponin I NT-Pro-B Natriuret Pep Total Protein Albumin Lipase Urine Color Urine Clarity Urine pH Ur Specific [place] Urine Protein Urine Ketones Urine Blood Urine Nitrite Urine Bilirubin Urine Urobilinogen Ur Leukocyte Esterase Urine RBC Urine WBC Ur Epithelial Cells Urine Crystals Urine Bacteria Urine Casts Urine Mucus Urine Other Ur Culture Indicated? Urine Glucose Stl C.difficile Tox PCR COVID-19 Source SARS-CoV-2 (PCR) Influenza Type A (PCR) Influenza Type B (PCR) RSV (PCR) Add-On Test Request DONE ABO/Rh Antibody Screen VTE Prohylaxis Risk Level: Moderate/High Risk Contraindications: None Prophylaxis: Patient anticoagulated Time Spent with Patient Time Spent with Patient: 35-49 minutes Time was spent: preparing to see the patient(eg.review tests), obtaining and/or reviewing separately otained hiistory, ordering medications,tests, procedures, referring, communicating with other health career technical education instructor, indepentently interpreting results, counseling the patient and care coordination
[2025-07-10] MEDS: Insulin Aspart 300 UNITS/3 ML PEN SC ×3 (12:14→22:06)
[2025-07-10] MEDS: Potassium Chloride 20 MEQ TABCR 40 MEQ PO ×2 (14:26→19:58)
[2025-07-10 14:54] LABS: Digoxin 0.82 ng/mL (0.80-2.00)
[2025-07-10] MEDS: Latanoprost 0.005% 2.5 ML BTL OP (19:57)
[2025-07-10] MEDS: Pravastatin 40 MG TAB 80 MG PO (19:58)
[2025-07-10] MEDS: Warfarin 5 MG TAB PO (19:58)
[2025-07-10] MEDS: Ipratropium/Albuterol 4 GM 120 PUFF INH IH (22:05)
[2025-07-11] VITALS (7 sets, daily range): BP systolic 108–142; BP diastolic 75–90; PULSE 76–90; RESP 16–22; TEMP 35.8–37.1; O2SAT 96–100
[2025-07-11 07:33] LABS: HCT 25.0 % (40.0-50.0); HGB 8.3 g/dL (13.5-17.5); MCH 30.9 pg (27.0-33.0); MCHC 33.2 % (32.0-36.0); MCV 93 fL (80-95); MPV 9.2 fL (8.0-11.0); Platelet Count 178 10^3/uL (130-400); RBC 2.69 10^6/uL (4.36-5.78); RDW 19.1 % (11.8-14.1); RDW-SD 62.0 fL; WBC 9.98 10^3/uL (4.4-10.8)
[2025-07-11 07:58] LABS: INR 3.0 (0.9-1.1); Prothrombin Time 27.9 sec (9.1-11.1)
[2025-07-11 07:59] LABS: Magnesium 1.8 mg/dL (1.6-2.6)
[2025-07-11 08:04] LABS: Iron 32 ug/dL (65-175); Total Iron Binding Capacity 167 ug/dL (250-425); Transferrin Sat 19 % (20-55)
[2025-07-11 08:15] LABS: Anion Gap 8.9 mmol/L (3-11); BUN 10 mg/dL (9-23); CO2 23.1 mmol/L (20.0-31.0); Calcium 8.0 mg/dL (8.3-10.6); Chloride 110 mmol/L (98-107); Glucose 114 mg/dL (74-106); Potassium 3.0 mmol/L (3.5-5.1); Sodium 142 mmol/L (136-145)
--- NOTE | 2025-07-11 08:50 | PDOC.CMPRO ---
Date of service: 07/11/25 Time of Service: 08:50 Care Management Progress Note Progress Note Text Progress Note Text: Alvarado was awake and sitting up in bed with CM met with him. He is becoming increasingly concerned about his whom he reports has dementia and shouldn't be home alone. However, she has managed to be home for the last month with help from his neighbors Marisol and Rogers, whom reportedly check on her several times per day. [facility] reached out expressing surprise that Alvarado was discharged home, as they had been informed last week the he would be going to SNF and the placement was being arranged. [facility] has been involved, primarily with his spouse whom requires increased assistance at home, and may need placement. Shawna from [facility] reports that Alvarado needs to be involved in decisions regarding her care, and further noted that there has been some discussion surrounding Alvarado discharging to a SNF, with his . Social Determinants of Health Screening Social Determinants of health last assessed in clinic: 07/10/25 Will the Patient Participate in the Screening?: Yes Do you worry about having a steady place to live?: no Problems where you live: no known problems In the past 12 months, have you had to go without electric, gas, oil or water in your home?: no Has lack of transportation kept you from medical appointments or from doing things needed for daily living?: no Has anyone in your life made you feel unsafe or unsupported?: no How hard is it for you to pay for the very basics like food, housing, medical care, and heating? Would you say it is:: Not hard at all Do you want help finding or keeping work or a job?: I do not need or want help If for any reason you need help with day-to-day activities such as bathing, preparing meals, shopping, managing finances, etc., do you get the help you need?: I could use a little more help How often do you feel lonely or isolated from those around you?: Never Do you speak a language other than Icelandic at home?: No Does the patient want assistance with any of the above?: No Health Related Social Needs Health related social needs: problems with daily activities (Z73.9) Health related social needs details: Pt declines help at this time
[2025-07-11] MEDS: Furosemide 20 MG TAB PO (08:58)
[2025-07-11] MEDS: Spironolactone 25 MG TAB PO (08:58)
[2025-07-11] MEDS: Digoxin 0.125 MG TAB PO (08:58)
[2025-07-11] MEDS: Timolol 0.5% 5 ML BTL OP (08:58)
[2025-07-11] MEDS: Metoprolol CR 100 MG TABCR PO (08:58)
[2025-07-11] MEDS: hydroCHLOROthiazide 25 MG TAB PO (08:58)
[2025-07-11] MEDS: Magnesium Oxide 400 MG TAB PO (08:58)
[2025-07-11] MEDS: Normal Saline Flush 10 ML SYR IVP ×2 (08:59→19:52)
[2025-07-11] MEDS: Dorzolamide 2% 10 ML BTL OP (09:08)
[2025-07-11] MEDS: Cholestyramine/Aspartame PKT 1 EACH PO ×3 (11:20→19:49)
--- NOTE | 2025-07-11 11:20 | PT.INIE ---
PT Notes Visit Reasons: Sepsis, Complicated UTI Physical Therapy Inpatient Initial Evaluation Date: 07/11/2025 Referring Doctor: Rogers Ching MD PT Orders: PT CONSULT: Eval for Assistive Device. Safety Consult for D/C Precautions: Fall. Standard. Activity as tolerated. Patient Profile/Admitting Diagnosis: abad is a 80-year-old male patient with past medical history of S/P TAVR 11/2021 and urothelial cancer of bladder who presented to the ED on 07/09/2025 due to generalized weakness and failure to thrive. He was recently [place] [facility] for gangrenous cholecystitis. He is admitted for management of suspected urosepsis and has been placed on empiric antibiotic treatments, complicated UTI, type II DM, eseential HTN, severe aortic stenosis, and chroninc AF. PMHX: All Active Problems (Updated 07/10/25 @ 12:22 by Rogers Ching) Weakness (Acute) Anemia (Chronic) Chronic atrial fibrillation (Chronic) Complicated UTI (urinary tract infection) (Acute) Acute gangrenous cholecystitis (Acute) Supratherapeutic INR (Acute) History of mechanical aortic valve replacement (Acute) Cholelithiasis (Acute) NASRA (acute kidney injury) (Acute) Elevated troponin (Acute) Hypotension (Acute) Dehydration (Acute) Diarrhea (Acute) Elevated INR (Acute) Hypocalcemia (Acute) Aortic stenosis, severe (Chronic) with EF 50-55% on echo of 07/2021-s/p TAVR Sepsis (Acute) Gastroenteritis (Acute) Gram negative sepsis (Acute) Bacterial gastroenteritis (Acute) History of bladder cancer (Chronic) Papillary urothelial carcinoma, non invasive, 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: recurrence papillary lesion dome bladder; : tx with excision and Mytomycin-C intra bladder 12/2021- no sign of recurrence, followed by Urology at [facility] Coronary artery disease (Chronic) Atrial fibrillation (Chronic) Chronic anticoagulation (Chronic) 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) 12/2021, microalbuminuria Essential hypertension (Chronic) Hyperlipidemia (Chronic) Osteoarthritis of left knee (Chronic) Class 2 severe obesity with serious comorbidity and body mass index (BMI) of 38.0 to 38.9 in adult (Chronic) Primary osteoarthritis of both knees (Chronic) Tendonitis of left rotator cuff (Chronic) Tendinitis of long head of biceps brachii of left shoulder (Chronic) Arthritis of right knee (Chronic) 80 mg Depo-Medrol injection: 06/24/2023 Primary osteoarthritis of left knee (Chronic) 80 mg Depo-Medrol injection: 06/24/2023 Medical History Urothelial carcinoma of bladder (2016) Papillary urothelial carcinoma, non invasive, 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 04/16/14; X 2018-3 polyps, tubular adenomas, last of which had some early dysplastic features Patient due 2021-patient was called 12/2021 with attempt to set up colonoscopy. Patient wished to defer at this point. He makes an informed decision. 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) Social History/Home Situation: Lives with and is the primary caregiver of who has dementia and who has had 5 strokes. Has 5 steps to enter the house with rails on B sides. Has very limited support at home and the current neighbor just expressed that they need respite as she has been working instruction librarian while helping out to care for . Equipment Owned/DME: [facility] Subjective: I just felt so weak I could not stand up from my couch at home, I needed to be sent here just half an hour of arrival from [facility] days ago. I just feel bad that I have had this diarrhea for over 4 weeks now. Patient was agreeable to working with PT and showing how much he is able to do for this evaluation. Nurse Cox stated that patient was in atrial fibrillation when PT came in but patient did not verbalize any symptom except for the urge to defecate which he did at start of session. Objective: General Observation: Telemetry monitoring in place. Nurse Cox was assessing patient along with SURGICAL SERVICES ASSISTANT who took patient's vital signs. Mental Status: Alert and oriented as to person, place, time, and purpose. Able to pay attention, focus, and respond appropriately. Pain: None reported Vital Signs: Before session 136/86 mmHg, 89 bpm, 98% on RA ROM: Right Upper Extremity: Shoulder Flexion WFL. Shoulder abduction WFL. Elbow flexion WFL. Wrist flexion WFL. Functional opening and closing of hand WFL. Left Upper Extremity: Shoulder Flexion WFL. Shoulder abduction WFL. Elbow flexion WFL. Wrist flexion WFL. Functional opening and closing of hand WFL. Right Lower Extremity: Hip flexion WFL. Hip abduction WFL. Knee flexion WFL. Ankle dorsiflexion WFL. Ankle plantarflexion WFL. Left Lower Extremity: Hip flexion WFL. Hip abduction WFL. Knee flexion WFL. Ankle dorsiflexion WFL. Ankle plantarflexion WFL. Strength: Right Upper Extremity: Shoulder flexors 4-/5. Shoulder abductors 4-/5. Elbow flexors 4-/5. Elbow extensors 4-/5. Otolaryngology Teacher strong. Left Upper Extremity: Shoulder flexors 4-/5. Shoulder abductors 4-/5. Elbow flexors 4-/5. Elbow extensors 4-/5. Otolaryngology Teacher strong. Right Lower Extremity: Hip flexors 4-/5. Hip abductors 4-/5. Knee flexors 4-/5. Knee extensors 4-/5. Ankle dorsiflexors 4-/5. Ankle plantarflexors 4-/5. Left Lower Extremity: Hip flexors 4-/5. Hip abductors 4-/5. Knee flexors 4-/5. Knee extensors 4-/5. Ankle dorsiflexors 4-/5. Ankle plantarflexors 4-/5. Bed Mobility/Transfers: Minimal cueing provided for use of B hands as needed for support, movement sequence, AD management, and posture to reduce fall risk and minimize pain report Rolling supervision Supine to sit stand by assist with HOB at 30 degrees Sit to stand stand by assist using FWW Stand to sit stand by assist using FWW Bed to bedside commode stand by assist using FWW Bedside commode to bed stand by assist using FW Bed to reclining chair stand by assist using FWW Reclining chair to bed with stand by assist using FWW Gait: 50 feet with FWW and stand by assist. Decreased alida and gait speed from normal. Minimal shortness of breath resolved with rest. Denied headache, chest pain, and lightheadedness throughout session. No path deviation. No LOB. Balance: Static Sitting: Normal Dynamic Sitting: Normal Static Standing: Fair Dynamic Standing: Fair Special Tests: Mobility Limitations Standardized Measure [facility] AM-PAC 6 clicks Basic Mobility Inpatient Short Form: Raw Score: 23 CMS Score: 11% deficit Informed Consent/Education: Patient was instructed in purpose of PT consult and plan of care. Agreeable to proceed with established PT POC to achieve personal goals. ASSESSMENT: Patient required stand by assist and minimal verbal cueing for hand placement and AD management during the initial walk. Patient is primarily worried that he may not be strong enough to resume his role of being his 's primary caregiver but his concern is that he and his do not have enough support from family. He is hopeful that if he gets adequate services for his and himself, he would be okay to accept PT/OT. Patient presents with clinical signs and symptoms consistent with current/admitting diagnoses that have resulted to mobility limitations, gait instability, generalized weakness, and overall ADL decline as demonstrated by the following impairment level findings: 1. Decreased strength to B UE/LE major muscle groups 2. Impaired sitting/standing balance 3. Impaired activity tolerance Impairments are contributing to the following functional limitations: 1. Difficulty with ambulation without assistive device 2. Increased completion time for mobility ADL performance 3. Increased risk for falls 4. Difficulty with managing steps alone safely Patient is assessed as a 00152 moderate complexity based on the following: History: 80-year-old male with past medical history as indicated above Examination: Demonstrable impairment in strength, balance, and mobility level with underlying impairments and functional limitations as exhibited above as well as deficit score of 11% utilizing the [facility] Mobility Inpatient Short Form Presentation: Evolving Decision Makin moderate complexity Goals: Goals X1 week 1. Supine-Sit independent 2. Sit-Supine independent 3. Sit-Stand independent 4. Stand-Sit independent with FWW 5. Bed-Chair independent with FWW 6. Chair-Bed independent with FWW 7. Independent gait on level surface with use of FWW for at least 300 feet without report of pain nor dyspnea 8. Independent stair negotiation while holding onto B rails for at least 5 steps without report of pain nor dyspnea 9. Independent with home exercise program 10. Good static and dynamic standing balance/tolerance Plan of Care/Treatment Plan: 1-2x/day, 7 days/week x 1 week. Plan of care has been reviewed with the SOLAR FIELD INSTALLATION CREW MEMBER providing the service under Physical Therapy direction. Initiate Physical Therapy intervention for pain management as needed, strengthening, bed mobility, transfers, gait, stairs, balance training, and use of assistive device. DISCHARGE RECOMMENDATIONS: Home with HH PT/OT when medically cleared to go home TREATMENT CODE/TIME: 00210 x 20 minutes for 1 unit, 02340 x 17 minutes (11:20-11:57). Thank you for the opportunity to participate in the care of this patient. Ángela Soria PT, DPT, CLT [facility] [place], [place]
[2025-07-11] MEDS: Insulin Aspart 300 UNITS/3 ML PEN SC ×3 (12:27→22:51)
--- NOTE | 2025-07-11 13:27 | CMPROGNOTE_ITS ---
Date of service: 07/11/25 Time of Service: 13:27 Care Management Progress Note Progress Note Text Progress Note Text: Alvarado was awake and sitting up in bed when CM met with him. He is polite and easy to engage in conversation, during which he expressed concern regarding his Didi, whom has dementia, needs caregiver support and has been on her own while for a month while he was at [facility]. Fortunately, she as been managing with the support from their neighbors, Marisol and Rogers, who have been checking on her several times a day. He acknowledges that this arrangement is not ideal, but notes that it has been working, until now, as Rogers and Marisol are no longer willing to provide the support. Alvarado states that he was surprised that [facility] discharged him abruptly, because he had been talking with them about going to the [facility], and sharing a room with Didi. CM reached out to Jeanie at the [facility], who reports that she received a message from [facility] on 07/05, which indicated that Alvarado was ready for discharge, but no further communication was received. Nothing was ever mention about Didi, and they are not able to accommodate a shared room. In addition, several community partners reached out to today to review their take on Didi's ability to effectively manage at home in Alvarado's absence. [facility] reached out to to also express their surprise that Alvarado discharged home from [facility], because they were told he needed SNF and placement was being arranged and made note of Alvarado and Didi discharging to a SNF together. They also noted that there involvement has primarily focused on Didi, whom they report needs increased assistance at home and may need placement. They also noted that they need Alvarado to be involved in the decision making regarding her care. Also, Brenda Marinelli from the [facility] and Ashley Billy from [facility] reached out to individually with similar concerns regarding Alvarado and his Didi. CM provided information on a home based resource people sometimes use when they can afford caregivers, called [facility], our local contact for this service is Krysta Gerardo . Fortunately, Alvarado did well with PT and Kathryn recommends home with [facility] services, RN/PT/OT/CABLE SPLICING TECHNICIAN, on discharge. CM will follow. Discharge Potential Discharge Needs: PCP F/U Appt and Surgical F/U Appt Anticipated Barriers to Discharge: None Identified Patient/Family Education Needs: Review discharge instructions, discuss Ask Me Three Transportation: Private vehicle Plan: PT recommends Home with HH PT/OT when medically cleared to go home. Anticipate Alvarado will discharge home with [facility] services, RN/PT/OT/CABLE SPLICING TECHNICIAN. Transportation via private ride vs. RCT. He will follow up with community providers and continue per his discharge plan of care. CM will follow. Social Determinants of Health Screening Social Determinants of health last assessed in clinic: 07/11/25 Will the Patient Participate in the Screening?: Yes Do you worry about having a steady place to live?: no Problems where you live: no known problems In the past 12 months, have you had to go without electric, gas, oil or water in your home?: no 1. Within the past 12 months, we worried whether our food would run out before we got money to buy more.: Never true 2. Within the past 12 months, the food we bought just didn't last and we didn't have money to get more.: Never true Has lack of transportation kept you from medical appointments or from doing things needed for daily living?: no Has anyone in your life made you feel unsafe or unsupported?: no How hard is it for you to pay for the very basics like food, housing, medical care, and heating? Would you say it is:: Not hard at all Do you want help finding or keeping work or a job?: I do not need or want help If for any reason you need help with day-to-day activities such as bathing, preparing meals, shopping, managing finances, etc., do you get the help you need?: I could use a little more help How often do you feel lonely or isolated from those around you?: Never Do you speak a language other than Slovenian at home?: No Does the patient want assistance with any of the above?: No Health Related Social Needs Health related social needs: problems with daily activities (Z73.9) Health related social needs details: Pt declines help at this time
--- NOTE | 2025-07-11 13:41 | W.NUTRFU ---
Date of service: 07/11/25 Time of Service: 11:00 Nutrition Note NOTE: Alvarado A1c was 6.4% last April. Fasting glucose 75 yesterday morning, 114 today. Mealtime fingersticks have been <180. Glucose currently managed with sensitive sliding scale Novolog at meals and 22:00. Pt on oral diabetic meds at home - metformin. Weight hx shows some weight loss over the last 6 months but pretty comparable with last year. PT with low potassium 3.0 today - ordered for furosemide this admission and on home med list. Was given IV repletion yesterday. Would recommend revisiting this again. Hgb/Hct low as well. Unable to inerview pt as he was sleeping x 2 visit attempts. No nutrition dx at this time. Pt's glucose is close to target and no recommended changes to current mgt strategy. Will monitor pt's intake and attempt another visit to provide/offer education and further assess 12/3 Time Spent in Nutritional Counseling and Treatment: 0
--- NOTE | 2025-07-11 15:03 | PGE_ITS ---
Date of Service Date of service: 07/11/25 Time of Service: 15:03 Assessment and Plan Assessment and plan (1) Weakness: Status: Acute Assessment and plan: Acquired during recent complex hospitalization, unable to get off of couch when discharged home for a few hours. Digoxin and CPK levels reassuring. I think diarrhea, anemia, and electrolyte disturbances are all contributing along with deconditioning. Continue with PT and add OT. (2) Diarrhea: Status: Acute Assessment and plan: Has had persistent diarrhea since before initial presentation for biliary disease. Feels a little better today since here, off of antibiotics. C. Dif negative. Try bile acid sequestrant. (3) Urothelial carcinoma of bladder: Assessment and plan: No hematuria presently with mostly BPH causing his urine outlet obstruction. Rosario was replaced, working now. Monitor for complications. (4) Type 2 diabetes mellitus with diabetic nephropathy: Status: Chronic Assessment and plan: Glucometer measurements with sliding scale coverage while hospitalized. Holding outpatient medical therapy for now. 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 Watch for bleeding sequelae. Valve not mechanical so goal INR should be 2-3. (6) Chronic atrial fibrillation: Status: Chronic Assessment and plan: Continue outpatient medical therapy and monitor PT/INR daily on Coumadin. Cardiac monitoring. (7) Anemia: Status: Chronic Assessment and plan: Developing during recent prolonged hospitalization. No current notable bleeding. Follow CBC/INR, get FOB and iron/tibc. (8) Hypokalemia: Status: Acute Assessment and plan: Mg imrpoved, replace potassium again. Diarrhea is cause. (9) Acute gangrenous cholecystitis: Status: Acute Assessment and plan: s/p cholecystectomy. No longer symptoms of active infection. I did get manuela of [facility]. He should keep drain in until IR study done, was placed for abscess. Was prescribed levofloxacin and metronidazole prescribed through 07/12, will continue this until he is able to have that study done. QTc is better today and I don't think we can blame diarrhea on the antibiotics. Discharge Planning Discharge Planning: home when diarrhea and strength improved as long as cultures negative. Subjective Subjective Patient reports: no new complaints and diarrhea; denies nausea, vomiting, shortness of breath or fever Interval history since last seen: he is feeling a little better. Still loose stool, anal area feels sore from it. Has had diarrhea since before his surgery and since. Not painful. Watery with small bits of stool. No fever/chills. A little better over the past two days but still bothering him. Exam Narrative Exam Narrative: General: Alert and oriented, NAD Lungs: CTAB, nl effort Heart: Irregularly irregular rhythm with no murmur or gallop. Abdomen: +BS, soft, NT/ND. Percutaneous tube draining dark material from the right upper abdomen. Skin: skin of upper buttocks pink, I don't see ulceration, white paste over area. Stools watery/semiformed. no foul smell, no blood/melena or mucous. Extremities: Without clubbing or cyanosis, 2+ soft pitting edema over both lower extremities. Fair cap refill. Objective Last Vital Signs Temp 36.5 C 07/11/25 11:25 Pulse 89 07/11/25 11:25 Resp 22 07/11/25 11:25 BP 136/86 07/11/25 11:25 Pulse Ox 98 07/11/25 11:25 Laboratory Results - last 24 hr 07/11/25 06:43 WBC 9.98 RBC 2.69 L Hgb 8.3 L Hct 25.0 L MCV 93 MCH 30.9 MCHC 33.2 RDW 19.1 H Plt Count 178 MPV 9.2 PT 27.9 H INR 3.0 H Sodium 142 Potassium 3.0 L Chloride 110 H Carbon Dioxide 23.1 Anion Gap 8.9 BUN 10 Creatinine 1.01 Est GFR (CKD-EPI 2020) 71.08 Glucose 114 H Calcium 8.0 L Magnesium 1.8 Iron 32 L TIBC 167 L Transferrin % Sat 19 L VTE Prohylaxis Risk Level: Moderate/High Risk Contraindications: None Prophylaxis: Patient anticoagulated Time Spent with Patient Time Spent with Patient: >50 minutes Time was spent: preparing to see the patient(eg.review tests), obtaining and/or reviewing separately otained hiistory, ordering medications,tests, procedures, referring, communicating with other health career development coordinator, indepentently interpreting results, counseling the patient and care coordination
[2025-07-11] MEDS: levoFLOXacin 500 MG, levoFLOXacin 250 MG 750 MG PO (17:01)
[2025-07-11] MEDS: Pravastatin 40 MG TAB 80 MG PO (19:49)
[2025-07-11] MEDS: Latanoprost 0.005% 2.5 ML BTL OP (19:54)
[2025-07-11] MEDS: Warfarin 5 MG TAB PO (20:00)
[2025-07-11] MEDS: metroNIDAZOLE 500 MG TAB PO (20:00)
[2025-07-12] VITALS (7 sets, daily range): BP systolic 126–137; BP diastolic 61–77; PULSE 72–96; RESP 16–19; TEMP 36.1–36.8; O2SAT 97–99
[2025-07-12] MEDS: Cholestyramine/Aspartame PKT 1 EACH PO ×4 (06:05→20:23)
[2025-07-12 06:35] LABS: HCT 24.7 % (40.0-50.0); HGB 8.2 g/dL (13.5-17.5); MCH 30.8 pg (27.0-33.0); MCHC 33.2 % (32.0-36.0); MCV 93 fL (80-95); MPV 9.2 fL (8.0-11.0); Platelet Count 166 10^3/uL (130-400); RBC 2.66 10^6/uL (4.36-5.78); RDW 18.6 % (11.8-14.1); RDW-SD 59.7 fL; WBC 11.35 10^3/uL (4.4-10.8)
[2025-07-12 06:55] LABS: INR 2.7 (0.9-1.1); Prothrombin Time 25.6 sec (9.1-11.1)
[2025-07-12 07:14] LABS: Magnesium 1.6 mg/dL (1.6-2.6)
[2025-07-12] MEDS: Metoprolol CR 100 MG TABCR PO (08:12)
[2025-07-12] MEDS: Spironolactone 25 MG TAB PO (08:12)
[2025-07-12] MEDS: Normal Saline Flush 10 ML SYR IVP ×3 (08:12→20:25)
[2025-07-12] MEDS: metroNIDAZOLE 500 MG TAB PO ×3 (08:12→20:21)
[2025-07-12] MEDS: levoFLOXacin 500 MG TAB 750 MG PO (08:12)
[2025-07-12] MEDS: Furosemide 20 MG TAB PO (08:13)
[2025-07-12] MEDS: hydroCHLOROthiazide 25 MG TAB PO (08:13)
[2025-07-12] MEDS: Magnesium Oxide 400 MG TAB PO (08:13)
[2025-07-12] MEDS: Digoxin 0.125 MG TAB PO (08:14)
[2025-07-12] MEDS: Timolol 0.5% 5 ML BTL OP (08:15)
[2025-07-12] MEDS: Dorzolamide 2% 10 ML BTL OP (08:20)
--- NOTE | 2025-07-12 08:34 | PDOC.CMDIS ---
Date of service: 07/12/25 Time of Service: 08:34 Care Management Discharge SDOH Health Related Social Needs: Health related social needs daily activities Health related social needs details Pt declines help at this time Health related social needs details: Pt declines help at this time
--- NOTE | 2025-07-12 09:26 | PT.INTREAT ---
PT Notes Visit Reasons: Sepsis, Complicated UTI Physical Therapy Inpatient Treatment Note Date: 07/12/2025 Precautions: Fall. Standard. Activity as tolerated. Subjective: Expressed fatigue but with encouragement and reassurance that activity will be graded/slowed he agreed. Amenable to trying out a higher, wider chair that PT secured for patient-- appreciated that this was done. Walked to the mirror to see how he looked after LINE REPAIRER TOWER Dahiana shampooed his hair and PT combed it. Objective: General Observation: Telemetry monitoring in place. Nurse Brooke was assessing patient along with SANFORD who took patient's vital signs. Mental Status: Alert and oriented as to person, place, time, and purpose. Able to pay attention, focus, and respond appropriately. Pain: None reported Vital Signs: Closely monitored by nursing staff Bed Mobility/Transfers: Minimal cueing provided for use of B hands as needed for support, movement sequence, AD management, and posture to reduce fall risk and minimize pain report Rolling supervision Supine to sit stand by assist with HOB at 30 degrees Sit to stand minimal assist using FWW Stand to sit contact guard assist using FWW Bed to bedside commode minimal assist using FWW Bedside commode to bedside recliner stand by assist using FWW Gait: 5 steps +10 steps with FWW and contact guard assist. Decreased alida and gait speed from normal. Minimal shortness of breath resolved with rest. Denied headache, chest pain, and lightheadedness throughout session. Fatigued after minimal distance covered. Balance: Static Sitting: Normal Dynamic Sitting: Normal Static Standing: Fair Dynamic Standing: Fair ASSESSMENT: Fatigued and drowsy this morning. Needed encouragement to participate in session. Anxiety over the lack of immediate caregiver for with dementia at home mounting, limiting his ability to focus on his own healing. Patient may need short-term rehab placement based on today's performance as he needed to be independent to be able to return to being his 's primary caregiver. Prognosis for achieving PT goals guarded due to continued diarrhea, post-operative status, dwindling level of motivation, and increasing anxiety over lack of consistent caregiver for . Goals: Goals X1 week 1. Supine-Sit independent 2. Sit-Supine independent 3. Sit-Stand independent 4. Stand-Sit independent with FWW 5. Bed-Chair independent with FWW 6. Chair-Bed independent with FWW 7. Independent gait on level surface with use of FWW for at least 300 feet without report of pain nor dyspnea 8. Independent stair negotiation while holding onto B rails for at least 5 steps without report of pain nor dyspnea 9. Independent with home exercise program 10. Good static and dynamic standing balance/tolerance Plan of Care/Treatment Plan: 1-2x/day, 7 days/week x 1 week. Plan of care has been reviewed with the POST HOLE DIGGING MACHINE OPERATOR providing the service under Physical Therapy direction. Initiate Physical Therapy intervention for pain management as needed, strengthening, bed mobility, transfers, gait, stairs, balance training, and use of assistive device. UPDATED DISCHARGE RECOMMENDATIONS: Short-term SNF vs HH PT based on patient's progress towards goals and availability of caregivers for him and TREATMENT CODE/TIME: 48635 x 70 minutes x 5 units (9:26-9:36 and 10:53-12:04). Thank you for the opportunity to participate in the care of this patient. Ángela Soria PT, DPT, CLT [facility] [place], [place]
[2025-07-12] MEDS: Insulin Aspart 300 UNITS/3 ML PEN SC ×3 (12:00→21:53)
[2025-07-12] MEDS: MAGNESIUM SULFATE 1 GM/100 ML BAG IV_INF (12:00)
[2025-07-12 12:57] LABS: Lab Add On Test DONE
--- NOTE | 2025-07-12 13:07 | PDOC.CMPRO ---
Date of service: 07/12/25 Time of Service: 13:07 Care Management Progress Note Progress Note Text Progress Note Text: Alvarado was awake and lying in bed when CM met with him. He is agreeable to PTs recommendation which now includes SNF for STR as he is notably weaker today than yesterday. Referrals have been sent to [facility] and [facility]. Alvarado acknowledges that his neighbors are pulling back on all the support they have been providing to Didi in his absence, because it was becoming too much for them. Fortunately, Alvarado's friend Mateus from [place] is on his way to [place] and will be staying with Didi. He is traveling by vehicle but unfortunately is having problems with the vehicle, so he's not quite sure when he will be in town but he is coming. ISABEL spoke with Patricia, and is sounds like [facility] is offering Didi a limited amount of support in the community and they are already aware aware that Mateus is on his way to [place] to help out. ISABEL spoke with several community members about Didi yesterday and let Patricia know that bringing a team together may be beneficial since there are several agency involved. In the meantime, CM provided Alvarado with the contact information for [employer]. since his sounds like she would be a good candidate for live in caregivers, even if its only short term. Alvarado has a phone at the bedside and is planning on reaching out to see what the payment scheduled would look like. Discharge Potential Discharge Needs: PT Evaluation and PCP F/U Appt Anticipated Barriers to Discharge: None Identified Patient/Family Education Needs: Review discharge instructions, discuss Ask Me Three Transportation: Other (Dependent on dispo) Plan: SNF for STR vs. Home with [facility] RN/PT/OT/PIERCING ARTIST services, depending on progress towards goals, Referrals are pending at the [facility] and [facility]. Alvarado will follow up with community providers and continue per his discharge plan of care. CM will follow. Social Determinants of Health Screening Social Determinants of health last assessed in clinic: 07/12/25 Will the Patient Participate in the Screening?: Yes Do you worry about having a steady place to live?: no Problems where you live: no known problems In the past 12 months, have you had to go without electric, gas, oil or water in your home?: no 1. Within the past 12 months, we worried whether our food would run out before we got money to buy more.: Never true 2. Within the past 12 months, the food we bought just didn't last and we didn't have money to get more.: Never true Has lack of transportation kept you from medical appointments or from doing things needed for daily living?: no Has anyone in your life made you feel unsafe or unsupported?: no How hard is it for you to pay for the very basics like food, housing, medical care, and heating? Would you say it is:: Not hard at all Do you want help finding or keeping work or a job?: I do not need or want help If for any reason you need help with day-to-day activities such as bathing, preparing meals, shopping, managing finances, etc., do you get the help you need?: I could use a little more help How often do you feel lonely or isolated from those around you?: Never Do you speak a language other than Urdu at home?: No Does the patient want assistance with any of the above?: No Health Related Social Needs Health related social needs: problems with daily activities (Z73.9) Health related social needs details: Pt declines help at this time
[2025-07-12 13:52] LABS: Anion Gap 10.2 mmol/L (3-11); BUN 9 mg/dL (9-23); CO2 21.8 mmol/L (20.0-31.0); Calcium 7.6 mg/dL (8.3-10.6); Chloride 110 mmol/L (98-107); Glucose 122 mg/dL (74-106); Potassium 2.8 mmol/L (3.5-5.1); Sodium 142 mmol/L (136-145)
--- NOTE | 2025-07-12 14:29 | OT.INIE ---
Occupational Therapy Notes Inpatient Occupational Therapy Evaluation Date: 07/12/25 Referring Doctor:Rogers Ching OT Orders: Urgent Precautions: Fall, Standard, Full PATIENT PROFILE/ADMITTING DIAGNOSIS: Pt is a 80 year old male admitted to [facility] with the following dx of past medical history of S/P TAVR 11/2021 and urothelial cancer of bladder who presented to the ED on 07/09/2025 due to generalized weakness and failure to thrive. He was recently discharged from [facility] for gangrenous cholecystitis. 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: recurrence papillary lesion dome bladder; : tx with excision and Mytomycin-C intra bladder 12/2021- no sign of recurrence, [facility]) Atrial fibrillation (Chronic) Chronic anticoagulation (Chronic) 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) 12/2021, microalbuminuriaEssential hypertension (Chronic) Hyperlipidemia (Chronic) Osteoarthritis of left knee (Chronic) Class 2 severe obesity with serious comorbidity and body mass index (BMI) of 38.0 to 38.9 in adult (Chronic) Primary osteoarthritis of both knees (Chronic) Tendonitis of left rotator cuff (Chronic) Tendinitis of long head of biceps brachii of left shoulder (Chronic) Arthritis of right knee (Chronic) 80 mg Depo-Medrol injection: 06/24/2023rimary osteoarthritis of left knee (Chronic) 80 mg Depo-Medrol injection: 06/24/2023 Medical History Urothelial carcinoma of bladder (2017) Papillary urothelial carcinoma, non invasive, 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 04/16/14; X 1 - 2018-3 polyps, tubular adenomas, last of which had some early dysplastic features Patient due 2021-patient was called 12/2021 with attempt to set up colonoscopy. Patient wished to defer at this point. He makes an informed decision. 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) Social History/Home Situation: Pt states that he lives in a private home with his and is his 's primary caregiver. He notes that she has dementia and he needs to be able to (A) with bathing, meal prep and task management of her ADLS. At baseline he is (I) with his ADL/IADL routines. SUBJECTIVE: Pt was sitting in bed when OT arrived. He notes that he is weak and fatigued. He is worried about his and is hoping that he can get a plan for her to allow him time to heal. He notes that he does need some (A) at this time with his ADLs. He is not able to care for his in his current state. OBJECTIVE: General Observation: Mental Status: A&Ox4 Pain: no c/o pain during OT consult. ROM: RUE AROM WFL L UE AROM WFL STRENGTH: RUE 4/5 throughout globally LUE 4/5 throughout globally FUNCTIONAL MOBILITY/ADLS: Transfers SBA Supine-sit (I) Sit-supine (I) Sit-Stand SBA Stand-sit SBA Bed-Chair SBA Chair-bed SBA BATHING NT as pt notes that he washed with nursing prior DRESSING sitting on side of the bed Dressing UE NT Dressing LE Min (A) at this time d/t fatigue GROOMING (I) with brushing hair TOILETING on commode min (A) with toileting hygiene EATING (I) in the seated position BALANCE: Static sitting Normal Dynamic Sitting Normal Static Standing Good Dynamic Standing Good SPECIAL TESTS: Daily Activity Limitations Standardized Measure [facility] AM -PAC ?6 clicks? Daily Activity Inpatient Short Form: Raw score: 20 Standardized score: 42.03 CMS score: 38.32% INFORMED CONSENT/EDUCATION: Pt instructed in purpose of OT Consult and plan of care. ASSESSMENT: Patient is a 80-year-old male referred to occupational therapy services with diagnosis of gangrenous cholecystitis. Patient presents with clinical signs and symptoms consistent with dx, as demonstrated by the following impairment level findings/ functional limitations: Impairments in ADL/IADL And leisure activities, decreased functional activity tolerance, decreased LE dressing and bathing, generalized overall weakness affecting his functional (I). [facility] score 20 Patient is assessed as a Moderate 27907 complexity based on the following: History: see above Examination: see functional limitations as noted above Presentation: evolving Decision Making: Moderate complexity GOALS Goals x1 week 1. Transfers (S) 2. Dressing seated in the chair (I) UE, (I) LE 3. Bathing- standing at sink (I) UE and min (A) LE 4. Toileting- on toilet (I) 5. Eating- seated (I) PLAN OF CARE/TREATMENT PLAN: 1x/day, 3-5 days/ week x 1week Initiate Occupational Therapy Services for bathing, dressing, grooming, toileting, eating, transfer training. DISCHARGE RECOMMENDATIONS Based on pts current level of function, OT recommends PT/OT services when medically cleared per MD. TREATMENT TIME/MINUTES/CODES 25302, 20 minutes Maisha Perez OTR/L [facility] [place], [place]
[2025-07-12] MEDS: Potassium Chloride 20 MEQ TABCR 40 MEQ PO ×2 (14:59→20:21)
[2025-07-12] MEDS: POTASSIUM CHLORIDE 20 MEQ/100 ML BAG 50 MEQ IV_INF (15:00)
--- NOTE | 2025-07-12 15:55 | W.PM.PROGNOT ---
Date of Service Date of service: 07/12/25 Time of Service: 12:55 Assessment and Plan Assessment and plan (1) Weakness: Status: Acute Assessment and plan: Acquired during recent complex hospitalization, unable to get off of couch when discharged home for a few hours. Digoxin and CPK levels reassuring. I think diarrhea, anemia, and electrolyte disturbances are all contributing along with deconditioning. Continue with PT and add OT, would like improvement if he is going to d/c home. (2) Diarrhea: Status: Acute Assessment and plan: Has had persistent diarrhea since before initial presentation for biliary disease. Feels a little better today since here, off of antibiotics. C. Dif negative. Started bile acid sequestrant 07/11 and helping, continue. (3) Acute gangrenous cholecystitis: Status: Acute Assessment and plan: s/p cholecystectomy at after presenting with septic shock 06/14. No longer symptoms of active infection. But per [facility] abscess still needs treatment, he should keep drain in until IR study done Continue levofloxacin and metronidazole Will need to reschedule follow up with IR procedure upon discharge (4) Type 2 diabetes mellitus with diabetic nephropathy: Status: Chronic Assessment and plan: Glucometer measurements with sliding scale coverage while hospitalized. Holding outpatient medical therapy for now. 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 Valve not mechanical so goal INR should be 2-3, at goal (6) Chronic atrial fibrillation: Status: Chronic Assessment and plan: Continue outpatient medical therapy and monitor PT/INR daily on Coumadin. Cardiac monitoring as K also low. (7) Anemia: Status: Chronic Assessment and plan: Developing during recent prolonged hospitalization. No current notable bleeding. Follow CBC/INR, get FOB and iron/tibc. (8) Hypokalemia: Status: Acute Assessment and plan: Mg imrpoved, replace potassium again. Diarrhea is cause. Adjusting BP meds, cutting HCTZ and increase spironolactone as well. Discharge Planning Discharge Planning: home when strength and diarrhea improved, K+ stable. 07/13? Subjective Subjective Patient reports: no new complaints and tolerating a regular diet; denies vomiting, shortness of breath or fever Interval history since last seen: Events: started cholestyramine Case reviewed with surgical service. levofloxacin/metronidazole resumed until he can have IR procedure to assess abscess/drain Feels like stool slowing down, more formed, but still 4/day. He is still weak, doesn't think he can care for his at home. Exam Narrative Exam Narrative: General: Alert and oriented, NAD Lungs: CTAB, nl effort Heart: Irregularly irregular rhythm with no murmur or gallop. Abdomen: +BS, soft, NT/ND. Percutaneous tube draining dark material from the right upper abdomen. Extremities: Without clubbing or cyanosis, 2+ soft pitting edema over both lower extremities. Fair cap refill. Objective Last Vital Signs Temp 36.7 C 07/12/25 15:31 Pulse 86 07/12/25 15:31 Resp 18 07/12/25 15:31 BP 127/75 07/12/25 15:31 Pulse Ox 98 07/12/25 15:31 Laboratory Results - last 24 hr 07/12/25 07/12/25 07/12/25 05:24 05:26 12:56 WBC 11.35 H RBC 2.66 L Hgb 8.2 L Hct 24.7 L MCV 93 MCH 30.8 MCHC 33.2 RDW 18.6 H Plt Count 166 MPV 9.2 PT 25.6 H INR 2.7 H Sodium 142 Potassium 2.8 L* Chloride 110 H Carbon Dioxide 21.8 Anion Gap 10.2 BUN 9 Creatinine 0.92 Est GFR (CKD-EPI 2020) 79.16 Glucose 122 H Calcium 7.6 L Magnesium 1.6 Add-On Test Request DONE VTE Prohylaxis Risk Level: Moderate/High Risk Contraindications: None Prophylaxis: Patient anticoagulated Time Spent with Patient Time Spent with Patient: 35-49 minutes Time was spent: preparing to see the patient(eg.review tests), obtaining and/or reviewing separately otained hiistory, ordering medications,tests, procedures, referring, communicating with other health healthcare architect, indepentently interpreting results, counseling the patient and care coordination
--- NOTE | 2025-07-12 19:19 | W.NUTRFU ---
Date of service: 07/12/25 Time of Service: 12:45 Nutrition Note NOTE: brief follow up with alvarado today to offer any education/answer questions regarding his blood sugar mgt. Denies need for education at this time. We discussed his other nutrition concern of chronic diarrhea for a month now per Alvarado. mag lab wnl. did have his K+drop to 2.8 today - was given IV repletion and continues on oral potassium. Discussed ONS of banatrol for helping to manage his diarrhea and he tried with acceptance to continue 1-3 pkts daily. No other quetions from Alvarado at this time. Will continue to monitor po intake, weight, nutrition related labs, diarrhea mgt and effectiveness of supplement Time Spent in Nutritional Counseling and Treatment: 10 min
[2025-07-12] MEDS: Pravastatin 40 MG TAB 80 MG PO (20:21)
[2025-07-12] MEDS: Latanoprost 0.005% 2.5 ML BTL OP (20:23)
[2025-07-12] MEDS: Warfarin 5 MG TAB PO (20:24)
[2025-07-13 03:56] VITALS: BP 135/73; PULSE 85; RESP 16; TEMP 36.7; O2SAT 97
[2025-07-13] MEDS: Cholestyramine/Aspartame PKT 1 EACH PO ×4 (06:29→19:44)
[2025-07-13 07:25] LABS: Prothrombin Time 43.8 sec (9.1-11.1)
[2025-07-13 07:46] LABS: Anion Gap 10.1 mmol/L (3-11); BUN 7 mg/dL (9-23); CO2 21.9 mmol/L (20.0-31.0); Calcium 7.7 mg/dL (8.3-10.6); Chloride 108 mmol/L (98-107); Glucose 142 mg/dL (74-106); Sodium 140 mmol/L (136-145)
[2025-07-13 07:52] LABS: INR 4.9 (0.9-1.1)
[2025-07-13 08:32] LABS: Potassium 3.0 mmol/L (3.5-5.1)
[2025-07-13] MEDS: Dorzolamide 2% 10 ML BTL OP (08:32)
[2025-07-13] MEDS: Timolol 0.5% 5 ML BTL OP (08:33)
[2025-07-13] MEDS: Potassium Chloride 20 MEQ TABCR 40 MEQ PO ×3 (08:37→19:45)
[2025-07-13] MEDS: levoFLOXacin 500 MG TAB 750 MG PO (08:38)
[2025-07-13 08:39] VITALS: PULSE 85
[2025-07-13] MEDS: Digoxin 0.125 MG TAB PO (08:39)
[2025-07-13] MEDS: Spironolactone 25 MG TAB 50 MG PO (08:40)
[2025-07-13] MEDS: Loperamide 2 MG CAP PO (08:40)
[2025-07-13] MEDS: Furosemide 20 MG TAB PO (08:41)
[2025-07-13] MEDS: metroNIDAZOLE 500 MG TAB PO ×3 (08:41→19:45)
[2025-07-13] MEDS: Metoprolol CR 100 MG TABCR PO (08:41)
[2025-07-13] MEDS: hydroCHLOROthiazide 25 MG TAB 12.5 MG PO (08:42)
[2025-07-13] MEDS: Magnesium Oxide 400 MG TAB PO (08:42)
[2025-07-13] MEDS: Insulin Aspart 300 UNITS/3 ML PEN SC ×2 (08:43→21:48)
--- NOTE | 2025-07-13 09:00 | PTTR_ITS ---
PT Notes Visit Reasons: Sepsis, Complicated UTI Physical Therapy Inpatient Treatment Note Date: 07/13/2025 Precautions: Fall. Standard. Activity as tolerated. Subjective: [place] better this morning. Appeared more energetic today compared to the previous couple of days. Stated that urgency of his bowel movement is significantly diminished (had felt the urge to go every time he stood up). Looking at a brochure he got about live-in caregivers for his . Adoptive son from [place] no longer coming as of today. Agreeable to a short-term SNF placement so he could regain more strength to be able to go back to taking care of his . Objective: General Observation: Telemetry monitoring in place. Mental Status: Alert and oriented as to person, place, time, and purpose. Able to pay attention, focus, and respond appropriately. Pain: None reported Vital Signs: Closely monitored by nursing staff Bed Mobility/Transfers: Minimal cueing provided for use of B hands as needed for support, movement sequence, AD management, and posture to reduce fall risk and minimize pain report. Sit to stand stand by assist using FWW Stand to sit stand by assist using FWW Bed to toilet contact guard assist with FWW Gait: 80 feet with FWW and contact guard assist. Vane and gait speed improved. Minimal shortness of breath resolved with rest. Denied headache, chest pain, and lightheadedness throughout session. Step height nad length improved. Needed to go straight to the toilet after walking, stool minimal and with mucus-like consistency. Balance: Static Sitting: Normal Dynamic Sitting: Normal Static Standing: Fair Dynamic Standing: Fair THERA ACT: Promoted safe and correct technique with sit<>stand movement transition while on bedside recliner with B hands pushing down on arm rests x 10 with emphasis on controleed eccentric abdominal recruitment for slowed descent and efficient management of COG to prevent displacement that can lead to loss of balance. Patient was able to do this in 8/10 tries today. ASSESSMENT: Activity tolerance and independence were improved during today's mobility performance. Patient may need short-term rehab placement based on today's performance as he needed to be independent to be able to return to being his 's primary caregiver. Will need continued functional mobility training as well as strength and balance skilling to regain PLOF. Plan of Care/Treatment Plan: 1-2x/day, 7 days/week x 1 week. Plan of care has been reviewed with the WELDER FITTER APPRENTICE providing the service under Physical Therapy direction. Initiate Physical Therapy intervention for pain management as needed, strengthening, bed mobility, transfers, gait, stairs, balance training, and use of assistive device. UPDATED DISCHARGE RECOMMENDATIONS: Short-term SNF vs HH PT based on patient's progress towards goals and availability of caregivers for him and TREATMENT CODE/TIME: [id number] x 2 units.
[2025-07-13 09:41] VITALS: BP 137/79; PULSE 82; RESP 16; TEMP 36.2; O2SAT 97
[2025-07-13 09:42] LABS: Lab Add On Test DONE
[2025-07-13 09:42] LABS: Lab Add On Test DONE
[2025-07-13 10:01] LABS: Magnesium 1.7 mg/dL (1.6-2.6)
--- NOTE | 2025-07-13 10:52 | W.PM.PROGNOT ---
Date of Service Date of service: 07/13/25 Time of Service: 10:52 Assessment and Plan Assessment and plan (1) Weakness: Status: Acute Assessment and plan: Acquired during recent complex hospitalization, unable to get off of couch when discharged home for a few hours. Digoxin and CPK levels reassuring. I think diarrhea, anemia, and electrolyte disturbances are all contributing along with deconditioning. Continue with PT and add OT, would like improvement if he is going to d/c home. (2) Diarrhea: Status: Acute Assessment and plan: Has had persistent diarrhea since before initial presentation for biliary disease. Feels a little better today since here, but has been persistent and leading to electrolyte abnormalities and weakness. C. Dif negative. Started bile acid sequestrant 07/11 and helping somewhat, continue for now Add loperamide as no sign of infections or inflammatory diarrhea. (3) Acute gangrenous cholecystitis: Status: Acute Assessment and plan: s/p cholecystectomy at after presenting with septic shock 06/14. No longer symptoms of active infection. But per [facility] Surgery abscess still needs treatment, he should keep drain in until IR study done Continue levofloxacin and metronidazole Will need to reschedule follow up with IR procedure upon discharge, antibiotics until then (4) Type 2 diabetes mellitus with diabetic nephropathy: Status: Chronic Assessment and plan: Glucometer measurements with sliding scale coverage while hospitalized. Holding outpatient medical therapy for now. 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 Valve not mechanical so goal INR should be 2-3, high today (perhaps back on levofloxacin) holding (6) Chronic atrial fibrillation: Status: Chronic Assessment and plan: Continue outpatient medical therapy and monitor PT/INR daily on Coumadin. Cardiac monitoring as K also low. (7) Anemia: Status: Chronic Assessment and plan: Developing during recent prolonged hospitalization. No current notable bleeding. Follow CBC/INR FOB negative and iron/TIBC 19% close to normal. Can start oral iron (8) Hypokalemia: Status: Acute Assessment and plan: Mg is low normal, replace mg and potassium again. Diarrhea is cause. AdjustedBP meds 07/12, cutting HCTZ and increase spironolactone as well. Follow. Will need to cut back TID oral potassium once diarrhea better. Discharge Planning Discharge Planning: home when strength and diarrhea improved, K+ stable. 07/14? Subjective Subjective Patient reports: tolerating a regular diet; denies diarrhea, vomiting, shortness of breath or fever Interval history since last seen: still stooling 4+/day, more formed, clear looking this morning. Leg swelling is more that his baseline since surgery, but hasn't changed since back here. Hunger has improved. He has had gamble since at [facility] but would like to remove when he can. Exam Narrative Exam Narrative: General: Alert and oriented, NAD Lungs: CTAB, nl effort Heart: Irregularly irregular rhythm with no murmur or gallop. Abdomen: +BS, soft, NT/ND. Percutaneous tube draining dark material from the right upper abdomen. Extremities: Without clubbing or cyanosis, 2+ soft pitting edema over both lower extremities. Fair cap refill. Objective Last Vital Signs Temp 36.2 C L 07/13/25 09:41 Pulse 82 07/13/25 09:41 Resp 16 07/13/25 09:41 BP 137/79 07/13/25 09:41 Pulse Ox 97 07/13/25 09:41 Laboratory Results - last 24 hr 07/12/25 07/12/25 07/13/25 05:24 12:56 06:30 PT 43.8 H INR 4.9 H* Sodium 142 140 Potassium 2.8 L* 3.0 L Chloride 110 H 108 H Carbon Dioxide 21.8 21.9 Anion Gap 10.2 10.1 BUN 9 7 L Creatinine 0.92 0.93 Est GFR (CKD-EPI 2020) 79.16 78.18 Glucose 122 H 142 H Calcium 7.6 L 7.7 L Magnesium 1.7 Add-On Test Request DONE 07/13/25 07/13/25 07:45 09:41 PT INR Sodium Potassium Chloride Carbon Dioxide Anion Gap BUN Creatinine Est GFR (CKD-EPI 2020) Glucose Calcium Magnesium Add-On Test Request DONE DONE VTE Prohylaxis Risk Level: Moderate/High Risk Contraindications: None Prophylaxis: Patient anticoagulated Time Spent with Patient Time Spent with Patient: 35-49 minutes Time was spent: preparing to see the patient(eg.review tests), obtaining and/or reviewing separately otained hiistory, ordering medications,tests, procedures, referring, communicating with other health daycare director, indepentently interpreting results, counseling the patient and care coordination
[2025-07-13] MEDS: POTASSIUM CHLORIDE 20 MEQ/100 ML BAG 50 MEQ IV_INF ×2 (12:16→14:49)
[2025-07-13] MEDS: MAGNESIUM SULFATE 2 GM/50 ML BAG IV_INF (12:16)
--- NOTE | 2025-07-13 12:50 | CMPROGNOTE_ITS ---
Date of service: 07/13/25 Time of Service: 13:00 Care Management Progress Note Progress Note Text Progress Note Text: Krysta from [facility] ([phone]) met with Alvarado today to begin assisting him with the process of securing a live-fire apparatus engineer to support his ?s needs and long-term planning. Krysta reports that there are several barriers to obtaining a caregiver at this time. She plans to complete a home inspection later today and will continue working toward establishing a live-in care arrangement, but she emphasized that this process ?will not happen overnight.? Alvarado expressed frustration with the length and complexity of the process. He stated that he is worried about his being at home and shared, ?I just want to get stronger so I can get home and take care of her.? [facility] has offered Alvarado a bed beginning Wednesday, which he has accepted. Patricia Reyes from [facility] contacted CM to discuss placement and respite options for Alvarado?s . Patricia recommends that Alvarado?s be placed in a SNF under private pay, noting that the couple has sufficient funds to support this until an in-home caregiver is secured. Because Alvarado?s remains in the community, CM advised Patricia, her community dietitian, to contact other local SNF's to inquire about respite bed availability and informed her that CM would also reach out to [facility], as that facility has accepted Alvarado. An email was sent to [facility], and CM spoke with Patricia notifying her that [facility] admissions has been provided with her contact information regarding respite placement for Alvarado?s and would like to touch base today. Alvarado is agreeable to privately paying for her care should a bed be available at [facility]. Alvarado continues to participate in physical therapy but is not yet medically cleared. CM will continue to follow. Discharge Potential Discharge Needs: PCP F/U Appt Anticipated Barriers to Discharge: Bed availability (Wednesday) Patient/Family Education Needs: Review discharge instructions, discuss Ask Me Three Plan: SNF for STR vs. Home with New [facility] RN/PT/OT/INCOME TAX ADMINISTRATOR services, depending on progress towards goals. Bed offer accepted for Wednesday07/16/25 at [facility]. Alvarado will follow up with community providers and continue per his discharge plan of care. Transportation will be recommended by PT CM will follow. Social Determinants of Health Screening Social Determinants of health last assessed in clinic: 07/13/25 Will the Patient Participate in the Screening?: Yes Do you worry about having a steady place to live?: no Problems where you live: no known problems In the past 12 months, have you had to go without electric, gas, oil or water in your home?: no 1. Within the past 12 months, we worried whether our food would run out before we got money to buy more.: Don't know/refused 2. Within the past 12 months, the food we bought just didn't last and we didn't have money to get more.: Don't know/refused Has lack of transportation kept you from medical appointments or from doing things needed for daily living?: no Has anyone in your life made you feel unsafe or unsupported?: no How hard is it for you to pay for the very basics like food, housing, medical care, and heating? Would you say it is:: Not hard at all Do you want help finding or keeping work or a job?: I do not need or want help If for any reason you need help with day-to-day activities such as bathing, preparing meals, shopping, managing finances, etc., do you get the help you need?: I could use a little more help How often do you feel lonely or isolated from those around you?: Never Do you speak a language other than Portuguese at home?: No Does the patient want assistance with any of the above?: No Health Related Social Needs Health related social needs: problems with daily activities (Z73.9) Health related social needs details: Pt declines help at this time
--- NOTE | 2025-07-13 13:49 | OTTR_ITS ---
Occupational Therapy Notes Occupational Therapy Inpatient Treatment Note Date: 07/13/25 PRECAUTIONS: Fall, Standard, Full SUBJECTIVE: Pt was sitting in chair when OT arrived and is agreeable to OT session. He notes that his legs are leaking and need to be kept up at this time. OBJECTIVE: PAIN: no c/o pain BATHING: seated in chair with max (A) Set up/clean up with min vc throughout Upper Body: (I) face and (B) UE, abdomen min (A) around bandaging and max (A) back Lower Body: max (A) DRESSING: seated in chair with min vc Upper Extremity: Mod (A) [facility] gown Lower Extremity: NT GROOMING: (I) with brushing hair TOILETING: Device: commode Assist: mod (A) EATING: (I) ASSESSMENT/PLAN: Pt is still overall generally weak, he is performing his ADLs with increased (I). He notes that he was told that the plan may be to go to SNF and his join him at the facility. OT does recommend SNF at this time for progressive ADLs/strengthening to increased his overall functional (I) and promote (I) for him to return to his home and caregiver roles. TREATMENT CODES/TIME: [id number], 32 minutes Maisha Perez OTR/[facility] [place], [place]
[2025-07-13 19:27] VITALS: BP 129/69; PULSE 80; RESP 16; TEMP 37.3; O2SAT 98
[2025-07-13] MEDS: Pravastatin 40 MG TAB 80 MG PO (19:45)
[2025-07-13] MEDS: Normal Saline Flush 10 ML SYR IVP (19:46)
[2025-07-13] MEDS: Latanoprost 0.005% 2.5 ML BTL OP (19:49)
[2025-07-13 22:53] VITALS: BP 116/71; PULSE 80; RESP 16; TEMP 37; O2SAT 96
[2025-07-14 03:00] VITALS: BP 148/78; PULSE 80; RESP 16; TEMP 36.8; O2SAT 97
[2025-07-14 03:46] VITALS: BP 107/61; PULSE 76; RESP 16; TEMP 36.8; O2SAT 95
[2025-07-14] MEDS: Cholestyramine/Aspartame PKT 1 EACH PO (06:15)
[2025-07-14 07:01] LABS: Prothrombin Time 58.1 sec (9.1-11.1)
[2025-07-14 07:04] LABS: INR 6.6 (0.9-1.1)
[2025-07-14 08:04] VITALS: O2SAT 97
[2025-07-14] MEDS: hydroCHLOROthiazide 25 MG TAB 12.5 MG PO (08:17)
[2025-07-14] MEDS: levoFLOXacin 500 MG TAB 750 MG PO (08:17)
[2025-07-14] MEDS: metroNIDAZOLE 500 MG TAB PO ×3 (08:18→19:51)
[2025-07-14] MEDS: Digoxin 0.125 MG TAB PO (08:18)
[2025-07-14] MEDS: Furosemide 20 MG TAB PO (08:18)
[2025-07-14] MEDS: Metoprolol CR 100 MG TABCR PO (08:18)
[2025-07-14] MEDS: Ferrous Gluconate 324 MG TAB PO (08:19)
[2025-07-14] MEDS: Spironolactone 25 MG TAB 50 MG PO (08:19)
[2025-07-14] MEDS: Normal Saline Flush 10 ML SYR IVP ×2 (08:20→19:52)
[2025-07-14 08:21] VITALS: BP 123/67; PULSE 82; RESP 16; TEMP 37.1; O2SAT 99
[2025-07-14] MEDS: Dorzolamide 2% 10 ML BTL OP (08:23)
[2025-07-14] MEDS: Timolol 0.5% 5 ML BTL OP (08:24)
[2025-07-14] MEDS: Potassium Chloride 20 MEQ TABCR 40 MEQ PO ×3 (08:47→19:51)
[2025-07-14 08:52] LABS: HCT 22.6 % (40.0-50.0); HGB 7.8 g/dL (13.5-17.5); MCH 32.2 pg (27.0-33.0); MCHC 34.5 % (32.0-36.0); MCV 93 fL (80-95); MPV 9.8 fL (8.0-11.0); Platelet Count 145 10^3/uL (130-400); RBC 2.42 10^6/uL (4.36-5.78); RDW 18.6 % (11.8-14.1); RDW-SD 59.9 fL; WBC 10.52 10^3/uL (4.4-10.8)
[2025-07-14 09:10] LABS: Magnesium 1.8 mg/dL (1.6-2.6)
[2025-07-14 09:11] LABS: Anion Gap 8.3 mmol/L (3-11); BUN 7 mg/dL (9-23); CO2 21.7 mmol/L (20.0-31.0); Calcium 7.5 mg/dL (8.3-10.6); Chloride 109 mmol/L (98-107); Glucose 134 mg/dL (74-106); Potassium 3.6 mmol/L (3.5-5.1); Sodium 139 mmol/L (136-145)
[2025-07-14] MEDS: Acetaminophen 325 MG TAB 650 MG PO ×3 (10:35→16:58)
--- NOTE | 2025-07-14 11:15 | W.PM.PROGNOT ---
Date of Service Date of service: 07/14/25 Time of Service: 11:16 Assessment and Plan Assessment and plan (1) Weakness: Status: Acute Assessment and plan: Acquired during recent complex 4 week hospitalization, unable to get off of couch when discharged home for a few hours. Digoxin and CPK levels reassuring. I think diarrhea, anemia, and electrolyte disturbances are all contributing along with deconditioning. Continue with PT and OT, likely will need rehab (2) Diarrhea: Status: Inactive Assessment and plan: Has had persistent diarrhea since before initial presentation for biliary disease. Persistent and leading to electrolyte abnormalities and weakness. C. Dif negative. Started bile acid sequestrant 07/11 not clearly helping, he doesn't like it, will stop. antibiotics could be contributing, but did not improve when these were held for 2 days. holding oral magnesium. Added loperamide 07/13 as no sign of infections or inflammatory diarrhea, this finally seems to be helping. (3) Acute gangrenous cholecystitis: Status: Acute Assessment and plan: s/p cholecystectomy at after presenting with septic shock 06/14. No longer symptoms of active infection. But per [facility] Surgery abscess still needs treatment, he should keep drain in until IR study done Continue levofloxacin and metronidazole Will need to reschedule follow up with IR procedure upon discharge, antibiotics until then (4) Type 2 diabetes mellitus with diabetic nephropathy: Status: Chronic Assessment and plan: Glucometer measurements with sliding scale coverage while hospitalized. Holding outpatient medical therapy for now. 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 Valve not mechanical so goal INR should be 2-3, high again today (perhaps back on levofloxacin), holding warfarin since 07/13 cholestyramine also started, but this is more likely to decrease warfarin effect, though it may also interfere with vitamin K absorbtion from food. This was stopped 07/14 (6) Chronic atrial fibrillation: Status: Chronic Assessment and plan: Continue outpatient medical therapy and monitor PT/INR daily on Coumadin. Cardiac monitoring as K also low. (7) Anemia: Status: Chronic Assessment and plan: Developing during recent prolonged hospitalization. No current notable bleeding. Follow CBC/INR FOB negative and iron/TIBC 19% close to normal. Started oral iron 07/14 (8) Hypokalemia: Status: Acute Assessment and plan: Mg has low normal, replacing mg IV as oral mag makes diarrhea worse. Potassium finally in normal range 07/14, continue oral supplumentation but we may need to cut back TID oral potassium once diarrhea better. Adjusted BP meds 07/12, cutting HCTZ and increase spironolactone as well. Discharge Planning Discharge Planning: SNF 07/16 if potassium/diarrhea stable vs HHPT if significant improvement Subjective Subjective Patient reports: tolerating a regular diet; denies nausea, vomiting, shortness of breath or fever Interval history since last seen: Feels okay. Down to 3 stools yesterday. Cholestyramine is making him feel queezey. Exam Narrative Exam Narrative: General: Alert and oriented, NAD Lungs: CTAB, nl effort Heart: Irregularly irregular rhythm with no murmur or gallop. Abdomen: +BS, soft, NT/ND. Percutaneous tube draining dark material from the right upper abdomen. Extremities: Without clubbing or cyanosis, 2+ soft pitting edema in both ankles. Fair cap refill. Objective Last Vital Signs Temp 37.1 C 07/14/25 08:21 Pulse 82 07/14/25 08:21 Resp 16 07/14/25 08:21 BP 123/67 07/14/25 08:21 Pulse Ox 99 07/14/25 08:21 Laboratory Results - last 24 hr 07/14/25 05:53 WBC 10.52 RBC 2.42 L Hgb 7.8 L Hct 22.6 L MCV 93 MCH 32.2 MCHC 34.5 RDW 18.6 H Plt Count 145 MPV 9.8 PT 58.1 H INR 6.6 H* Sodium 139 Potassium 3.6 Chloride 109 H Carbon Dioxide 21.7 Anion Gap 8.3 BUN 7 L Creatinine 0.91 Est GFR (CKD-EPI 2020) 80.16 Glucose 134 H Calcium 7.5 L Magnesium 1.8 VTE Prohylaxis Risk Level: Moderate/High Risk Contraindications: None Prophylaxis: Patient anticoagulated Time Spent with Patient Time Spent with Patient: 35-49 minutes Time was spent: preparing to see the patient(eg.review tests), obtaining and/or reviewing separately otained hiistory, ordering medications,tests, procedures, referring, communicating with other health neonatal intensive care unit nurse, indepentently interpreting results, counseling the patient and care coordination
[2025-07-14] MEDS: Loperamide 2 MG CAP PO (15:29)
[2025-07-14] MEDS: Insulin Aspart 300 UNITS/3 ML PEN SC (17:06)
[2025-07-14] MEDS: Pravastatin 40 MG TAB 80 MG PO (19:51)
[2025-07-14] MEDS: Latanoprost 0.005% 2.5 ML BTL OP (19:51)
[2025-07-14 20:11] VITALS: BP 133/73; PULSE 79; RESP 16; TEMP 37.3; O2SAT 98
[2025-07-14 22:27] VITALS: BP 144/71; PULSE 78; RESP 16; TEMP 37.4; O2SAT 100
[2025-07-15] VITALS (7 sets, daily range): BP systolic 128–162; BP diastolic 67–89; PULSE 69–98; RESP 12–18; TEMP 36.2–36.6; O2SAT 97–100
[2025-07-15 07:32] LABS: Anion Gap 8.6 mmol/L (3-11); BUN 7 mg/dL (9-23); CO2 23.4 mmol/L (20.0-31.0); Calcium 7.9 mg/dL (8.3-10.6); Chloride 108 mmol/L (98-107); Glucose 131 mg/dL (74-106); Potassium 4.1 mmol/L (3.5-5.1); Sodium 140 mmol/L (136-145)
[2025-07-15 07:45] LABS: Prothrombin Time 51.2 sec (9.1-11.1)
[2025-07-15 07:48] LABS: INR 5.8 (0.9-1.1)
[2025-07-15] MEDS: Normal Saline Flush 10 ML SYR IVP (07:57)
[2025-07-15] MEDS: levoFLOXacin 500 MG TAB 750 MG PO (07:58)
[2025-07-15] MEDS: Dorzolamide 2% 10 ML BTL OP (07:58)
[2025-07-15] MEDS: Potassium Chloride 20 MEQ TABCR 40 MEQ PO ×3 (07:58→20:00)
[2025-07-15] MEDS: Digoxin 0.125 MG TAB PO (07:58)
[2025-07-15] MEDS: Timolol 0.5% 5 ML BTL OP (07:58)
[2025-07-15] MEDS: Ferrous Gluconate 324 MG TAB PO (07:59)
[2025-07-15] MEDS: Spironolactone 25 MG TAB 50 MG PO (07:59)
[2025-07-15] MEDS: hydroCHLOROthiazide 25 MG TAB 12.5 MG PO (07:59)
[2025-07-15] MEDS: Loperamide 2 MG CAP PO ×2 (07:59→11:52)
[2025-07-15] MEDS: Furosemide 20 MG TAB PO (07:59)
[2025-07-15] MEDS: Metoprolol CR 100 MG TABCR PO (07:59)
[2025-07-15] MEDS: metroNIDAZOLE 500 MG TAB PO ×3 (07:59→20:00)
--- NOTE | 2025-07-15 08:27 | PGE_ITS ---
Date of Service Date of service: 07/15/25 Time of Service: 08:31 Assessment and Plan Assessment and plan (1) Weakness: Status: Acute Assessment and plan: -Acquired during recent complex 4 week hospitalization, unable to get off of couch when discharged home for a few hours. -diarrhea, anemia, and electrolyte disturbances are all contributing along with deconditioning. -Continue with PT and OT, plan to DC to rehab tomorrow 07/16 (2) Diarrhea: Status: Inactive Assessment and plan: -Has had persistent diarrhea since before initial presentation for biliary disease resulting in electrolyte abnormalities and weakness. -C. Dif negative. -had started bile acid sequestrant 07/11 not clearly helping, he doesn't like it, will stop. -antibiotics could be contributing, but did not improve when these were held for 2 days. -holding oral magnesium. -Added loperamide 07/13 as no sign of infections or inflammatory diarrhea, this finally seems to be helping. (3) Acute gangrenous cholecystitis: Status: Acute Assessment and plan: -s/p cholecystectomy at after presenting with septic shock 06/14. 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 -Holding outpatient medical therapy for now. 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 -Valve not mechanical so goal INR should be 2-3, INR remains high, 4.9, 6.6 and down to 5.8 as of AM 07/15 (6) Chronic atrial fibrillation: Status: Chronic Assessment and plan: -Continue outpatient medical therapy and monitor PT/INR daily on Coumadin (7) Anemia: Status: Chronic Assessment and plan: -Developing during recent prolonged hospitalization. -No current notable bleeding. -Follow CBC/INR -FOB negative and iron/TIBC 19% close to normal. -Started oral iron 07/14 (8) Hypokalemia: Status: Acute Assessment and plan: -Mg has low normal, replacing mg IV as oral mag makes diarrhea worse. -Potassium finally in normal range 07/14, continue oral supplumentation but we may need to cut back TID oral potassium once diarrhea better. Subjective Subjective Interval history since last seen: Patient states that he is doing well and is looking forward to going to rehab tomorrow. Otherwise he has no complaints or concerns at this time. Exam Narrative Exam Narrative: well appearing older gentleman sitting up in the chair in no acute distress, AOx4, heart RRR, lungs CTAB, abdomen soft, non-tender, non-distended, biliary drain in place without surrounding erythema or drainage Objective Last Vital Signs Temp 97.9 F 07/15/25 07:09 Pulse 97 H 07/15/25 07:58 Resp 18 07/15/25 07:09 BP 162/86 H 07/15/25 07:09 Pulse Ox 99 07/15/25 07:09 Laboratory Results - last 24 hr 07/14/25 07/15/25 05:53 06:23 WBC 10.52 RBC 2.42 L Hgb 7.8 L Hct 22.6 L MCV 93 MCH 32.2 MCHC 34.5 RDW 18.6 H Plt Count 145 MPV 9.8 PT 51.2 H INR 5.8 H* Sodium 139 140 Potassium 3.6 4.1 Chloride 109 H 108 H Carbon Dioxide 21.7 23.4 Anion Gap 8.3 8.6 BUN 7 L 7 L Creatinine 0.91 0.96 Est GFR (CKD-EPI 2020) 80.16 75.36 Glucose 134 H 131 H Calcium 7.5 L 7.9 L Magnesium 1.8 VTE Prohylaxis Risk Level: Moderate/High Risk Contraindications: None Prophylaxis: Patient anticoagulated Time Spent with Patient Time Spent with Patient: >50 minutes Time was spent: preparing to see the patient(eg.review tests), obtaining and/or reviewing separately otained hiistory, ordering medications,tests, procedures, referring, communicating with other health medicare sales representative, indepentently interpreting results, counseling the patient and care coordination
--- NOTE | 2025-07-15 10:37 | PT.INTREAT ---
PT Notes Visit Reasons: Sepsis, Complicated UTI Inpatient Physical Therapy Treatment Note [facility] Date: 07/15/25 PRECAUTIONS: n/a SUBJECTIVE: Pt states that he hopes to get a shower today and that he is excited to go to rehab tomorrow. OBJECTIVE: ? PAIN: just sore VITALS: monitored by nursing Therapeutic Activities ([id number]): Direct one-on-one instruction in dynamic activities to improve functional performance. ? BED MOBILITY/TRANSFERS? Sit-stand: CGA ? Stand-sit: CGA ? Bed-Chair: CGA ? Chair-bed: CGA Provided skilled cues and instruction on performance and technique throughout. ? GAIT? Assistive Device: RW? Weight bearing: FWB Assist: CGA? Distance:? 100 ft ? Deviation: decreased speed and increased UE support especially as distance increased, required 2 standing breaks? Exercises: seated marching x10 bilat, seated LAQs 2x10 bilat ? ASSESSMENT:?Pt continues to show many signs of weaknesses which make him a good candidate for STR. He is still not strong enough to perform the stairs he has to go into his home although his ambulation distance is progressing nicely. He is motivated to get stronger. PLAN: Continue ambulatory progressions TREATMENT CODE/TIME: Ther Act (38699) x1 - 20 min DISCHARGE RECOMMENDATION: D/c to STR tomorrow
[2025-07-15] MEDS: Insulin Aspart 300 UNITS/3 ML PEN SC (11:51)
[2025-07-15] MEDS: Pravastatin 40 MG TAB 80 MG PO (20:00)
[2025-07-15] MEDS: Latanoprost 0.005% 2.5 ML BTL OP (20:00)
[2025-07-16] MEDS: Loperamide 2 MG CAP PO ×3 (00:15→23:34)
[2025-07-16 07:32] VITALS: BP 146/78; PULSE 91; RESP 18; TEMP 36.8; O2SAT 99
[2025-07-16 07:39] LABS: Prothrombin Time 40.3 sec (9.1-11.1)
[2025-07-16 07:42] LABS: INR 4.5 (0.9-1.1)
--- NOTE | 2025-07-16 07:45 | PT.INTREAT ---
PT Notes Visit Reasons: Sepsis, Complicated UTI Physical Therapy Inpatient Treatment Note Date: 07/16/2025 Precautions: Fall. Standard. Activity as tolerated. Subjective: May be leaving this afternoon. Continues to feel better and looks forward to gaining more strength at the SNF so he could go back taking care of his . Happy that his is also headed to the rehab to be with him. Happy that he now has better control of his bowel movement even during mobility performance. As of later today, SNF staff requested overnight stay as they are concerned with patient's INR. Objective: General Observation: Telemetry monitoring in place. Mental Status: Alert and oriented as to person, place, time, and purpose. Able to pay attention, focus, and respond appropriately. Pain: None reported Vital Signs: Closely monitored by nursing staff Bed Mobility/Transfers: Minimal cueing provided for use of B hands as needed for support, movement sequence, AD management, and posture to reduce fall risk and minimize pain report. Sit to stand stand by assist using FWW Stand to sit stand by assist using FWW Bed to toilet stand by assist with FWW Gait: 100 feet with FWW and stand by assist. Needed to turn around as he verbalized getting fatigued. In the PM, covered only about 80 feet due to onset of fatigue. Vane and gait speed improved. Minimal shortness of breath resolved with rest. Denied headache, chest pain, and lightheadedness throughout session. Step height and length improved. Balance: Static Sitting: Normal Dynamic Sitting: Normal Static Standing: Fair Dynamic Standing: Fair THERA ACT: Promoted safe and correct technique with sit<>stand movement transition while on bedside recliner with B hands pushing down on arm rests x 10 with emphasis on controleed eccentric abdominal recruitment for slowed descent and efficient management of COG to prevent displacement that can lead to loss of balance. Patient was able to do this in 03/18 tries today. THERA EX: Faciliatted safe and correct performance of seated level exercises as follows: DBE with chest expansion exercises x 5 Seated clam shell exercises x 10 against green TB DBE with chest expansion exercises x 5 Seated marches x 5 against green TB DBE with chest expansion exercises x 5 Unilat LAQs x 10 against green TB DBE with chest expansion exercises x 5 ASSESSMENT: Activity tolerance and independence were improved during today's mobility performance. Patient may need short-term rehab placement based on today's performance as he needed to be independent to be able to return to being his 's primary caregiver. Will need continued functional mobility training as well as strength and balance skilling to regain PLOF. Plan of Care/Treatment Plan: 1-2x/day, 7 days/week x 1 week. Plan of care has been reviewed with the INSTALLATION ENGINEER providing the service under Physical Therapy direction. Initiate Physical Therapy intervention for pain management as needed, strengthening, bed mobility, transfers, gait, stairs, balance training, and use of assistive device. UPDATED DISCHARGE RECOMMENDATIONS: Short-term SNF vs HH PT based on patient's progress towards goals and availability of caregivers for him and TREATMENT CODE/TIME: Session1 -- 99545 x 25 minutes for 2 units, 65105 x 15 minutes (7:45-7:58 and 8:53-9:20). Session 2 -- 52268 x 26 minutes for 2 units (15:18-15:44).
[2025-07-16] MEDS: Potassium Chloride 20 MEQ TABCR 40 MEQ PO ×3 (08:00→19:54)
[2025-07-16] MEDS: metroNIDAZOLE 500 MG TAB PO ×3 (08:01→19:54)
[2025-07-16] MEDS: Spironolactone 25 MG TAB 50 MG PO (08:01)
[2025-07-16] MEDS: hydroCHLOROthiazide 25 MG TAB 12.5 MG PO (08:01)
[2025-07-16] MEDS: Ferrous Gluconate 324 MG TAB PO (08:01)
[2025-07-16 08:03] VITALS: PULSE 91
[2025-07-16] MEDS: Digoxin 0.125 MG TAB PO (08:03)
[2025-07-16] MEDS: Furosemide 20 MG TAB PO (08:07)
[2025-07-16] MEDS: Metoprolol CR 100 MG TABCR PO (08:07)
[2025-07-16] MEDS: levoFLOXacin 500 MG TAB 750 MG PO (08:07)
[2025-07-16] MEDS: Timolol 0.5% 5 ML BTL OP (08:09)
[2025-07-16] MEDS: Dorzolamide 2% 10 ML BTL OP (08:09)
--- NOTE | 2025-07-16 08:43 | CMDISCH_ITS ---
Date of service: 07/17/25 Time of Service: 08:23 LACE Index Scoring Tool Questions: Length of Stay (in days): 7 - 13 Was the patient admitted via the E.D.?: Yes Comorbidities: Diabetes w/o Complication E.D. Visits: 3 Answers: Total Score: 12 Risk of Readmission: High Risk Care Management Discharge Plan Reason for Hospitalization: Sepsis, Complicated UTI Discharge Plan: Alvarado is being discharged to [facility] for STR, prior to d ischarging home. He will be transported via [employer] w/c [employer]. He will follow up with community providers and continue per his discharge plan of care. Patient/Family Education Needs: Review discharge instructions, discuss ask me three. Services Needed at Discharge: Long-Term Facility ([facility], coordinated by [facility]) and Transportation ([employer] [facility] [employer], coordinated by [facility]) SDOH Health Related Social Needs: Health related social needs daily activities Health related social needs details Pt declines help a t this time Health related social needs details: Pt declines help at this time
--- NOTE | 2025-07-16 08:43 | PDOC.CMDIS ---
Date of service: 07/17/25 Time of Service: 08:23 LACE Index Scoring Tool Questions: Length of Stay (in days): 7 - 13 Was the patient admitted via the E.D.?: Yes Comorbidities: Diabetes w/o Complication E.D. Visits: 3 Answers: Total Score: 12 Risk of Readmission: High Risk Care Management Discharge Plan Reason for Hospitalization: Sepsis, Complicated UTI Discharge Plan: Alvarado is being discharged to [facility] for STR, prior to discharging home. He will be transported via [facility]. He will follow up with community providers and continue per his discharge plan of care. Patient/Family Education Needs: Review discharge instructions, discuss ask me three. Services Needed at Discharge: Assisted Facility ([facility], coordinated by [facility]) and Transportation ([facility], coordinated by [facility]) SDOH Health Related Social Needs: Health related social needs daily activities Health related social needs details Pt declines help at this time Health related social needs details: Pt declines help at this time
--- NOTE | 2025-07-16 08:52 | W.PM.DS.N ---
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 (5) Aortic stenosis, severe: Status: Chronic (6) Chronic atrial fibrillation: Status: Chronic (7) Anemia: Status: Chronic (8) Hypokalemia: Status: Acute Discharge Plan Disposition Patient Disposition: [facility] Facility(SNF) Condition: Improving Discharge Details Reason For Visit: Sepsis, Complicated UTI Admit Date/Time: 07/09/25 23:21 Admit Provider: Omer Glynn Attending Provider: Omer Glynn Primary Care Provider: Karen Sommers Hospital Course Hospital Course: Patient initially presented back to [facility] for prolonged hospitalization at [facility] for acute gangrenous cholecystitis. While at [facility] he had IR drain placed and was recommended he continue p.o. antibiotics until follow-up appointment and subsequent surgical intervention. However, after being discharged from [facility] patient went home and was too weak to ambulate therefore presented back to [facility]. This was likely secondary to a combination of anemia, diarrhea, and electrolyte disturbance. Anemia, likely iron deficiency for which iron supplementation was started. Diarrhea likely secondary to gallbladder drain and ongoing gallbladder issues. Patient was tried on multiple different medications however loperamide ultimately helped decrease frequency of diarrhea. Additionally, patient's INR was elevated during hospitalization up to 6.8 however it has been slowly decreasing and was down to 4.5 as of the morning of 07/16/2025. It was recommended that his warfarin continue to be held and his INR regularly checked, and warfarin can be restarted once patient admits goal of INR 2-3. Home Meds and New Rx's Prescriptions: New loperamide 2 mg Capsule 2 mg PO QLOOSE PRNQty: 90 0RF spironolactone 25 mg Tablet 50 mg PO DAILY Qty: 90 0RF hydrochlorothiazide 25 mg Tablet 12.5 mg PO DAILY Qty: 90 0RF ferrous gluconate 324 mg (38 mg iron) Tablet 324 mg PO DAILY Qty: 90 0RF potassium chloride 20 mEq Tablet Extended Release 40 meq PO TID Qty: 90 0RF Continued latanoprost 0.005 % drops 1 drp ophthalmic (eye) QPM Patient Comments: INSTILL ONE DROP INTO BOTH EYES AT BEDTIME Rx Instructions: both eyes metoprolol succinate 100 mg tablet extended release 24 hr 100 mg PO DAILY Qty: 90 3RF glimepiride 2 mg tablet 2 mg PO DAILY Qty: 30 3RF metformin 1,000 mg tablet 1,000 mg PO BID Qty: 180 2RF ondansetron 4 mg tablet,disintegrating 4 mg PO Q8H PRN (Reason: nausea and vomiting) Qty: 20 0RF dorzolamide-timolol 22.3-6.8 mg/mL drops 1 drp ophthalmic (eye) QAM Patient Comments: INSTILL ONE DROP INTO BOTH EYES EVERY MORNING Rx Instructions: both eyes levofloxacin 750 mg tablet 750 mg PO DAILY Rx Instructions: x 5 days metronidazole 500 mg tablet 500 mg PO TID Rx Instructions: x 6 days furosemide [Lasix] 20 mg tablet 20 mg PO DAILY digoxin [Digitek] 125 mcg (0.125 mg) tablet 125 mcg PO DAILY acetaminophen 500 mg tablet 500 - 1,000 mg PO Q6H PRN (Reason: pain) pravastatin 80 mg tablet 80 mg PO QPM Rx Instructions: take one tablet daily magnesium oxide 400 mg (241.3 mg magnesium) tablet 400 mg PO DAILY Saccharomyces boulardii [Daily Probiotic (S. boulardii)] 1 tab PO DAILY Multivitamin 50 Plus Tablet 1 tab PO DAILY Held warfarin 1 mg tablet 1 mg PO DAILY Hold Instructions: Resume on 07/17/25. HOLD UNTIL INR NORMALIZES Rx Instructions: for 7 doses, re-check INR on 07/11/25; then as directed by anticoagulation clinic based on INR Discontinued amoxicillin 500 mg capsule 2,000 mg PO ONCE Qty: 20 0RF Patient Comments: Pt. states he only takes this for dental procedures. Rx Instructions: take 4 tablets 30-60 minutes prior to procedures including dental cleanings to prevent bacterial endocarditis hydrochlorothiazide 25 mg tablet 25 mg PO DAILY Qty: 90 3RF spironolactone [Aldactone] 25 mg tablet 25 mg PO DAILY Discharge Instructions Activity:: Activity as Tolerated Equipment/Supplies:: No Equipment Needed Diet:: As Tolerated Discharge Orders Discharge Orders: Discharge Order (Routine); Ordered 07/16/25 Ordered By: Joe Mo DS: Summary Time Spent with Patient providing and/or coordinating discharge services: Greater than 30 minutes Status at Discharge Functional status at discharge: independent ambulation Overall status at discharge: patient is not back to baseline Mental Status: mental status grossly normal Speech and Movement: speech and movement normal Mood: congruent mood Affect: normal affect Quality:SDOH Health Related Social Needs: Health related social needs daily activities Health related social needs details Pt declines help at this time Health related social needs details: Pt declines help at this time Exam Narrative Exam Narrative: well appearing older gentleman sitting up in the chair in no acute distress, AOx4, heart RRR, lungs CTAB, abdomen soft, non-tender, non-distended, biliary drain in place without surrounding erythema or drainage Psych Mental Status: mental status grossly normal Speech and Movement: speech and movement normal Mood: congruent mood Affect: normal affect DS: Data Vitals/I&O Vitals and I&O: Vital Signs Temperature 98.2 F 07/16/25 07:32 Temperature Source Temporal Artery Scan 07/16/25 07:32 Pulse 91 H 07/16/25 08:03 Pulse Rhythm Irregular 07/10/25 00:57 Pulse 95 H 07/09/25 21:00 Respiratory Rate 18 07/16/25 07:32 Respiratory Effort Normal, Non-Labored 07/10/25 00:57 Respiratory Depth Normal 07/10/25 00:57 Respiratory Pattern Normal 07/10/25 00:57 Blood Pressure 146/78 H 07/16/25 07:32 Blood Pressure Mean 100 07/16/25 07:32 Blood Pressure Position Supine 07/09/25 18:05 Pulse Oximetry 99 07/16/25 07:32 Oxygen Delivery Method Room Air 07/16/25 07:32 Oxygen Flow Rate 0 07/16/25 07:32 Pain Level 0 07/15/25 03:03 Comment pt asleep 07/15/25 23:24 Intake & Output 07/15/25 07/16/25 07/16/25 17:59 05:59 17:59 Intake Total 450 / 450 250 / 700 360 / 360 Output Total 1200 / 1200 0 / 0 Balance -750 / -750 250 / -500 360 / 360 Weight 256 lb Intake: Oral 450 / 450 250 / 700 360 / 360 Injectate 0 / 0 0 / 0 Choly EVELIN 0 / 0 0 / 0 Output: Drainage 0 / 0 0 / 0 Choly EVELIN 0 / 0 0 / 0 Urine 1200 / 1200 Other: Urine Color Yellow Yellow Yellow Urine Appearance Clear Clear Clear Urine Odor Normal Comment post void Stool Size Small Small Small Stool Characteristics Liquid Liquid Liquid Data Completed and Pending Pending Labs at Discharge: 07/09/25 07/09/25 07/09/25 19:45 19:55 20:25 WBC 12.62 H RBC 3.13 L Hgb 9.9 L Hct 29.2 L MCV 93 MCH 31.6 MCHC 33.9 RDW 19.2 H Plt Count 215 MPV 9.2 Immature Gran % 1.3 Neutrophils % 84.2 Lymphocytes % 6.5 Monocytes % 6.1 Eosinophils % 1.5 Basophils % 0.4 Nucleated RBC % 0.0 Absolute Neutrophils 10.63 H Absolute Lymphocytes 0.82 L Absolute Monocytes 0.77 Absolute Eosinophils 0.19 Absolute Basophils 0.05 PT 25.7 H INR 2.7 H APTT 40.8 H VBG pH 7.38 VBG pCO2 41 VBG pO2 28 VBG HCO3 24 VBG Total CO2 23 L VBG O2 Saturation 51 VBG Base Excess -1 VBG Lactate 1.1 Sodium Cancelled 143 Potassium Cancelled 3.3 L Chloride Cancelled 111 H Carbon Dioxide Cancelled 23.1 Anion Gap Cancelled 8.9 BUN Cancelled 9 Creatinine Cancelled 0.98 Est GFR (CKD-EPI 2020) Cancelled 73.59 Glucose Cancelled 121 H Calcium Cancelled 8.0 L Magnesium Cancelled 1.6 Iron TIBC Transferrin % Sat Total Bilirubin Cancelled 0.40 AST Cancelled 14 ALT Cancelled < 7 L Alkaline Phosphatase Cancelled 96 Creatine Kinase Troponin I Cancelled 42 NT-Pro-B Natriuret Pep Cancelled 5635 H Total Protein Cancelled 6.6 Albumin Cancelled 2.9 L Lipase Cancelled 20 Urine Color Urine Clarity Urine pH Ur Specific [place] Urine Protein Urine Ketones Urine Blood Urine Nitrite Urine Bilirubin Urine Urobilinogen Ur Leukocyte Esterase Urine RBC Urine WBC Ur Epithelial Cells Urine Crystals Urine Bacteria Urine Casts Urine Mucus Urine Other Ur Culture Indicated? Urine Glucose Stl C.difficile Tox PCR Digoxin COVID-19 Source SARS-CoV-2 (PCR) Influenza Type A (PCR) Influenza Type B (PCR) RSV (PCR) Add-On Test Request ABO/Rh Cancelled Antibody Screen Cancelled 07/09/25 07/09/25 07/09/25 21:00 21:35 21:47 WBC RBC Hgb Hct MCV MCH MCHC RDW Plt Count MPV Immature Gran % Neutrophils % Lymphocytes % Monocytes % Eosinophils % Basophils % Nucleated RBC % Absolute Neutrophils Absolute Lymphocytes Absolute Monocytes Absolute Eosinophils Absolute Basophils PT INR APTT VBG pH VBG pCO2 VBG pO2 VBG HCO3 VBG Total CO2 VBG O2 Saturation VBG Base Excess VBG Lactate Sodium Potassium Chloride Carbon Dioxide Anion Gap BUN Creatinine Est GFR (CKD-EPI 2020) Glucose Calcium Magnesium Iron TIBC Transferrin % Sat Total Bilirubin AST ALT Alkaline Phosphatase Creatine Kinase Troponin I 44 NT-Pro-B Natriuret Pep Total Protein Albumin Lipase Urine Color Yellow Urine Clarity Sl Cloudy Urine pH 5.5 Ur Specific [place] >= 1.030 H Urine Protein 100 H Urine Ketones 15 H Urine Blood Trace-intact H Urine Nitrite Negative Urine Bilirubin Negative Urine Urobilinogen 0.2 Ur Leukocyte Esterase Trace H Urine RBC 0-2 Urine WBC 0-2 Ur Epithelial Cells Rare Urine Crystals Rare Uric Acid Urine Bacteria Rare Urine Casts 0-2 Hyaline Urine Mucus Negative Urine Other Rare Transitional Ur Culture Indicated? No Urine Glucose Negative Stl C.difficile Tox PCR Negative Digoxin COVID-19 Source SARS-CoV-2 (PCR) Influenza Type A (PCR) Influenza Type B (PCR) RSV (PCR) Add-On Test Request ABO/Rh Antibody Screen 07/09/25 07/10/25 07/10/25 23:30 02:00 06:01 WBC 10.29 RBC 2.73 L Hgb 8.6 L Hct 25.7 L MCV 94 MCH 31.5 MCHC 33.5 RDW 18.6 H Plt Count 169 MPV 9.5 Immature Gran % Neutrophils % Lymphocytes % Monocytes % Eosinophils % Basophils % Nucleated RBC % Absolute Neutrophils Absolute Lymphocytes Absolute Monocytes Absolute Eosinophils Absolute Basophils PT 27.6 H INR 3.0 H APTT VBG pH VBG pCO2 VBG pO2 VBG HCO3 VBG Total CO2 VBG O2 Saturation VBG Base Excess VBG Lactate Sodium 144 Potassium 3.0 L Chloride 112 H Carbon Dioxide 20.7 Anion Gap 11.3 H BUN 8 L Creatinine 0.91 Est GFR (CKD-EPI 2020) 80.16 Glucose 75 Calcium 7.6 L Magnesium 1.5 L Iron TIBC Transferrin % Sat Total Bilirubin 0.30 AST 16 ALT < 7 L Alkaline Phosphatase 85 Creatine Kinase 16 L Troponin I 43 NT-Pro-B Natriuret Pep Total Protein 5.8 Albumin 2.7 L Lipase Urine Color Yellow Urine Clarity Clear Urine pH 6.0 Ur Specific [place] >= 1.030 H Urine Protein 100 H Urine Ketones 15 H Urine Blood Small H Urine Nitrite Negative Urine Bilirubin Negative Urine Urobilinogen 0.2 Ur Leukocyte Esterase Negative Urine RBC 3-5 H Urine WBC 5-10 Ur Epithelial Cells Few Urine Crystals Few Amorphous Urine Bacteria Few Urine Casts 0-2 Coarse Granular Urine Mucus Trace Urine Other Rare Yeast Ur Culture Indicated? No Urine Glucose Negative Stl C.difficile Tox PCR Digoxin 0.82 COVID-19 Source Nasopharynx SARS-CoV-2 (PCR) Negative Influenza Type A (PCR) Negative Influenza Type B (PCR) Negative RSV (PCR) Negative Add-On Test Request ABO/Rh O Positive Antibody Screen NEGATIVE 07/10/25 07/11/25 07/12/25 11:39 06:43 05:24 WBC 9.98 RBC 2.69 L Hgb 8.3 L Hct 25.0 L MCV 93 MCH 30.9 MCHC 33.2 RDW 19.1 H Plt Count 178 MPV 9.2 Immature Gran % Neutrophils % Lymphocytes % Monocytes % Eosinophils % Basophils % Nucleated RBC % Absolute Neutrophils Absolute Lymphocytes Absolute Monocytes Absolute Eosinophils Absolute Basophils PT 27.9 H INR 3.0 H APTT VBG pH VBG pCO2 VBG pO2 VBG HCO3 VBG Total CO2 VBG O2 Saturation VBG Base Excess VBG Lactate Sodium 142 142 Potassium 3.0 L 2.8 L* Chloride 110 H 110 H Carbon Dioxide 23.1 21.8 Anion Gap 8.9 10.2 BUN 10 9 Creatinine 1.01 0.92 Est GFR (CKD-EPI 2020) 71.08 79.16 Glucose 114 H 122 H Calcium 8.0 L 7.6 L Magnesium 1.8 Iron 32 L TIBC 167 L Transferrin % Sat 19 L Total Bilirubin AST ALT Alkaline Phosphatase Creatine Kinase Troponin I NT-Pro-B Natriuret Pep Total Protein Albumin Lipase Urine Color Urine Clarity Urine pH Ur Specific [place] Urine Protein Urine Ketones Urine Blood Urine Nitrite Urine Bilirubin Urine Urobilinogen Ur Leukocyte Esterase Urine RBC Urine WBC Ur Epithelial Cells Urine Crystals Urine Bacteria Urine Casts Urine Mucus Urine Other Ur Culture Indicated? Urine Glucose Stl C.difficile Tox PCR Digoxin COVID-19 Source SARS-CoV-2 (PCR) Influenza Type A (PCR) Influenza Type B (PCR) RSV (PCR) Add-On Test Request DONE ABO/Rh Antibody Screen 07/12/25 07/12/25 07/13/25 05:26 12:56 06:30 WBC 11.35 H RBC 2.66 L Hgb 8.2 L Hct 24.7 L MCV 93 MCH 30.8 MCHC 33.2 RDW 18.6 H Plt Count 166 MPV 9.2 Immature Gran % Neutrophils % Lymphocytes % Monocytes % Eosinophils % Basophils % Nucleated RBC % Absolute Neutrophils Absolute Lymphocytes Absolute Monocytes Absolute Eosinophils Absolute Basophils PT 25.6 H 43.8 H INR 2.7 H 4.9 H* APTT VBG pH VBG pCO2 VBG pO2 VBG HCO3 VBG Total CO2 VBG O2 Saturation VBG Base Excess VBG Lactate Sodium 140 Potassium 3.0 L Chloride 108 H Carbon Dioxide 21.9 Anion Gap 10.1 BUN 7 L Creatinine 0.93 Est GFR (CKD-EPI 2020) 78.18 Glucose 142 H Calcium 7.7 L Magnesium 1.6 1.7 Iron TIBC Transferrin % Sat Total Bilirubin AST ALT Alkaline Phosphatase Creatine Kinase Troponin I NT-Pro-B Natriuret Pep Total Protein Albumin Lipase Urine Color Urine Clarity Urine pH Ur Specific [place] Urine Protein Urine Ketones Urine Blood Urine Nitrite Urine Bilirubin Urine Urobilinogen Ur Leukocyte Esterase Urine RBC Urine WBC Ur Epithelial Cells Urine Crystals Urine Bacteria Urine Casts Urine Mucus Urine Other Ur Culture Indicated? Urine Glucose Stl C.difficile Tox PCR Digoxin COVID-19 Source SARS-CoV-2 (PCR) Influenza Type A (PCR) Influenza Type B (PCR) RSV (PCR) Add-On Test Request DONE ABO/Rh Antibody Screen 07/13/25 07/13/25 07/14/25 07:45 09:41 05:53 WBC 10.52 RBC 2.42 L Hgb 7.8 L Hct 22.6 L MCV 93 MCH 32.2 MCHC 34.5 RDW 18.6 H Plt Count 145 MPV 9.8 Immature Gran % Neutrophils % Lymphocytes % Monocytes % Eosinophils % Basophils % Nucleated RBC % Absolute Neutrophils Absolute Lymphocytes Absolute Monocytes Absolute Eosinophils Absolute Basophils PT 58.1 H INR 6.6 H* APTT VBG pH VBG pCO2 VBG pO2 VBG HCO3 VBG Total CO2 VBG O2 Saturation VBG Base Excess VBG Lactate Sodium 139 Potassium 3.6 Chloride 109 H Carbon Dioxide 21.7 Anion Gap 8.3 BUN 7 L Creatinine 0.91 Est GFR (CKD-EPI 2020) 80.16 Glucose 134 H Calcium 7.5 L Magnesium 1.8 Iron TIBC Transferrin % Sat Total Bilirubin AST ALT Alkaline Phosphatase Creatine Kinase Troponin I NT-Pro-B Natriuret Pep Total Protein Albumin Lipase Urine Color Urine Clarity Urine pH Ur Specific [place] Urine Protein Urine Ketones Urine Blood Urine Nitrite Urine Bilirubin Urine Urobilinogen Ur Leukocyte Esterase Urine RBC Urine WBC Ur Epithelial Cells Urine Crystals Urine Bacteria Urine Casts Urine Mucus Urine Other Ur Culture Indicated? Urine Glucose Stl C.difficile Tox PCR Digoxin COVID-19 Source SARS-CoV-2 (PCR) Influenza Type A (PCR) Influenza Type B (PCR) RSV (PCR) Add-On Test Request DONE DONE ABO/Rh Antibody Screen 07/15/25 07/16/25 06:23 07:00 WBC RBC Hgb Hct MCV MCH MCHC RDW Plt Count MPV Immature Gran % Neutrophils % Lymphocytes % Monocytes % Eosinophils % Basophils % Nucleated RBC % Absolute Neutrophils Absolute Lymphocytes Absolute Monocytes Absolute Eosinophils Absolute Basophils PT 51.2 H 40.3 H INR 5.8 H* 4.5 H* APTT VBG pH VBG pCO2 VBG pO2 VBG HCO3 VBG Total CO2 VBG O2 Saturation VBG Base Excess VBG Lactate Sodium 140 Potassium 4.1 Chloride 108 H Carbon Dioxide 23.4 Anion Gap 8.6 BUN 7 L Creatinine 0.96 Est GFR (CKD-EPI 2020) 75.36 Glucose 131 H Calcium 7.9 L Magnesium Iron TIBC Transferrin % Sat Total Bilirubin AST ALT Alkaline Phosphatase Creatine Kinase Troponin I NT-Pro-B Natriuret Pep Total Protein Albumin Lipase Urine Color Urine Clarity Urine pH Ur Specific [place] Urine Protein Urine Ketones Urine Blood Urine Nitrite Urine Bilirubin Urine Urobilinogen Ur Leukocyte Esterase Urine RBC Urine WBC Ur Epithelial Cells Urine Crystals Urine Bacteria Urine Casts Urine Mucus Urine Other Ur Culture Indicated? Urine Glucose Stl C.difficile Tox PCR Digoxin COVID-19 Source SARS-CoV-2 (PCR) Influenza Type A (PCR) Influenza Type B (PCR) RSV (PCR) Add-On Test Request ABO/Rh Antibody Screen PFSH All Active Problems (Updated 07/16/25 @ 08:49 by Joe Mo MD) Hypokalemia (Acute) Weakness (Acute) Anemia (Chronic) Chronic atrial fibrillation (Chronic) Complicated UTI (urinary tract infection) (Acute) Acute gangrenous cholecystitis (Acute) Supratherapeutic INR (Acute) History of mechanical aortic valve replacement (Acute) Cholelithiasis (Acute) NASRA (acute kidney injury) (Acute) Elevated troponin (Acute) Hypotension (Acute) Elevated INR (Acute) Hypocalcemia (Acute) Aortic stenosis, severe (Chronic) with EF 50-55% on echo of 07/2021--s/p TAVR Sepsis (Acute) Gastroenteritis (Acute) Gram negative sepsis (Acute) Bacterial gastroenteritis (Acute) History of bladder cancer (Chronic) Papillary urothelial carcinoma, non invasive, 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: recurrence papillary lesion dome bladder; : tx with excision and Mytomycin-C intra bladder 12/2021- no sign of recurrence, followed by Urology at [facility] Coronary artery disease (Chronic) Atrial fibrillation (Chronic) Chronic anticoagulation (Chronic) 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) 12/2021, microalbuminuria Essential hypertension (Chronic) Hyperlipidemia (Chronic) Osteoarthritis of left knee (Chronic) Class 2 severe obesity with serious comorbidity and body mass index (BMI) of 38.0 to 38.9 in adult (Chronic) Primary osteoarthritis of both knees (Chronic) Tendonitis of left rotator cuff (Chronic) 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 04/16/14; X - 2018-3 polyps, tubular adenomas, last of which had some early dysplastic features Patient due 2021-patient was called 12/2021 with attempt to set up colonoscopy. Patient wished to defer at this point. He makes an informed decision. 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) Family History Mother , 92 Heart disease Father , 76 Heart disease Sister , 76 Stroke Brother Diabetes Essential hypertension Stroke Maternal Grandfather Heart disease Paternal Grandfather Heart disease Maternal Grandmother Heart disease Paternal Grandmother Heart disease Brother , 68 Stroke Other Acute ill-defined cerebrovascular disease Social History Smoking/Tobacco Use Status: Former Tobacco Use tobacco type: cigarettes Quit Date: 08/09/86 Pack-years: 25 Tobacco: How many years used: 25 Second Hand Exposure: Yes Smoking risk assessment performed?: Yes Alcohol Intake: current Alcohol Intake frequency: holidays/special occasions only Alcohol type: wine and hard liquor Drug use: Never Substance use type: does not use Adopted: No Caregiver/Support person: No Foster care: No Household members: spouse Housing: house Number of Children: 0 Communication Needs: None Education Level: high school Do you need help understanding health information?: Rarely current occupation: retired Pets and animals: Yes Pets and animals: cat(s) Sexually active: No Do you think of yourself as: straight/heterosexual Current gender identity: male What is your relationship status?: How often do you talk on the phone with friends or family?: once per week How often do you get together with friends or relatives?: decline to answer How often do you attend confucianism or gnosticism services?: decline to answer Do you belong to any clubs or organized social groups?: no Panel score (0-1 are the most socially isolated patients): 1 What type of physical activity do you participate in: other Duration: 15-30 minutes/day Frequency: 3-4 times per week Oneyda/Druze: No preference Special oneyda needs: No Agree to transfusion: Yes Seatbelt use: always Helmet use: Yes Helmet use: always Drive intox or ride w/intox sanitation truck driver: No Working smoke detector in home: Yes Carbon monox detector in home: Yes Firearms in home: Yes Firearms unloaded and locked: No Do you feel safe at home: Yes Do you feel safe in your relationship?: Yes Victim of physical abuse: No Victim of emotional abuse: No Victim of sexual abuse: No Time Spent with Patient Time Spent with Patient: <45 minutes Time was spent: preparing to see the patient(eg.review tests), obtaining and/or reviewing separately otained hiistory, ordering medications,tests, procedures, referring, communicating with other health daycare manager, indepentently interpreting results, counseling the patient and care coordination
--- NOTE | 2025-07-16 09:46 | NUR.NOTE ---
Addendum entered by Ethan Dickson RN 07/16/25 11:21: DC stopped d/t elevated inr (4.5 07/16, down from 5.8 07/15). Patient updated. Original Note: Nursing Note: Report called to [facility], rec'd by JUSTO RN at 0944; reviewed clinical path, labs.
[2025-07-16 11:09] VITALS: BP 104/71; PULSE 87; RESP 18; TEMP 36.6; O2SAT 99
--- NOTE | 2025-07-16 11:46 | PDOC.CMPRO ---
Date of service: 07/16/25 Time of Service: 11:46 Care Management Progress Note Progress Note Text Progress Note Text: 1030: Alvarado is medically ready and had a bed offer to [facility] this morning. After receiving approval from the facility to proceed, CM spent the morning coordinating his transfer. However, a short time after the hospitalist completed his discharge, CM was notified by the facility that are unable to accept him today due to his elevated INR of 4.5, which is above the level they can safely manage. 1500: Alvarado was awake and lying in bed when CM met with him, his primary RN and PT are standing at the bedside. Alvarado has a very good sense of humor, he is pleasant and telling us all jokes. Aside from the delay in transfer, no changes have been made to his discharge and he is planning to attempt discharge again tomorrow. CM will follow. Discharge Potential Discharge Needs: PCP F/U Appt Anticipated Barriers to Discharge: None Identified Patient/Family Education Needs: Review discharge instructions, discuss Ask Me Three Transportation: [facility] RCT Transportation: Wheel chair van Plan: SNF for [facility] vs. Home with New [facility] RN/PT/OT/C[employer] DESIGNER services, depending on progress towards goals. Bed offer planned for Wednesday is now set for Wednesday07/17/25 at [facility], pending his INR is closer to baseline. Alvarado will follow up with community providers and continue per his discharge plan of care. Transportation will be via [facility] w/c van. CM will follow. Social Determinants of Health Screening Social Determinants of health last assessed in clinic: 07/16/25 Will the Patient Participate in the Screening?: Yes Do you worry about having a steady place to live?: no Problems where you live: no known problems In the past 12 months, have you had to go without electric, gas, oil or water in your home?: no 1. Within the past 12 months, we worried whether our food would run out before we got money to buy more.: Never true 2. Within the past 12 months, the food we bought just didn't last and we didn't have money to get more.: Never true Has lack of transportation kept you from medical appointments or from doing things needed for daily living?: no Has anyone in your life made you feel unsafe or unsupported?: no How hard is it for you to pay for the very basics like food, housing, medical care, and heating? Would you say it is:: Not hard at all Do you want help finding or keeping work or a job?: I do not need or want help If for any reason you need help with day-to-day activities such as bathing, preparing meals, shopping, managing finances, etc., do you get the help you need?: I could use a little more help How often do you feel lonely or isolated from those around you?: Never Do you speak a language other than Maltese at home?: No Does the patient want assistance with any of the above?: No Health Related Social Needs Health related social needs: problems with daily activities (Z73.9) Health related social needs details: Pt declines help at this time
[2025-07-16] MEDS: Insulin Aspart 300 UNITS/3 ML PEN SC ×2 (11:54→16:59)
[2025-07-16 15:17] VITALS: BP 128/76; PULSE 81; RESP 18; TEMP 36.9; O2SAT 99
[2025-07-16 19:18] VITALS: BP 118/65; PULSE 80; RESP 16; TEMP 37.4; O2SAT 99
[2025-07-16] MEDS: Pravastatin 40 MG TAB 80 MG PO (19:54)
[2025-07-16] MEDS: Latanoprost 0.005% 2.5 ML BTL OP (20:26)
[2025-07-16 22:31] VITALS: BP 107/59; PULSE 78; RESP 16; TEMP 37.3; O2SAT 99
[2025-07-17 03:18] VITALS: BP 134/73; PULSE 82; RESP 16; TEMP 37.1; O2SAT 95
[2025-07-17 06:58] LABS: INR 3.0 (0.9-1.1); Prothrombin Time 28.3 sec (9.1-11.1)
[2025-07-17 07:50] VITALS: BP 122/80; PULSE 102; RESP 18; TEMP 36.6; O2SAT 98
--- NOTE | 2025-07-17 08:21 | PDOC.CMDIS ---
Date of service: 07/17/25 Time of Service: 08:21 Care Management Discharge Plan Reason for Hospitalization: Sepsis, Complicated UTI SDOH Health Related Social Needs: Health related social needs daily activities Health related social needs details Pt declines help at this time Health related social needs details: Pt declines help at this time
[2025-07-17] MEDS: Spironolactone 25 MG TAB 50 MG PO (08:38)
[2025-07-17] MEDS: levoFLOXacin 500 MG TAB 750 MG PO (08:38)
[2025-07-17 08:39] VITALS: PULSE 102
[2025-07-17] MEDS: Furosemide 20 MG TAB PO (08:39)
[2025-07-17] MEDS: Digoxin 0.125 MG TAB PO (08:39)
[2025-07-17] MEDS: Potassium Chloride 20 MEQ TABCR 40 MEQ PO (08:39)
[2025-07-17] MEDS: Ferrous Gluconate 324 MG TAB PO (08:39)
[2025-07-17] MEDS: hydroCHLOROthiazide 25 MG TAB 12.5 MG PO (08:39)
[2025-07-17] MEDS: metroNIDAZOLE 500 MG TAB PO (08:39)
[2025-07-17] MEDS: Metoprolol CR 100 MG TABCR PO (08:39)
[2025-07-17] MEDS: Dorzolamide 2% 10 ML BTL OP (08:40)
[2025-07-17] MEDS: Insulin Aspart 300 UNITS/3 ML PEN SC (08:53)
[2025-07-17] MEDS: Timolol 0.5% 5 ML BTL OP (09:06)
--- NOTE | 2025-07-17 11:19 | PT.INTREAT ---
PT Notes Visit Reasons: Sepsis, Complicated UTI Access Code: [email or web address] URL: [email or web address] Date: 07/17/2025 Prepared by: Ángela Soria Exercises - Seated Hip Abduction with Resistance - 1 x daily - 7 x weekly - 1 sets - 10 reps - 5 hold - Seated Hip Adduction Isometrics with Ball - 1 x daily - 7 x weekly - 1 sets - 10 reps - 5 hold - Seated Leg Press with Resistance - 1 x daily - 7 x weekly - 1 sets - 10 reps - 5 hold - Seated March with Resistance - 1 x daily - 7 x weekly - 1 sets - 10 reps - 5 hold - Seated Chair Push Ups - 1 x daily - 7 x weekly - 1 sets - 10 reps - 5 hold
== END 2025-07-17 11:16 | disposition skilled nursing facility (03) | DRG 394 ==
LOC: ER 22:36 → MS 07-10 00:52
PROVIDERS: Family Medicine; Admitting Provider Family Medicine; Emergency Provider General Practice; PCP Nurse Practitioner Family; Responsible Provider Family Medicine; Visit Provider Family Medicine
DX: I35.0 Nonrheumatic aortic (valve) stenosis; I48.20 Chronic atrial fibrillation, unspecified; R53.1 Weakness; E87.6 Hypokalemia; Z95.3 Presence of xenogenic heart valve; Z79.01 Long term (current) use of anticoagulants; Z79.84 Long term (current) use of oral hypoglycemic drugs; N17.9 Acute kidney failure, unspecified; E86.0 Dehydration; R79.1 Abnormal coagulation profile; K52.9 Noninfective gastroenteritis and colitis, unspecified; I25.10 Atherosclerotic heart disease of native coronary artery without angina pectoris; I10 Essential (primary) hypertension; E78.5 Hyperlipidemia, unspecified; E66.812 Obesity, class 2; M17.0 Bilateral primary osteoarthritis of knee; Z87.891 Personal history of nicotine dependence; R29.6 Repeated falls; N40.1 Benign prostatic hyperplasia with lower urinary tract symptoms; N13.8 Other obstructive and reflux uropathy; Z85.51 Personal history of malignant neoplasm of bladder; R91.1 Solitary pulmonary nodule; J98.11 Atelectasis; J90 Pleural effusion, not elsewhere classified; E11.21 Type 2 diabetes mellitus with diabetic nephropathy; K91.89 Other postprocedural complications and disorders of digestive system; R65.10 Systemic inflammatory response syndrome (SIRS) of non-infectious origin without acute organ dysfunction; K81.0 Acute cholecystitis; D50.9 Iron deficiency anemia, unspecified; E83.42 Hypomagnesemia; Y83.8 Other surgical procedures as the cause of abnormal reaction of the patient, or of later complication, without mention of misadventure at the time of the procedure; Z90.49 Acquired absence of other specified parts of digestive tract; Z73.89 Other problems related to life management difficulty; Z68.34 Body mass index [BMI] 34.0-34.9, adult; K82.A1 Gangrene of gallbladder in cholecystitis
CPT/HCPCS: 00123; 36415; 71250; 80048; 80053; 82550; 82805; 83690; 85027; 86850; 86900; 86901; 87040; 87637; 94640; 96361; 96365; 97110; 97162; 97166; 97530; 97535; 99285; 71045; 80162; 81003; 81015; 82272; 83540; 83550; 83605; 83735; 83880; 84484; 85025; 85610; 85730; 94664; 94667; 94760; 99223; 99233; 99239; J0696; J1815; J3475; J3480; J3490

== ENCOUNTER 2025-07-24 12:50 | Outpatient (REF) | payer MEDICARE, SELFPAY ==
[2025-07-24 13:53] LABS: Abs Immature Grans 0.04 10^3/uL (0.0-0.06); HCT 29.1 % (40.0-50.0); HGB 9.9 g/dL (13.5-17.5); Immature Grans % 0.6 %; MCH 32.7 pg (27.0-33.0); MCHC 34.0 % (32.0-36.0); MCV 96 fL (80-95); MPV 9.6 fL (8.0-11.0); Platelet Count 192 10^3/uL (130-400); RBC 3.03 10^6/uL (4.36-5.78); RDW 18.6 % (11.8-14.1); RDW-SD 61.9 fL; WBC 7.00 10^3/uL (4.4-10.8)
[2025-07-24 14:07] LABS: C-Reactive Protein 1.13 mg/dL (<=0.50)
[2025-07-24 15:06] LABS: ALT 8 U/L (10-49); AST 17 U/L (<34); Albumin 3.2 g/dL (3.2-5.0); Alkaline Phosphatase 85 U/L (46-116); Anion Gap 9.2 mmol/L (3-11); BUN 11 mg/dL (9-23); Bilirubin, Total 0.3 mg/dL (0.2-1.2); CO2 23.8 mmol/L (20.0-31.0); Calcium 8.5 mg/dL (8.3-10.6); Chloride 103 mmol/L (98-107); Glucose 216 mg/dL (74-106); Potassium 5.2 mmol/L (3.5-5.1); Sodium 136 mmol/L (136-145); Total Protein 6.8 g/dL (5.7-8.2)
== END 2025-07-24 12:51 | disposition home or self-care (01) ==
LOC: LBN 12:50
PROVIDERS: PCP Nurse Practitioner Family; Visit Provider Nurse Practitioner Adult Health
DX: K81.9 Cholecystitis, unspecified (principal)
CPT/HCPCS: 80053; 85025; 86140

== ENCOUNTER 2025-07-30 15:29 | Inpatient (IN) | payer MEDICARE, SELFPAY ==
[2025-07-30] VITALS (42 sets, daily range): BP systolic 117–148; BP diastolic 64–84; PULSE 49–125; RESP 10–24; TEMP 36.1–37; O2SAT 98–100
--- NOTE | 2025-07-30 16:15 | DI.CT_ITS ---
Exam(s) CT BRAIN NECK CTA EXAM: CT BRAIN NECK CTA CLINICAL HISTORY: left arm weakness and numbness x3 yesterday, afib. TECHNIQUE: Imaging Protocol: Axial CT angiography was performed with multi- slice acquisition and multi-planar and/or 3D reconstructions. CONTRAST MATERIAL: Intravenous: Omnipaque 350 Contrast volume:structured data in ml COMPARISON: CT CT ABDOMEN PELVIS W from 07/30/2025 FINDINGS: CTA Neck W: Aortic arch anatomy: The aortic arch anatomy is conventional and there is no significant stenosis at the origin of the great vessels off of the aortic arch. No intimal flap evident. Anterior circulation: Both common carotid arteries ascend with normal luminal diameters. At level the left carotid bulb and proximal left ICA there is both calcified and noncalcified plaque predominantly on the lateral wall. There is approximately 70 percent focal stenosis at the origin of the left ICA. Above this level left ICA is patent in the upper neck and skull base-carotid canal. On the right side there is also partially calcified plaque at the bulb and proximal right ICA and this plaque continues up the posterior wall of the proximal right ICA. However, the amount of stenosis is only approximately 20 percent of the luminal diameter. Above this level the right ICA is patent in the upper neck and skull base-carotid canal. Posterior circulation: Both vertebral arteries originate in conventional fashion off of the subclavian arteries and there is no obvious stenosis at the origin of the vertebral arteries. Both vertebral arteries exhibit normal and equal luminal diameters within the foramen transversarium. No evidence of stenosis nor thrombosis nor dissection of the vertebral arteries. Both vertebral arteries contribute to the formation of the basilar artery at the skull base. CTA Brain W: Anterior circulation: Both internal carotid arteries are patent in the skull base-carotid canals. Both intra cavernous internal carotid arteries exhibits circumferential calcified plaque but there does not appear to be a high-grade stenosis at this level. The supraclinoid aspects of the ICAs are patent. Both A1 segments are patent as are the anterior cerebral arteries and there is no evidence of aneurysm at the level of the anterior communicating artery. Both middle cerebral arteries are patent with no evidence of significant stenosis nor intraluminal thrombus. There also no aneurysms of these vessels. Posterior circulation: The basilar artery ascends in the midline. Distally it terminates as patent bilateral posterior cerebral arteries. The superior cerebellar arteries are also patent. There is no evidence of aneurysm at the tip of the basilar artery nor elsewhere in the [id number]. CT BRAIN: There is no evidence of intracranial hemorrhage, mass effect, or shift of midline structures. There are no extra-axial fluid collections. Ventricles are not enlarged or shifted. There are no ring enhancing lesions in the brain and no abnormal meningeal enhancement. There is mild bilateral periventricular hypodensity consistent with chronic small vessel disease. IMPRESSION: 1. There is approximately 70 percent stenosis at the origin the left internal carotid artery in the neck. There is approximately 20 percent stenosis at the origin of the right internal carotid artery in the neck. 2. Patent vertebral arteries. 3. Patent intracranial arteries. 4. Wall no ring enhancing lesions in the brain and no abnormal meningeal enhancement. Called by myself to ER provider 07/30/2025 at 6:30 p.m. RADIATION DOSE DELIVERED: 2,259.05mGy.cm Total DLP DATA REPOSITORY: All CT scans at this facility are submitted to the National Radiology Data Registry (NRDR) Dose Index Registry (DIR) with the [employer] (ACR). RADIATION OPTIMIZATION: All CT scans at this facility use at least one of these dose optimization techniques: automated exposure control; mA and/or kV adjustment per patient size (includes targeted exams where dose is matched to clinical indication); or iterative reconstruction.
--- NOTE | 2025-07-30 16:15 | RT.EKG_ITS ---
APPROVED REPORT Exam: Resting ECG Reason for Exam: weakness Patient Location: E HR:112 bpm ECG Measurements Heart Rate 112 AXIS FL [id number] P [id number] QRSd 110 QRS 28 QT 298 T 207 QTc 407 Conclusion Atrial fibrillation...? atrial activity Incomplete left bundle branch block...QRSd>110mS, terminal axis(-90,-1) ST depr, consider ischemia, anterolateral lds...ST <-0.10mV, I aVL V2-V6 Abnormal T, consider ischemia, anterior leads...T <-0.20mV, V2-V4
--- NOTE | 2025-07-30 16:17 | DI.CT_ITS ---
Exam(s) CT ABDOMEN PELVIS W EXAM: CT ABDOMEN PELVIS W CLINICAL HISTORY: abd pain, s/p [facility] c drain. TECHNIQUE: Imaging Protocol: Axial computed tomography images with coronal and sagittal reformatted images were created and reviewed CONTRAST MATERIAL: Intravenous: Omnipaque-350 100cc Oral: None COMPARISON: CT CT ABDOMEN PELVIS W from 06/13/2025 FINDINGS: VISUALIZED LUNG BASES: No nodules nor pleural effusions evident. 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 ABDOMEN: LIVER: There is a percutaneous pigtail drainage catheter in the gallbladder fossa which appears to be in satisfactory position. There is an area of intrahepatic hypodensity adjacent to the pigtail measuring approximately 3 by 1.4 cm by 2.4 cm. This was not present on the original CT scan of 06/13/2025. This extends from the level the pigtail out to the liver capsule. There is no subcapsular collection. There is no abnormal streaking nor collection along the course of the drainage catheter and the catheter does not appear kinked. There are no focal findings in the left hepatic lobe. There is no ascites. There are no dilated intrahepatic ducts. GALLBLADDER/BILIARY: Gallbladder is surgically absent. The CBD is not dilated. Report PANCREAS: No evidence of pancreatic mass nor dilatation of the pancreatic duct. SPLEEN: Spleen size is normal. There are multiple calcified granulomas in the spleen again noted. There is also a new hypodensity in the anterior aspect of the spleen measuring 1.4 x 1.2 cm. Does not contain gas. Splenic and portal veins are patent. ADRENALS: There are no significant adrenal masses. KIDNEYS:No cysts evident. No solid renal masses. No calculi nor hydronephrosis.. ABDOMINAL AORTA: Abdominal aorta is calcified but not enlarged. Iliac arteries are also calcified but not enlarged. LYMPH NODES:There is no retroperitoneal nor paraaortic adenopathy. ABDOMINAL WALL: There is anterior abdominal wall umbilical hernia. The hernia sac contains fat but no bowel loops. GI: There is no evidence of bowel obstruction nor free air.. PELVIS: GI: No evidence of appendicitis.There is extensive sigmoid diverticulosis but no obvious acute diverticulitis. LYMPH NODES: There is no intrapelvic nor inguinal adenopathy. REPRODUCTIVE: Prostate size is normal. Seminal vesicles unremarkable. URINARY BLADDER: Some wall irregularity at the bladder base is noted. Requires cystoscopy. OSSEOUS: No fractures and no significant osseous lesions. IMPRESSION: 1. Compared to the prior CT scan of 06/13/2025 there has been interval cholecystectomy and placement of a pigtail drainage catheter which appears to be in satisfactory position within the gallbladder fossa. However, there is an adjacent area of hypodensity in the right hepatic lobe which was not present on 06/13/2025 and which extends from the pigtail drainage catheter to the lateral surface of the liver. Given the recent history this may possibly represent an abscess collection 2. There is also a new hypodensity in the anterior aspect of the spleen which measures 1.4 x 1.2 cm and was not previously present. Cannot exclude collection such as abscess at this level. 3. There is a small bowel ileus pattern but there does not appear to be obvious bowel obstruction. Extensive sigmoid diverticulosis but without obvious acute diverticulitis. Irregular bladder base wall. Comment cystoscopy to rule out malignancy of the bladder wall. Report called by myself to ER provider 07/30/2025 at 7 p.m. RADIATION DOSE DELIVERED: 1,466.61mGy.cm Total DLP DATA REPOSITORY: All CT scans at this facility are submitted to the National Radiology Data Registry (NRDR) Dose Index Registry (DIR) with the [employer] (ACR). RADIATION OPTIMIZATION: All CT scans at this facility use at least one of these dose optimization techniques: automated exposure control; mA and/or kV adjustment per patient size (includes targeted exams where dose is matched to clinical indication); or iterative reconstruction.
[2025-07-30 16:48] LABS: BE (Venous) -4 mmol/L (-2-3); HCO3 (Venous) 22 mmol/L (23-28); O2 Sat (Venous) 46 %; TCO2 (Venous) 21 mmol/L (24-29); pCO2 (Venous) 43 mmHg (41-51); pO2 (Venous) 29 mmHg
[2025-07-30 16:50] LABS: Abs Immature Grans 0.05 10^3/uL (0.0-0.06); HCT 35.4 % (40.0-50.0); HGB 11.6 g/dL (13.5-17.5); Immature Grans % 0.6 %; MCH 30.9 pg (27.0-33.0); MCHC 32.8 % (32.0-36.0); MCV 94 fL (80-95); MPV 9.4 fL (8.0-11.0); Platelet Count 192 10^3/uL (130-400); RBC 3.76 10^6/uL (4.36-5.78); RDW 16.6 % (11.8-14.1); RDW-SD 56.4 fL; WBC 8.98 10^3/uL (4.4-10.8)
[2025-07-30] MEDS: Normal Saline - Diluent 50 ML VIAL IJ ×2 (17:31→17:37)
[2025-07-30] MEDS: Omnipaque 350 MG/ML 100 ML BTL IJ ×2 (17:32→17:37)
[2025-07-30] MEDS: Normal Saline Flush 10 ML SYR IVP ×2 (17:34→17:38)
[2025-07-30 17:39] LABS: Lipase 29 U/L (<53); Magnesium 1.9 mg/dL (1.6-2.6)
[2025-07-30 17:40] LABS: Troponin I 47 ng/L (<54)
[2025-07-30 17:46] LABS: ALT 11 U/L (10-49); AST 26 U/L (<34); Albumin 3.9 g/dL (3.2-5.0); Alkaline Phosphatase 97 U/L (46-116); Anion Gap 5.7 mmol/L (3-11); BUN 17 mg/dL (9-23); Bilirubin, Total 0.3 mg/dL (0.2-1.2); CO2 23.3 mmol/L (20.0-31.0); Calcium 9.6 mg/dL (8.3-10.6); Chloride 108 mmol/L (98-107); Glucose 55 mg/dL (74-106); Potassium 7.6 mmol/L (3.5-5.1); Sodium 137 mmol/L (136-145); Total Protein 8.0 g/dL (5.7-8.2)
[2025-07-30 18:00] LABS: Digoxin 0.87 ng/mL (0.80-2.00)
[2025-07-30] MEDS: Insulin REGULAR-Human 100 UNITS/ML UNIT 10 UNITS IV (18:14)
[2025-07-30] MEDS: Calcium Gluconate 1,000 MG/10 ML VIAL 1000 MG IVP (18:14)
[2025-07-30] MEDS: Dextrose 50%-Water 25 GM/50 ML SYR IVP (18:16)
[2025-07-30] MEDS: Sodium Zirconium Cyclosilicate 10 GM PKT PO (18:16)
[2025-07-30] MEDS: DEXTROSE 10%-WATER 500 ML 30 ML IV (18:32)
[2025-07-30 18:35] LABS: Glucose Negative (Negative)
[2025-07-30 18:44] LABS: C & S Indicated? Yes; RBC >50 HPF (0-2); WBC 20-50 HPF (0-5)
[2025-07-30 19:16] LABS: Troponin I 44 ng/L (<54)
[2025-07-30 19:22] LABS: Potassium 6.9 mmol/L (3.5-5.1)
[2025-07-30 19:28] LABS: INR 2.5 (0.9-1.1); Prothrombin Time 23.5 sec (9.1-11.1)
--- NOTE | 2025-07-30 21:09 | W.PM.HP.N ---
Date of service: 07/30/25 Time of Service: 21:09 Assessment and Plan Assessment and plan (1) Left upper extremity numbness: Status: Acute Assessment and plan: Most likely functional as this improvement is suspenders were taken off. (2) Hyperkalemia: Status: Acute Assessment and plan: Patient was treated with Lokelma as well as calcium and insulin. Will continue with Lokelma I will add albuterol as his potassium has improved but is still over 6. EKG findings are reassuring. The patient had been taking potassium supplementation at the rehab facility. Patient is on hydrochlorothiazide so we will need to have electrolytes monitored currently closely. he is also on Lasix and Aldactone. (3) Aortic stenosis, severe: Status: Chronic Assessment and plan: Status post TAVR approximately 3 years ago. Appears to be doing well from this perspective. (4) Atrial fibrillation: Status: Chronic Assessment and plan: Patient is rate controlled and is on digoxin as well as metoprolol. INR appears to be at goal. 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 I have held both of these medications. The metformin because of his renal function specifically his creatinine being over 1.7. His glimepiride will be held because of a decreased appetite of late and hypoglycemia. Will check an A1c. Ideally his blood glucoses can be controlled with diet and exercise. (7) Acute gangrenous cholecystitis: Status: Acute Assessment and plan: Recently had a gallbladder surgery and subsequent removal of gangrenous gallbladder. Patient remains on Levaquin and Flagyl which have been ordered by infectious disease at [facility]. I will attempt of going to the [facility] records and find out what the timeframe is for this particular antibiotic (8) NASRA (acute kidney injury): Status: Acute Assessment and plan: Start gentle hydration with IV fluids (9) History of bladder cancer: Status: Chronic Assessment and plan: CT scan was somewhat concerning but the patient is actively followed by Dr. Salinas with urology service and had a recent cystoscopy which has been ordered and is within normal limits. (10) Carotid artery stenosis: Status: Acute Assessment and plan: Noted consider outpatient workup at the discretion of PCP (11) Abnormal CT of liver: Status: Acute Assessment and plan: As mentioned above there were abnormalities of the liver and spleen. Discussion with [facility] general surgery as well as heart general surgeon and no further recommendations are made at this time. 1. Compared to the prior CT scan of 06/13/2025 there has been interval cholecystectomy and placement of a pigtail drainage catheter which appears to be in satisfactory position within the gallbladder fossa. However, there is an adjacent area of hypodensity in the right hepatic lobe which was not present on 06/13/2025 and which extends from the pigtail drainage catheter to the lateral surface of the liver. Given the recent history this may possibly represent an abscess collection 2. There is also a new hypodensity in the anterior aspect of the spleen which measures 1.4 x 1.2 cm and was not previously present. Cannot exclude collection such as abscess at this level. 3. There is a small bowel ileus pattern but there does not appear to be obvious bowel obstruction. Extensive sigmoid diverticulosis but without obvious acute diverticulitis. Irregular bladder base wall. Comment cystoscopy to rule out malignancy of the bladder wall. History of Present Illness History of Present Illness Chief Complaint: Left upper extremity numbness-now resolved Narrative: Mr Adams is an 80-year-old gentleman multiple contacts with the healthcare system recently with his most recent contact being 07/16/2025 at which time he was diagnosed with weakness after having a acute gangrenous gallbladder removed. Patient was at home post procedure but was too weak to care for himself. When he was discharged from the ER he was sent over from rehab. Patient states that he been doing fairly well until this a.m. at which time he started having the left upper extremity numbness. Patient is left-handed. Patient was seen by the physician over at his rehab facility who was not necessarily concerned about a CVA. Of note the patient is on Coumadin and is at a therapeutic dose. Nevertheless the patient presented to the ED for further evaluation and treatment. While he was in the ED he had multiple tests run including CT scans, CBC, CMP, urinalysis, EKG as well as a PT PTT INR. His laboratory work was indicative of significant hyperkalemia with initial potassium being over 7. After Lokelma it was down to 6.9. He was also noted to have an INR of 2.5. BNP was elevated to 2631. Urinalysis was essentially benign but did show lysed red blood cells. Of note his creatinine was 1.74. On discharge on the seventh it was 0.96. Patient does take both metformin as well as glimepiride. On admission patient was noted to have blood glucose levels in the mid 50s and then repeat showed 70s. CT scan did show hypodensities on his liver that 3.1 x 2.4 x 1.4 cm. There was also a hypodensity in the spleen of 1.[address] abdomen pelvis also 1 mention of possible irregularity images bladder base wall recommend cystoscopy. Per my discussion with the patient he does see Dr. Salinas on a yearly basis and states that he recently had a cystoscopy which was reported as normal. The patient does report a decreased appetite which he attributes to his potassium supplementation. In reviewing his chart he did have a urology visit with Dr. Salinas in August of this year which is available for review. The note does indicate that the patient has had cystoscopies and that at this point he can go to essentially a normal surveillance pattern unless there is hematuria or abnormal cytology. Of note, our ED provider Tiki Whitlock reached out to [facility] general surgery and spoke with a Dr. Peoples. The conversation was about the new finding on the liver and spleen. Dr. Le does not believe these are related to an abscess. The patient does continue to take Levaquin as well as Flagyl post gangrenous gallbladder removal. I did asked that we reach out to her surgeons as well and Dr. Miller is in agreement with plan for observation. Additionally, the patient stated that his suspenders were really tight and once they adjusted his suspenders his left upper extremity pain resolved. This part of the history was originally unknown. Review of Systems All systems reviewed & are unremarkable except as noted in HPI and below PFSH All Active Problems (Updated 07/30/25 @ 21:31 by Luis Mcgill MD) Abnormal CT of liver (Acute) Atrial fibrillation (Chronic) Carotid artery stenosis (Acute) Hyperkalemia (Acute) Left upper extremity numbness (Acute) Weakness (Acute) Anemia (Chronic) Chronic atrial fibrillation (Chronic) Acute gangrenous cholecystitis (Acute) Supratherapeutic INR (Acute) History of mechanical aortic valve replacement (Acute) Cholelithiasis (Acute) NASRA (acute kidney injury) (Acute) Elevated troponin (Acute) Hypotension (Acute) Elevated INR (Acute) Hypocalcemia (Acute) Aortic stenosis, severe (Chronic) with EF 50-55% on echo of 07/2021-s/p TAVR Gastroenteritis (Acute) Gram negative sepsis (Acute) Bacterial gastroenteritis (Acute) History of bladder cancer (Chronic) Papillary urothelial carcinoma, non invasive, 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: recurrence papillary lesion dome bladder; : tx with excision and Mytomycin-C intra bladder 12/2021- no sign of recurrence, followed by Urology at [facility] Coronary artery disease (Chronic) Atrial fibrillation (Chronic) Chronic anticoagulation (Chronic) 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) 12/2021, microalbuminuria Essential hypertension (Chronic) Hyperlipidemia (Chronic) Osteoarthritis of left knee (Chronic) Class 2 severe obesity with serious comorbidity and body mass index (BMI) of 38.0 to 38.9 in adult (Chronic) Primary osteoarthritis of both knees (Chronic) Tendonitis of left rotator cuff (Chronic) Tendinitis of long head of biceps brachii of left shoulder (Chronic) Arthritis of right knee (Chronic) 80 mg Depo-Medrol injection: 06/24/2023 Primary osteoarthritis of left knee (Chronic) 80 mg Depo-Medrol injection: 06/24/2023 Medical History Urothelial carcinoma of bladder (2017) Papillary urothelial carcinoma, non invasive, 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 04/16/14; X - 2018-3 polyps, tubular adenomas, last of which had some early dysplastic features Patient due 2021-patient was called 12/2021 with attempt to set up colonoscopy. Patient wished to defer at this point. He makes an informed decision. 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) Family History Mother , 92 Heart disease Father , 76 Heart disease Sister , 76 Stroke Brother Diabetes Essential hypertension Stroke Maternal Grandfather Heart disease Paternal Grandfather Heart disease Maternal Grandmother Heart disease Paternal Grandmother Heart disease Brother , 68 Stroke Other Acute ill-defined cerebrovascular disease Social History Smoking/Tobacco Use Status: Former Tobacco Use tobacco type: cigarettes Quit Date: 08/09/86 Pack-years: 25 Tobacco: How many years used: 25 Second Hand Exposure: Yes Smoking risk assessment performed?: Yes Alcohol Intake: current Alcohol Intake frequency: holidays/special occasions only Alcohol type: wine and hard liquor Drug use: Never Substance use type: does not use Adopted: No Caregiver/Support person: No Foster care: No Household members: spouse Housing: house Number of Children: 0 Communication Needs: None Education Level: high school Do you need help understanding health information?: Rarely current occupation: retired Pets and animals: Yes Pets and animals: cat(s) Sexually active: No Do you think of yourself as: straight/heterosexual Current gender identity: male What is your relationship status?: How often do you talk on the phone with friends or family?: once per week How often do you get together with friends or relatives?: decline to answer How often do you attend holiness or jewish services?: decline to answer Do you belong to any clubs or organized social groups?: no Panel score (0-1 are the most socially isolated patients): 1 What type of physical activity do you participate in: other Duration: 15-30 minutes/day Frequency: 3-4 times per week Oneyda/Confucianism: No preference Special oneyda needs: No Agree to transfusion: Yes Seatbelt use: always Helmet use: Yes Helmet use: always Drive intox or ride w/intox concrete mixing truck driver: No Working smoke detector in home: Yes Carbon monox detector in home: Yes Firearms in home: Yes Firearms unloaded and locked: No Do you feel safe at home: Yes Do you feel safe in your relationship?: Yes Victim of physical abuse: No Victim of emotional abuse: No Victim of sexual abuse: No Meds Allergies and Home Medications Allergies Allergy/AdvReac Type Severity Reaction Status Date / Time No Known Allergies Allergy Verified 07/30/25 20:07 Home Medications ?Medication ?Instructions ?Recorded ?Confirmed ?Type latanoprost 0.005 % eye drops 1 drp ophthalmic (eye) QPM 10/14/22 07/30/25 History metoprolol succinate 100 mg 100 mg PO DAILY #90 tabs 02/28/25 07/30/25 Rx tablet,extended release 24 hr glimepiride 2 mg tablet 2 mg PO DAILY #30 tabs 03/12/25 07/30/25 Rx metformin 1,000 mg tablet 1,000 mg PO BID #180 tabs 04/18/25 07/30/25 Rx Held on 07/30/25. Instructions: Pt Stopped/Never Started ondansetron 4 mg disintegrating 4 mg PO Q8H PRN nausea and 06/13/25 07/30/25 Rx tablet vomiting #20 tabs Held on 07/30/25. Instructions: Pt Stopped/Never Started Saccharomyces boulardii 1 tab PO DAILY 07/09/25 07/30/25 History acetaminophen 500 mg tablet 500 - 1,000 mg PO Q6H PRN pain 07/09/25 07/30/25 History Held on 07/30/25. Instructions: Pt Stopped/Never Started digoxin 125 mcg (0.125 mg) tablet 125 mcg PO DAILY 07/09/25 07/30/25 History (Digitek) dorzolamide 22.3 mg-timolol 6.8 1 drp ophthalmic (eye) QAM 07/09/25 07/30/25 History mg/mL eye drops furosemide 20 mg tablet (Lasix) 20 mg PO DAILY 07/09/25 07/30/25 History levofloxacin 750 mg tablet 750 mg PO DAILY 07/09/25 07/30/25 History magnesium oxide 400 mg (241.3 mg 400 mg PO DAILY 07/09/25 07/30/25 History magnesium) tablet metronidazole 500 mg tablet 500 mg PO TID 07/09/25 07/30/25 History Held on 07/30/25. Instructions: Pt Stopped/Never Started tidrhkeazaqe-qycqwpmr-dxzkct 1 tab PO DAILY 07/09/25 07/30/25 History tablet (Multivitamin 50 Plus tablet) pravastatin 80 mg tablet 80 mg PO QPM 07/09/25 07/30/25 History warfarin 1 mg tablet 1 mg PO DAILY 07/09/25 07/30/25 History Held on 07/16/25. Instructions: Resume on 07/17/25. HOLD UNTIL INR NORMALIZES ferrous gluconate 324 mg (38 mg 324 mg PO DAILY #90 tabs 07/16/25 07/30/25 Rx iron) tablet hydrochlorothiazide 25 mg tablet 12.5 mg (1/2 x 25 mg) PO DAILY #90 07/16/25 07/30/25 Rx tabs loperamide 2 mg capsule 2 mg PO QLOOSE PRN #90 caps 07/16/25 07/30/25 Rx Held on 07/30/25. Instructions: Pt Stopped/Never Started potassium chloride 20 mEq 40 meq (2 x 20 mEq) PO TID #90 tabs 07/16/25 07/30/25 Rx tablet,extended release Held on 07/30/25. Instructions: Pt Stopped/Never Started spironolactone 25 mg tablet 50 mg (2 x 25 mg) PO DAILY #90 tabs 07/16/25 07/30/25 Rx Exam Narrative Exam Narrative: HEENT normocephalic atraumatic mucous membranes moist Neck no lymphadenopathy no JVD no thyromegaly Cardiovascular regular rate and rhythm no murmurs gallops Lungs clear to auscultation bilaterally with good air exchange Abdomen soft nontender nondistended pigtail catheter in place. Extremities no sinus clubbing or edema bilaterally upper and lower extremity strength 5 out of 5 Neurologic nonfocal Psych alert and oriented x 3 Results Labs 07/30/25 16:15 07/30/25 18:48 Labs: Laboratory Results - last 24 hr 07/30/25 07/30/25 07/30/25 16:15 17:12 18:20 WBC 8.98 RBC 3.76 L Hgb 11.6 L Hct 35.4 L MCV 94 MCH 30.9 MCHC 32.8 RDW 16.6 H Plt Count 192 MPV 9.4 Immature Gran % 0.6 Neutrophils % 71.4 Lymphocytes % 13.9 Monocytes % 11.7 Eosinophils % 2.0 Basophils % 0.4 Nucleated RBC % 0.0 Absolute Neutrophils 6.41 Absolute Lymphocytes 1.25 Absolute Monocytes 1.05 H Absolute Eosinophils 0.18 Absolute Basophils 0.04 PT 23.5 H INR 2.5 H VBG pH 7.32 VBG pCO2 43 VBG pO2 29 VBG HCO3 22 L VBG Total CO2 21 L VBG O2 Saturation 46 VBG Base Excess -4 L VBG Lactate 1.2 Sodium Cancelled 137 Potassium Cancelled 7.6 H* Chloride Cancelled 108 H Carbon Dioxide Cancelled 23.3 Anion Gap Cancelled 5.7 BUN Cancelled 17 Creatinine Cancelled 1.74 H Est GFR (CKD-EPI 2020) Cancelled 37.94 Glucose Cancelled 55 L Calcium Cancelled 9.6 Magnesium Cancelled 1.9 Total Bilirubin Cancelled 0.3 AST Cancelled 26 ALT Cancelled 11 Alkaline Phosphatase Cancelled 97 Troponin I Cancelled 47 NT-Pro-B Natriuret Pep Cancelled 2361 H Total Protein Cancelled 8.0 Albumin Cancelled 3.9 Lipase Cancelled 29 Urine Color Yellow Urine Clarity Clear Urine pH 6.5 Ur Specific [place] 1.015 Urine Protein Negative Urine Ketones 15 H Urine Blood Trace-lysed H Urine Nitrite Negative Urine Bilirubin Negative Urine Urobilinogen 0.2 Ur Leukocyte Esterase Trace H Urine RBC >50 H Urine WBC 20-50 H Ur Epithelial Cells Rare Urine Crystals Negative Urine Bacteria Moderate Urine Casts 5-10 Hyaline Urine Mucus Negative Ur Culture Indicated? Yes Urine Glucose Negative Digoxin Cancelled 0.87 07/30/25 07/30/25 18:48 19:17 WBC RBC Hgb Hct MCV MCH MCHC RDW Plt Count MPV Immature Gran % Neutrophils % Lymphocytes % Monocytes % Eosinophils % Basophils % Nucleated RBC % Absolute Neutrophils Absolute Lymphocytes Absolute Monocytes Absolute Eosinophils Absolute Basophils PT INR VBG pH VBG pCO2 VBG pO2 VBG HCO3 VBG Total CO2 VBG O2 Saturation VBG Base Excess VBG Lactate Sodium Potassium 6.9 H* Chloride Carbon Dioxide Anion Gap BUN Creatinine Est GFR (CKD-EPI 2020) Glucose Calcium Magnesium Total Bilirubin AST ALT Alkaline Phosphatase Troponin I 44 Cancelled NT-Pro-B Natriuret Pep Total Protein Albumin Lipase Urine Color Urine Clarity Urine pH Ur Specific [place] Urine Protein Urine Ketones Urine Blood Urine Nitrite Urine Bilirubin Urine Urobilinogen Ur Leukocyte Esterase Urine RBC Urine WBC Ur Epithelial Cells Urine Crystals Urine Bacteria Urine Casts Urine Mucus Ur Culture Indicated? Urine Glucose Digoxin Last Vital Signs Temp 37.0 C 07/30/25 15:36 Pulse 112 H 07/30/25 20:10 Resp 20 07/30/25 20:10 BP 148/84 H 07/30/25 15:36 Pulse Ox 99 07/30/25 20:10 VTE Prohylaxis Risk Level: Moderate/High Risk Contraindications: None Prophylaxis: Pharmacologic Time Spent Time spent with Patient: >75 minutes Time was spent: preparing to see the patient(eg.review tests), obtaining and/or reviewing separately otained hiistory, ordering medications,tests, procedures, referring, communicating with other health healthcare corporate account director, indepentently interpreting results, counseling the patient and care coordination
[2025-07-30 21:15] LABS: Glucose 70 mg/dL (74-106); Potassium 6.5 mmol/L (3.5-5.1)
--- NOTE | 2025-07-30 21:36 | ED.GENADUL_ITS ---
Discharge Plan Disposition Patient Disposition: Admit to [facility] Condition: Critical Discharge Details Clinical Impression: Acute hyperkalemia, Hypoglycemia, Diabetes, Stenosis of left internal carotid artery, Postoperative pain, Atrial fibrillation, Chronic anticoagulation Primary Care Provider: Karen Sommers ED Provider: Tiki Whitlock Home Meds and New Rx's Prescriptions: No Action latanoprost 0.005 % drops 1 drp ophthalmic (eye) QPM Patient Comments: INSTILL ONE DROP INTO BOTH EYES AT BEDTIME Rx Instructions: both eyes metoprolol succinate 100 mg tablet extended release 24 hr 100 mg PO DAILY Qty: 90 3RF glimepiride 2 mg tablet 2 mg PO DAILY Qty: 30 3RF metformin 1,000 mg tablet 1,000 mg PO BID Qty: 180 2RF ondansetron 4 mg tablet,disintegrating 4 mg PO Q8H PRN (Reason: nausea and vomiting) Qty: 20 0RF dorzolamide-timolol 22.3-6.8 mg/mL drops 1 drp ophthalmic (eye) QAM Patient Comments: INSTILL ONE DROP INTO BOTH EYES EVERY MORNING Rx Instructions: both eyes levofloxacin 750 mg tablet 750 mg PO DAILY Rx Instructions: x 5 days metronidazole 500 mg tablet 500 mg PO TID Rx Instructions: x 6 days furosemide [Lasix] 20 mg tablet 20 mg PO DAILY digoxin [Digitek] 125 mcg (0.125 mg) tablet 125 mcg PO DAILY warfarin 1 mg tablet 1 mg PO DAILY Rx Instructions: for 7 doses, re-check INR on 07/11/25; then as directed by anticoagulation clinic based on INR acetaminophen 500 mg tablet 500 - 1,000 mg PO Q6H PRN (Reason: pain) Patient Comments: not ordered on [facility]&R med rec pravastatin 80 mg tablet 80 mg PO QPM Rx Instructions: take one tablet daily magnesium oxide 400 mg (241.3 mg magnesium) tablet 400 mg PO DAILY Saccharomyces boulardii [Daily Probiotic (S. boulardii)] 1 tab PO DAILY Multivitamin 50 Plus Tablet 1 tab PO DAILY loperamide 2 mg Capsule 2 mg PO QLOOSE PRNQty: 90 0RF spironolactone 25 mg Tablet 50 mg PO DAILY Qty: 90 0RF hydrochlorothiazide 25 mg Tablet 12.5 mg PO DAILY Qty: 90 0RF ferrous gluconate 324 mg (38 mg iron) Tablet 324 mg PO DAILY Qty: 90 0RF potassium chloride 20 mEq Tablet Extended Release 40 meq PO TID Qty: 90 0RF Patient Comments: pt states he has been taking, not on med rec from [facility]&R HPI General Date/Time Provider Initiated Documentation: 07/30/25 15:38 . HPI Narrative: This 80-year-old male with history of atrial fibrillation on chronic anticoagulation gangrenous cholecystitis with recent drain placement in June coronary artery disease presents with report of multiple complaints including anorexia for the past 3 weeks weakness, heaviness numbness and tingling to his left arm intermittent abdominal pain and some bloody drainage today in his catheter drain from his gallbladder. He denies any nausea or vomiting. He has been compliant with his medications. He is currently residing at the rehabilitation center he denies any current strength or sensation changes, chest pain, or shortness of breath. Related Data Home Medications ?Medication ?Instructions ?Recorded ?Confirmed latanoprost 0.005 % eye drops 1 drp ophthalmic (eye) Q PM 10/14/22 07/30/25 metoprolol succinate 100 mg 100 mg PO DAILY #90 tabs 0 02/28/25 07/30/25 tablet,extended release 24 hr glimepiride 2 mg tablet 2 mg PO DAILY #30 tabs 03/1207/30/25 metformin 1,000 mg tablet 1,000 mg PO BID #180 tabs 07/30/25 Held on 07/30/25. Instructions: Pt Stopped/Never Started ondansetron 4 mg disintegrating 4 mg PO Q8H PRN nausea and 06/13/25 07/30/25 tablet vomiting #20 tabs Held on 07/30/25. Instructions: Pt Stopped/Never Started Saccharomyces boulardii 1 tab PO DAILY 07/09/2507/10 acetaminophen 500 mg tablet 500 - 1,000 mg PO Q6H PRN pain 07/09/25 07/30/25 Held on 07/30/25. Instructions: Pt Stopped/Never Started digoxin 125 mcg (0.125 mg) tablet 125 mcg PO DAILY 09/0207/30/25 (Digitek) dorzolamide 22.3 mg-timolol 6.8 1 drp ophthalmic (eye) QAM 07/09/25 07/30/25 mg/mL eye drops furosemide 20 mg tablet (Lasix) 20 mg PO DAILY 2 5 07/30/25 levofloxacin 750 mg tablet 750 mg PO DAILY 07/09/25 magnesium oxide 400 mg (241.3 mg 400 mg PO DAILY 07/0907/30/25 magnesium) tablet metronidazole 500 mg tablet 500 mg PO TID 07/09/25 Held on 07/30/25. Instructions: Pt Stopped/Never Started [id number] 1 tab PO DAILY 07/09/25 1 09/30/24 tablet (Multivitamin 50 Plus tablet) pravastatin 80 mg tablet 80 mg PO QPM 07/09/25 warfarin 1 mg tablet 1 mg PO DAILY 07/09/2507/30 Held on 07/16/25. Instructions: Resume on 07/17/25. HOLD UNTIL INR NORMALIZES ferrous gluconate 324 mg (38 mg 324 mg PO DAILY #90 ta bs 07/16/25 07/30/25 iron) tablet hydrochlorothiazide 25 mg tablet 12.5 mg (1/2 x 25 mg) PO DAILY #90 07/16/25 07/30/25 tabs loperamide 2 mg capsule 2 mg PO QLOOSE PRN #90 caps 07/16/25 07/30/25 Held on 07/30/25. Instructions: Pt Stopped/Never Started potassium chloride 20 mEq 40 meq (2 x 20 mEq) PO TID # 90 tabs 07/16/25 07/30/25 tablet,extended release Held on 07/30/25. Instructions: Pt Stopped/Never Started spironolactone 25 mg tablet 50 mg (2 x 25 mg) PO DAILY #90 tabs 07/16/25 07/30/25 Previous Rx's ?Medication ?Instructions ?Recorded metoprolol succinate 100 mg 100 mg PO DAILY #90 tabs 0 02/28/25 tablet,extended release 24 hr glimepiride 2 mg tablet 2 mg PO DAILY #30 tabs 03/12 metformin 1,000 mg tablet 1,000 mg PO BID #180 tabs Held on 07/30/25. Instructions: Pt Stopped/Never Started ondansetron 4 mg disintegrating 4 mg PO Q8H PRN nausea and 06/13/25 tablet vomiting #20 tabs Held on 07/30/25. Instructions: Pt Stopped/Never Started ferrous gluconate 324 mg (38 mg 324 mg PO DAILY #90 ta bs 07/16/25 iron) tablet hydrochlorothiazide 25 mg tablet 12.5 mg (1/2 x 25 mg) PO DAILY #90 07/16/25 tabs loperamide 2 mg capsule 2 mg PO QLOOSE PRN #90 caps 07/16/25 Held on 07/30/25. Instructions: Pt Stopped/Never Started potassium chloride 20 mEq 40 meq (2 x 20 mEq) PO TID # 90 tabs 07/16/25 tablet,extended release Held on 07/30/25. Instructions: Pt Stopped/Never Started spironolactone 25 mg tablet 50 mg (2 x 25 mg) PO DAILY #90 tabs 07/16/25 Allergies Allergy/AdvReac Type Severity Reaction Status Date / Time No Known Allergies Allergy Verified 07/30/25 20:07 General Stated Complaint: GenMedical ANAMIKA: 3 Exam Narrative Exam Narrative: 80-year-old male, alert and oriented, chronically ill in appearance, completely nonfocal neurological assessment, negative [id number] negative heel leonard, negative pronator drift, strength and sensation intact all 4 extremities, oropharynx patent uvula midline cranial nerves II through XII intact some tenderness in the right upper and lower quadrants with some scant pink drainage noted in catheter drain abdomen, lungs clear to auscultation irregularly irregular heart rhythm no murmur Course Vital Signs Vital signs: Vital Signs Temperature 37.0 C 07/30/25 15:29 Pulse 112 H 07/30/25 15:29 Respiratory Rate 16 07/30/25 15:29 Blood Pressure 148/84 H 07/30/25 15:29 Pulse Oximetry 99 07/30/25 15:29 Temperature 37.0 C 07/30/25 15:36 Temperature Source Oral 07/30/25 15:36 Pulse 87 07/30/25 21:31 Pulse 106 H 07/30/25 21:31 Respiratory Rate 21 07/30/25 21:31 Respiratory Effort Normal, Non-Labored 07/30/25 20:49 Respiratory Depth Normal 07/30/25 20:49 Respiratory Pattern Normal 07/30/25 20:32 Blood Pressure 130/64 07/30/25 21:31 Blood Pressure Mean 82 07/30/25 21:31 Blood Pressure Position Sitting 07/30/25 15:36 Pulse Oximetry 100 07/30/25 20:20 Oxygen Delivery Method Room Air 07/30/25 15:36 Oxygen Flow Rate 0 07/30/25 15:36 Pain Level 0 07/30/25 15:36 Lab/Test Results Lab/Test Results: 07/30/25 18:20 Urine - Reflex from Ua Urine Culture - Pending Laboratory Tests Range/Units 07/30/25 07/30/25 07/30/25 16:15 17:12 18:20 WBC (4.4-10.8) 10^3/uL 8.98 RBC (4.36-5.78) 10^6/uL 3.76 L Hgb (13.5-17.5) g/dL 11.6 L Hct (40.0-50.0) % 35.4 L MCV (80-95) fL 94 MCH (27.0-33.0) pg 30.9 MCHC (32.0-36.0) % 32.8 RDW (11.8-14.1) % 16.6 H Plt Count (130-400) 10^3/uL 192 MPV (8.0-11.0) fL 9.4 Immature Gran % % 0.6 Neutrophils % % 71.4 Lymphocytes % % 13.9 Monocytes % % 11.7 Eosinophils % % 2.0 Basophils % % 0.4 Nucleated RBC % (0.0-0.3) % 0.0 Absolute Neutrophils (1.2-6.7) 10^3/uL 6.41 Absolute Lymphocytes (1.2-3.4) 10^3/uL 1.25 Absolute Monocytes (0.1-0.8) 10^3/uL 1.05 H Absolute Eosinophils (0.0-0.7) 10^3/uL 0.18 Absolute Basophils (0.0-0.2) 10^3/uL 0.04 PT (9.1-11.1) sec 23.5 H INR (0.9-1.1) 2.5 H VBG pH (7.31-7.41) 7.32 VBG pCO2 (41-51) mmHg 43 VBG pO2 mmHg 29 VBG HCO3 (23-28) mmol/L 22 L VBG Total CO2 (24-29) mmol/L 21 L VBG O2 Saturation % 46 VBG Base Excess (-2-3) mmol/L -4 L VBG Lactate (<or=2.0) mmol/L 1.2 Sodium Cancelled 137 Potassium Cancelled 7.6 H* Chloride Cancelled 108 H Carbon Dioxide Cancelled 23.3 Anion Gap Cancelled 5.7 BUN Cancelled 17 Creatinine Cancelled 1.74 H Est GFR (CKD-EPI 2020) Cancelled 37.94 Glucose Cancelled 55 L Calcium Cancelled 9.6 Magnesium Cancelled 1.9 Total Bilirubin Cancelled 0.3 AST Cancelled 26 ALT Cancelled 11 Alkaline Phosphatase Cancelled 97 Troponin I Cancelled 47 NT-Pro-B Natriuret Pep Cancelled 2361 H Total Protein Cancelled 8.0 Albumin Cancelled 3.9 Lipase Cancelled 29 Urine Color (Yellow) Yellow Urine Clarity (Clear) Clear Urine pH (5-8) 6.5 Ur Specific [place] (1.005-1.025) 1.015 Urine Protein (Neg-Trace) mg/dL Negative Urine Ketones (Negative) mg/dL 15 H Urine Blood (Negative) Trace-lysed H Urine Nitrite (Negative) Negative Urine Bilirubin (Negative) Negative Urine Urobilinogen (Up to 0.2) mg/dL 0.2 Ur Leukocyte Esterase (Negative) Trace H Urine RBC (0-2) HPF >50 H Urine WBC (0-5) HPF 20-50 H Ur Epithelial Cells (Negative) HPF Rare Urine Crystals (Negative) HPF Negative Urine Bacteria (Negative) HPF Moderate Urine Casts (Negative) LPF 5-10 Hyaline Urine Mucus (Negative) Negative Ur Culture Indicated? Yes Urine Glucose (Negative) mg/dL Negative Digoxin Cancelled 0.87 Range/Units 07/30/25 07/30/25 07/30/25 18:48 19:17 20:48 WBC (4.4-10.8) 10^3/uL RBC (4.36-5.78) 10^6/uL Hgb (13.5-17.5) g/dL Hct (40.0-50.0) % MCV (80-95) fL MCH (27.0-33.0) pg MCHC (32.0-36.0) % RDW (11.8-14.1) % Plt Count (130-400) 10^3/uL MPV (8.0-11.0) fL Immature Gran % % Neutrophils % % Lymphocytes % % Monocytes % % Eosinophils % % Basophils % % Nucleated RBC % (0.0-0.3) % Absolute Neutrophils (1.2-6.7) 10^3/uL Absolute Lymphocytes (1.2-3.4) 10^3/uL Absolute Monocytes (0.1-0.8) 10^3/uL Absolute Eosinophils (0.0-0.7) 10^3/uL Absolute Basophils (0.0-0.2) 10^3/uL PT (9.1-11.1) sec INR (0.9-1.1) VBG pH (7.31-7.41) VBG pCO2 (41-51) mmHg VBG pO2 mmHg VBG HCO3 (23-28) mmol/L VBG Total CO2 (24-29) mmol/L VBG O2 Saturation % VBG Base Excess (-2-3) mmol/L VBG Lactate (<or=2.0) mmol/L Sodium Potassium 6.9 H* 6.5 H* Chloride Carbon Dioxide Anion Gap BUN Creatinine Est GFR (CKD-EPI 2020) Glucose 70 L Calcium Magnesium Total Bilirubin AST ALT Alkaline Phosphatase Troponin I 44 Cancelled NT-Pro-B Natriuret Pep Total Protein Albumin Lipase Urine Color (Yellow) Urine Clarity (Clear) Urine pH (5-8) Ur Specific [place] (1.005-1.025) Urine Protein (Neg-Trace) mg/dL Urine Ketones (Negative) mg/dL Urine Blood (Negative) Urine Nitrite (Negative) Urine Bilirubin (Negative) Urine Urobilinogen (Up to 0.2) mg/dL Ur Leukocyte Esterase (Negative) Urine RBC (0-2) HPF Urine WBC (0-5) HPF Ur Epithelial Cells (Negative) HPF Urine Crystals (Negative) HPF Urine Bacteria (Negative) HPF Urine Casts (Negative) LPF Urine Mucus (Negative) Ur Culture Indicated? Urine Glucose (Negative) mg/dL Digoxin Medical Decision Making Results: CT a brain and neck were ordered and showed 70% stenosis in the left internal carotid artery, no other acute abnormality, CT abdomen and pelvis shows a 1.4 x 1.2 cm hypodense region in the spleen, there is also an abscess noted near the gallbladder fossa which has 3 cm decreased from 1217 CT abdomen with [facility]. Potassium was found to be 7.6 CBC shows improving hemoglobin from 9.9-11.6 creatinine is 1.74 looks like patient's baseline is around 1.2 so he does have a bit of an NASRA. Secondary to history of CHF, will give p.o. fluids. INR of 2.5 glucose initially was found to be 55 urinalysis shows 20-50 white blood cells greater than 50 red blood cells no evidence of stone, digoxin level 0.87 Critical care time: 60 minutes of critical care time secondary to acute hyperkalemia requiring IV insulin administration, Lokelma, telemetry monitoring, diagnostic interpretation and review of labs, repeat potassium, glucose monitoring with acute hypoglycemia requiring dextrose intravenously, admission to the hospital Chronically ill 80-year-old male presenting with a variety of complaints. The most pressing issue is the hyperkalemia at 7.6 without obvious acute EKG changes. Secondary to critical hyperkalemia, patient received 10 units of IV insulin, 1 g of IV calcium gluconate, Lokelma 10 mg and remain on telemetry monitoring. Patient's glucose was found to be 55 so the D50 was given prior to administration of insulin. Unfortunately had to hold the on patient consuming p.o. secondary to CT interpretation. After this patient was given juice and food. His glucose fell 3 times into the 50s at 930 last glucose was 93. He has a dextrose 10% drip at 70 cc/h. He is able to take p.o. but has little interest in food or fluid so may need additional IV supplementation of glucose. We will continue to check his glucose every hour secondary to risk of hypoglycemia in this diabetic patient. Repeat potassium is 6.5, spoke with the hospitalist about ordering another insulin bolus however he is asked us to hold off and will give albuterol and recheck potassium. On the monitor, there have been no QTc or EKG changes in lead II patient's remained alert and oriented. I discussed the CT findings with Dr. Peoples, surgeon at [facility] covering for patient's surgeon and he does not recommend any additional intervention at this time. Patient is on Levaquin and metronidazole. Dr. Peoples indicated that even if patient was at [facility] they would not change his medications or perform intervention. Dr. Mcgill is asked that I speak with our surgeon as the patient is a recent surgical admission and Dr. Vick does not feel like patient needs emergent surgical intervention. Patient is being admitted predominantly secondary to acute hyperkalemia likely in the presence of spironolactone initiation on 07 16. We will hold spironolactone at this time. There is no indication for need for urgent dialysis. Patient is agreeable to admission to our facility at this time. He does have 20-50 white blood cells in his urinalysis, I will not order additional antibiotics as he is on broad- spectrum coverage and asymptomatic from a urinary standpoint at this time. - Interestingly at approximately 915, patient made us aware that his episodes of paresthesias yesterday were thought to be attributed to the tightness of the suspenders he was wearing, he states that when they were loosened the paresthesias improved. He states he forgot to mention this initially. He is currently asymptomatic from a neurological standpoint. Although he may benefit from outpatient vascular consultation for the ICA stenosis on the left. Quality:SDOH Health Related Social Needs: Health related social needs daily activities Health related social needs details Pt declines help a t this time PFSH All Active Problems (Updated 07/30/25 @ 21:51 by DESTINY Castaneda) Chronic anticoagulation (Acute) Atrial fibrillation (Chronic) Postoperative pain (Acute) Stenosis of left internal carotid artery (Acute) Diabetes (Chronic) Hypoglycemia (Acute) Acute hyperkalemia (Acute) Abnormal CT of liver (Acute) Atrial fibrillation (Chronic) Carotid artery stenosis (Acute) Hyperkalemia (Acute) Left upper extremity numbness (Acute) Weakness (Acute) Anemia (Chronic) Chronic atrial fibrillation (Chronic) Acute gangrenous cholecystitis (Acute) Supratherapeutic INR (Acute) History of mechanical aortic valve replacement (Acute) Cholelithiasis (Acute) NASRA (acute kidney injury) (Acute) Elevated troponin (Acute) Hypotension (Acute) Elevated INR (Acute) Hypocalcemia (Acute) Aortic stenosis, severe (Chronic) with EF 50-55% on echo of 07/2021--s/p TAVR Gastroenteritis (Acute) Gram negative sepsis (Acute) Bacterial gastroenteritis (Acute) History of bladder cancer (Chronic) Papillary urothelial carcinoma, non invasive, 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: recurrence papillary lesion dome bladder; : tx with excision and Mytomycin-C intra bladder 12/2021- no sign of recurrence, followed by Urology at [facility] Coronary artery disease (Chronic) Atrial fibrillation (Chronic) Chronic anticoagulation (Chronic) 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) 12/2021, microalbuminuria Essential hypertension (Chronic) Hyperlipidemia (Chronic) Osteoarthritis of left knee (Chronic) Class 2 severe obesity with serious comorbidity and body mass index (BMI) of 38.0 to 38.9 in adult (Chronic) Primary osteoarthritis of both knees (Chronic) Tendonitis of left rotator cuff (Chronic) Tendinitis of long head of biceps brachii of left shoulder (Chronic) Arthritis of right knee (Chronic) 80 mg Depo-Medrol injection: 06/24/2023 Primary osteoarthritis of left knee (Chronic) 80 mg Depo-Medrol injection: 06/24/2023 Medical History Urothelial carcinoma of bladder (2017) Papillary urothelial carcinoma, non invasive, 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 04/16/14; X - 2018-3 polyps, tubular adenomas, last of which had some early dysplastic features Patient due 2021-patient was called 12/2021 with attempt to set up colonoscopy. Patient wished to defer at this point. He makes an informed decision. 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) Family History Mother , 92 Heart disease Father , 76 Heart disease Sister , 76 Stroke Brother Diabetes Essential hypertension Stroke Maternal Grandfather Heart disease Paternal Grandfather Heart disease Maternal Grandmother Heart disease Paternal Grandmother Heart disease Brother , 68 Stroke Other Acute ill-defined cerebrovascular disease Social History Smoking/Tobacco Use Status: Former Tobacco Use tobacco type: cigarettes Quit Date: 08/09/86 Pack-years: 25 Tobacco: How many years used: 25 Second Hand Exposure: Yes Smoking risk assessment performed?: Yes Alcohol Intake: current Alcohol Intake frequency: holidays/special occasions only Alcohol type: wine and hard liquor Drug use: Never Substance use type: does not use Adopted: No Caregiver/Support person: No Foster care: No Household members: spouse Housing: house Number of Children: 0 Communication Needs: None Education Level: high school Do you need help understanding health information?: Rarely current occupation: retired Pets and animals: Yes Pets and animals: cat(s) Sexually active: No Do you think of yourself as: straight/heterosexual Current gender identity: male What is your relationship status?: How often do you talk on the phone with friends or family?: once per week How often do you get together with friends or relatives?: decline to answer How often do you attend yarsani or worship services?: decline to answer Do you belong to any clubs or organized social groups?: no Panel score (0-1 are the most socially isolated patients): 1 What type of physical activity do you participate in: other Duration: 15-30 minutes/day Frequency: 3-4 times per week O[employer]da/[employer]: No preference Special oneyda needs: No Agree to transfusion: Yes Seatbelt use: always Helmet use: Yes Helmet use: always Drive intox or ride w/intox driver recruiter: No Working smoke detector in home: Yes Carbon monox detector in home: Yes Firearms in home: Yes Firearms unloaded and locked: No Do you feel safe at home: Yes Do you feel safe in your relationship?: Yes Victim of physical abuse: No Victim of emotional abuse: No Victim of sexual abuse: No
[2025-07-30 21:41] LABS: Lab Add On Test DONE
[2025-07-30] MEDS: Albuterol 2.5 MG/3 ML INH SOLN VIAL UPD (21:43)
[2025-07-30 22:01] LABS: Creatine Kinase < 15 U/L (46-171)
[2025-07-30 22:01] LABS: Hemoglobin A1C 5.3 % (<5.7)
[2025-07-31] VITALS (7 sets, daily range): BP systolic 102–130; BP diastolic 60–80; PULSE 73–120; RESP 17–18; TEMP 36.2–36.8; O2SAT 95–100
[2025-07-31 00:34] LABS: ALT 10 U/L (10-49); AST 21 U/L (<34); Albumin 3.8 g/dL (3.2-5.0); Alkaline Phosphatase 100 U/L (46-116); Anion Gap 7.8 mmol/L (3-11); BUN 15 mg/dL (9-23); Bilirubin, Total 0.3 mg/dL (0.2-1.2); CO2 21.2 mmol/L (20.0-31.0); Calcium 9.5 mg/dL (8.3-10.6); Chloride 105 mmol/L (98-107); Glucose 162 mg/dL (74-106); Potassium 6.1 mmol/L (3.5-5.1); Sodium 134 mmol/L (136-145); Total Protein 7.7 g/dL (5.7-8.2)
[2025-07-31] MEDS: Sodium Zirconium Cyclosilicate 10 GM PKT PO ×2 (00:39→06:31)
[2025-07-31] MEDS: Normal Saline 1,000 ML 75 ML IV (00:39)
[2025-07-31] MEDS: Albuterol 2.5 MG/3 ML INH SOLN VIAL 10 MG UPD ×2 (01:42→05:52)
--- NOTE | 2025-07-31 03:24 | W.PC.ACHO ---
Registration Status: ADM [place] Primary Language: Preferred Language: Chinese ED Information & Data Chief Complaint GenMedical 07/30/25 21:45 Triage Note Pt reports decreased 07/30/25 15:29 appetite for 3 weeks , only ate half a cheese sandwich yesterday, feeling weak, reports yesterday 3 episodes of heaviness/ numbness/ tingling in left arm lasting 15 minutes each time- having another episode currently for the first time today Medical / Surgical History (Last Reviewed 07/09/25 @ 23:08 by Omer Glynn) Urothelial carcinoma of bladder (2017) Tubular adenoma of colon (Last Reviewed 07/09/25 @ 23:08 by Omer Glynn) S/P colonoscopy 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) Most Recent Vital Signs Temperature 36.1 C L 07/30/25 22:00 Temperature Source Oral 07/30/25 15:36 Pulse 97 H 07/31/25 01:42 Pulse Rhythm Irregular 07/30/25 22:00 Pulse 101 H 07/30/25 21:50 Respiratory Rate 18 07/30/25 22:00 Respiratory Effort Normal 07/30/25 22:00 Respiratory Depth Normal 07/30/25 22:00 Respiratory Pattern Normal 07/30/25 20:32 Blood Pressure 117/67 07/30/25 22:00 Blood Pressure Mean 93 07/30/25 21:46 Blood Pressure Position Sitting 07/30/25 15:36 Pulse Oximetry 98 07/30/25 22:00 Oxygen Delivery Method Room Air 07/30/25 22:00 Oxygen Flow Rate 0 07/30/25 22:00 Pain Level 0 07/30/25 22:00 Allergies No Known Allergies Allergy (Verified 07/30/25 20:07) Precautions Isolation Standard precaution 07/30/25 15:36 Active Medications Generic Name Dose Route Start Last Admin Trade Name Freq PRN Reason Stop Dose Admin Albuterol Sulfate 10 mg 07/31/25 02:00 07/31/25 01:42 Albuterol 2.5 Mg/3 Ml Inh Soln Vial UPD 10 mg Q4H STUART Administration Sodium Chloride 1,000 mls @ 75 mls/hr 07/30/25 21:15 07/31/25 00:39 Saline 1000ml Bag IV 75 mls/hr INFUSION STUART Administration Sodium Chloride 0 ml 07/30/25 17:30 07/30/25 17:34 Normal Saline Flush 10 Ml Syr IVP 10 ml PRN PRN Administration Sodium Chloride 50 ml 07/30/25 17:30 07/30/25 17:31 Normal Saline - Diluent 50 Ml Vial IJ 50 ml DIRECTED STUART Administration Sodium Chloride 0 ml 07/30/25 17:35 07/30/25 17:38 Normal Saline Flush 10 Ml Syr IVP 10 ml PRN PRN Administration Sodium Chloride 50 ml 07/30/25 17:45 07/30/25 17:37 Normal Saline - Diluent 50 Ml Vial IJ 50 ml DIRECTED STUART Administration Sodium Zirconium Cyclosilicate 10 gm 07/30/25 22:30 07/31/25 00:39 Sodium Zirconium Cyclosilicate 10 Gm Pkt PO 10 gm TID@0630,1430,2230 STUART Administration IV IV Catheter Type [Right Saline Lock Antecubital] IV Catheter Gauge [Right 20 Antecubital] Diet Orders Category Date Time Status Regular/Normal [DIET] Nutrition 07/31/25 Breakfast Active Diagnostics 07/31/25 07/31/25 07/30/25 Range/Units 05:35 00:04 20:48 WBC Pending (4.4-10.8) 10^3/uL RBC Pending (4.36-5.78) 10^6/uL Hgb Pending (13.5-17.5) g/dL Hct Pending (40.0-50.0) % MCV Pending (80-95) fL MCH Pending (27.0-33.0) pg MCHC Pending (32.0-36.0) % RDW Pending (11.8-14.1) % Plt Count Pending (130-400) 10^3/uL MPV Pending (8.0-11.0) fL Immature Gran % Pending % Neutrophils % Pending % Lymphocytes % Pending % Monocytes % Pending % Eosinophils % Pending % Basophils % Pending % Nucleated RBC % (0.0-0.3) % Absolute Neutrophils Pending (1.2-6.7) 10^3/uL Absolute Lymphocytes Pending (1.2-3.4) 10^3/uL Absolute Monocytes Pending (0.1-0.8) 10^3/uL Absolute Eosinophils Pending (0.0-0.7) 10^3/uL Absolute Basophils Pending (0.0-0.2) 10^3/uL PT Pending (9.1-11.1) sec INR Pending (0.9-1.1) VBG pH (7.31-7.41) VBG pCO2 (41-51) mmHg VBG pO2 mmHg VBG HCO3 (23-28) mmol/L VBG Total CO2 (24-29) mmol/L VBG O2 Saturation % VBG Base Excess (-2-3) mmol/L VBG Lactate (<or=2.0) mmol/L Sodium Pending 134 L Potassium Pending 6.1 H* 6.5 H* Chloride Pending 105 Carbon Dioxide Pending 21.2 Anion Gap Pending 7.8 BUN Pending 15 Creatinine Pending 1.55 H Est GFR (CKD-EPI 2020) Pending 43.35 Glucose Pending 162 H 70 L Hemoglobin A1c (<5.7) % Calcium Pending 9.5 Magnesium Total Bilirubin Pending 0.3 AST Pending 21 ALT Pending 10 Alkaline Phosphatase Pending 100 Creatine Kinase (46-171) U/L Troponin I NT-Pro-B Natriuret Pep Total Protein Pending 7.7 Albumin Pending 3.8 Lipase Urine Color (Yellow) Urine Clarity (Clear) Urine pH (5-8) Ur Specific Welches (1.005-1.025) Urine Protein (Neg-Trace) mg/dL Urine Ketones (Negative) mg/dL Urine Blood (Negative) Urine Nitrite (Negative) Urine Bilirubin (Negative) Urine Urobilinogen (Up to 0.2) mg/dL Ur Leukocyte Esterase (Negative) Urine RBC (0-2) HPF Urine WBC (0-5) HPF Ur Epithelial Cells (Negative) HPF Urine Crystals (Negative) HPF Urine Bacteria (Negative) HPF Urine Casts (Negative) LPF Urine Mucus (Negative) Ur Culture Indicated? Urine Glucose (Negative) mg/dL Digoxin Add-On Test Request 07/30/25 07/30/25 07/30/25 Range/Units 19:17 18:48 18:20 WBC (4.4-10.8) 10^3/uL RBC (4.36-5.78) 10^6/uL Hgb (13.5-17.5) g/dL Hct (40.0-50.0) % MCV (80-95) fL MCH (27.0-33.0) pg MCHC (32.0-36.0) % RDW (11.8-14.1) % Plt Count (130-400) 10^3/uL MPV (8.0-11.0) fL Immature Gran % % Neutrophils % % Lymphocytes % % Monocytes % % Eosinophils % % Basophils % % Nucleated RBC % (0.0-0.3) % Absolute Neutrophils (1.2-6.7) 10^3/uL Absolute Lymphocytes (1.2-3.4) 10^3/uL Absolute Monocytes (0.1-0.8) 10^3/uL Absolute Eosinophils (0.0-0.7) 10^3/uL Absolute Basophils (0.0-0.2) 10^3/uL PT (9.1-11.1) sec INR (0.9-1.1) VBG pH (7.31-7.41) VBG pCO2 (41-51) mmHg VBG pO2 mmHg VBG HCO3 (23-28) mmol/L VBG Total CO2 (24-29) mmol/L VBG O2 Saturation % VBG Base Excess (-2-3) mmol/L VBG Lactate (<or=2.0) mmol/L Sodium Potassium 6.9 H* Chloride Carbon Dioxide Anion Gap BUN Creatinine Est GFR (CKD-EPI 2020) Glucose Hemoglobin A1c (<5.7) % Calcium Magnesium Total Bilirubin AST ALT Alkaline Phosphatase Creatine Kinase < 15 L (46-171) U/L Troponin I Cancelled 44 NT-Pro-B Natriuret Pep Total Protein Albumin Lipase Urine Color Yellow (Yellow) Urine Clarity Clear (Clear) Urine pH 6.5 (5-8) Ur Specific Welches 1.015 (1.005-1.025) Urine Protein Negative (Neg-Trace) mg/dL Urine Ketones 15 H (Negative) mg/dL Urine Blood Trace-lysed H (Negative) Urine Nitrite Negative (Negative) Urine Bilirubin Negative (Negative) Urine Urobilinogen 0.2 (Up to 0.2) mg/dL Ur Leukocyte Esterase Trace H (Negative) Urine RBC >50 H (0-2) HPF Urine WBC 20-50 H (0-5) HPF Ur Epithelial Cells Rare (Negative) HPF Urine Crystals Negative (Negative) HPF Urine Bacteria Moderate (Negative) HPF Urine Casts 5-10 Hyaline (Negative) LPF Urine Mucus Negative (Negative) Ur Culture Indicated? Yes Urine Glucose Negative (Negative) mg/dL Digoxin Add-On Test Request DONE 07/30/25 07/30/25 Range/Units 17:12 16:15 WBC 8.98 (4.4-10.8) 10^3/uL RBC 3.76 L (4.36-5.78) 10^6/uL Hgb 11.6 L (13.5-17.5) g/dL Hct 35.4 L (40.0-50.0) % MCV 94 (80-95) fL MCH 30.9 (27.0-33.0) pg MCHC 32.8 (32.0-36.0) % RDW 16.6 H (11.8-14.1) % Plt Count 192 (130-400) 10^3/uL MPV 9.4 (8.0-11.0) fL Immature Gran % 0.6 % Neutrophils % 71.4 % Lymphocytes % 13.9 % Monocytes % 11.7 % Eosinophils % 2.0 % Basophils % 0.4 % Nucleated RBC % 0.0 (0.0-0.3) % Absolute Neutrophils 6.41 (1.2-6.7) 10^3/uL Absolute Lymphocytes 1.25 (1.2-3.4) 10^3/uL Absolute Monocytes 1.05 H (0.1-0.8) 10^3/uL Absolute Eosinophils 0.18 (0.0-0.7) 10^3/uL Absolute Basophils 0.04 (0.0-0.2) 10^3/uL PT 23.5 H (9.1-11.1) sec INR 2.5 H (0.9-1.1) VBG pH 7.32 (7.31-7.41) VBG pCO2 43 (41-51) mmHg VBG pO2 29 mmHg VBG HCO3 22 L (23-28) mmol/L VBG Total CO2 21 L (24-29) mmol/L VBG O2 Saturation 46 % VBG Base Excess -4 L (-2-3) mmol/L VBG Lactate 1.2 (<or=2.0) mmol/L Sodium 137 Cancelled Potassium 7.6 H* Cancelled Chloride 108 H Cancelled Carbon Dioxide 23.3 Cancelled Anion Gap 5.7 Cancelled BUN 17 Cancelled Creatinine 1.74 H Cancelled Est GFR (CKD-EPI 2020) 37.94 Cancelled Glucose 55 L Cancelled Hemoglobin A1c 5.3 (<5.7) % Calcium 9.6 Cancelled Magnesium 1.9 Cancelled Total Bilirubin 0.3 Cancelled AST 26 Cancelled ALT 11 Cancelled Alkaline Phosphatase 97 Cancelled Creatine Kinase (46-171) U/L Troponin I 47 Cancelled NT-Pro-B Natriuret Pep 2361 H Cancelled Total Protein 8.0 Cancelled Albumin 3.9 Cancelled Lipase 29 Cancelled Urine Color (Yellow) Urine Clarity (Clear) Urine pH (5-8) Ur Specific Welches (1.005-1.025) Urine Protein (Neg-Trace) mg/dL Urine Ketones (Negative) mg/dL Urine Blood (Negative) Urine Nitrite (Negative) Urine Bilirubin (Negative) Urine Urobilinogen (Up to 0.2) mg/dL Ur Leukocyte Esterase (Negative) Urine RBC (0-2) HPF Urine WBC (0-5) HPF Ur Epithelial Cells (Negative) HPF Urine Crystals (Negative) HPF Urine Bacteria (Negative) HPF Urine Casts (Negative) LPF Urine Mucus (Negative) Ur Culture Indicated? Urine Glucose (Negative) mg/dL Digoxin 0.87 Cancelled Add-On Test Request 07/30/25 18:20 Urine Culture - Pending Urine - Reflex from Ua [id number] Documentation Fingerstick Glucose Start: 07/30/25 00:11 Freq: .Q6H Status: Active Protocol: Activity Type Activity Date Activity User E-sign Co-sign Detail Recorded Client Recorded Date Recorded By Document 07/30/25 22:58 FAYE DAEMON(3) [id number] 07/30/25 22:58 FAYE DAEMON(4) Intake and Output - 24 Hour Total 07/30/25 15:12 thru 07/31/25 02:34 Intake Total 340.333 Output Total 700 Balance -359.667 Weight 96 kg Intake: IV 340.333 Output: Urine 700 Other: Urine Color Yellow Urine Appearance Clear Urine Odor Normal # Bowel Movements 1 Falls Risk Assessment History of Falls No History 07/30/25 22:00 Contributing Factors No Factors 07/30/25 17:34 Ambulatory Aids Independent 07/30/25 17:34 Tubes/Lines None 07/30/25 17:34 Gait Evaluation No gait disturbance 07/30/25 17:34 Cognition No cognitive impairment 07/30/25 17:34 Fall Total Score 0 07/30/25 22:00 Level of Risk Standard/Low Risk 07/30/25 22:00 Problems (Last Reviewed 07/09/25 @ 23:08 by Omer Glynn) Abnormal CT of liver (Acute) Carotid artery stenosis (Acute) Hyperkalemia (Acute) Left upper extremity numbness (Acute) Acute gangrenous cholecystitis (Acute) NASRA (acute kidney injury) (Acute) Aortic stenosis, severe (Chronic) History of bladder cancer (Chronic) Atrial fibrillation (Chronic) Chronic anticoagulation (Chronic) 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 Additional Patient Information/Comments: Patient admitted at 2200 from ER, with Hyperkalemia. Placed on telemetry . Oriented to room. Report Received From: JAY Montes
[2025-07-31 07:31] LABS: Abs Immature Grans 0.04 10^3/uL (0.0-0.06); HCT 33.0 % (40.0-50.0); HGB 10.4 g/dL (13.5-17.5); Immature Grans % 0.5 %; MCH 29.5 pg (27.0-33.0); MCHC 31.5 % (32.0-36.0); MCV 94 fL (80-95); MPV 9.5 fL (8.0-11.0); Platelet Count 143 10^3/uL (130-400); RBC 3.53 10^6/uL (4.36-5.78); RDW 16.8 % (11.8-14.1); RDW-SD 56.5 fL; WBC 8.85 10^3/uL (4.4-10.8)
--- NOTE | 2025-07-31 07:39 | PDOC.CMIN ---
Date of service: 07/31/25 Time of Service: 12:41 Care Management Initial Assmt Initial Assessment Reason for Hospitalization: Hyperkalemia Functional Status/Living Situation Patient Presentation: Alvarado was awake and sitting up when CM met with him. As consistent was previous interactions, he was pleasant and engaged appropriately in conversation. He is known to this advertising copywriter from prior hospitalizations. Alvarado presented to the Emergency Department with multiple complaints, including anorexia for the past three weeks, weakness, heaviness, numbness, and tingling in the left arm, intermittent abdominal pain, and new bloody drainage noted today from the gallbladder catheter drain. He was found to have hyperkalemia. Alvarado typically resides at home with his in [place]; however, the couple is currently staying at [facility] for STR. Today, Alvarado reports overall improvement in his condition. He stated that he ambulated with physical therapy this morning and initially felt nauseous during the session, but reports that his stomach discomfort has since improved. Alvarado shared that his primary goal is to spend [place] with his , Didi. He expressed a deep love for his , which led to a discussion regarding long-term planning. Alvarado acknowledged that he will require increased support following completion of his rehabilitation stay. CM reviewed available community resources with him. CM has provided a clinical update to the internet sales director and Admissions at [facility] via email. CM will continue to follow. Town of Residence: [place] but currently at [facility] for STR Resides with: Spouse (Didi Adams) Significant Other/Family: Local Natural Supports: Neighbors: Marisol and Rogers Cardona: lives in [place] Nephew José: lives in [place]. Friend Mateus Alonso: lives in [place] and would have his bag packed and ready to come, if he needed him. Patient is unsure what his phone number is. Employment Status: Retired Instrumental Activities of Daily Living (ADLs): Requires support Medications Medication Management: No Issues/Barriers identified Physical Functioning/Mobility Assistive Device: Walker Advance Directives Advance Directives: Do you have an Advance Directive: Y 08/26/23, 13:31 AD On File at [facility]: Y 08/26/23, 13:31 Date Asked 05/22/25 05/22/25, 13:55 AD Date Reviewed 07/30/25 07/30/25, 22:32 COLST On File at [facility] COLST Date Scanned Code Status Resuscitation Status Full Code Portal Pt does not currently have a portal and education provided: Yes Insurance Coverage/Financial Issues Insurance: Medicare Part A & B - [id number] Care Team Visit Care Team Role Provider Type Karen Sommers NP Primary Care Provider NURSE PRACTITIONER InPatient Delfino Gu Other Providers OTHER DESTINY Castaneda Emergency Provider PHYSICIANS GLASS TECHNICIAN Luis Mcgill MD Admit Provider [facility] STAFF PHYSICIAN Attending Provider Discharge Potential Discharge Needs: PT Evaluation and PCP F/U Appt Anticipated Barriers to Discharge: None Identified Patient/Family Education Needs: Review discharge instructions, discuss Ask Me Three Transportation: RCT RCT Transportation: Wheel chair van Plan: Anticipate Alvarado will be discharged back to [facility] for STR. It is recommended he follow up with community providers, and continue per his discharge plan of care. He will transport via RCT private vehicle as recommended by PT. CM will follow. Social Determinants of Health Screening Social Determinants of health last assessed in clinic: 07/31/25 Will the Patient Participate in the Screening?: Yes Do you worry about having a steady place to live?: yes What is your living situation today?: I have housing today, but am worried about losing it Problems where you live: no known problems In the past 12 months, have you had to go without electric, gas, oil or water in your home?: no 1. Within the past 12 months, we worried whether our food would run out before we got money to buy more.: Never true 2. Within the past 12 months, the food we bought just didn't last and we didn't have money to get more.: Never true Has lack of transportation kept you from medical appointments or from doing things needed for daily living?: no Has anyone in your life made you feel unsafe or unsupported?: no How hard is it for you to pay for the very basics like food, housing, medical care, and heating? Would you say it is:: Not hard at all Do you want help finding or keeping work or a job?: I do not need or want help If for any reason you need help with day-to-day activities such as bathing, preparing meals, shopping, managing finances, etc., do you get the help you need?: I get all the help I need How often do you feel lonely or isolated from those around you?: Never Do you speak a language other than Divehi at home?: No Does the patient want assistance with any of the above?: No Health Related Social Needs Health related social needs: housing instability, housed, with risk of homelessness (Z59.811) Health related social needs details: Unknown to pt. PFSH All Active Problems (Updated 07/31/25 @ 11:30 by Rogers Ching) Heart failure with mildly reduced ejection fraction (HFmrEF, 41-49%) (Acute) Chronic anticoagulation (Acute) Atrial fibrillation (Chronic) Postoperative pain (Acute) Stenosis of left internal carotid artery (Acute) Diabetes (Chronic) Hypoglycemia (Acute) Acute hyperkalemia (Acute) Abnormal CT of liver (Acute) Atrial fibrillation (Chronic) Carotid artery stenosis (Acute) Hyperkalemia (Acute) Left upper extremity numbness (Acute) Weakness (Acute) Anemia (Chronic) Chronic atrial fibrillation (Chronic) Acute gangrenous cholecystitis (Acute) Supratherapeutic INR (Acute) History of mechanical aortic valve replacement (Acute) Cholelithiasis (Acute) NASRA (acute kidney injury) (Acute) Elevated troponin (Acute) Hypotension (Acute) Elevated INR (Acute) Hypocalcemia (Acute) Aortic stenosis, severe (Chronic) with EF 50-55% on echo of 07/2021--s/p TAVR Gastroenteritis (Acute) Gram negative sepsis (Acute) Bacterial gastroenteritis (Acute) History of bladder cancer (Chronic) Papillary urothelial carcinoma, non invasive, 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: recurrence papillary lesion dome bladder; : tx with excision and Mytomycin-C intra bladder 12/2021- no sign of recurrence, followed by Urology at [facility] Coronary artery disease (Chronic) Atrial fibrillation (Chronic) Chronic anticoagulation (Chronic) 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) 12/2021, microalbuminuria Essential hypertension (Chronic) Hyperlipidemia (Chronic) Osteoarthritis of left knee (Chronic) Class 2 severe obesity with serious comorbidity and body mass index (BMI) of 38.0 to 38.9 in adult (Chronic) Primary osteoarthritis of both knees (Chronic) Tendonitis of left rotator cuff (Chronic) Tendinitis of long head of biceps brachii of left shoulder (Chronic) Arthritis of right knee (Chronic) 80 mg Depo-Medrol injection: 06/24/2023 Primary osteoarthritis of left knee (Chronic) 80 mg Depo-Medrol injection: 06/24/2023 Medical History Urothelial carcinoma of bladder (2016) Papillary urothelial carcinoma, non invasive, 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 04/16/14; X 2018-3 polyps, tubular adenomas, last of which had some early dysplastic features Patient due 2021-patient was called 12/2021 with attempt to set up colonoscopy. Patient wished to defer at this point. He makes an informed decision. 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) Family History Mother , 92 Heart disease Father , 76 Heart disease Sister , 76 Stroke Brother Diabetes Essential hypertension Stroke Maternal Grandfather Heart disease Paternal Grandfather Heart disease Maternal Grandmother Heart disease Paternal Grandmother Heart disease Brother , 68 Stroke Other Acute ill-defined cerebrovascular disease Social History Smoking/Tobacco Use Status: Former Tobacco Use tobacco type: cigarettes Quit Date: 08/09/86 Pack-years: 25 Tobacco: How many years used: 25 Second Hand Exposure: Yes Smoking risk assessment performed?: Yes Alcohol Intake: current Alcohol Intake frequency: holidays/special occasions only Alcohol type: wine and hard liquor Drug use: Never Substance use type: does not use Adopted: No Caregiver/Support person: No Foster care: No Household members: spouse Housing: house Number of Children: 0 Communication Needs: None Education Level: high school Do you need help understanding health information?: Rarely current occupation: retired Pets and animals: Yes Pets and animals: cat(s) Sexually active: No Do you think of yourself as: straight/heterosexual Current gender identity: male What is your relationship status?: How often do you talk on the phone with friends or family?: once per week How often do you get together with friends or relatives?: decline to answer How often do you attend yazidism or sabianist services?: decline to answer Do you belong to any clubs or organized social groups?: no Panel score (0-1 are the most socially isolated patients): 1 What type of physical activity do you participate in: other Duration: 15-30 minutes/day Frequency: 3-4 times per week Oneyda/Episcopalian: No preference Special oneyda needs: No Agree to transfusion: Yes Seatbelt use: always Helmet use: Yes Helmet use: always Drive intox or ride w/intox long haul truck driver: No Working smoke detector in home: Yes Carbon monox detector in home: Yes Firearms in home: Yes Firearms unloaded and locked: No Do you feel safe at home: Yes Do you feel safe in your relationship?: Yes Victim of physical abuse: No Victim of emotional abuse: No Victim of sexual abuse: No Readmission Within the Past 30 Days Yes or No: Yes Date of First Admission Date of 1st Admission: 07/09/25 Date of this Admission Date of Admission: 07/30/25 This admission was: Through ED Office Visit Since 1st Admission Have you seen your PCP in the office since discharge?: Yes Date of PCP Appointment: 07/25/25 Had an appointment Been Scheduled?: Yes Speicalist Appointments Have you seen any other specialist since your 1st Admission?: No I. Interview patient and/or Family Difficulty reaching your doctor or getting an office appt?: No Have you had trouble purchasing/ or taking medication?: No Have you had trouble with getting meals at home?: No Did you feel ready for discharge when you left the last time: Yes Were services received that you thought were set up on disch: Yes What services were received?: SNF How do you think you became sick enough to come back?: The rehab was overloading me on potassium and it made me sick If the patient came from Ext. Facility Call the Facility to discuss the patient's admission: multiple complaints including anorexia for the past 3 weeks weakness, heaviness numbness and tingling to his left arm intermittent abdominal pain and some bloody drainage today in his catheter drain from his gallbladder. ED visits How many ED visits in the past 12 months: 4 Assessment for Readmission Summary of readmission circumstances, based upon interviews: Alvarado at SNF, he had multiple complaints and was sent back to [facility].
[2025-07-31 07:41] LABS: INR 2.7 (0.9-1.1); Prothrombin Time 25.6 sec (9.1-11.1)
[2025-07-31] MEDS: Spironolactone 25 MG TAB 50 MG PO (07:45)
[2025-07-31] MEDS: Multivitamin w/Minerals TAB 1 TAB PO (07:45)
[2025-07-31] MEDS: Furosemide 20 MG TAB PO (07:46)
[2025-07-31] MEDS: Magnesium Oxide 400 MG TAB PO (07:46)
[2025-07-31] MEDS: Metoprolol CR 100 MG TABCR PO (07:46)
[2025-07-31] MEDS: Ferrous Gluconate 324 MG TAB PO (07:46)
[2025-07-31] MEDS: Digoxin 0.125 MG TAB PO (07:46)
[2025-07-31] MEDS: hydroCHLOROthiazide 25 MG TAB 12.5 MG PO (07:46)
[2025-07-31 07:51] LABS: ALT 9 U/L (10-49); AST 19 U/L (<34); Albumin 3.5 g/dL (3.2-5.0); Alkaline Phosphatase 89 U/L (46-116); Anion Gap 10.1 mmol/L (3-11); BUN 14 mg/dL (9-23); Bilirubin, Total 0.3 mg/dL (0.2-1.2); CO2 20.9 mmol/L (20.0-31.0); Calcium 8.9 mg/dL (8.3-10.6); Chloride 103 mmol/L (98-107); Glucose 200 mg/dL (74-106); Potassium 5.0 mmol/L (3.5-5.1); Sodium 134 mmol/L (136-145); Total Protein 7.2 g/dL (5.7-8.2)
[2025-07-31] MEDS: Timolol 0.5% 5 ML BTL OP (08:44)
[2025-07-31] MEDS: metroNIDAZOLE 500 MG TAB PO ×3 (08:49→23:17)
--- NOTE | 2025-07-31 09:04 | PT.INIE ---
PT Notes Visit Reasons: Hyperkalemia Physical Therapy Inpatient Initial Evaluation Date: 07/31/2025 Referring Doctor: Luis Mcgill MD PT Orders: PT CONSULT: Eval for Assistive Device. Safety Consult for D/C Precautions: of 9:53 on 07/31/2025 patient scored 45/125 (moderate fall risk) on the Sahni Fall Scale. Standard. Activity as tolerated. Patient Profile/Admitting Diagnosis: Alvarado is a 80-year-old male patient with past medical history of aortic stenosis S/P TAVR 11/2021 and urothelial cancer of bladder S/P bladder resection. He was previously seen by inpatient PT from 07/11/2025 through 07/16/2025 for functional mobility training, strengthening, and balance retraining and was discharged to the SNF on 07/16/2025. He presented to the ED on 07/30/2025 due to complaints of L UE weakness. Patient was admitted under acute lvel of care for management of acute kidney injury, carotid artery stenosis, atrial fibrillation, and post-op management of gall bladder surgery. Patient tested negative for CVA from most recent head and neck CT (see below). 07/30/[address] IMPRESSION: 1. There is approximately 70 percent stenosis at the origin the left internal carotid artery in the neck. There is approximately 20 percent stenosis at the origin of the right internal carotid artery in the neck. 2. Patent vertebral arteries. 3. Patent intracranial arteries. 4. Wall no ring enhancing lesions in the brain and no abnormal meningeal enhancement. PMHX: All Active Problems (Updated 07/30/25 @ 21:31 by Luis Mcgill MD) Abnormal CT of liver (Acute) Atrial fibrillation (Chronic) Carotid artery stenosis (Acute) Hyperkalemia (Acute) Left upper extremity numbness (Acute) Weakness (Acute) Anemia (Chronic) Chronic atrial fibrillation (Chronic) Acute gangrenous cholecystitis (Acute) Supratherapeutic INR (Acute) History of mechanical aortic valve replacement (Acute) Cholelithiasis (Acute) NASRA (acute kidney injury) (Acute) Elevated troponin (Acute) Hypotension (Acute) Elevated INR (Acute) Hypocalcemia (Acute) Aortic stenosis, severe (Chronic) with EF 50-55% on echo of 07/2021-s/p TAVR Gastroenteritis (Acute) Gram negative sepsis (Acute) Bacterial gastroenteritis (Acute) History of bladder cancer (Chronic) Papillary urothelial carcinoma, non invasive, 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: recurrence papillary lesion dome bladder; : tx with excision and Mytomycin-C intra bladder 12/2021- no sign of recurrence, followed by Urology at [facility] Coronary artery disease (Chronic) Atrial fibrillation (Chronic) Chronic anticoagulation (Chronic) 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) 12/2021, microalbuminuria Essential hypertension (Chronic) Hyperlipidemia (Chronic) Osteoarthritis of left knee (Chronic) Class 2 severe obesity with serious comorbidity and body mass index (BMI) of 38.0 to 38.9 in adult (Chronic) Primary osteoarthritis of both knees (Chronic) Tendonitis of left rotator cuff (Chronic) Tendinitis of long head of biceps brachii of left shoulder (Chronic) Arthritis of right knee (Chronic) 80 mg Depo-Medrol injection: 06/24/2023 Primary osteoarthritis of left knee (Chronic) 80 mg Depo-Medrol injection: 06/24/2023 Medical History Urothelial carcinoma of bladder (2017) Papillary urothelial carcinoma, non invasive, 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 04/16/14; X - 2018-3 polyps, tubular adenomas, last of which had some early dysplastic features Patient due 2021-patient was called 12/2021 with attempt to set up colonoscopy. Patient wished to defer at this point. He makes an informed decision. 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) Social History/Home Situation: Has been a resident of [facility] since 07/16/2025. now is under the care of the Snf in the same room as patient is. Lived with and is the primary caregiver of who has dementia and who has had 5 strokes. Has 5 steps to enter the house with rails on B sides. Has very limited support at home and the current neighbor just expressed that they need respite as she has been working maritime pilot while helping out to care for . Equipment Owned/DME: [employer] Subjective: Agreeable to consult. Patient stated that L arm numbness has resolved. Denied headache, chest pain, and lightheadedness throughout session. Objective: General Observation: Telemetry monitoring in place. Neprostomy tube in place. Mental Status: Alert and oriented as to person, place, time, and purpose. Able to pay attention, focus, and respond appropriately. Pain: None reported Vital Signs: BP after walking from room to therapy 78/47 mmHg, manula BP 84/52 mmHg ROM: Right Upper Extremity: Shoulder Flexion WFL. Shoulder abduction WFL. Elbow flexion WFL. Wrist flexion WFL. Functional opening and closing of hand WFL. Left Upper Extremity: Shoulder Flexion WFL. Shoulder abduction WFL. Elbow flexion WFL. Wrist flexion WFL. Functional opening and closing of hand WFL. Right Lower Extremity: Hip flexion WFL. Hip abduction WFL. Knee flexion WFL. Ankle dorsiflexion WFL. Ankle plantarflexion WFL. Left Lower Extremity: Hip flexion WFL. Hip abduction WFL. Knee flexion WFL. Ankle dorsiflexion WFL. Ankle plantarflexion WFL. Strength: Right Upper Extremity: Shoulder flexors 4-/5. Shoulder abductors 4-/5. Elbow flexors 4-/5. Elbow extensors 4-/5. Crop Pest Control Specialist strong. Left Upper Extremity: Shoulder flexors 4-/5. Shoulder abductors 4-/5. Elbow flexors 4-/5. Elbow extensors 4-/5. Crop Pest Control Specialist strong. Right Lower Extremity: Hip flexors 4-/5. Hip abductors 4-/5. Knee flexors 4-/5. Knee extensors 4-/5. Ankle dorsiflexors 4-/5. Ankle plantarflexors 4-/5. Left Lower Extremity: Hip flexors 4-/5. Hip abductors 4-/5. Knee flexors 4-/5. Knee extensors 4-/5. Ankle dorsiflexors 4-/5. Ankle plantarflexors 4-/5. Bed Mobility/Transfers: Minimal cueing provided for use of B hands as needed for support, movement sequence, AD management, and posture to reduce fall risk and minimize pain report Rolling supervision Supine to sit stand by assist with HOB at 30 degrees Sit to stand stand by assist using FWW Stand to sit stand by assist using FWW Bed to bedside commode stand by assist using FWW Bedside commode to bed stand by assist using FWW Bed to reclining chair stand by assist using FWW Reclining chair to bed with stand by assist using FWW Gait: 40 feet with FWW and stand by assist of Pt. Fatigued after a short walk. Decreased alida and gait speed from normal. Minimal shortness of breath resolved with rest. Denied headache, chest pain, and lightheadedness throughout session. No path deviation. No LOB. Balance: Static Sitting: Normal Dynamic Sitting: Normal Static Standing: Fair Dynamic Standing: Fair Special Tests: Mobility Limitations Standardized Measure [facility] AM-PAC 6 clicks Basic Mobility Inpatient Short Form: Raw Score: 14 CMS Score: 42% deficit Informed Consent/Education: Patient was instructed in purpose of PT consult and plan of care. Agreeable to proceed with established PT POC to achieve personal goals. ASSESSMENT: Patient required stand by assist and minimal verbal cueing for hand placement and AD management during the initial walk. Patient is primarily worried that he may not be strong enough to resume his role of being his 's primary caregiver but his concern is that he and his do not have enough support from family. He is hopeful that if he gets adequate services for his and himself, he would be okay to accept PT/OT. Patient presents with clinical signs and symptoms consistent with current/admitting diagnoses that have resulted to mobility limitations, gait instability, generalized weakness, and overall ADL decline as demonstrated by the following impairment level findings: 1. Decreased strength to B UE/LE major muscle groups 2. Impaired sitting/standing balance 3. Impaired activity tolerance Impairments are contributing to the following functional limitations: 1. Difficulty with ambulation without assistive device 2. Increased completion time for mobility ADL performance 3. Increased risk for falls 4. Difficulty with managing steps alone safely Patient is assessed as a 13217 moderate complexity based on the following: History: 80-year-old male with past medical history as indicated above Examination: Demonstrable impairment in strength, balance, and mobility level with underlying impairments and functional limitations as exhibited above as well as deficit score of 42% utilizing the [facility] Mobility Inpatient Short Form Presentation: Evolving Decision Makin moderate complexity Goals: Goals X1 week 1. Supine-Sit independent 2. Sit-Supine independent 3. Sit-Stand independent 4. Stand-Sit independent with FWW 5. Bed-Chair independent with FWW 6. Chair-Bed independent with FWW 7. Independent gait on level surface with use of FWW for at least 300 feet without report of pain nor dyspnea 8. Independent stair negotiation while holding onto B rails for at least 5 steps without report of pain nor dyspnea 9. Independent with home exercise program 10. Good static and dynamic standing balance/tolerance Plan of Care/Treatment Plan: 1-2x/day, 7 days/week x 1 week. Plan of care has been reviewed with the DBA MANAGER providing the service under Physical Therapy direction. Initiate Physical Therapy intervention for pain management as needed, strengthening, bed mobility, transfers, gait, stairs, balance training, and use of assistive device. DISCHARGE RECOMMENDATIONS: Return to SNF for continued rehabilitation when medically cleared TREATMENT CODE/TIME: 69132 x 26 minutes for 1 unit (09:04-09:30). Thank you for the opportunity to participate in the care of this patient. Ángela Soria PT, DPT, CLT [facility] [place], [place]
[2025-07-31] MEDS: levoFLOXacin 250 MG TAB 750 MG PO (10:15)
[2025-07-31 11:01] LABS: Digoxin 1.42 ng/mL (0.80-2.00)
--- NOTE | 2025-07-31 11:13 | PGE_ITS ---
Date of Service Date of service: 07/31/25 Time of Service: 11:13 Assessment and Plan Assessment and plan (1) Hyperkalemia: Status: Acute Assessment and plan: In setting of high dose supplementation and new spironolactone with resolution of previous hypokalemia Stop Lokelma as potassium has normalized and causing loose stool again. Monitor off potassium supplement, trying to simplify his BP/CHF regimen as below, stopping HCTZ. (2) Atrial fibrillation: Status: Chronic Assessment and plan: Patient is rate controlled and is on digoxin as well as metoprolol. INR appears to be at goal. Get digoxin level. (3) Type 2 diabetes mellitus with diabetic nephropathy: Status: Chronic Assessment and plan: Patient was on metformin as well as glimepiride. I have held both of these medications, but could resume if GFR normalizes. A1c low at 5.3%. It is not appropriate to continue sulfonurea as risks clearly outweigh benefits, goal A1c 7-9% GFR improving, above 30, we can resume metformin in AM. (4) Acute gangrenous cholecystitis: Status: Acute Assessment and plan: Recently had cholecystectomy for gangrenous gallbladder in early June 2025, complicated by abscess that had not resolved on recent imagine at . This is c/w fluid collection on admission CT here. He remains on Levofloxacin and metronidazole per infectious disease at [facility]. (5) NASRA (acute kidney injury): Status: Acute Assessment and plan: Improved with hydration. Follow, holding (6) History of bladder cancer: Status: Chronic Assessment and plan: CT findings noted. Patient is followed by Dr. Salinas with urology service and had a recent cy stoscopy. (7) Carotid artery stenosis: Status: Acute Assessment and plan: Noted on admission CTA neck, consider outpatient workup at the discretion of PCP (8) Heart failure with mildly reduced ejection fraction (HFmrEF, 41-49%): Status: Acute Assessment and plan: Noted in 06/15 echocardiogram. He is on metoprolol and spironolactone. Adding empagliflozin. Monitor fluid status Discharge Planning Discharge Planning: expect around 48 hours to make sure potassium stable, NASRA resolves, and euvolemic Subjective Subjective Patient reports: denies diarrhea, vomiting, shortness of breath or fever Interval history since last seen: Feels a little better, just tired when I saw him. He ate breakfast. He felt dizzy and nauseous when up with PT and blood pressure dropped to 80s systolic and quickly recovered. Exam Narrative Exam Narrative: Alert and oriented, NAD, sitting up in bed. CV: irregularly irregular, no murmur RESP: CTAB, nl effort. ABD: soft, NT/ND, drain sight clean/dry, scant pink fluid in EVELIN drain. Ext: trace edema, warm, NT Objective Last Vital Signs Temp 36.2 C L 07/31/25 07:58 Pulse 120 H 07/31/25 07:58 Resp 17 07/31/25 07:58 BP 130/70 07/31/25 07:58 Pulse Ox 100 07/31/25 07:58 Laboratory Results - last 24 hr 07/30/25 07/30/25 07/30/25 16:15 17:12 18:20 WBC 8.98 RBC 3.76 L Hgb 11.6 L Hct 35.4 L MCV 94 MCH 30.9 MCHC 32.8 RDW 16.6 H Plt Count 192 MPV 9.4 Immature Gran % 0.6 Neutrophils % 71.4 Lymphocytes % 13.9 Monocytes % 11.7 Eosinophils % 2.0 Basophils % 0.4 Nucleated RBC % 0.0 Absolute Neutrophils 6.41 Absolute Lymphocytes 1.25 Absolute Monocytes 1.05 H Absolute Eosinophils 0.18 Absolute Basophils 0.04 PT 23.5 H INR 2.5 H VBG pH 7.32 VBG pCO2 43 VBG pO2 29 VBG HCO3 22 L VBG Total CO2 21 L VBG O2 Saturation 46 VBG Base Excess -4 L VBG Lactate 1.2 Sodium Cancelled 137 Potassium Cancelled 7.6 H* Chloride Cancelled 108 H Carbon Dioxide Cancelled 23.3 Anion Gap Cancelled 5.7 BUN Cancelled 17 Creatinine Cancelled 1.74 H Est GFR (CKD-EPI 2020) Cancelled 37.94 Glucose Cancelled 55 L Hemoglobin A1c 5.3 Calcium Cancelled 9.6 Magnesium Cancelled 1.9 Total Bilirubin Cancelled 0.3 AST Cancelled 26 ALT Cancelled 11 Alkaline Phosphatase Cancelled 97 Creatine Kinase Troponin I Cancelled 47 NT-Pro-B Natriuret Pep Cancelled 2361 H Total Protein Cancelled 8.0 Albumin Cancelled 3.9 Lipase Cancelled 29 Urine Color Yellow Urine Clarity Clear Urine pH 6.5 Ur Specific Laverne 1.015 Urine Protein Negative Urine Ketones 15 H Urine Blood Trace-lysed H Urine Nitrite Negative Urine Bilirubin Negative Urine Urobilinogen 0.2 Ur Leukocyte Esterase Trace H Urine RBC >50 H Urine WBC 20-50 H Ur Epithelial Cells Rare Urine Crystals Negative Urine Bacteria Moderate Urine Casts 5-10 Hyaline Urine Mucus Negative Ur Culture Indicated? Yes Urine Glucose Negative Digoxin Cancelled 0.87 Add-On Test Request 07/30/25 07/30/25 07/30/25 18:48 19:17 20:48 WBC RBC Hgb Hct MCV MCH MCHC RDW Plt Count MPV Immature Gran % Neutrophils % Lymphocytes % Monocytes % Eosinophils % Basophils % Nucleated RBC % Absolute Neutrophils Absolute Lymphocytes Absolute Monocytes Absolute Eosinophils Absolute Basophils PT INR VBG pH VBG pCO2 VBG pO2 VBG HCO3 VBG Total CO2 VBG O2 Saturation VBG Base Excess VBG Lactate Sodium Potassium 6.9 H* 6.5 H* Chloride Carbon Dioxide Anion Gap BUN Creatinine Est GFR (CKD-EPI 2020) Glucose 70 L Hemoglobin A1c Calcium Magnesium Total Bilirubin AST ALT Alkaline Phosphatase Creatine Kinase < 15 L Troponin I 44 Cancelled NT-Pro-B Natriuret Pep Total Protein Albumin Lipase Urine Color Urine Clarity Urine pH Ur Specific Laverne Urine Protein Urine Ketones Urine Blood Urine Nitrite Urine Bilirubin Urine Urobilinogen Ur Leukocyte Esterase Urine RBC Urine WBC Ur Epithelial Cells Urine Crystals Urine Bacteria Urine Casts Urine Mucus Ur Culture Indicated? Urine Glucose Digoxin Add-On Test Request DONE 07/31/25 07/31/25 07/31/25 00:04 07:15 10:15 WBC 8.85 RBC 3.53 L Hgb 10.4 L Hct 33.0 L MCV 94 MCH 29.5 MCHC 31.5 L RDW 16.8 H Plt Count 143 MPV 9.5 Immature Gran % 0.5 Neutrophils % 66.8 Lymphocytes % 16.7 Monocytes % 12.8 Eosinophils % 2.9 Basophils % 0.3 Nucleated RBC % 0.0 Absolute Neutrophils 5.91 Absolute Lymphocytes 1.48 Absolute Monocytes 1.13 H Absolute Eosinophils 0.26 Absolute Basophils 0.03 PT 25.6 H INR 2.7 H VBG pH VBG pCO2 VBG pO2 VBG HCO3 VBG Total CO2 VBG O2 Saturation VBG Base Excess VBG Lactate Sodium 134 L 134 L Potassium 6.1 H* 5.0 D Chloride 105 103 Carbon Dioxide 21.2 20.9 Anion Gap 7.8 10.1 BUN 15 14 Creatinine 1.55 H 1.52 H Est GFR (CKD-EPI 2020) 43.35 44.34 Glucose 162 H 200 H Hemoglobin A1c Calcium 9.5 8.9 Magnesium Total Bilirubin 0.3 0.3 AST 21 19 ALT 10 9 L Alkaline Phosphatase 100 89 Creatine Kinase Troponin I NT-Pro-B Natriuret Pep Total Protein 7.7 7.2 Albumin 3.8 3.5 Lipase Urine Color Urine Clarity Urine pH Ur Specific Laverne Urine Protein Urine Ketones Urine Blood Urine Nitrite Urine Bilirubin Urine Urobilinogen Ur Leukocyte Esterase Urine RBC Urine WBC Ur Epithelial Cells Urine Crystals Urine Bacteria Urine Casts Urine Mucus Ur Culture Indicated? Urine Glucose Digoxin 1.42 Add-On Test Request VTE Prohylaxis Risk Level: Moderate/High Risk Contraindications: None Prophylaxis: Pharmacologic Time Spent with Patient Time Spent with Patient: 35-49 minutes Time was spent: preparing to see the patient(eg.review tests), obtaining and/or reviewing separately otained hiistory, ordering medications,tests, procedures, referring, communicating with other health palliative care nurse practitioner, indepentently interpreting results, counseling the patient and care coordination
--- NOTE | 2025-07-31 11:23 | PHACLINREV_ITS ---
Pharmacy Admission Review Admission Clinical Review Admission Pharmacy Review: Abnormal CT of liver (Acute) Carotid artery stenosis (Acute) Hyperkalemia (Acute) Left upper extremity numbness (Acute) Acute gangrenous cholecystitis (Acute) NASRA (acute kidney injury) (Acute) No Known Allergies Allergy (Verified 07/30/25 20:07) Resuscitation Status Full Code Height 6 ft Weight 96 kg Comments Comments/Follow Ups: Follow up on home med questions and levofloxacin + metronidazole Pharmacy Admission Review Renal Dosing Renal Dosing: BUN 14 mg/dL (9-23) 07/31/25 07:15 Creatinine 1.52 mg/dL (0.73-1.18) H 07/31/25 07:15 Medications needing adjustments: Intervened (CrCl 46 mL/min) List of meds needing interventions: Changed levofloxacin from q24h to q48h Anticoagulation Anticoagulation: Hgb 10.4 g/dL (13.5-17.5) L 07/31/25 07:15 Hct 33.0 % (40.0-50.0) L 07/31/25 07:15 Plt Count 143 10^3/uL (130-400) 07/31/25 07:15 INR 2.7 (0.9-1.1) H 07/31/25 07:15 Creatinine 1.52 mg/dL (0.73-1.18) H 07/31/25 07:15 DVT Prophylaxis: Reviewed (INR increased from 2.5) Medications: Warfarin (1mg daily) Relevant Labs Relevant Labs: Sodium 134 mmol/L (136-145) L 07/31/25 07:15 Potassium 5.0 mmol/L (3.5-5.1) D 07/31/25 07:15 Chloride 103 mmol/L (98-107) 07/31/25 07:15 Magnesium 1.9 mg/dL (1.6-2.6) 07/30/25 17:12 Electrolytes, C-Reactive P, ESR: Reviewed DM Control DM Control: Glucose 200 mg/dL (74-106) H 07/31/25 07:15 Hemoglobin A1c 5.3 % (<5.7) 07/30/25 16:15 Finger Stick Blood Glucose 127 0636 Finger Stick Blood Glucose 127 0636 Finger Stick Blood Glucose 81 0546 Finger Stick Blood Glucose 81 0546 Finger Stick Blood Glucose 61 0501 Finger Stick Blood Glucose 61 0501 DM Control: Reviewed Insulin Dosing, Diabetic Medication: No medications ordered at this time - home meds (metformin and glimepiride) on hold for now per H+P Cardiac Review Cardiac Review: Troponin I Cancelled 07/30/25 19:17 NT-Pro-B Natriuret Pep 2361 pg/mL (<300) H 07/30/25 17:12 BP, HR, EF%: Reviewed (BP WNL, HR 120) List meds needing interventions: Has orders for digoxin 0.125mg daily, Jardiance 10mg daily, furosemide 20mg daily (on hold), metoprolol XL 100mg daily and spironolactone 50mg daily QTc Review QTc: Reviewed (407 from 07/30/25) IV to PO Switch IV Medications: Reviewed Home Meds Home Med List reviewed: Intervened Relevent Home Meds Not ordered & why?: metformin (on hold per H+P), glimepiride (on hold per H+P) and HCTZ (was ordered and then discontinued by Hospitalist- adjusting therapy) Asked nurse to verify home spironolactone dose. On home med list as 50mg daily but external fill history shows 25mg daily. Waiting to hear back. Changed patients probiotic to patients own order (non-formulary). Will need to be brought in from home if patient wants to take while here. Current Meds Current Medication Order Review: Intervened Comments: Asked provider about levofloxacin and metronidazole - from home med [facility], filled 07/09/25 for 5 day supply but per H+P patient still taking. Per hospitalist patient reports he is still taking them and plans on verifying with [facility] (pres[place] them). Leaving orders as active for now. Changed metronidazole order from prepack bottle to 500mg tablets Discontinued duplicate Miralax order Added 2nd PRN to ondansetron order per pharmacy protocol Comments Comments/Follow Ups: Follow up on home med questions and levofloxacin + metronidazole
--- NOTE | 2025-07-31 12:45 | W.NUTRFU ---
Date of service: 07/31/25 Time of Service: 12:45 Nutrition Note NOTE: Alvarado admitted and being treated for HF, Afib. Has hx of diabetes with his most recent A1C <5.7. Metformin and glimeperide at home but held currently. glucose significantly varying and this is probably at least in part due to swings in potassium (with bp meds being adjusted should get more predictable with less variation). Patient reports fair to good appetite and documented intake reflects this. Some weight loss noted over the last year (pt relates to surgery and a round of medical issues) but stable over the last 2 months with current BMI of 28.7. Pt denies concerns chewing and swallowing. Was ordered for regular diet, which I modified to consistent CHO today. Pt does not feel nutrition education needed at this time. Will monitor glucose over the next 24-48 hours as K+ levels are addressed. Time Spent in Nutritional Counseling and Treatment: 10 min
--- NOTE | 2025-07-31 14:27 | PT.INTREAT ---
PT Notes Visit Reasons: Hyperkalemia Physical Therapy Inpatient Treatment Note Date: 07/31/2025 Precautions: As of 9:53 on 07/31/2025 patient scored 45/125 (moderate fall risk) on the Sahni Fall Scale. Standard. Activity as tolerated. Subjective: [place] much better having had some rest since last seen this morning. Needed to void urine at start of session. Denied lightheadedness throughout. Objective: General Observation: Telemetry monitoring in place. Neprostomy tube in place. Mental Status: Alert and oriented as to person, place, time, and purpose. Able to pay attention, focus, and respond appropriately. Pain: None reported Vital Signs: BP supine 93/77 mmHg, HR 94 bpm sitting 87/60 mmHg, HR 110 bpm standing 65/49 mmHg, HR 129 bpm Bed Mobility/Transfers: Minimal cueing provided for use of B hands as needed for support, movement sequence, AD management, and posture to reduce fall risk and minimize pain report Rolling supervision Supine to sit stand by assist with HOB at 30 degrees Sit to stand stand by assist using FWW Stand to sit stand by assist using FWW Bed to bedside commode stand by assist using FWW Bedside commode to bed stand by assist using FWW Gait: 20 feet with FWW and stand by assist of Pt. Fatigued after a short walk. Decreased alida and gait speed from normal. Minimal shortness of breath resolved with rest. Denied headache, chest pain, and lightheadedness throughout session. No path deviation. No LOB. Balance: Static Sitting: Normal Dynamic Sitting: Normal Static Standing: Fair Dynamic Standing: Fair ASSESSMENT: Patient required stand by assist and minimal verbal cueing for hand placement and AD management during the short session. Lab staff came in to procure blood and needed patient back in bed. Orthostatically hypotensive as above. More appropriately-sized chair secured for patient to ensure comfort during meal time. Plan of Care/Treatment Plan: 1-2x/day, 7 days/week x 1 week. Plan of care has been reviewed with the [employer] providing the service under Physical Therapy direction. Initiate Physical Therapy intervention for pain management as needed, strengthening, bed mobility, transfers, gait, stairs, balance training, and use of assistive device. DISCHARGE RECOMMENDATIONS: Return to SNF for continued rehabilitation when medically cleared TREATMENT CODE/TIME: 42514 x 21 minutes for 1 unit (14:27-14:58).
[2025-07-31 15:40] LABS: Anion Gap 7.3 mmol/L (3-11); BUN 13 mg/dL (9-23); CO2 24.7 mmol/L (20.0-31.0); Calcium 9.0 mg/dL (8.3-10.6); Chloride 102 mmol/L (98-107); Glucose 138 mg/dL (74-106); Potassium 5.2 mmol/L (3.5-5.1); Sodium 134 mmol/L (136-145)
[2025-07-31] MEDS: Warfarin 1 MG TAB PO (20:48)
[2025-07-31] MEDS: Pravastatin 40 MG TAB 80 MG PO (20:48)
[2025-07-31] MEDS: Latanoprost 0.005% 2.5 ML BTL OP (20:51)
[2025-08-01 07:17] LABS: INR 1.9 (0.9-1.1); Prothrombin Time 18.3 sec (9.1-11.1)
[2025-08-01 07:23] LABS: Magnesium 1.9 mg/dL (1.6-2.6)
[2025-08-01 07:25] LABS: Anion Gap 8.6 mmol/L (3-11); BUN 14 mg/dL (9-23); CO2 24.4 mmol/L (20.0-31.0); Calcium 9.1 mg/dL (8.3-10.6); Chloride 102 mmol/L (98-107); Glucose 119 mg/dL (74-106); Potassium 4.5 mmol/L (3.5-5.1); Sodium 135 mmol/L (136-145)
[2025-08-01 07:40] VITALS: BP 93/71; PULSE 105; RESP 15; TEMP 36.3; O2SAT 98
--- NOTE | 2025-08-01 09:56 | PTTR_ITS ---
PT Notes Visit Reasons: Hyperkalemia Physical Therapy Inpatient Treatment Note Date:08/01/2025 Precautions: As of 9:53 on 07/31/2025 patient scored 45/125 (moderate fall risk) on the Sahni Fall Scale. Standard. Activity as tolerated. Subjective: [place] worse today. Very fatigued. Complained of achiness in the front of the left shoulder with bending of the elbow and the shoulder. Objective: General Observation: Telemetry monitoring in place. Neprostomy tube in place. Mental Status: Alert and oriented as to person, place, time, and purpose. Able to pay attention, focus, and respond appropriately. Pain: None reported Vital Signs: Closely moniored by nursing staff Bed Mobility/Transfers: Minimal cueing provided for use of B hands as needed for support, movement sequence, AD management, and posture to reduce fall risk and minimize pain report Rolling supervision Supine to sit stand by assist with HOB at 30 degrees Sit to stand stand by assist using FWW Stand to sit stand by assist using FWW Bed to bedside commode stand by assist using FWW Bedside commode to bed stand by assist using FWW Gait: 20 feet + 20 feet with FWW and stand by assist of Pt. Very fatigued after a short walk. Decreased alida and gait speed from normal. Minimal shortness of breath resolved with rest. Denied headache, chest pain, and lightheadedness throughout session. No path deviation. No LOB. THERA EX: Initiated resistance exercises with patient using 3 lb DB in B UE and using green TB for the B LE: Shoulder punch ups x 5 with report of discomfort in L anterior shoulder Shoulder abduction to 90 degrees only x 5 with discomfort in L anterior shoulder B elbow flexion x 5 Seated marches x 5 Seated clam shells x 5 Balance: Static Sitting: Normal Dynamic Sitting: Normal Static Standing: Fair Dynamic Standing: Fair ASSESSMENT: Patient required stand by assist and minimal verbal cueing for hand placement and AD management during the short session. Patient needed more rest to complete this morning's task. L biciptal tendinopathy limited exercise performance for this morning. Plan of Care/Treatment Plan: 1-2x/day, 7 days/week x 1 week. Plan of care has been reviewed with the [facility] providing the service under Physical Therapy direction. Initiate Physical Therapy intervention for pain management as needed, strengthening, bed mobility, transfers, gait, stairs, balance training, and use of assistive device. DISCHARGE RECOMMENDATIONS: Return to SNF for continued rehabilitation when medically cleared TREATMENT CODE/TIME: 85462 x 25 minutes for 2 units, 74335 x 13 minutes for 1 unit (09:56-10:34).
[2025-08-01 10:17] VITALS: PULSE 105
[2025-08-01] MEDS: Spironolactone 25 MG TAB 50 MG PO (10:17)
[2025-08-01] MEDS: metroNIDAZOLE 500 MG TAB PO (10:17)
[2025-08-01] MEDS: Metoprolol CR 100 MG TABCR PO (10:17)
[2025-08-01] MEDS: Multivitamin w/Minerals TAB 1 TAB PO (10:17)
[2025-08-01] MEDS: Ferrous Gluconate 324 MG TAB PO (10:17)
[2025-08-01] MEDS: Empaglifozin 10 MG TAB PO (10:17)
[2025-08-01] MEDS: Magnesium Oxide 400 MG TAB PO (10:17)
[2025-08-01] MEDS: Digoxin 0.125 MG TAB PO (10:17)
[2025-08-01] MEDS: Timolol 0.5% 5 ML BTL OP (10:18)
[2025-08-01] MEDS: Ondansetron O.D.T. 4 MG TABEF PO (11:19)
--- NOTE | 2025-08-01 14:25 | CMPROGNOTE_ITS ---
Date of service: 08/01/25 Time of Service: 14:25 Care Management Progress Note Progress Note Text Progress Note Text: Alvarado was lying in his bed and awake when CM met with him. Per report, his blood pressure is dopping when he stands and he continues to report arm numbness. CM has sent updated clinicals to [facility]. Per provider, a doc to doc will be preformed. CM will continue to follow. Discharge Potential Discharge Needs: PCP F/U Appt Anticipated Barriers to Discharge: Medical Status Patient/Family Education Needs: Review discharge instructions, discuss Ask Me Three Transportation: [facility] Transportation: Wheel chair van Plan: Anticipate Alvarado will be discharged back to [facility] for STR. It is recommended he follow up with community providers, and continue per his discharge plan of care. He will transport via [facility] private vehicle as recommended by PT. CM will follow. Social Determinants of Health Screening Social Determinants of health last assessed in clinic: 07/31/25 Will the Patient Participate in the Screening?: Yes Do you worry about having a steady place to live?: yes What is your living situation today?: I have housing today, but am worried about losing it Problems where you live: no known problems In the past 12 months, have you had to go without electric, gas, oil or water in your home?: no Has lack of transportation kept you from medical appointments or from doing things needed for daily living?: no Has anyone in your life made you feel unsafe or unsupported?: no How hard is it for you to pay for the very basics like food, housing, medical care, and heating? Would you say it is:: Not hard at all Do you want help finding or keeping work or a job?: I do not need or want help If for any reason you need help with day-to-day activities such as bathing, preparing meals, shopping, managing finances, etc., do you get the help you need?: I get all the help I need How often do you feel lonely or isolated from those around you?: Never Do you speak a language other than Maltese at home?: No Does the patient want assistance with any of the above?: No Health Related Social Needs Health related social needs: housing instability, housed, with risk of homelessness (Z59.811) Health related social needs details: Unknown to pt.
--- NOTE | 2025-08-01 14:49 | PDOC.CMDIS ---
Date of service: 08/01/25 Time of Service: 14:57 LACE Index Scoring Tool Questions: Length of Stay (in days): 2 Was the patient admitted via the E.D.?: Yes Comorbidities: Diabetes w/o Complication and Congestive Heart Failure E.D. Visits: 4 Answers: Total Score: 12 Risk of Readmission: High Risk Care Management Discharge Plan Reason for Hospitalization: Hyperkalemia Discharge Plan: Alvarado will be discharged back to [facility] today, to continue STR. It is recommended he follow up with facility providers, and discharge plan of care. He will transport via [facility] at 15:30. This discharge has been communicated and acknowledged by MAGY at [facility] via email. Patient/Family Education Needs: Review of discharge instruction, activity, limitations, and plan of care. Discuss ask me three. SDOH Health Related Social Needs: Health related social needs daily activities Health related social needs details Pt declines help at this time Health related social needs details: Unknown to pt.
--- NOTE | 2025-08-01 14:56 | DSE_ITS ---
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 (5) Heart failure with mildly reduced ejection fraction (HFmrEF, 41-49%): Status: Acute (6) Atrial fibrillation: Status: Chronic (7) History of bladder cancer: Status: Chronic Discharge Plan Disposition Patient Disposition: [facility] Facility(SNF) Anticipated Discharge Date/Time: 08/01/25 13:51 Condition: Fair Discharge Details Reason For Visit: Hyperkalemia Admit Date/Time: 07/30/25 21:04 Admit Provider: Luis Mcgill Attending Provider: Luis Mcgill [facility] Hospital Course: Alvarado Adams is a 80 year old man presenting July 30, brought in from [facility] with 3 weeks of decreased appetite, also weakness and left arm episodes of heaviness/numbness/tingling. Recent history includes June [facility] hospitalization for acute gangrenous cholecystitis, discharged with a drain. He was subsequently hospitalized at [facility] Jul 09- after [facility] discharge with failure to thrive, tachycardia, hypothermia. He was discharged to [facility] where he was able to spend some time with his . He had his abdominal drain changed by IR at [facility] approximately July 25. July 30 in the ED, he was found to have hyperkalemia 7.6, due to continued potassium supplementation after discontinuation of furosemide. He did not have abnormal EKG due to elevated potassium. His potassium has improved with binder and fluids, and is now within normal limits, 4.5. At this time he should not be on potassium supplementation. He should discontinue HCTZ. He should continue spironolactone. He was also found to have NASRA with creatinine 1.74, possibly due to dehydration. This has also improved to 1.46, and is expected to resolve with continuing fluid intake. He has a fairly new drain in his abdomen as above. He is continuing on antibiotics, levofloxacin and metronidazaole, per [facility] orders. Likely he will continue on these antibiotics until the drain is out. He is to return to [facility] IR in early August for the next check on the drain. He has diabetes and has been on oral medications for a long time. His July 30 A1C is 5.3, which is too low; his goal A1C should be 7-9. At this time he should stop metformin and glimepiride. He was given empagliflozin (Jardiance) during this hospitalization, but at this time this will not be continued. His INR has been therapeutic 2-3, appropriate for afib and history of TAVR (bioprosthetic). He is also on digoxin, with therapeutic serum level 0.82 - 1.42. He has ongoing spasms and paraesthesias in his left shoulder. He reports that this is from suspenders used in his transport to [facility] in June. He reports that he is having fewer episodes. Physical therapy recommends continuing exercises. He has HFmrEF and is on spironolactone and metoprolol. Home Meds and New Rx's Prescriptions: Continued latanoprost 0.005 % drops 1 drp ophthalmic (eye) QPM Patient Comments: INSTILL ONE DROP INTO BOTH EYES AT BEDTIME Rx Instructions: both eyes metoprolol succinate 100 mg tablet extended release 24 hr 100 mg PO DAILY Qty: 90 3RF dorzolamide-timolol 22.3-6.8 mg/mL drops 1 drp ophthalmic (eye) QAM Patient Comments: INSTILL ONE DROP INTO BOTH EYES EVERY MORNING Rx Instructions: both eyes levofloxacin 750 mg tablet 750 mg PO DAILY Rx Instructions: x 5 days metronidazole 500 mg tablet 500 mg PO TID Rx Instructions: x 6 days digoxin [Digitek] 125 mcg (0.125 mg) tablet 125 mcg PO DAILY warfarin 1 mg tablet 1 mg PO DAILY Rx Instructions: for 7 doses, re-check INR on 07/11/25; then as directed by anticoagulation clinic based on INR pravastatin 80 mg tablet 80 mg PO QPM Rx Instructions: take one tablet daily magnesium oxide 400 mg (241.3 mg magnesium) tablet 400 mg PO DAILY Saccharomyces boulardii [Daily Probiotic (S. boulardii)] 1 tab PO DAILY Multivitamin 50 Plus Tablet 1 tab PO DAILY spironolactone 25 mg Tablet 50 mg PO DAILY Qty: 90 0RF ferrous gluconate 324 mg (38 mg iron) Tablet 324 mg PO DAILY Qty: 90 0RF Discontinued glimepiride 2 mg tablet 2 mg PO DAILY Qty: 30 3RF metformin 1,000 mg tablet 1,000 mg PO BID Qty: 180 2RF furosemide [Lasix] 20 mg tablet 20 mg PO DAILY hydrochlorothiazide 25 mg Tablet 12.5 mg PO DAILY Qty: 90 0RF Discharge Instructions Activity:: Activity as Tolerated Equipment/Supplies:: No Equipment Needed Diet:: As Tolerated DS: Summary Time Spent with Patient providing and/or coordinating discharge services: Greater than 30 minutes Status at Discharge Functional status at discharge: uses cane/walker Overall status at discharge: patient is progressing back to baseline Mental Status: mental status grossly normal Speech and Movement: speech and movement normal Mood: congruent mood Affect: normal affect Quality:SDOH Health Related Social Needs: Health related social needs daily activities Health related social needs details Unknown to pt. Health related social needs details: Unknown to pt. Exam Narrative Exam Narrative: Alert and oriented, NAD, sitting up in bed. CV: irregularly irregular, no murmur RESP: CTAB, nl effort. ABD: soft, NT/ND, drain sight clean/dry, scant pink fluid in EVELIN drain. Ext: trace edema, warm, NT Psych Mental Status: mental status grossly normal Speech and Movement: speech and movement normal Mood: congruent mood Affect: normal affect DS: Data Vitals/I&O Vitals and I&O: Vital Signs Temperature 36.3 C L 08/01/25 07:40 Temperature Source Temporal Artery Scan 08/01/25 07:40 Pulse 105 H 08/01/25 10:17 Pulse Rhythm Irregular 07/30/25 22:00 Pulse 101 H 07/30/25 21:50 Respiratory Rate 15 08/01/25 07:40 Respiratory Effort Normal 07/30/25 22:00 Respiratory Depth Normal 07/30/25 22:00 Respiratory Pattern Normal 07/30/25 20:32 Blood Pressure 93/71 L 08/01/25 07:40 Blood Pressure Mean 78 08/01/25 07:40 Blood Pressure Position Sitting 07/30/25 15:36 Pulse Oximetry 98 08/01/25 07:40 Oxygen Delivery Method Room Air 08/01/25 07:40 Oxygen Flow Rate 0 08/01/25 07:40 Pain Level 0 07/31/25 19:24 Comment MD notified of heart rate and morning medication given 07/31/25 07:58 Intake & Output 07/31/25 08/01/25 08/01/25 23:59 11:59 23:59 Intake Total 1720.00 / 2787.00 245 / 245 Output Total 250 / 850 150 / 150 Balance 1470.00 / 1937.00 95 / 95 Weight 96.2 kg Intake: IV 1000.00 / 1000.00 Oral 720 / 1787 240 / 240 Injectate 5 / 5 Right Abdomen 5 / 5 Output: Drainage 0 / 0 Right Abdomen 0 / 0 Urine 250 / 850 150 / 150 Other: Urine Color Yellow Yellow Urine Appearance Clear Clear Urine Odor None None Data Completed and Pending Pending Labs at Discharge: 07/30/25 07/30/25 07/30/25 16:15 17:12 18:20 WBC 8.98 RBC 3.76 L Hgb 11.6 L Hct 35.4 L MCV 94 MCH 30.9 MCHC 32.8 RDW 16.6 H Plt Count 192 MPV 9.4 Immature Gran % 0.6 Neutrophils % 71.4 Lymphocytes % 13.9 Monocytes % 11.7 Eosinophils % 2.0 Basophils % 0.4 Nucleated RBC % 0.0 Absolute Neutrophils 6.41 Absolute Lymphocytes 1.25 Absolute Monocytes 1.05 H Absolute Eosinophils 0.18 Absolute Basophils 0.04 PT 23.5 H INR 2.5 H VBG pH 7.32 VBG pCO2 43 VBG pO2 29 VBG HCO3 22 L VBG Total CO2 21 L VBG O2 Saturation 46 VBG Base Excess -4 L VBG Lactate 1.2 Sodium Cancelled 137 Potassium Cancelled 7.6 H* Chloride Cancelled 108 H Carbon Dioxide Cancelled 23.3 Anion Gap Cancelled 5.7 BUN Cancelled 17 Creatinine Cancelled 1.74 H Est GFR (CKD-EPI 2020) Cancelled 37.94 Glucose Cancelled 55 L Hemoglobin A1c 5.3 Calcium Cancelled 9.6 Magnesium Cancelled 1.9 Total Bilirubin Cancelled 0.3 AST Cancelled 26 ALT Cancelled 11 Alkaline Phosphatase Cancelled 97 Creatine Kinase Troponin I Cancelled 47 NT-Pro-B Natriuret Pep Cancelled 2361 H Total Protein Cancelled 8.0 Albumin Cancelled 3.9 Lipase Cancelled 29 Urine Color Yellow Urine Clarity Clear Urine pH 6.5 Ur Specific [place] 1.015 Urine Protein Negative Urine Ketones 15 H Urine Blood Trace-lysed H Urine Nitrite Negative Urine Bilirubin Negative Urine Urobilinogen 0.2 Ur Leukocyte Esterase Trace H Urine RBC >50 H Urine WBC 20-50 H Ur Epithelial Cells Rare Urine Crystals Negative Urine Bacteria Moderate Urine Casts 5-10 Hyaline Urine Mucus Negative Ur Culture Indicated? Yes Urine Glucose Negative Digoxin Cancelled 0.87 Add-On Test Request 07/30/25 07/30/25 07/30/25 18:48 19:17 20:48 WBC RBC Hgb Hct MCV MCH MCHC RDW Plt Count MPV Immature Gran % Neutrophils % Lymphocytes % Monocytes % Eosinophils % Basophils % Nucleated RBC % Absolute Neutrophils Absolute Lymphocytes Absolute Monocytes Absolute Eosinophils Absolute Basophils PT INR VBG pH VBG pCO2 VBG pO2 VBG HCO3 VBG Total CO2 VBG O2 Saturation VBG Base Excess VBG Lactate Sodium Potassium 6.9 H* 6.5 H* Chloride Carbon Dioxide Anion Gap BUN Creatinine Est GFR (CKD-EPI 2020) Glucose 70 L Hemoglobin A1c Calcium Magnesium Total Bilirubin AST ALT Alkaline Phosphatase Creatine Kinase < 15 L Troponin I 44 Cancelled NT-Pro-B Natriuret Pep Total Protein Albumin Lipase Urine Color Urine Clarity Urine pH Ur Specific [place] Urine Protein Urine Ketones Urine Blood Urine Nitrite Urine Bilirubin Urine Urobilinogen Ur Leukocyte Esterase Urine RBC Urine WBC Ur Epithelial Cells Urine Crystals Urine Bacteria Urine Casts Urine Mucus Ur Culture Indicated? Urine Glucose Digoxin Add-On Test Request DONE 07/31/25 07/31/25 07/31/25 00:04 07:15 10:15 WBC 8.85 RBC 3.53 L Hgb 10.4 L Hct 33.0 L MCV 94 MCH 29.5 MCHC 31.5 L RDW 16.8 H Plt Count 143 MPV 9.5 Immature Gran % 0.5 Neutrophils % 66.8 Lymphocytes % 16.7 Monocytes % 12.8 Eosinophils % 2.9 Basophils % 0.3 Nucleated RBC % 0.0 Absolute Neutrophils 5.91 Absolute Lymphocytes 1.48 Absolute Monocytes 1.13 H Absolute Eosinophils 0.26 Absolute Basophils 0.03 PT 25.6 H INR 2.7 H VBG pH VBG pCO2 VBG pO2 VBG HCO3 VBG Total CO2 VBG O2 Saturation VBG Base Excess VBG Lactate Sodium 134 L 134 L Potassium 6.1 H* 5.0 D Chloride 105 103 Carbon Dioxide 21.2 20.9 Anion Gap 7.8 10.1 BUN 15 14 Creatinine 1.55 H 1.52 H Est GFR (CKD-EPI 2020) 43.35 44.34 Glucose 162 H 200 H Hemoglobin A1c Calcium 9.5 8.9 Magnesium Total Bilirubin 0.3 0.3 AST 21 19 ALT 10 9 L Alkaline Phosphatase 100 89 Creatine Kinase Troponin I NT-Pro-B Natriuret Pep Total Protein 7.7 7.2 Albumin 3.8 3.5 Lipase Urine Color Urine Clarity Urine pH Ur Specific [place] Urine Protein Urine Ketones Urine Blood Urine Nitrite Urine Bilirubin Urine Urobilinogen Ur Leukocyte Esterase Urine RBC Urine WBC Ur Epithelial Cells Urine Crystals Urine Bacteria Urine Casts Urine Mucus Ur Culture Indicated? Urine Glucose Digoxin 1.42 Add-On Test Request 07/31/25 08/01/25 15:00 06:20 WBC RBC Hgb Hct MCV MCH MCHC RDW Plt Count MPV Immature Gran % Neutrophils % Lymphocytes % Monocytes % Eosinophils % Basophils % Nucleated RBC % Absolute Neutrophils Absolute Lymphocytes Absolute Monocytes Absolute Eosinophils Absolute Basophils PT 18.3 H INR 1.9 H VBG pH VBG pCO2 VBG pO2 VBG HCO3 VBG Total CO2 VBG O2 Saturation VBG Base Excess VBG Lactate Sodium 134 L 135 L Potassium 5.2 H 4.5 Chloride 102 102 Carbon Dioxide 24.7 24.4 Anion Gap 7.3 8.6 BUN 13 14 Creatinine 1.51 H 1.46 H Est GFR (CKD-EPI 2020) 44.68 46.45 Glucose 138 H 119 H Hemoglobin A1c Calcium 9.0 9.1 Magnesium 1.9 Total Bilirubin AST ALT Alkaline Phosphatase Creatine Kinase Troponin I NT-Pro-B Natriuret Pep Total Protein Albumin Lipase Urine Color Urine Clarity Urine pH Ur Specific [place] Urine Protein Urine Ketones Urine Blood Urine Nitrite Urine Bilirubin Urine Urobilinogen Ur Leukocyte Esterase Urine RBC Urine WBC Ur Epithelial Cells Urine Crystals Urine Bacteria Urine Casts Urine Mucus Ur Culture Indicated? Urine Glucose Digoxin Add-On Test Request PFSH All Active Problems (Updated 07/31/25 @ 11:30 by Rogers Ching) Heart failure with mildly reduced ejection fraction (HFmrEF, 41-49%) (Acute) Chronic anticoagulation (Acute) Atrial fibrillation (Chronic) Postoperative pain (Acute) Stenosis of left internal carotid artery (Acute) Diabetes (Chronic) Hypoglycemia (Acute) Acute hyperkalemia (Acute) Abnormal CT of liver (Acute) Atrial fibrillation (Chronic) Carotid artery stenosis (Acute) Hyperkalemia (Acute) Left upper extremity numbness (Acute) Weakness (Acute) Anemia (Chronic) Chronic atrial fibrillation (Chronic) Acute gangrenous cholecystitis (Acute) Supratherapeutic INR (Acute) History of mechanical aortic valve replacement (Acute) Cholelithiasis (Acute) NASRA (acute kidney injury) (Acute) Elevated troponin (Acute) Hypotension (Acute) Elevated INR (Acute) Hypocalcemia (Acute) Aortic stenosis, severe (Chronic) with EF 50-55% on echo of 07/2021-22-s/p TAVR Gastroenteritis (Acute) Gram negative sepsis (Acute) Bacterial gastroenteritis (Acute) History of bladder cancer (Chronic) Papillary urothelial carcinoma, non invasive, 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: recurrence papillary lesion dome bladder; : tx with excision and Mytomycin-C intra bladder 12/2021- no sign of recurrence, followed by Urology at [facility] Coronary artery disease (Chronic) Atrial fibrillation (Chronic) Chronic anticoagulation (Chronic) 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) 12/2021, microalbuminuria Essential hypertension (Chronic) Hyperlipidemia (Chronic) Osteoarthritis of left knee (Chronic) Class 2 severe obesity with serious comorbidity and body mass index (BMI) of 38.0 to 38.9 in adult (Chronic) Primary osteoarthritis of both knees (Chronic) Tendonitis of left rotator cuff (Chronic) Tendinitis of long head of biceps brachii of left shoulder (Chronic) Arthritis of right knee (Chronic) 80 mg Depo-Medrol injection: 06/24/2023 Primary osteoarthritis of left knee (Chronic) 80 mg Depo-Medrol injection: 06/24/2023 Medical History Urothelial carcinoma of bladder (2017) Papillary urothelial carcinoma, non invasive, 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 04/16/14; X 1 - 2018-3 polyps, tubular adenomas, last of which had some early dysplastic features Patient due 2021-patient was called 12/2021 with attempt to set up colonoscopy. Patient wished to defer at this point. He makes an informed decision. 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) Family History Mother , 92 Heart disease Father , 76 Heart disease Sister , 76 Stroke Brother Diabetes Essential hypertension Stroke Maternal Grandfather Heart disease Paternal Grandfather Heart disease Maternal Grandmother Heart disease Paternal Grandmother Heart disease Brother , 68 Stroke Other Acute ill-defined cerebrovascular disease Social History Smoking/Tobacco Use Status: Former Tobacco Use tobacco type: cigarettes Quit Date: 08/09/86 Pack-years: 25 Tobacco: How many years used: 25 Second Hand Exposure: Yes Smoking risk assessment performed?: Yes Alcohol Intake: current Alcohol Intake frequency: holidays/special occasions only Alcohol type: wine and hard liquor Drug use: Never Substance use type: does not use Adopted: No Caregiver/Support person: No Foster care: No Household members: spouse Housing: house Number of Children: 0 Communication Needs: None Education Level: high school Do you need help understanding health information?: Rarely current occupation: retired Pets and animals: Yes Pets and animals: cat(s) Sexually active: No Do you think of yourself as: straight/heterosexual Current gender identity: male What is your relationship status?: How often do you talk on the phone with friends or family?: once per week How often do you get together with friends or relatives?: decline to answer How often do you attend mandaen or jehovah's witness services?: decline to answer Do you belong to any clubs or organized social groups?: no Panel score (0-1 are the most socially isolated patients): 1 What type of physical activity do you participate in: other Duration: 15-30 minutes/day Frequency: 3-4 times per week Oneyda/Christian: No preference Special oneyda needs: No Agree to transfusion: Yes Seatbelt use: always Helmet use: Yes Helmet use: always Drive intox or ride w/intox [employer]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 Working smoke detector in home: Yes Carbon monox detector in home: Yes Firearms in home: Yes Firearms unloaded and locked: No Do you feel safe at home: Yes Do you feel safe in your relationship?: Yes Victim of physical abuse: No Victim of emotional abuse: No Victim of sexual abuse: No Time Spent with Patient Time Spent with Patient: 45-69 minutes Time was spent: preparing to see the patient(eg.review tests), obtaining and/or reviewing separately otained hiistory, ordering medications,tests, procedures, referring, communicating with other health care rep, indepentently interpreting results, counseling the patient and care coordination
--- NOTE | 2025-08-01 15:00 | NUR.NOTE ---
Nursing Note: Report called into JAY Harry at [facility] at this time.
== END 2025-08-01 15:27 | disposition skilled nursing facility (03) | DRG 641 ==
LOC: ER 21:51 → MS 22:32
PROVIDERS: Family Medicine; Admitting Provider Hospitalist; Emergency Provider Physician Assistant; PCP Nurse Practitioner Family; Responsible Provider Family Medicine; Visit Provider Hospitalist
DX: R20.0 Anesthesia of skin (principal); I35.0 Nonrheumatic aortic (valve) stenosis; E87.5 Hyperkalemia; Z79.01 Long term (current) use of anticoagulants; Z79.84 Long term (current) use of oral hypoglycemic drugs; N17.9 Acute kidney failure, unspecified; Z85.51 Personal history of malignant neoplasm of bladder; R93.2 Abnormal findings on diagnostic imaging of liver and biliary tract; I50.20 Unspecified systolic (congestive) heart failure; E11.21 Type 2 diabetes mellitus with diabetic nephropathy; I48.20 Chronic atrial fibrillation, unspecified; I25.10 Atherosclerotic heart disease of native coronary artery without angina pectoris; R53.1 Weakness; D64.9 Anemia, unspecified; R74.8 Abnormal levels of other serum enzymes; I10 Essential (primary) hypertension; M17.0 Bilateral primary osteoarthritis of knee; I11.0 Hypertensive heart disease with heart failure; Z90.49 Acquired absence of other specified parts of digestive tract; Z95.2 Presence of prosthetic heart valve
CPT/HCPCS: 00123; 36415; 36416; 70496; 70498; 80048; 80053; 82550; 82805; 82947; 82962; 83690; 93005; 94640; 96374; 96375; 97110; 97162; 97530; 99291; 74177; 80162; 81003; 81015; 83036; 83605; 83735; 83880; 84132; 84484; 85025; 85610; 87086; 93010; 99223; 99232; 99239; G0378; J0612; J1815; J3490; J7613